=== PATIENT | female | born 1935 | race Caucasian/White ===

== ENCOUNTER 2016-05-30 15:09 | Observation (INO) ==
[2016-05-30] MEDS ORDERED: Ondansetron 4 MG/2 ML VIAL IVP ONE (16:01)
[2016-05-30] MEDS ORDERED: *HR* FentaNYL (PF) 100 MCG/2 ML VIAL IVP ONE (16:01)
--- NOTE | 2016-05-30 16:05 | Emergency Department Note ---
Disposition Clinical Impression: Right hip pain, Cervical pain, Decreased ambulation status Fall Qualifiers: Encounter type: initial encounter Qualified Code(s): W19.XXXA - Unspecified fall, initial encounter Thoracic back pain Qualifiers: Chronicity: acute Back pain laterality: midline Qualified Code(s): M54.6 - Pain in thoracic spine Compression fracture of thoracic spine, non-traumatic Qualifiers: Encounter type: initial encounter Qualified Code(s): M48.54XA - Collapsed vertebra, not elsewhere classified, thoracic region, initial encounter for fracture Disposition: Admitted As Inpatient Condition: Good Referrals: Pipe Marin DO [Primary Care Provider] - Forms: ED Satisfaction Letter Time of Disposition: 19:04 Fall HPI - General Chief Complaint: ED Fall Stated Complaint: Fall hip, back, shoulder pain Time Seen by Provider: 05/30/16 15:47 Source: patient Mode of arrival: ambulatory Limitations: no limitations Nursing Notes Reviewed: Yes Vital Signs Reviewed: Yes - History of Present Illness HPI Narrative: Patient is an 80-year-old female with past medical history of hypertension, high cholesterol, GERD, or a period she presents today due to mechanical fall. Patient states that she was walking with her walker, twisted and fell onto her back. She heard a pop in her upper back and was afraid that she "broke her back. "She also reports falling on her right hip. She also reports cervical spine pain. Denies any loss of consciousness, denies any chest pain, shortness of breath. No new weakness, numbness, tingling. - Related Data Home Medications Medication Instructions Recorded Confirmed Acetaminophen/Butalbital/Caffe 1.5 each PO Q4H 11/23/14 03/13/16 [Fioricet] Calcium Carbonate/Vitamin D3 1 each PO QAM 11/23/14 03/13/16 [Calcium 600 + D Tablet] Cyanocobalamin (Vitamin B-12) 1,000 mcg PO QWEEK 11/23/14 03/13/16 [Vitamin B12] Docusate [Colace] 200 mg PO QAM 11/23/14 03/13/16 Escitalopram [Lexapro] 20 mg PO QAM 11/23/14 03/13/16 Folic Acid 1 mg PO QAM 11/23/14 03/13/16 Lactulose 15 ml PO DAILY PRN 11/23/14 09/14/15 Levothyroxine [Synthroid] 112 mcg PO QAM 11/23/14 03/13/16 Omeprazole [PriLOSEC] 20 mg PO QAM 11/23/14 03/13/16 SUMAtriptan Succinate [Imitrex] 100 mg PO DAILY PRN 11/23/14 03/13/16 Sucralfate [Carafate] 1 gm PO QID 11/23/14 09/14/15 Magnesium Oxide [Mgo] 400 mg PO DAILY 03/13/16 03/13/16 Potassium Chloride [K-Tab ER] 40 meq PO DAILY 03/13/16 03/13/16 PredniSONE [Prednisone] 5 mg PO DAILY 03/13/16 03/13/16 Previous Rx's Medication Instructions Recorded Alprazolam [Xanax] 0.5 mg PO TID #30 tablet 11/28/14 ClonazePAM [Klonopin] 1 mg PO BID #20 tablet 11/28/14 Amlodipine [Norvasc] 10 mg PO DAILY #30 tablet 09/18/15 Lisinopril [Zestril] 20 mg PO DAILY #30 tablet 09/18/15 Atorvastatin Calcium [Lipitor] 20 mg PO HS #0 03/17/16 Sulfamethoxazole/Trimeth DS 1 each PO BID #9 tablet 03/17/16 [Bactrim Ds] Allergies Allergy/AdvReac Type Severity Reaction Status Date / Time esomeprazole [From Nexium] Allergy Difficulty Verified 09/13/15 20:15 Breathing levofloxacin [From Levaquin] Allergy Blister Verified 09/13/15 20:15 acetaminophen [From Percocet] AdvReac Dizziness Verified 09/13/15 20:15 Amoxicillin [From Augmentin] AdvReac Nausea Verified 09/13/15 20:15 aspirin AdvReac Dizziness Verified 09/13/15 20:15 clavulanic acid AdvReac Nausea Verified 09/13/15 20:15 [From Augmentin] codeine AdvReac Dizziness Verified 09/13/15 20:15 Estrogens AdvReac Dizziness Verified 09/13/15 20:15 Hydromorphone AdvReac Dizziness Verified 09/13/15 20:15 meperidine AdvReac Dizziness Verified 09/13/15 20:15 morphine AdvReac Dizziness Verified 09/13/15 20:15 nitrofurantoin AdvReac Nausea Verified 09/13/15 20:15 NSAIDS (Non-Steroidal AdvReac Dizziness Verified 09/13/15 20:15 Anti-Inflamma Oxycodone AdvReac Dizziness Verified 09/13/15 20:15 Paroxetine [From Paxil] AdvReac Nausea Verified 09/13/15 20:15 tolterodine [From Detrol] AdvReac Nausea Verified 09/13/15 20:15 Constitutional: Denies: fever Cardiovascular: Denies: chest pain, palpitations, dyspnea on exertion Respiratory: Denies: cough, dyspnea, wheezes, hemoptysis Gastrointestinal: Reports: nausea. Denies: abdominal pain, vomiting Genitourinary: Denies: urgency, dysuria, frequency Musculoskeletal: Reports: back pain, neck pain Integumentary: Denies: rash Neurological: Denies: headache, weakness, numbness, paresthesias Psychiatric: Reports: anxiety Fall PMH - Past Medical History Medical history: Reports: arthritis, GERD, hyperlipidemia, hypertension, migraine, RA, thyroid disease Surgical history: Reports: hysterectomy Psychiatric history: Reports: anxiety, depression - Social History Smoking Status: Never smoker Alcohol use: Reports: none Drug use: Reports: none Physical Exam - General Limitations: no limitations General appearance: alert, in no apparent distress - Head Head exam: atraumatic, normocephalic, normal inspection - Eye Eye exam: Present: normal appearance, PERRL, EOMI - ENT ENT exam: normal exam, normal oropharynx, mucous membranes moist - Neck Neck exam: Present: normal inspection, full ROM, trachea midline - Chest Chest inspection: Present: normal inspection, symmetric chest wall rise, tenderness (Tenderness of the cervical spine C2-C7 with palpation, midline) - Respiratory Respiratory exam: Present: normal lung sounds bilaterally - Cardiovascular Cardiovascular exam: Present: regular rate, normal rhythm, normal heart sounds - Abdominal Exam Abdominal exam: Present: soft, Non-Tender. Absent: tenderness, distention, guarding, rebound, rigidity - Extremities Exam Extremities exam: Present: other (Patient tenderness of the right hip with compression testing.) - Back Exam Back exam: Present: vertebral tenderness (T5-T8). Absent: muscle spasm, paraspinal tenderness - Neurological Exam Neurological exam: Present: alert, oriented X3, CN II-XII intact. Absent: motor sensory deficit - Psychiatric Psychiatric exam: Present: normal affect, normal mood - Skin Skin exam: Present: warm, dry, intact, normal color Course Course Narrative: Vitals within normal limits. Physical exam shows pain in the right hip, pain in the cervical spine and upper thoracic spine. Patient did have a mechanical fall, no LOC. No focal neurologic deficits on exam. We will get a CT of the patient's head, cervical spine, we will get x-ray imaging of the right hip and pelvis, upper thoracic spine. We will give patient fentanyl for pain control and Zofran for nausea. 18:00 Pain is controlled at this time. Imaging shows chronic injuries and compression fractures. Currently drawing bloodwork. Daughter is concerned due to patient's decreased ambulation status and has requested admisison until tomorrow. She is unable to take care of her at home. She has called [facility] and set up for patient ot be placed there tomorrow. 19:03 Basic bloodwork nonconcerning. Dr. Braden accepts for admission. Cervical Spine CT 05/30/16 16:02 IMPRESSION: 1. Mild anterior wedge deformity of T1 is new since 09/27/2014; however, there are no findings to suggest an acute fracture and this may represent an old injury. Correlate with location of pain. 2. Multilevel degenerative disc disease, not significantly changed. 3. Severe T4 compression fracture is unchanged. Ensure appropriate evaluation and treatment for osteoporosis. D/ / Ralph Potts MD / Ralph Potts MD Interpreting Provider: Ralph Potts MD Head CT 05/30/16 16:02 IMPRESSION: No acute intracranial abnormality. Chronic small vessel ischemic disease. D/ / Ranjan Thayer MD / Ranjan Thayer MD Interpreting Provider: Ranjan Thayer MD Hip X-Ray 05/30/16 16:02 IMPRESSION: 1. Stable posttraumatic changes in the right hip without clear evidence of acute fracture. D/ / Ralph Potts MD / Ralph Potts MD Interpreting Provider: Ralph Potts MD Thoracic Spine X-Ray 05/30/16 16:02 IMPRESSION: 1. Significant decreased bone mineral density. 2. There are numerous remote upper, mid, and lower thoracic spine compression/insufficiency fractures. If clinical concern for an acute component, evaluation with MRI is recommended. D/ / 05/30/2016 17:42:53 Abel Renee MD / [email or web address] Interpreting Provider: Abel Renee MD Humerus X-Ray 05/30/16 16:52 IMPRESSION: No radiographic evidence of fracture or dislocation identified. D/ / Ranjan Thayer MD / Ranjan Thayer MD Interpreting Provider: Ranjan Thayer MD Shoulder X-Ray 05/30/16 16:52 IMPRESSION: No acute fracture or dislocation. D/ / Ralph Potts MD / Ralph Potts MD Interpreting Provider: Ralph Potts MD Vital Signs Temperature 98.3 F 05/30/16 15:22 Pulse Rate 89 05/30/16 15:22 Respiratory Rate 16 05/30/16 15:22 Blood Pressure 148/78 05/30/16 15:22 O2 Sat by Pulse Oximetry 96 05/30/16 15:22 Temperature 98.3 F 05/30/16 15:22 Pulse Rate 89 05/30/16 15:22 Respiratory Rate 16 05/30/16 15:22 Blood Pressure 148/78 05/30/16 15:22 O2 Sat by Pulse Oximetry 96 05/30/16 15:22 Oxygen Delivery Oxygen Delivery Room Air Fall - MDM Narrative Medical decision making narrative: Vitals within normal limits. Physical exam shows pain in the right hip, pain in the cervical spine and upper thoracic spine. Patient did have a mechanical fall, no LOC. No focal neurologic deficits on exam. We will get a CT of the patient's head, cervical spine, we will get x-ray imaging of the right hip and pelvis, upper thoracic spine. We will give patient fentanyl for pain control and Zofran for nausea. 18:00 Pain is controlled at this time. Imaging shows chronic injuries and compression fractures. Currently drawing bloodwork. Daughter is concerned due to patient's decreased ambulation status and has requested admisison until tomorrow. She is unable to take care of her at home. She has called [facility] and set up for patient ot be placed there tomorrow. 19:03 Basic bloodwork nonconcerning. Dr. Braden accepts for admission. - Medical Records Medical records reviewed: Yes I reviewed the patient's medical records. - Lab Data Lab results reviewed: Yes I reviewed the patient's lab results. Result diagrams: 05/30/16 17:52 05/30/16 17:52 Lab Results 05/30/16 05/30/16 Range/Units 17:52 17:52 WBC 9.3 (4.3-11.1) K/mcL RBC 3.73 L (3.82-4.97) M/mcL Hgb 12.8 (11.5-15.4) g/dL Hct 38.9 (35.3-44.9) % MCV 104.3 H (83.0-100.0) fL MCH 34.3 H (28.0-33.3) pg MCHC 32.9 (31.6-35.5) g/dL RDW 13.2 (11.5-14.5) % Plt Count 151 (140-400) K/mcL MPV 10.0 (9.4-12.4) fL Immature Gran % 0.3 (0-4) % Seg Neutrophils % 79.0 % Lymphocytes % 13.6 % Monocytes % 5.9 % Eosinophils % 0.9 % Basophils % 0.3 % Neutrophils # 7.3 (1.6-8.9) K/mcL Lymphocytes # 1.3 (0.6-4.6) K/mcL Monocytes # 0.6 (0.0-1.3) K/mcL Eosinophils # 0.1 (0.0-0.6) K/mcL Basophils # 0.0 (0.0-0.2) K/mcL Sodium 133 L (136-145) mEq/L Potassium 5.1 H (3.5-4.5) mEq/L Chloride 98 (98-109) mEq/L Carbon Dioxide 29 (19-29) mEq/L BUN 18 (7-20) mg/dL Creatinine 0.75 (0.57-1.11) mg/dL Est GFR ( Amer) > 60 (> 60) Est GFR (Non-Af Amer) > 60 (> 60) BUN/Creatinine Ratio 24 (6-26) Glucose 100 H (70-99) mg/dL Calculated Osmolality 278 L (280-300) Calcium 9.1 (8.6-10.8) mg/dL Total Bilirubin 0.7 (0.2-1.2) mg/dL Direct Bilirubin 0.2 (0.0-0.5) mg/dL Indirect Bilirubin 0.5 (0.0-1.2) mg/dL AST 18 (5-34) Units/L ALT 14 (0-55) Units/L Alkaline Phosphatase 54 (38-126) Units/L Serum Total Protein 7.1 (6.0-8.3) g/dL Albumin 3.5 (3.5-5.0) g/dL Globulin 3.6 H (2.4-3.5) g/dL Albumin/Globulin Ratio 1.0 L (1.1-2.2) - Radiology Data Radiology results reviewed: Yes I reviewed the patient's radiology results. Cervical Spine CT 05/30/16 16:02 IMPRESSION: 1. Mild anterior wedge deformity of T1 is new since 09/27/2014; however, there are no findings to suggest an acute fracture and this may represent an old injury. Correlate with location of pain. 2. Multilevel degenerative disc disease, not significantly changed. 3. Severe T4 compression fracture is unchanged. Ensure appropriate evaluation and treatment for osteoporosis. D/ / Ralph Potts MD / Ralph Potts MD Interpreting Provider: Ralph Potts MD Head CT 05/30/16 16:02 IMPRESSION: No acute intracranial abnormality. Chronic small vessel ischemic disease. D/ / Ranjan Thayer MD / Ranjan Thayer MD Interpreting Provider: Ranjan Thayer MD Hip X-Ray 05/30/16 16:02 IMPRESSION: 1. Stable posttraumatic changes in the right hip without clear evidence of acute fracture. D/ / Ralph Potts MD / Ralph Potts MD Interpreting Provider: Ralph Potts MD Thoracic Spine X-Ray 05/30/16 16:02 IMPRESSION: 1. Significant decreased bone mineral density. 2. There are numerous remote upper, mid, and lower thoracic spine compression/insufficiency fractures. If clinical concern for an acute component, evaluation with MRI is recommended. D/ / 05/30/2016 17:42:53 Abel Renee MD / zeus Interpreting Provider: Abel Renee MD Humerus X-Ray 05/30/16 16:52 IMPRESSION: No radiographic evidence of fracture or dislocation identified. D/ / Ranjan Thayer MD / Ranjan Thayer MD Interpreting Provider: Ranjan Thayer MD Shoulder X-Ray 05/30/16 16:52 IMPRESSION: No acute fracture or dislocation. D/ / Ralph Potts MD / Ralph Potts MD Interpreting Provider: Ralph Potts MD S.B.AToshia - S.B.A.R. Situation: Demographics, MOA Background: Presenting Complaint, Relevant PMH, Meds, & Allergies Assessment: Vital Signs, Course and respsone to treatment, Exam Concerns, Patient/Family Expectation, Pertinant Lab Results, Outstanding Labs Recommendation: Barrier(s) to disposition, Recommendation based on pending studies, treatments, or consults S.B.A.RLeatha Report Given to: Dr. Sampson Holman Repor Time: 19:04
--- NOTE | 2016-05-30 16:07 | Emergency Department Note ---
Disposition Clinical Impression: Fall, Right hip pain, Thoracic back pain, Cervical pain, Decreased ambulation status, Compression fracture of thoracic spine, non-traumatic Disposition: Admitted As Inpatient Condition: Good Referrals: Pipe Marin DO [Primary Care Provider] - Forms: ED Satisfaction Letter Fall HPI - General Chief Complaint: ED Fall Stated Complaint: Fall hip, back, shoulder pain Time Seen by Provider: 05/30/16 15:47 Source: patient Mode of arrival: ambulatory Nursing Notes Reviewed: Yes Vital Signs Reviewed: Yes - Related Data Home Medications Medication Instructions Recorded Confirmed Acetaminophen/Butalbital/Caffe 1.5 each PO Q4H 11/23/14 05/30/16 [Fioricet] Calcium Carbonate/Vitamin D3 1 each PO QAM 11/23/14 05/30/16 [Calcium 600 + D Tablet] Cyanocobalamin (Vitamin B-12) 1,000 mcg PO QWEEK 11/23/14 05/30/16 [Vitamin B12] Docusate [Colace] 200 mg PO QAM 11/23/14 05/30/16 Escitalopram [Lexapro] 20 mg PO QAM 11/23/14 05/30/16 Folic Acid 1 mg PO QAM 11/23/14 05/30/16 Lactulose 15 ml PO DAILY PRN 11/23/14 09/14/15 Levothyroxine [Synthroid] 112 mcg PO QAM 11/23/14 03/13/16 Omeprazole [PriLOSEC] 20 mg PO QAM 11/23/14 03/13/16 SUMAtriptan Succinate [Imitrex] 100 mg PO DAILY PRN 11/23/14 03/13/16 Sucralfate [Carafate] 1 gm PO QID 11/23/14 09/14/15 Magnesium Oxide [Mgo] 400 mg PO DAILY 03/13/16 03/13/16 Potassium Chloride [K-Tab ER] 40 meq PO DAILY 03/13/16 03/13/16 PredniSONE [Prednisone] 5 mg PO DAILY 03/13/16 03/13/16 Amlodipine [Norvasc] 10 mg PO DAILY PRN 05/30/16 05/30/16 Cholecalciferol (D-3) [Vitamin D] 2,000 unit PO DAILY 05/30/16 05/30/16 Estradiol [Estrace] 1 gm VG 2XW PRN 05/30/16 05/30/16 Levothyroxine Sodium 100 mcg PO QAM 05/30/16 05/30/16 Lisinopril [Zestril] 10 mg PO DAILY 05/30/16 05/30/16 Previous Rx's Medication Instructions Recorded Alprazolam [Xanax] 0.5 mg PO TID #30 tablet 11/28/14 ClonazePAM [Klonopin] 1 mg PO BID #20 tablet 11/28/14 Amlodipine [Norvasc] 10 mg PO DAILY #30 tablet 09/18/15 Lisinopril [Zestril] 20 mg PO DAILY #30 tablet 09/18/15 Atorvastatin Calcium [Lipitor] 20 mg PO HS #0 03/17/16 Sulfamethoxazole/Trimeth DS 1 each PO BID #9 tablet 03/17/16 [Bactrim Ds] Allergies Allergy/AdvReac Type Severity Reaction Status Date / Time esomeprazole [From Nexium] Allergy Difficulty Verified 09/13/15 20:15 Breathing levofloxacin [From Levaquin] Allergy Blister Verified 09/13/15 20:15 acetaminophen [From Percocet] AdvReac Dizziness Verified 09/13/15 20:15 Amoxicillin [From Augmentin] AdvReac Nausea Verified 09/13/15 20:15 aspirin AdvReac Dizziness Verified 09/13/15 20:15 clavulanic acid AdvReac Nausea Verified 09/13/15 20:15 [From Augmentin] codeine AdvReac Dizziness Verified 09/13/15 20:15 Estrogens AdvReac Dizziness Verified 09/13/15 20:15 Hydromorphone AdvReac Dizziness Verified 09/13/15 20:15 meperidine AdvReac Dizziness Verified 09/13/15 20:15 morphine AdvReac Dizziness Verified 09/13/15 20:15 nitrofurantoin AdvReac Nausea Verified 09/13/15 20:15 NSAIDS (Non-Steroidal AdvReac Dizziness Verified 09/13/15 20:15 Anti-Inflamma Oxycodone AdvReac Dizziness Verified 09/13/15 20:15 Paroxetine [From Paxil] AdvReac Nausea Verified 09/13/15 20:15 tolterodine [From Detrol] AdvReac Nausea Verified 09/13/15 20:15 Constitutional: Denies: fever Cardiovascular: Denies: chest pain, palpitations, dyspnea on exertion Respiratory: Denies: cough, dyspnea, wheezes, hemoptysis Gastrointestinal: Reports: nausea. Denies: abdominal pain, vomiting Genitourinary: Denies: urgency, dysuria, frequency Musculoskeletal: Reports: back pain, neck pain Integumentary: Denies: rash Neurological: Denies: headache, weakness, numbness, paresthesias Fall PMH - Past Medical History Medical history: Reports: arthritis, GERD, hyperlipidemia, hypertension, migraine, RA, thyroid disease Surgical history: Reports: hysterectomy Psychiatric history: Reports: anxiety, depression - Social History Smoking Status: Never smoker Alcohol use: Reports: none Drug use: Reports: none Physical Exam - General Limitations: no limitations General appearance: alert, in no apparent distress Course Vital Signs Temperature 98.3 F 05/30/16 15:22 Pulse Rate 89 05/30/16 15:22 Respiratory Rate 16 05/30/16 15:22 Blood Pressure 148/78 05/30/16 15:22 O2 Sat by Pulse Oximetry 96 05/30/16 15:22 Temperature 98.3 F 05/30/16 15:22 Pulse Rate 89 05/30/16 15:22 Respiratory Rate 16 05/30/16 15:22 Blood Pressure 148/78 05/30/16 15:22 O2 Sat by Pulse Oximetry 96 05/30/16 15:22 Oxygen Delivery Oxygen Delivery Room Air Fall - [facility] Narrative Medical decision making narrative: I examined this patient and my medical decision-making was reviewed with the INFORMATION ARCHITECT/PA/Advanced Practice Nurse/Resident Physician. I agree with the documented findings, disposition and treatment plan as described except to the extent set forth below. I evaluated this patient on arrival with Dr. Lai, agree with his evaluation and treatment plan, I supervised the care of the patient's stay. Patient comes in today with her family. She was walking with her walker and slipped on [facility] floor. She struck her head she said headache and neck pain and right hip pain does not really extremity pain. Denies loss of conscious. This seems as to be a mechanical fall. Tests of the right hip. She multiple allergies most things cause her to have dizziness where Triphed [place] and Zofran x-ray or CT her head and neck and then reassess. She is in agreement with this plan. Cervical Spine CT 05/30/16 16:02 IMPRESSION: 1. Mild anterior wedge deformity of T1 is new since 09/27/2014; however, there are no findings to suggest an acute fracture and this may represent an old injury. Correlate with location of pain. 2. Multilevel degenerative disc disease, not significantly changed. 3. Severe T4 compression fracture is unchanged. Ensure appropriate evaluation and treatment for osteoporosis. D/ / Ralph Potts MD / Ralph Potts MD Interpreting Provider: Ralph Potts MD Head CT 05/30/16 16:02 IMPRESSION: No acute intracranial abnormality. Chronic small vessel ischemic disease. D/ / Ranjan Thayer MD / Ranjan Thayer MD Interpreting Provider: Ranjan Thyaer MD Hip X-Ray 05/30/16 16:02 IMPRESSION: 1. Stable posttraumatic changes in the right hip without clear evidence of acute fracture. D/ / Ralph Potts MD / Ralph Potts MD Interpreting Provider: Ralph Potts MD Thoracic Spine X-Ray 05/30/16 16:02 IMPRESSION: 1. Significant decreased bone mineral density. 2. There are numerous remote upper, mid, and lower thoracic spine compression/insufficiency fractures. If clinical concern for an acute component, evaluation with MRI is recommended. D/ / 05/30/2016 17:42:53 Abel Renee MD / bcarter Interpreting Provider: Abel Renee MD Humerus X-Ray 05/30/16 16:52 IMPRESSION: No radiographic evidence of fracture or dislocation identified. D/ / Ranjan Thayer MD / Ranjan Thayer MD Interpreting Provider: Ranjan Thayer MD Shoulder X-Ray 05/30/16 16:52 IMPRESSION: No acute fracture or dislocation. D/ / Ralph Potts MD / Ralph Potts MD Interpreting Provider: Ralph Potts MD 1800 hrs.: Patient was updated on the status. Waiting on labs and then we will get her admitted. She has been a [facility] about a month ago slid like her to be placed again. Daughter who is one of our hospital administrators as x- ray talk to the nursing facility there they said they have a bed for tomorrow. janitorial services supervisor aware. 1900 hrs.: Hospitals accepted patient for admission. - Lab Data Result diagrams: 05/30/16 17:52 05/30/16 17:52 Lab Results 05/30/16 05/30/16 Range/Units 17:52 17:52 WBC 9.3 (4.3-11.1) K/mcL RBC 3.73 L (3.82-4.97) M/mcL Hgb 12.8 (11.5-15.4) g/dL Hct 38.9 (35.3-44.9) % MCV 104.3 H (83.0-100.0) fL MCH 34.3 H (28.0-33.3) pg MCHC 32.9 (31.6-35.5) g/dL RDW 13.2 (11.5-14.5) % Plt Count 151 (140-400) K/mcL MPV 10.0 (9.4-12.4) fL Immature Gran % 0.3 (0-4) % Seg Neutrophils % 79.0 % Lymphocytes % 13.6 % Monocytes % 5.9 % Eosinophils % 0.9 % Basophils % 0.3 % Neutrophils # 7.3 (1.6-8.9) K/mcL Lymphocytes # 1.3 (0.6-4.6) K/mcL Monocytes # 0.6 (0.0-1.3) K/mcL Eosinophils # 0.1 (0.0-0.6) K/mcL Basophils # 0.0 (0.0-0.2) K/mcL Sodium 133 L (136-145) mEq/L Potassium 5.1 H (3.5-4.5) mEq/L Chloride 98 (98-109) mEq/L Carbon Dioxide 29 (19-29) mEq/L BUN 18 (7-20) mg/dL Creatinine 0.75 (0.57-1.11) mg/dL Est GFR ( Amer) > 60 (> 60) Est GFR (Non-Af Amer) > 60 (> 60) BUN/Creatinine Ratio 24 (6-26) Glucose 100 H (70-99) mg/dL Calculated Osmolality 278 L (280-300) Calcium 9.1 (8.6-10.8) mg/dL Total Bilirubin 0.7 (0.2-1.2) mg/dL Direct Bilirubin 0.2 (0.0-0.5) mg/dL Indirect Bilirubin 0.5 (0.0-1.2) mg/dL AST 18 (5-34) Units/L ALT 14 (0-55) Units/L Alkaline Phosphatase 54 (38-126) Units/L Serum Total Protein 7.1 (6.0-8.3) g/dL Albumin 3.5 (3.5-5.0) g/dL Globulin 3.6 H (2.4-3.5) g/dL Albumin/Globulin Ratio 1.0 L (1.1-2.2)
[2016-05-30 18:17] LABS: Basophils % 0.3 %; Eosinophils # 0.1 K/mcL (0.0-0.6); Eosinophils % 0.9 %; Hematocrit 38.9 % (35.3-44.9); Hemoglobin 12.8 g/dL (11.5-15.4); Immature Granulocytes % 0.3 % (0-4); Lymphocytes # 1.3 K/mcL (0.6-4.6); Lymphocytes % 13.6 %; Mean Corpuscular HGB Conc 32.9 g/dL (31.6-35.5); Mean Corpuscular Hemoglobin 34.3 pg (28.0-33.3); Mean Corpuscular Volume 104.3 fL (83.0-100.0); Monocytes # 0.6 K/mcL (0.0-1.3); Monocytes % 5.9 %; Neutrophils # 7.3 K/mcL (1.6-8.9); Platelet Count 151 K/mcL (140-400); Red Blood Count 3.73 M/mcL (3.82-4.97); Red Cell Distribution Width 13.2 % (11.5-14.5)
[2016-05-30 18:28] LABS: Alanine Aminotransferase 14 Units/L (0-55); Albumin 3.5 g/dL (3.5-5.0); Alkaline Phosphatase 54 Units/L (38-126); Aspartate Amino Transferase 18 Units/L (5-34); BUN/Creatinine Ratio 24 (6-26); Bilirubin,Direct 0.2 mg/dL (0.0-0.5); Bilirubin,Indirect 0.5 mg/dL (0.0-1.2); Bilirubin,Total 0.7 mg/dL (0.2-1.2); Blood Urea Nitrogen 18 mg/dL (7-20); Calcium 9.1 mg/dL (8.6-10.8); Carbon Dioxide 29 mEq/L (19-29); Chloride 98 mEq/L (98-109); Globulin 3.6 g/dL (2.4-3.5); Glucose 100 mg/dL (70-99); Osmolality,Calculated 278 (280-300); Potassium 5.1 mEq/L (3.5-4.5); Sodium 133 mEq/L (136-145); Total Protein 7.1 g/dL (6.0-8.3); eGFR For African Americans > 60 (> 60); eGFR For Non-African Americans > 60 (> 60)
[2016-05-30] MEDS ORDERED: Acetaminophen/Butalbital/CaffeineTABLET PO ONE (19:01)
[2016-05-30] MEDS ORDERED: *HR* Meperidine 25 MG/ML SYRINGE IVP PRN (20:59)
[2016-05-30] MEDS ORDERED: Naloxone 0.4 MG/ML INJ IVP PRN (20:59)
[2016-05-30] MEDS ORDERED: ESTRADIOL 1 GM VG PRN (21:11)
[2016-05-30] MEDS ORDERED: Cyanocobalamin (B-12) 1,000 MCG TABLET PO SCH (21:15)
--- NOTE | 2016-05-30 21:41 | Internal Med History&Physical ---
Date of Encounter: 05/30/16 Time of Encounter: 20:40 Assessment and Plan (1) Compression fracture of thoracic spine, non-traumatic Current visit: Yes Status: Acute 1. Pain control with Toradol and/or Demerol (discussed with daughter -- patient may take with no side effects/allergies). 2. Patient has significant allergies/side effects to multiple medications limiting our options for pain control. 3. Consult PT/OT for rehab potential. 4. Patient and family to consider MRI and Kyphoplasty consult. Qualifiers: Encounter type: initial encounter Qualified Code(s): M48.54XA - Collapsed vertebra, not elsewhere classified, thoracic region, initial encounter for fracture (2) Fall Current visit: Yes Status: Acute 1. PT/OT consults as noted. 2. Pt would likely benefit from inpatient rehab upon discharge. Qualifiers: Encounter type: initial encounter Qualified Code(s): W19.XXXA - Unspecified fall, initial encounter (3) HTN (hypertension) Current visit: No Status: Chronic 1. Continue home meds as appropriate. 2. Monitor BP and adjust as necessary. Qualifiers: Hypertension type: unspecified secondary hypertension Qualified Code(s): I15.9 - Secondary hypertension, unspecified (4) DVT prophylaxis Current visit: No Status: Acute 1. Heparin SQ. Internal Medicine - H&P: HPI Chief complaint: s/p fall; intractable pain Admitted From: Emergency Dept Plans for Post Hospital Care: Home History of present illness: Ms. Schmidt is an 80 year old female who fell earlier at home today and sustained significant pain and disability. She landed on her bottom and on her back. She was brought to ER for evaluation where she had extensive imaging, which did not reveal any new acute fractures. She did have evidence of remote compression fractures in her spine but these were not acute/new. She was subsequently admitted for intractable pain and potential rehabilitation. Upon my assessment of the patient, she is having significant pain in her upper thoracic to mid lumbar spine. She also has some radiating pain to her right hip. However, most of her pain is in her spine. She denies any numbness, weakness, syncope, or near syncope. She is not interested at the present time in undergoing MRI or considering kyphoplasty. However, she would like to discuss this with her family. I called her daughter and discussed that with her as well. Both daughter and the patient do not feel she is a good operative candidate. However, they would like to discuss with each other whether to proceed with MRI and kyphoplasty consultation. Meanwhile, they prefer to pursue pain control and PT/OT consult. Past Med Surg Social Fam HX - Past Medical History Source: patient, old records reviewed, obtained from family Medical history: arthritis, GERD, hyperlipidemia, hypertension, migraine, RA, thyroid disease Psychiatric history: anxiety, depression - Past Surgical History Surgical History: hysterectomy - Social History Smoking Status: Never smoker Smokeless Tobacco Status: No Alcohol use: none Drug use: none Current living situation: Home, With Family Activity Level: Uses cane/walker Recent Out of Country Travel Within the Last 8 Weeks: No - Family History Mother Adopted: No Living Status: Hx Family Cardiac Disorders: Yes Father Hx Family Cancer: Yes (colon cancer) Internal Medicine - H&P: Meds Acetaminophen/Butalbital/Caffe [Fioricet] 1.5 each PO Q4H 11/23/14 [History] Calcium Carbonate/Vitamin D3 [Calcium 600 + D Tablet] 1 each PO QAM 11/23/14 [ History] Cyanocobalamin (Vitamin B-12) [Vitamin B12] 1,000 mcg PO QWEEK 11/23/14 [History ] Docusate [Colace] 200 mg PO QAM 11/23/14 [History] Escitalopram [Lexapro] 20 mg PO QAM 11/23/14 [History] Folic Acid 1 mg PO QAM 11/23/14 [History] Omeprazole [PriLOSEC] 20 mg PO BID 11/23/14 [History] Sucralfate [Carafate] 1 gm PO TID 11/23/14 [History] Alprazolam [Xanax] 0.5 mg PO TID #30 tablet 11/28/14 [Rx] ClonazePAM [Klonopin] 1 mg PO BID #20 tablet 11/28/14 [Rx] Magnesium Oxide [Mgo] 400 mg PO DAILY 03/13/16 [History] Potassium Chloride [K-Tab ER] 40 meq PO DAILY 03/13/16 [History] PredniSONE [Prednisone] 5 mg PO DAILY PRN 03/13/16 [History] Atorvastatin Calcium [Lipitor] 20 mg PO HS #0 03/17/16 [Rx] Amlodipine [Norvasc] 10 mg PO DAILY PRN 05/30/16 [History] Cholecalciferol (D-3) [Vitamin D] 2,000 unit PO DAILY 05/30/16 [History] Estradiol [Estrace] 1 gm VG 2XW PRN 05/30/16 [History] Levothyroxine Sodium 100 mcg PO QAM 05/30/16 [History] Lisinopril [Zestril] 10 mg PO DAILY 05/30/16 [History] Allergies esomeprazole [From Nexium] Allergy (Verified 09/13/15 20:15) Difficulty Breathing levofloxacin [From Levaquin] Allergy (Verified 09/13/15 20:15) Blister acetaminophen [From Percocet] Adverse Reaction (Verified 09/13/15 20:15) Dizziness Amoxicillin [From Augmentin] Adverse Reaction (Verified 09/13/15 20:15) Nausea aspirin Adverse Reaction (Verified 09/13/15 20:15) Dizziness clavulanic acid [From Augmentin] Adverse Reaction (Verified 09/13/15 20:15) Nausea codeine Adverse Reaction (Verified 09/13/15 20:15) Dizziness Estrogens Adverse Reaction (Verified 09/13/15 20:15) Dizziness Hydromorphone Adverse Reaction (Verified 09/13/15 20:15) Dizziness meperidine Adverse Reaction (Verified 09/13/15 20:15) Dizziness morphine Adverse Reaction (Verified 09/13/15 20:15) Dizziness nitrofurantoin Adverse Reaction (Verified 09/13/15 20:15) Nausea NSAIDS (Non-Steroidal Anti-Inflamma Adverse Reaction (Verified 09/13/15 20:15) Dizziness Oxycodone Adverse Reaction (Verified 09/13/15 20:15) Dizziness Paroxetine [From Paxil] Adverse Reaction (Verified 09/13/15 20:15) Nausea tolterodine [From Detrol] Adverse Reaction (Verified 09/13/15 20:15) Nausea - Constitutional Constitutional: no chills, no fever(s) - EENT Eyes: no blurry vision, no change in vision Ears: no ear pain, no tinnitus Nose, mouth and throat: no nasal congestion, no sinus pressure, no sore throat - Cardiovascular Cardiovascular ROS IM: no chest pain, no dyspnea, no dyspnea on exertion, no lightheadedness, no palpitations, no syncope - Respiratory Respiratory: no cough, no dyspnea, no hemoptysis - Gastrointestinal Gastrointestinal: no abdominal pain, no diarrhea, no hematemesis, no hematochezia, no melena, no vomiting - Genitourinary Genitourinary: no dysuria, no hematuria - Musculoskeletal Musculoskeletal ROS IM: arthralgias, back pain, limited range of motion, stiffness, no joint swelling - Integumentary Integumentary IM: no rash, no jaundice - Neurological Neurological ROS: frequent falls (patient says no frequent falls; daughter states she's had several falls), no disequilibrium, no dizziness, no focal weakness, no headache(s) - Psychiatric Psychiatric: no anxiety, no depression - Endocrine Endocrine IM: no polydipsia, no polyuria - Hematologic/Lymphatic Hematologic/Lymphatic: easy bruising, no lymphadenopathy - Allergic/Immunologic Allergic/Immunologic: no wheezing, no GI upset with certain foods - Constitutional Vitals: Temp Pulse Resp BP Pulse Ox 98.0 F 82 16 122/53 96 05/30/16 20:22 05/30/16 20:22 05/30/16 20:22 05/30/16 20:22 05/30/16 20:22 General appearance: Present: cooperative, mild distress (due to pain), A&O X 3, pleasant, answers questions appropriately - Head Head exam: Present: atraumatic, normal inspection - Expanded Head Exam Head exam expanded: Absent: abrasion, contusion, general tenderness, hematoma - Eye Eye exam: Present: EOMI, normal appearance, PERRL. Absent: scleral icterus Pupils: Present: normal accommodation - ENT ENT exam: Present: mucous membranes moist, normal exam, normal oropharynx - Neck Neck exam general surgery: Present: full ROM, supple. Absent: lymphadenopathy, tenderness, nuchal rigidity, thyromegaly - Respiratory Respiratory exam: Present: CTAB. Absent: rales, rhonchi, wheezes - Cardiovascular Cardiovascular exam: Present: RRR, +S1, +S2 - GI/Abdominal GI/Abdominal exam: Present: normal bowel sounds, soft. Absent: hepatomegaly, mass, splenomegaly, tenderness - Extremities Exam Extremities exam: Present: warm, radial pulses palpable and symetrical. Absent : calf tenderness, full ROM, joint swelling, pedal edema - Back Exam Back exam: Present: tenderness (along upper thoracic down to mid lumbar spine). Absent: CVA tenderness (L), CVA tenderness (R), full ROM - Neurological Exam Neurological exam: Present: alert, CN II-XII intact, oriented X3, no focal deficits, strengths equal and symetr throughout - Psychiatric Psychiatric exam: Present: normal affect, normal mood - Skin Skin exam: Present: dry, warm. Absent: rash Internal Med - H&P Results - Labs CBC & Chem 7: 05/30/16 17:52 05/30/16 17:52 Labs: I reviewed all imaging reports of her spine and hips, noting remote (but not acute) compression fractures
[2016-05-30] MEDS: clonazePAM 1 MG TABLET PO SCH (22:04)
[2016-05-30] MEDS: predniSONE 20 MG TABLET PO SCH (22:04)
[2016-05-30] MEDS: *HR* Heparin 5,000 UNIT/ML VIAL SQ SCH (22:04)
[2016-05-30] MEDS: 0.9 % Sodium Chloride 1,000 ML IVC SCH (22:04)
[2016-05-30] MEDS: Acetaminophen/Butalbital/CaffeineTABLET PO PRN (23:30)
[2016-05-31] MEDS: Acetaminophen/Butalbital/CaffeineTABLET PO PRN ×3 (03:40→13:26)
[2016-05-31] MEDS: Ketorolac 30 MG/ML VIAL IVP PRN ×2 (03:54→10:05)
[2016-05-31 06:38] LABS: Alanine Aminotransferase 11 Units/L (0-55); Albumin 2.9 g/dL (3.5-5.0); Albumin/Globulin Ratio 0.9 (1.1-2.2); Alkaline Phosphatase 52 Units/L (38-126); Aspartate Amino Transferase 14 Units/L (5-34); BUN/Creatinine Ratio 21 (6-26); Bilirubin,Total 0.4 mg/dL (0.2-1.2); Blood Urea Nitrogen 14 mg/dL (7-20); Calcium 8.5 mg/dL (8.6-10.8); Carbon Dioxide 25 mEq/L (19-29); Chloride 103 mEq/L (98-109); Globulin 3.4 g/dL (2.4-3.5); Glucose 133 mg/dL (70-99); Magnesium 1.8 mg/dL (1.6-2.6); Osmolality,Calculated 282 (280-300); Potassium 4.6 mEq/L (3.5-4.5); Sodium 135 mEq/L (136-145); Total Protein 6.3 g/dL (6.0-8.3); eGFR For African Americans > 60 (> 60); eGFR For Non-African Americans > 60 (> 60)
[2016-05-31] MEDS: *HR* Heparin 5,000 UNIT/ML VIAL SQ SCH ×2 (07:55→21:28)
[2016-05-31] MEDS: Magnesium Oxide 400 MG TABLET PO SCH (07:56)
[2016-05-31] MEDS: ALPRAZolam 0.5 MG TABLET PO SCH ×3 (07:56→21:28)
[2016-05-31] MEDS: Folic Acid 1 MG TABLET PO SCH (07:56)
[2016-05-31] MEDS: Sucralfate 1 GM TABLET PO SCH ×3 (07:57→21:28)
[2016-05-31] MEDS: clonazePAM 1 MG TABLET PO SCH ×2 (07:57→21:28)
[2016-05-31] MEDS: amLODIPine 5 MG TABLET PO SCH (07:57)
[2016-05-31] MEDS: predniSONE 20 MG TABLET PO SCH (07:57)
[2016-05-31] MEDS: Cholecalciferol (D-3) 1,000 UNIT TABLET PO SCH (07:57)
--- NOTE | 2016-05-31 09:54 | Internal Med Progress Note ---
Date of Encounter: 05/31/16 Time of Encounter: 09:54 - Assessment and plan (1) Compression fracture of thoracic spine, non-traumatic Current Visit: Yes Status: Acute Assessment and plan: Continue pain control Physical therapy eval recommended SNF [facility] consultation placed for rehabilitation placement No further workup or surgical intervention requested as per patient and Qualifiers: Encounter type: initial encounter Qualified Code(s): M48.54XA - Collapsed vertebra, not elsewhere classified, thoracic region, initial encounter for fracture (2) Fall Current Visit: Yes Status: Acute Assessment and plan: Continue physical therapy while in-house Maintain fall precautions Qualifiers: Encounter type: initial encounter Qualified Code(s): W19.XXXA - Unspecified fall, initial encounter (3) Hyperkalemia Current Visit: Yes Status: Acute Assessment and plan: Improved from previous day continue to monitor (4) DVT prophylaxis Current Visit: No Status: Acute Assessment and plan: Heparin SQ (5) Hypertension Current Visit: No Status: Chronic Assessment and plan: BP within acceptable range continue home medications Qualifiers: Hypertension type: essential hypertension Qualified Code(s): I10 - Essential (primary) hypertension - Subjective Interval history: Patient seen and examined with present at bedside (Rosales Davis/REINA). Patient resting in chair, states of being in pain but controlled with the current pain medications. No overnight events were reported. I had a detailed discussion with patient's and the patient in regards to MRI and possible kyphoplasty for the chronic compression fracture of thoracic spine. They do not want any further testing or surgical interventions at this time. They both want just physical therapy and adequate pain control. The physical therapy evaluated the patient and recommended SNF. - Constitutional Vitals: Temp Pulse Resp BP Pulse Ox 98.0 F 81 16 144/74 97 05/31/16 06:47 05/31/16 06:47 05/31/16 06:47 05/31/16 06:47 05/31/16 06:47 General appearance: Present: cooperative, A&O X 3, pleasant, no acute distress, answers questions appropriately - Head Head exam: Present: atraumatic, normocephalic - Eye Eye exam: Present: normal appearance, conjuntiva pink, sclera anicteric - Respiratory Respiratory exam: Present: CTAB. Absent: respiratory distress, wheezes - Cardiovascular Cardiovascular exam: Present: RRR, +S1, +S2 - GI/Abdominal GI/Abdominal exam: Present: normal bowel sounds, soft. Absent: tenderness - Extremities Exam Extremities exam: Present: warm, radial pulses palpable and symetrical. Absent : calf tenderness, pedal edema - Neurological Exam Neurological exam: Present: alert, oriented X3 - Psychiatric Psychiatric exam: Present: normal affect, normal mood Internal Medicine: Result - Labs CBC & Chem 7: 05/30/16 17:52 05/31/16 05:48 Labs: BMP 05/31/16 05:48 Sodium 135 L Potassium 4.6 H Chloride 103 Carbon Dioxide 25 BUN 14 Creatinine 0.66 Glucose 133 H Calcium 8.5 L Liver Function 05/31/16 Range/Units 05:48 Total Bilirubin 0.4 (0.2-1.2) mg/dL AST 14 (5-34) Units/L ALT 11 (0-55) Units/L Alkaline Phosphatase 52 (38-126) Units/L Albumin 2.9 L (3.5-5.0) g/dL Consult Discharge Plan - Plan Referrals: Pipe Marin DO [Primary Care Provider] -
[2016-05-31] MEDS: 0.9 % Sodium Chloride 1,000 ML IVC SCH (12:17)
[2016-05-31] MEDS ORDERED: Ondansetron 4 MG/2 ML VIAL IVP PRN (13:38)
[2016-05-31] MEDS: Ondansetron ODT 4 MG TAB.RAPDIS SL PRN (15:37)
[2016-05-31] MEDS: Acetaminophen/Butalbital/CaffeineTABLET PO SCH ×2 (17:33→21:29)
[2016-05-31] MEDS ORDERED: traMADol 50 MG TABLET PO ONE (22:29)
[2016-06-01] MEDS: Acetaminophen/Butalbital/CaffeineTABLET PO SCH ×7 (01:03→21:31)
[2016-06-01] MEDS: Ondansetron ODT 4 MG TAB.RAPDIS SL PRN ×3 (01:03→21:32)
[2016-06-01 06:06] LABS: Basophils % 0.3 %; Eosinophils # 0.1 K/mcL (0.0-0.6); Eosinophils % 1.4 %; Hematocrit 38.7 % (35.3-44.9); Hemoglobin 12.1 g/dL (11.5-15.4); Immature Granulocytes % 0.2 % (0-4); Lymphocytes # 1.9 K/mcL (0.6-4.6); Lymphocytes % 30.7 %; Mean Corpuscular HGB Conc 31.3 g/dL (31.6-35.5); Mean Corpuscular Hemoglobin 32.5 pg (28.0-33.3); Mean Platelet Volume 10.3 fL (9.4-12.4); Monocytes # 0.6 K/mcL (0.0-1.3); Monocytes % 9.6 %; Neutrophils # 3.6 K/mcL (1.6-8.9); Platelet Count 131 K/mcL (140-400); Red Blood Count 3.72 M/mcL (3.82-4.97); Red Cell Distribution Width 13.2 % (11.5-14.5); Segmented Neutrophils % 57.8 %
[2016-06-01 06:21] LABS: % Iron Saturation 21 % (15-50); BUN/Creatinine Ratio 27 (6-26); Blood Urea Nitrogen 20 mg/dL (7-20); Calcium 8.4 mg/dL (8.6-10.8); Carbon Dioxide 30 mEq/L (19-29); Chloride 102 mEq/L (98-109); Glucose 112 mg/dL (70-99); Iron 58 mcg/dL (50-170); Osmolality,Calculated 287 (280-300); Phosphorous 3.9 mg/dL (2.3-4.7); Potassium 3.6 mEq/L (3.5-4.5); Sodium 137 mEq/L (136-145); Transferrin 200 mg/dL (180-382); eGFR For African Americans > 60 (> 60); eGFR For Non-African Americans > 60 (> 60)
[2016-06-01 06:41] LABS: Ferritin 38 ng/ml (5-204)
[2016-06-01] MEDS: Sucralfate 1 GM TABLET PO SCH ×3 (08:09→21:32)
[2016-06-01] MEDS: *HR* Heparin 5,000 UNIT/ML VIAL SQ SCH ×2 (08:09→18:45)
[2016-06-01] MEDS: clonazePAM 1 MG TABLET PO SCH ×2 (08:10→21:32)
[2016-06-01] MEDS: Folic Acid 1 MG TABLET PO SCH (08:10)
[2016-06-01] MEDS: amLODIPine 5 MG TABLET PO SCH (08:12)
[2016-06-01] MEDS: predniSONE 20 MG TABLET PO SCH (08:15)
[2016-06-01] MEDS: Cholecalciferol (D-3) 1,000 UNIT TABLET PO SCH (08:15)
[2016-06-01] MEDS: ALPRAZolam 0.5 MG TABLET PO SCH ×3 (08:16→21:32)
[2016-06-01] MEDS: Magnesium Oxide 400 MG TABLET PO SCH (08:16)
[2016-06-01] MEDS: traMADol 50 MG TABLET PO PRN ×3 (09:37→23:56)
--- NOTE | 2016-06-01 16:58 | Internal Med Progress Note ---
Date of Encounter: 06/01/16 Time of Encounter: 10:00 - Assessment and plan (1) Compression fracture of thoracic spine, non-traumatic Current Visit: Yes Status: Acute Assessment and plan: Continue pain control Physical therapy eval recommended SNF No further workup or surgical intervention requested as per patient and Patient to be discharged to Rehab once pain is adequately controlled Pain management consultation requested with Dr. Villalobos. Qualifiers: Encounter type: initial encounter Qualified Code(s): M48.54XA - Collapsed vertebra, not elsewhere classified, thoracic region, initial encounter for fracture (2) Fall Current Visit: Yes Status: Acute Assessment and plan: Continue physical therapy while in-house Maintain fall precautions Qualifiers: Encounter type: initial encounter Qualified Code(s): W19.XXXA - Unspecified fall, initial encounter (3) Hyperkalemia Current Visit: Yes Status: Resolved (4) DVT prophylaxis Current Visit: No Status: Acute Assessment and plan: Heparin SQ (5) Hypertension Current Visit: No Status: Chronic Assessment and plan: BP within acceptable range continue home medications Qualifiers: Hypertension type: essential hypertension Qualified Code(s): I10 - Essential (primary) hypertension - Subjective Interval history: Patient seen and examined with present at bedside (Rosales Davis/REINA). Patient resting in chair and states she doesnt feel well and is in a lot of pain. Pain has an extensive list of allergies listed and I had a detailed discussion in regards to patient's allergy list with patient's daughter (Santi [phone]). She states that she will review the allergy list again with her father and let us know. At this time, I am limited to provide patient with adequate pain control given her list of drug allergies and her daughter expresses understanding of this issue. - Constitutional Vitals: Temp Pulse Resp BP Pulse Ox 98.4 F 68 16 113/70 93 L 06/01/16 16:06 06/01/16 16:06 06/01/16 16:06 06/01/16 16:06 06/01/16 16:06 General appearance: Present: cooperative, mild distress (painful distress-lower back pain), A&O X 3, pleasant, answers questions appropriately - Head Head exam: Present: atraumatic, normocephalic - Eye Eye exam: Present: conjuntiva pink, sclera anicteric - Respiratory Respiratory exam: Present: CTAB. Absent: respiratory distress, wheezes - GI/Abdominal GI/Abdominal exam: Present: normal bowel sounds, soft. Absent: distended, tenderness - Extremities Exam Extremities exam: Present: pedal edema, warm, radial pulses palpable and symetrical. Absent: calf tenderness - Neurological Exam Neurological exam: Present: alert - Psychiatric Psychiatric exam: Present: normal affect, normal mood Internal Medicine: Result - Labs CBC & Chem 7: 06/01/16 05:48 06/01/16 05:48 Labs: Short CBC 06/01/16 Range/Units 05:48 WBC 6.3 (4.3-11.1) K/mcL Hgb 12.1 (11.5-15.4) g/dL Hct 38.7 (35.3-44.9) % Plt Count 131 L (140-400) K/mcL Neutrophils # 3.6 (1.6-8.9) K/mcL BMP 06/01/16 05:48 Sodium 137 Potassium 3.6 D Chloride 102 Carbon Dioxide 30 H BUN 20 Creatinine 0.74 Glucose 112 H Calcium 8.4 L Consult Discharge Plan - Plan Referrals: Pipe Marin DO [Primary Care Provider] - 08/11/16 3:45 pm Gorge Givens DO [Partnered Physician] - 07/12/16 3:00 pm Kwaku Chand MD [Partnered Physician] - 11/15/16 3:30 pm
[2016-06-02] MEDS: Acetaminophen/Butalbital/CaffeineTABLET PO SCH ×5 (00:57→17:31)
[2016-06-02 05:01] LABS: Basophils % 0.3 %; Eosinophils # 0.1 K/mcL (0.0-0.6); Eosinophils % 1.4 %; Hematocrit 33.8 % (35.3-44.9); Hemoglobin 10.9 g/dL (11.5-15.4); Immature Granulocytes % 0.2 % (0-4); Lymphocytes # 2.5 K/mcL (0.6-4.6); Lymphocytes % 37.2 %; Mean Corpuscular HGB Conc 32.2 g/dL (31.6-35.5); Mean Corpuscular Hemoglobin 34.3 pg (28.0-33.3); Mean Corpuscular Volume 106.3 fL (83.0-100.0); Mean Platelet Volume 10.4 fL (9.4-12.4); Monocytes # 0.7 K/mcL (0.0-1.3); Monocytes % 9.9 %; Neutrophils # 3.4 K/mcL (1.6-8.9); Platelet Count 133 K/mcL (140-400); Red Blood Count 3.18 M/mcL (3.82-4.97); Red Cell Distribution Width 13.2 % (11.5-14.5)
[2016-06-02 05:19] LABS: BUN/Creatinine Ratio 25 (6-26); Blood Urea Nitrogen 17 mg/dL (7-20); Calcium 8.5 mg/dL (8.6-10.8); Carbon Dioxide 29 mEq/L (19-29); Chloride 102 mEq/L (98-109); Glucose 89 mg/dL (70-99); Magnesium 2.2 mg/dL (1.6-2.6); Osmolality,Calculated 289 (280-300); Phosphorous 3.5 mg/dL (2.3-4.7); Potassium 4.2 mEq/L (3.5-4.5); Sodium 139 mEq/L (136-145); eGFR For African Americans > 60 (> 60); eGFR For Non-African Americans > 60 (> 60)
[2016-06-02] MEDS: *HR* Heparin 5,000 UNIT/ML VIAL SQ SCH ×2 (06:24→17:32)
[2016-06-02] MEDS: clonazePAM 1 MG TABLET PO SCH (08:55)
[2016-06-02] MEDS: ALPRAZolam 0.5 MG TABLET PO SCH ×2 (08:56→14:45)
[2016-06-02] MEDS: Ondansetron ODT 4 MG TAB.RAPDIS SL PRN ×2 (09:01→14:46)
[2016-06-02] MEDS: predniSONE 20 MG TABLET PO SCH (09:44)
[2016-06-02] MEDS: amLODIPine 5 MG TABLET PO SCH (09:44)
[2016-06-02] MEDS: Folic Acid 1 MG TABLET PO SCH (09:45)
[2016-06-02] MEDS: Cholecalciferol (D-3) 1,000 UNIT TABLET PO SCH (09:45)
[2016-06-02] MEDS: Sucralfate 1 GM TABLET PO SCH ×2 (09:46→14:46)
[2016-06-02] MEDS: Magnesium Oxide 400 MG TABLET PO SCH (09:46)
[2016-06-02 15:09] VITALS: BP 112/66
[2016-06-02] MEDS: traMADol 50 MG TABLET PO PRN (15:15)
--- NOTE | 2016-06-02 16:41 | Pain Management Consultation ---
Date of Encounter: 06/02/16 Time of Encounter: 16:39 Assessment and Plan (1) Compression fracture of body of thoracic vertebra Current Visit: Yes Status: Acute Given the patient's recent history of a fall, her exam showing exquisite tenderness along the midline in the thoracic spine, and a radiograph showing compression deformities of vertebral bodies, I feel that she has experienced another acute compression fracture in her thoracic spine. Based upon the radiograph alone, it is difficult to formally establish the diagnosis of which vertebral body is acutely broken. However, the severe tenderness that she shows on exam makes me worry that there is a new fracture. I had a long and productive conversation with both the patient and her in the hospital room. I feel that the patient should be discharged to a rehabilitation facility. She should continue to take tramadol every 4-6 hours for pain as needed. So far, this medication has been effective while not causing side effects. Importantly, if the patient is not doing well in terms of pain control or suffering with uncontrolled pain, she should be evaluated in the spine Center for compression fracture repair. I described to the patient what compression fracture repair would be, and the patient is leery of undergoing general anesthesia to have this procedure done. However, if she is not doing well, kyphoplasty should be considered. If she is doing well with oral pain medication alone, and the pain is decreasing through time, nothing else needs to be done. I do not recommend aggressive physical therapy for the upper body given my concern for acute compression fracture. Physical therapy and rehabilitation efforts should focus on walking and gait retraining. I gave my phone number to the patient's daughter. I encourage the family / patient to contact me if the patient is not doing well or has questions. The assessment and plan as outlined above was discussed with the patient and/or family members who expressed understanding and agreement. All questions were answered. History of Present Illness Chief complaint: back pain HPI: Ms. Schmidt is a 80 year old female suffering with a new back pain that has been present since a fall last Monday. The patient was admitted to the hospital via the emergency department. The patient states that she does not know why she fell. She fell to her right and landed on her right side. Since the fall, she has noticed exquisite and sharp back pain located between her shoulder blades directly in the middle of her body. She denies radiating pain into her arms or down her back. The pain feels like a knife. She rates the pain as a 10/10. Pain increases with walking and standing. The pain also goes up when she reaches for objects on a table in front of her. Both her and her are well aware of prior compression fractures. She has ever had kyphoplasty repair of compression fracture. She has side effects secondary to multiple kinds of analgesics specifically in the opioid class. She has found that tramadol is effective both to control pain and side effects. She is taken several doses of tramadol since yesterday morning, and she has not experienced nausea, vomiting, dizziness, or sedation. She does feel that the tramadol is effective to decrease pain in her back. Past Med Surg Social Fam HX - Past Medical History Medical history: arthritis, GERD, hyperlipidemia, hypertension, migraine, RA, thyroid disease Psychiatric history: anxiety, depression - Past Surgical History Surgical History: hysterectomy - Social History Smoking Status: Never smoker Smokeless Tobacco Status: No Alcohol use: none Drug use: none - Family History Mother Adopted: No Living Status: Hx Family Cardiac Disorders: Yes Father Hx Family Cancer: Yes (colon cancer) Medications and Allergies Acetaminophen/Butalbital/Caffe [Fioricet] 1.5 each PO Q4H 11/23/14 [History] Calcium Carbonate/Vitamin D3 [Calcium 600 + D Tablet] 1 each PO QAM 11/23/14 [ History] Cyanocobalamin (Vitamin B-12) [Vitamin B12] 1,000 mcg PO QWEEK 11/23/14 [History ] Docusate [Colace] 200 mg PO QAM 11/23/14 [History] Escitalopram [Lexapro] 20 mg PO QAM 11/23/14 [History] Folic Acid 1 mg PO QAM 11/23/14 [History] Omeprazole [PriLOSEC] 20 mg PO BID 11/23/14 [History] Sucralfate [Carafate] 1 gm PO TID 11/23/14 [History] Alprazolam [Xanax] 0.5 mg PO TID #30 tablet 11/28/14 [Rx] ClonazePAM [Klonopin] 1 mg PO BID #20 tablet 11/28/14 [Rx] Magnesium Oxide [Mgo] 400 mg PO DAILY 03/13/16 [History] Potassium Chloride [K-Tab ER] 40 meq PO DAILY 03/13/16 [History] PredniSONE [Prednisone] 5 mg PO DAILY PRN 03/13/16 [History] Atorvastatin Calcium [Lipitor] 20 mg PO HS #0 03/17/16 [Rx] Amlodipine [Norvasc] 10 mg PO DAILY PRN 05/30/16 [History] Cholecalciferol (D-3) [Vitamin D] 2,000 unit PO DAILY 05/30/16 [History] Estradiol [Estrace] 1 gm VG 2XW PRN 05/30/16 [History] Levothyroxine Sodium 100 mcg PO QAM 05/30/16 [History] Lisinopril [Zestril] 10 mg PO DAILY 05/30/16 [History] Allergies esomeprazole [From Nexium] Allergy (Verified 09/13/15 20:15) Difficulty Breathing levofloxacin [From Levaquin] Allergy (Verified 09/13/15 20:15) Blister acetaminophen [From Percocet] Adverse Reaction (Verified 09/13/15 20:15) Dizziness Amoxicillin [From Augmentin] Adverse Reaction (Verified 09/13/15 20:15) Nausea aspirin Adverse Reaction (Verified 09/13/15 20:15) Dizziness clavulanic acid [From Augmentin] Adverse Reaction (Verified 09/13/15 20:15) Nausea codeine Adverse Reaction (Verified 09/13/15 20:15) Dizziness Estrogens Adverse Reaction (Verified 09/13/15 20:15) Dizziness Hydromorphone Adverse Reaction (Verified 09/13/15 20:15) Dizziness meperidine Adverse Reaction (Verified 09/13/15 20:15) Dizziness morphine Adverse Reaction (Verified 09/13/15 20:15) Dizziness nitrofurantoin Adverse Reaction (Verified 09/13/15 20:15) Nausea NSAIDS (Non-Steroidal Anti-Inflamma Adverse Reaction (Verified 09/13/15 20:15) Dizziness Oxycodone Adverse Reaction (Verified 09/13/15 20:15) Dizziness Paroxetine [From Paxil] Adverse Reaction (Verified 09/13/15 20:15) Nausea tolterodine [From Detrol] Adverse Reaction (Verified 09/13/15 20:15) Nausea Review of Systems - Constitutional Constitutional ROS IM: no photophobia, no phonophobia, no daytime sleepiness, no fever(s), no stops breathing during sleep - EENT Nose, mouth and throat: no headache(s), no neck pain, no neck trauma - Cardiovascular Cardiovascular ROS: no chest pain, no leg edema, no lightheadedness - Respiratory Respiratory: no pain on inspiration, no pain with cough - Gastrointestinal Gastrointestinal: no abdominal pain, no constipation, no diarrhea, no heartburn - Genitourinary Genitourinary ROS: no difficulty urinating, no flank pain, no urinary hesitancy - Musculoskeletal Musculoskeletal ROS: no muscle weakness, no numbness, no radiating pain into limb, no tingling left: hand pain, hand stiffness - Integumentary Integumentary: no erythema, no lesions, no swelling - Neurological Neurological ROS: no abnormal gait, no behavioral changes, no focal weakness, no radicular pain - Psychiatric Psychiatric general: no anxiety, no confusion, no depression - Hematologic/Lymphatic Hematologic/Lymphatic pediatric: no easy bleeding, no easy bruising Physical Exam Initial Vital Signs Temp Pulse Resp BP Pulse Ox 98.3 F 89 16 148/78 96 05/30/16 15:22 05/30/16 15:22 05/30/16 15:22 05/30/16 15:22 05/30/16 15:22 - General physical appearance General physical appearance: awake & oriented, no distress, no pain - Eyes Eye exam: normal ocular movement - ENT normal pinna, normal nares - Neck no masses - Respiratory normal respiratory effort - Abdomen Abdomen: soft, non tender, bowel sounds - Rectum Rectum: normal sphincter tone - Integumentary Integumentary general surgery: no rash - Neurologic normal coordination - Musculoskeletal Musculoskeletal: normal gait, normal posture - Psychiatric Psychiatric: oriented to time, oriented to person, oriented to place - Additional Findings EYES:: pupils equal and round, no myosis. SKIN:: no areas of echymoses or petechiae CARDIOVASCULAR:: regular rate and rhythm, no murmurs PULMONARY:: lung driver clear to auscultation bilaterally. Quiet, normal respiratory pattern. MUSCULOSKELETAL GAIT:: not antalgic. forward flexed, kyphosis. INSPECTION:: no surgical scarring in thoracic spine. PALPATION:: paraspinous musculature is tender to deep palpation in the thoracic area bilaterally. There is sharp tenderness and hyperalgesia to palpation of the T5 and T6 spinous processes. STRENGTH:: RIGHT hip flexors: 5/5 :: LEFT hip flexors: 5/5 RIGHT hip adduction 5/5 :: LEFT hip adduction 5/5 RIGHT hip abduction 5/5 :: LEFT hip abduction 5/5 RIGHT knee extension 5/5 :: LEFT knee extension 5/5 RIGHT knee flexion 5/5 :: LEFT knee flexion 5/5 RIGHT ankle dorsiflexion 5/5 :: LEFT ankle dorsiflexion 5/5 RIGHT ankle plantarflexion 5/5 :: LEFT ankle plantarflexion 5/5 RIGHT great toe dorsiflexion 5/5 :: LEFT great toe dorsiflexion 5/5 RIGHT great toe plantarflexion 5/5 :: LEFT great toe plantarflexion 5/5 NEUROLOGIC SENSATION:: hypesthesia is not noted in lower extremity or thoracic dermatomes. SIGNS OF NEUROVASCULAR COMPRESSION Spasticity:: none Atrophy:: not present in UE or LE musculature Fasciculation:: not present in UE or LE musculature PSYCHIATRIC:: ORIENTATION:: awake and alert. Hard of hearing. INSIGHT:: good awareness of illness. AFFECT:: pleasant. Radiology Images Viewed By Me:: Radiograph of the thoracic spine from 2 days ago shows multiple compression fractures in thoracic vertebral bodies. The fracture severity varies from vertebral body to vertebral body. I also see T12, L1, and L5 compression fractures that have been present at least since November 2014. These fractures are noted on CT scans of the abdomen and pelvis incidentally. I have reviewed and agree with information documented in the scribed documentation, ROS, patient medications, allergies, medical history, surgical history, social history, and family history. Results - Labs 06/02/16 04:44 06/02/16 04:44 Abnormal lab results RBC 3.18 M/mcL (3.82-4.97) L 06/02/16 04:44 Hgb 10.9 g/dL (11.5-15.4) L 06/02/16 04:44 Hct 33.8 % (35.3-44.9) L 06/02/16 04:44 MCV 106.3 fL (83.0-100.0) H 06/02/16 04:44 MCH 34.3 pg (28.0-33.3) H 06/02/16 04:44 Plt Count 133 K/mcL (140-400) L 06/02/16 04:44 Calcium 8.5 mg/dL (8.6-10.8) L 06/02/16 04:44 Albumin 2.9 g/dL (3.5-5.0) L 05/31/16 05:48 Albumin/Globulin Ratio 0.9 (1.1-2.2) L 05/31/16 05:48 Diabetes panel 06/02/16 Range/Units 04:44 Sodium 139 (136-145) mEq/L Potassium 4.2 (3.5-4.5) mEq/L Chloride 102 (98-109) mEq/L Carbon Dioxide 29 (19-29) mEq/L BUN 17 (7-20) mg/dL Creatinine 0.68 (0.57-1.11) mg/dL Glucose 89 (70-99) mg/dL Calcium 8.5 L (8.6-10.8) mg/dL Calcium panel 06/02/16 Range/Units 04:44 Calcium 8.5 L (8.6-10.8) mg/dL Phosphorus 3.5 (2.3-4.7) mg/dL Pituitary panel 06/02/16 Range/Units 04:44 Sodium 139 (136-145) mEq/L Potassium 4.2 (3.5-4.5) mEq/L Chloride 102 (98-109) mEq/L Carbon Dioxide 29 (19-29) mEq/L BUN 17 (7-20) mg/dL Creatinine 0.68 (0.57-1.11) mg/dL Glucose 89 (70-99) mg/dL Calcium 8.5 L (8.6-10.8) mg/dL Adrenal panel 06/02/16 Range/Units 04:44 Sodium 139 (136-145) mEq/L Potassium 4.2 (3.5-4.5) mEq/L Chloride 102 (98-109) mEq/L Carbon Dioxide 29 (19-29) mEq/L BUN 17 (7-20) mg/dL Creatinine 0.68 (0.57-1.11) mg/dL Glucose 89 (70-99) mg/dL Calcium 8.5 L (8.6-10.8) mg/dL All other labs normal. Consult Discharge Plan - Plan Referrals: Pipe Marin DO [Primary Care Provider] - 08/11/16 3:45 pm Gorge Givens DO [Partnered Physician] - 07/12/16 3:00 pm Kwaku Chand MD [Partnered Physician] - 11/15/16 3:30 pm
--- NOTE | 2016-06-02 17:13 | Discharge Summary ---
Date of Encounter: 06/02/16 Time of Encounter: 10:00 - Discharge Diagnosis (1) Compression fracture of thoracic spine, non-traumatic Priority: Primary Status: Acute Qualifiers: Encounter type: initial encounter Qualified Code(s): M48.54XA - Collapsed vertebra, not elsewhere classified, thoracic region, initial encounter for fracture (2) Fall Priority: Primary Status: Acute Qualifiers: Encounter type: initial encounter Qualified Code(s): W19.XXXA - Unspecified fall, initial encounter (3) Hyperkalemia Priority: Secondary Status: Resolved (4) DVT prophylaxis Priority: Secondary Status: Acute (5) Hypertension Priority: Secondary Status: Chronic Qualifiers: Hypertension type: essential hypertension Qualified Code(s): I10 - Essential (primary) hypertension - Discharge Medications Prescriptions: Alprazolam [Xanax 0.5 MG Tablet] 0.5 mg PO TID #20 tablet Tramadol HCl [Ultram] 50 mg PO Q6H PRN #30 tab PRN Reason: Pain Home Medications: Acetaminophen/Butalbital/Caffe [Fioricet] 1.5 each PO Q4H 11/23/14 [History] Calcium Carbonate/Vitamin D3 [Calcium 600 + D Tablet] 1 each PO QAM 11/23/14 [ History] Cyanocobalamin (Vitamin B-12) [Vitamin B12] 1,000 mcg PO QWEEK 11/23/14 [History ] Docusate [Colace] 200 mg PO QAM 11/23/14 [History] Escitalopram [Lexapro] 20 mg PO QAM 11/23/14 [History] Folic Acid 1 mg PO QAM 11/23/14 [History] Omeprazole [PriLOSEC] 20 mg PO BID 11/23/14 [History] Sucralfate [Carafate] 1 gm PO TID 11/23/14 [History] Alprazolam [Xanax] 0.5 mg PO TID #30 tablet 11/28/14 [Rx] ClonazePAM [Klonopin] 1 mg PO BID #20 tablet 11/28/14 [Rx] Magnesium Oxide [Mgo] 400 mg PO DAILY 03/13/16 [History] Potassium Chloride [K-Tab ER] 40 meq PO DAILY 03/13/16 [History] PredniSONE [Prednisone] 5 mg PO DAILY PRN 11/20/16 [History] Atorvastatin Calcium [Lipitor] 20 mg PO HS #0 03/17/16 [Rx] Amlodipine [Norvasc] 10 mg PO DAILY PRN 05/30/16 [History] Cholecalciferol (D-3) [Vitamin D] 2,000 unit PO DAILY 05/30/16 [History] Estradiol [Estrace] 1 gm VG 2XW PRN 05/30/16 [History] Levothyroxine Sodium 100 mcg PO QAM 05/30/16 [History] Lisinopril [Zestril] 10 mg PO DAILY 05/30/16 [History] Alprazolam [Xanax 0.5 MG Tablet] 0.5 mg PO TID #20 tablet 06/02/16 [Rx] Tramadol HCl [Ultram] 50 mg PO Q6H PRN #30 tab 06/02/16 [Rx] Allergies/Adverse Reactions: Allergies esomeprazole [From Nexium] Allergy (Verified 09/13/15 20:15) Difficulty Breathing levofloxacin [From Levaquin] Allergy (Verified 09/13/15 20:15) Blister acetaminophen [From Percocet] Adverse Reaction (Verified 09/13/15 20:15) Dizziness Amoxicillin [From Augmentin] Adverse Reaction (Verified 09/13/15 20:15) Nausea aspirin Adverse Reaction (Verified 09/13/15 20:15) Dizziness clavulanic acid [From Augmentin] Adverse Reaction (Verified 09/13/15 20:15) Nausea codeine Adverse Reaction (Verified 09/13/15 20:15) Dizziness Estrogens Adverse Reaction (Verified 09/13/15 20:15) Dizziness Hydromorphone Adverse Reaction (Verified 09/13/15 20:15) Dizziness meperidine Adverse Reaction (Verified 09/13/15 20:15) Dizziness morphine Adverse Reaction (Verified 09/13/15 20:15) Dizziness nitrofurantoin Adverse Reaction (Verified 09/13/15 20:15) Nausea NSAIDS (Non-Steroidal Anti-Inflamma Adverse Reaction (Verified 09/13/15 20:15) Dizziness Oxycodone Adverse Reaction (Verified 09/13/15 20:15) Dizziness Paroxetine [From Paxil] Adverse Reaction (Verified 09/13/15 20:15) Nausea tolterodine [From Detrol] Adverse Reaction (Verified 09/13/15 20:15) Nausea Date of admission: 05/30/16 19:16 Primary care physician: Pipe Marin DO Consults: 05/30/16 21:10 Consult to Occupational Therapy [CONS] Routine Comment: Evaluate, develop and implement POC Consult to Physical Therapy [CONS] Routine Comment: Evaluate, develop and implement POC Consult to Division Merchandise Manager [CONS] Routine Reason for SW Consult: Referral to ECF for rehab....just discharged from [facility] ~ 30 days ago. 06/01/16 16:59 Consult to Pain Management [CONS] Routine Consulting Provider: Pain Humphrey Anderson Reason for Consult: spinal compression fracture Call Completed: Yes Discharging clinician: Lilia Caruso Anticipated date of discharge: 06/02/16 - Patient Status Disposition: Transfer SNF Condition: Good Functional capacity at discharge: uses cane/walker Overall status at discharge: patient is progressing back to baseline - Discharge Instructions Instructions: Vertebral Compression Fracture (DC) Follow Up With: Pipe Marin DO [Primary Care Provider] - 08/11/16 3:45 pm Gorge Givens DO [Partnered Physician] - 07/12/16 3:00 pm Kwaku Chand MD [Partnered Physician] - 11/15/16 3:30 pm Additional Instructions: Please follow up with your PCP, pain management as listed above. Please resume all home medications as prescribed by your primary care physician. Please continue activity as recommended by physical therapy. - Diet and Activity Activity: as per physical therapy Diet: advance to your usual diet Hospital course: Ms. Schmidt is a 80 year old female with Past medical history of arthritis, GERD, hyperlipidemia, hypertension, migraines, thyroid disease, chronic back pain status post multiple falls and T-spine compression fractures who was admitted status post fall and was admitted for pain management. Patient was reported to have compression fracture of the thoracic spine which appeared to be chronic in nature. Due to patient's comorbidities and age, family and patient did not want to go through any surgical interventions or any further testing. Given patient's extensive list of drug allergies, pain control was difficult to accomplish. She was started on tramadol which provided her with adequate relief. The risks associated with tramadol therapy were discussed in detail with the patient and family. Pain management consultation with Dr. Villalobos was also requested. Dr. Villalobos examined the patient and recommended to continue tramadol in the rehabilitation facility. Patient can follow up with Dr. Villalobos on as-needed basis. At this time patient is stable and will be discharged to rehabilitation facility. Patient's discharge, diagnosis, care plan was discussed in detail with the patient and the family, they demonstrate understanding, and agree with the management plan. - Time Spent with Patient Total time spent providing and/or coordinating discharge services: - Constitutional Vitals: Temp Pulse Resp BP Pulse Ox 97.8 F 84 16 112/66 95 06/02/16 15:08 06/02/16 15:08 06/02/16 15:08 06/02/16 15:08 06/02/16 15:08 General appearance: Present: cooperative, A&O X 3, pleasant, no acute distress, answers questions appropriately - Head Head exam: Present: atraumatic, normocephalic - Eye Eye exam: Present: normal appearance, conjuntiva pink, sclera anicteric - Respiratory Respiratory exam: Present: CTAB. Absent: respiratory distress, wheezes - Cardiovascular Cardiovascular exam: Present: RRR, +S1, +S2 - GI/Abdominal GI/Abdominal exam: Present: normal bowel sounds, soft. Absent: tenderness - Extremities Exam Extremities exam: Present: warm, radial pulses palpable and symetrical. Absent : tenderness - Neurological Exam Neurological exam: Present: alert, oriented X3 - Psychiatric Psychiatric exam: Present: normal affect, normal mood
--- NOTE | 2016-06-02 17:24 | Physician Discharge Referral ---
[facility] Referral Info Transfer To: F Provider in Charge after Transfer: PCP - Diagnosis (1) Compression fracture of thoracic spine, non-traumatic Priority: Primary Status: Acute (2) Fall Priority: Primary Status: Acute (3) Hyperkalemia Priority: Secondary Status: Resolved (4) DVT prophylaxis Priority: Secondary Status: Acute (5) Hypertension Priority: Secondary Status: Chronic - Transfer Medications Prescriptions: Alprazolam [Xanax 0.5 MG Tablet] 0.5 mg PO TID #20 tablet Tramadol HCl [Ultram] 50 mg PO Q6H PRN #30 tab PRN Reason: Pain Home Medications: Acetaminophen/Butalbital/Caffe [Fioricet] 1.5 each PO Q4H 11/23/14 [History] Calcium Carbonate/Vitamin D3 [Calcium 600 + D Tablet] 1 each PO QAM 11/23/14 [ History] Cyanocobalamin (Vitamin B-12) [Vitamin B12] 1,000 mcg PO QWEEK 11/23/14 [History ] Docusate [Colace] 200 mg PO QAM 11/23/14 [History] Escitalopram [Lexapro] 20 mg PO QAM 11/23/14 [History] Folic Acid 1 mg PO QAM 11/23/14 [History] Omeprazole [PriLOSEC] 20 mg PO BID 11/23/14 [History] Sucralfate [Carafate] 1 gm PO TID 11/23/14 [History] Alprazolam [Xanax] 0.5 mg PO TID #30 tablet 11/28/14 [Rx] ClonazePAM [Klonopin] 1 mg PO BID #20 tablet 11/28/14 [Rx] Magnesium Oxide [Mgo] 400 mg PO DAILY 03/13/16 [History] Potassium Chloride [K-Tab ER] 40 meq PO DAILY 03/13/16 [History] PredniSONE [Prednisone] 5 mg PO DAILY PRN 03/13/16 [History] Atorvastatin Calcium [Lipitor] 20 mg PO HS #0 03/17/16 [Rx] Amlodipine [Norvasc] 10 mg PO DAILY PRN 05/30/16 [History] Cholecalciferol (D-3) [Vitamin D] 2,000 unit PO DAILY 05/30/16 [History] Estradiol [Estrace] 1 gm VG 2XW PRN 05/30/16 [History] Levothyroxine Sodium 100 mcg PO QAM 05/30/16 [History] Lisinopril [Zestril] 10 mg PO DAILY 05/30/16 [History] Alprazolam [Xanax 0.5 MG Tablet] 0.5 mg PO TID #20 tablet 06/02/16 [Rx] Tramadol HCl [Ultram] 50 mg PO Q6H PRN #30 tab 06/02/16 [Rx] Allergies/Adverse Reactions: Allergies esomeprazole [From Nexium] Allergy (Verified 09/13/15 20:15) Difficulty Breathing levofloxacin [From Levaquin] Allergy (Verified 09/13/15 20:15) Blister acetaminophen [From Percocet] Adverse Reaction (Verified 09/13/15 20:15) Dizziness Amoxicillin [From Augmentin] Adverse Reaction (Verified 09/13/15 20:15) Nausea aspirin Adverse Reaction (Verified 09/13/15 20:15) Dizziness clavulanic acid [From Augmentin] Adverse Reaction (Verified 09/13/15 20:15) Nausea codeine Adverse Reaction (Verified 09/13/15 20:15) Dizziness Estrogens Adverse Reaction (Verified 09/13/15 20:15) Dizziness Hydromorphone Adverse Reaction (Verified 09/13/15 20:15) Dizziness meperidine Adverse Reaction (Verified 09/13/15 20:15) Dizziness morphine Adverse Reaction (Verified 09/13/15 20:15) Dizziness nitrofurantoin Adverse Reaction (Verified 09/13/15 20:15) Nausea NSAIDS (Non-Steroidal Anti-Inflamma Adverse Reaction (Verified 09/13/15 20:15) Dizziness Oxycodone Adverse Reaction (Verified 09/13/15 20:15) Dizziness Paroxetine [From Paxil] Adverse Reaction (Verified 09/13/15 20:15) Nausea tolterodine [From Detrol] Adverse Reaction (Verified 09/13/15 20:15) Nausea - Respiratory Orders Smoking Cessation: Smoking cessation has been advised. For more information, call the [place] Tobacco Quit Line at 4-588-TNEE-NOW. - Rehabiliation Orders Other: Please follow up with your PCP, pain management as listed above. Please resume all home medications as prescribed by your primary care physician. Please continue activity as recommended by physical therapy. CERTIFICATION: I certify that the transfer of the above named patient to an Extended Care Facility is necessary for the continuing treatment of the diagnosis listed. The above information is true and accurate reflection of patient's current condition. Confidential - Redisclosure prohibited without a patient's written consent.
== END 2016-06-02 18:15 ==
LOC: EMEROO 15:09 → 3NENU 15:09
PROVIDERS: ADMIT Internal Medicine; ATTEND Internal Medicine

== ENCOUNTER 2016-10-09 11:33 | Inpatient (IN) ==
[2016-10-09] MEDS ORDERED: *HR* Promethazine 25 MG/ML VIAL IVP ONE (12:05)
[2016-10-09] MEDS ORDERED: 0.9 % Sodium Chloride 1,000 ML IVC ONE (12:05)
--- NOTE | 2016-10-09 12:05 | Emergency Department Note ---
Disposition Clinical Impression: Breathing difficulty UTI (urinary tract infection) Qualifiers: Urinary tract infection type: acute cystitis Hematuria presence: without hematuria Qualified Code(s): N30.00 - Acute cystitis without hematuria Disposition: Admitted As Inpatient Condition: Fair Time of Disposition: 13:00 Abdominal Pain HPI - General Chief Complaint: ED Shortness of Breath/Dyspnea Stated Complaint: LYLA Time Seen by Provider: 10/09/16 11:35 Source: patient, family Mode of arrival: wheelchair Limitations: no limitations Nursing Notes Reviewed: Yes Vital Signs Reviewed: Yes - History of Present Illness HPI Narrative: She presents to the emergency department with complaints of abdominal pain right sided right back pain right flank pain radiation into the right groin. She typically is on pain medication and has some constipation issues and takes a stool softener started having about 3 liquid stools earlier today. She points to right lower quadrant pain as her primary source of pain at this time. States that it is difficult to describe but that is quite uncomfortable. She is having some shortness of breath, does not have oxygen at home. He is able to answer questions appropriately family is in attendance at this time. Pt Subjective Complaint: abdominal pain, flank pain (right ) Onset (ago): day(s) (2) Consistency: constant, Worsening Location: RLQ, R flank Pain Severity: severe Pain Scale: 10 Quality: stabbing, sharp Radiation: back Migration to: no migration Improves with: nothing Worsens with: nothing Associated symptoms: Reports: nausea, vomiting, diarrhea - Related Data Home Medications Medication Instructions Recorded Confirmed Acetaminophen/Butalbital/Caffe 1.5 each PO Q4H 11/23/14 10/09/16 [Fioricet] Calcium Carbonate/Vitamin D3 1 each PO QAM 11/23/14 05/30/16 [Calcium 600 + D Tablet] Cyanocobalamin (Vitamin B-12) 1,000 mcg PO QWEEK 11/23/14 10/09/16 [Vitamin B12] Docusate [Colace] 200 mg PO QAM 11/23/14 05/30/16 Escitalopram [Lexapro] 20 mg PO QAM 11/23/14 10/09/16 Folic Acid 1 mg PO QAM 11/23/14 10/09/16 Omeprazole [PriLOSEC] 20 mg PO BID 11/23/14 05/30/16 Sucralfate [Carafate] 1 gm PO TID 11/23/14 10/09/16 Magnesium Oxide [Mgo] 400 mg PO DAILY 03/13/16 05/30/16 Potassium Chloride [K-Tab ER] 40 meq PO DAILY 03/13/16 05/30/16 predniSONE [Prednisone] 5 mg PO DAILY PRN 03/13/16 05/30/16 Cholecalciferol (D-3) [Vitamin D] 2,000 unit PO DAILY 05/30/16 10/09/16 Estradiol [Estrace] 1 gm VG 2XW PRN 05/30/16 05/30/16 Levothyroxine Sodium 100 mcg PO QAM 05/30/16 10/09/16 Lisinopril [Zestril] 10 mg PO DAILY 05/30/16 05/30/16 amLODIPine [Norvasc] 10 mg PO DAILY PRN 05/30/16 05/30/16 HYDROcodone/Acet 5/325 mg [[place] 1 tab PO BID PRN 10/09/16 10/09/16 5-325 mg] Previous Rx's Medication Instructions Recorded Alprazolam [Xanax] 0.5 mg PO TID #30 tablet 11/28/14 clonazePAM [Klonopin] 1 mg PO BID #20 tablet 11/28/14 Atorvastatin Calcium [Lipitor] 20 mg PO HS #0 03/17/16 ALPRAZolam [Xanax 0.5 MG Tablet] 0.5 mg PO TID #20 tablet 06/02/16 Tramadol HCl [Ultram] 50 mg PO Q6H PRN #30 tab 06/02/16 Ondansetron ODT [Zofran ODT] 4 mg SL Q6HR PRN #14 tab.rapdis 07/10/16 Allergies Allergy/AdvReac Type Severity Reaction Status Date / Time esomeprazole [From Nexium] Allergy Difficulty Verified 10/09/16 15:17 Breathing levofloxacin [From Levaquin] Allergy Blister Verified 10/09/16 15:17 acetaminophen [From Percocet] AdvReac Dizziness Verified 10/09/16 15:17 Amoxicillin [From Augmentin] AdvReac Nausea Verified 10/09/16 15:17 aspirin AdvReac Dizziness Verified 10/09/16 15:17 clavulanic acid AdvReac Nausea Verified 10/09/16 15:17 [From Augmentin] codeine AdvReac Dizziness Verified 10/09/16 15:17 Estrogens AdvReac Dizziness Verified 10/09/16 15:17 Hydromorphone AdvReac Dizziness Verified 10/09/16 15:17 meperidine AdvReac Dizziness Verified 10/09/16 15:17 morphine AdvReac Dizziness Verified 10/09/16 15:17 nitrofurantoin AdvReac Nausea Verified 10/09/16 15:17 NSAIDS (Non-Steroidal AdvReac Dizziness Verified 10/09/16 15:17 Anti-Inflamma Oxycodone AdvReac Dizziness Verified 10/09/16 15:17 Paroxetine [From Paxil] AdvReac Nausea Verified 10/09/16 15:17 tolterodine [From Detrol] AdvReac Nausea Verified 10/09/16 15:17 All systems ED: reviewed and negative except as stated. Constitutional: Reports: chills, weakness Eyes: Denies: eye pain, eye discharge, vision change ENT ED: Denies: ear pain, throat pain, dental pain, hearing loss, epistaxis, congestion, dysphagia Cardiovascular: Reports: dyspnea on exertion Respiratory: Reports: dyspnea Gastrointestinal: Reports: abdominal pain, nausea, vomiting, diarrhea Genitourinary: Denies: dysuria, frequency, hematuria, discharge Musculoskeletal: Denies: back pain, neck pain, arthralgia, myalgia Integumentary: Denies: rash, abrasion, lesions Neurological: Denies: headache, weakness, numbness, paresthesias, confusion, abnormal gait, vertigo Psychiatric: Denies: anxiety, depression, suicidal thoughts, homicidal thoughts , auditory hallucinations, visual hallucinations Endocrine: Denies: fatigue Hematological/Lymphatic: Denies: easy bleeding, easy bruising Abdominal Pain PMH - Past Medical History Medical history: Reports: arthritis, GERD, hyperlipidemia, hypertension, migraine, RA, thyroid disease, other Female Surgical History: Reports: hysterectomy, other [employer] history: Reports: no [employer] history Psychiatric history: Reports: anxiety, depression - Social History Smoking status: Never smoker Alcohol use: Reports: none Drug use: Reports: none Physical Exam - General Limitations: no limitations General appearance: alert - Head Head exam: atraumatic, normocephalic, normal inspection - Eye Eye exam: Present: normal appearance, PERRL, EOMI - ENT ENT exam: normal exam, normal oropharynx, mucous membranes dry, TM's normal bilaterally - Neck Neck exam: Present: normal inspection, full ROM, trachea midline. Absent: tenderness, meningismus, lymphadenopathy, thyromegaly - Chest Chest inspection: Present: normal inspection, symmetric chest wall rise - Respiratory Respiratory exam: Present: normal lung sounds bilaterally, respiratory distress. Absent: wheezes, stridor, accessory muscle use, prolonged expiratory phase - Cardiovascular Cardiovascular exam: Present: regular rate, normal rhythm, normal heart sounds - Abdominal Exam Abdominal exam: Present: soft, Non-Tender, diminished bowel sounds. Absent: tenderness, distention, guarding, rebound, rigidity Abdominal tenderness: Present: RLQ, severe - Extremities Exam Extremities exam: Present: normal inspection, full ROM. Absent: tenderness, pedal edema - Back Exam Back exam: Present: tenderness, muscle spasm - Neurological Exam Neurological exam: Present: alert, oriented X3, CN II-XII intact, reflexes normal - Psychiatric Psychiatric exam: Present: normal affect, normal mood - Skin Skin exam: Present: warm, dry, intact, normal color Course - Consultations Consultation #1: spoke with Dr. Mcwilliams hospitalist who accepted her as a patient. Time: 13:37 Vital Signs O2 Sat by Pulse Oximetry 96 10/09/16 11:43 Temperature 97.9 F 10/09/16 15:49 Pulse Rate 81 10/09/16 15:49 Respiratory Rate 12 10/09/16 15:49 Blood Pressure 167/75 10/09/16 15:49 O2 Sat by Pulse Oximetry 98 10/09/16 16:15 Oxygen Delivery Oxygen Delivery Nasal Cannula Abdominal Pain - Lab Data Result diagrams: 10/09/16 12:05 10/09/16 12:05 Lab Results 10/09/16 10/09/16 10/09/16 Range/Units 12:05 12:05 12:28 WBC 6.3 (4.3-11.1) K/mcL RBC 3.73 L (3.82-4.97) M/mcL Hgb 10.8 L (11.5-15.4) g/dL Hct 34.4 L (35.3-44.9) % MCV 92.2 (83.0-100.0) fL MCH 29.0 (28.0-33.3) pg MCHC 31.4 L (31.6-35.5) g/dL RDW 13.9 (11.5-14.5) % Plt Count 176 (140-400) K/mcL MPV 10.1 (9.4-12.4) fL Immature Gran % 0.2 (0-4) % Seg Neutrophils % 73.5 % Lymphocytes % 18.7 % Monocytes % 5.2 % Eosinophils % 1.9 % Basophils % 0.5 % Neutrophils # 4.6 (1.6-8.9) K/mcL Lymphocytes # 1.2 (0.6-4.6) K/mcL Monocytes # 0.3 (0.0-1.3) K/mcL Eosinophils # 0.1 (0.0-0.6) K/mcL Basophils # 0.0 (0.0-0.2) K/mcL Immature Plt Fraction 4.2 (1.1-6.1) % Sodium 135 L (136-145) mEq/L Potassium 4.9 H (3.5-4.5) mEq/L Chloride 99 (98-109) mEq/L Carbon Dioxide 26 (19-29) mEq/L BUN 11 (7-20) mg/dL Creatinine 0.72 (0.57-1.11) mg/dL Est GFR ( Amer) > 60 (> 60) Est GFR (Non-Af Amer) > 60 (> 60) BUN/Creatinine Ratio 15 (6-26) Glucose 93 (70-99) mg/dL Calculated Osmolality 279 L (280-300) Calcium 9.0 (8.6-10.8) mg/dL Total Bilirubin 0.4 (0.2-1.2) mg/dL Direct Bilirubin 0.2 (0.0-0.5) mg/dL Indirect Bilirubin 0.2 (0.0-1.2) mg/dL AST 19 (5-34) Units/L ALT 10 (0-55) Units/L Alkaline Phosphatase 74 (38-126) Units/L Serum Total Protein 8.1 (6.0-8.3) g/dL Albumin 3.6 (3.5-5.0) g/dL Globulin 4.5 H (2.4-3.5) g/dL Albumin/Globulin Ratio 0.8 L (1.1-2.2) Amylase 80 (25-125) Units/L Lipase 22 (8-78) Units/L Urine Color Yellow (Yellow) Urine Clarity Cloudy A (Clear) Urine pH 8.0 (5.0-8.0) pH Units Ur Specific [place] 1.007 L (1.010-1.025) Urine Protein Negative (Neg-Trace) mg/dL Urine Glucose (UA) Normal (Normal) mg/dL Urine Ketones Negative (Negative) mg/dL Urine Blood Small H (Negative) Urine Nitrite Positive A (Negative) Urine Bilirubin Negative (Negative) Urine Urobilinogen Normal (Normal) mg/dL Ur Leukocyte Esterase Large H (Negative) Urine Microscopic RBC 5-15 H (0-3) per hpf Urine Microscopic WBC TNTC H (0-3) per hpf Ur Squamous Epith Cells Few (None-Few) per lpf Urine Bacteria Many H (None-Few) per hpf Hyaline Casts None Seen (None-Few) per lpf Ur Culture Indicated? YES A (NO) Attestation Statement - Attestation Attestation: 81-year-old presents to abdominal pain shortness of breath. Physical examination and that she has a nonsurgical abdomen. This CT scan shows nothing acute of the abdomen urine does show what appears to be a UTI. Patient will be admitted for further evaluation and treatment.
[2016-10-09] MEDS ORDERED: *HR* Meperidine 25 MG/ML SYRINGE IVP ONE (12:08)
[2016-10-09 12:17] LABS: Basophils % 0.5 %; Eosinophils # 0.1 K/mcL (0.0-0.6); Eosinophils % 1.9 %; Hematocrit 34.4 % (35.3-44.9); Hemoglobin 10.8 g/dL (11.5-15.4); Immature Granulocytes % 0.2 % (0-4); Immature Platelets 4.2 % (1.1-6.1); Lymphocytes # 1.2 K/mcL (0.6-4.6); Lymphocytes % 18.7 %; Mean Corpuscular HGB Conc 31.4 g/dL (31.6-35.5); Mean Corpuscular Volume 92.2 fL (83.0-100.0); Mean Platelet Volume 10.1 fL (9.4-12.4); Monocytes # 0.3 K/mcL (0.0-1.3); Monocytes % 5.2 %; Neutrophils # 4.6 K/mcL (1.6-8.9); Platelet Count 176 K/mcL (140-400); Red Blood Count 3.73 M/mcL (3.82-4.97); Red Cell Distribution Width 13.9 % (11.5-14.5); Segmented Neutrophils % 73.5 %
[2016-10-09 12:31] LABS: Alanine Aminotransferase 10 Units/L (0-55); Albumin 3.6 g/dL (3.5-5.0); Albumin/Globulin Ratio 0.8 (1.1-2.2); Alkaline Phosphatase 74 Units/L (38-126); Amylase 80 Units/L (25-125); Aspartate Amino Transferase 19 Units/L (5-34); BUN/Creatinine Ratio 15 (6-26); Bilirubin,Direct 0.2 mg/dL (0.0-0.5); Bilirubin,Indirect 0.2 mg/dL (0.0-1.2); Bilirubin,Total 0.4 mg/dL (0.2-1.2); Blood Urea Nitrogen 11 mg/dL (7-20); Carbon Dioxide 26 mEq/L (19-29); Chloride 99 mEq/L (98-109); Globulin 4.5 g/dL (2.4-3.5); Glucose 93 mg/dL (70-99); Lipase 22 Units/L (8-78); Osmolality,Calculated 279 (280-300); Sodium 135 mEq/L (136-145); Total Protein 8.1 g/dL (6.0-8.3); eGFR For African Americans > 60 (> 60); eGFR For Non-African Americans > 60 (> 60)
[2016-10-09 12:33] LABS: Bilirubin,Urine Negative (Negative); Blood,Urine Small (Negative); Clarity,Urine Cloudy (Clear); Color,Urine Yellow (Yellow); Glucose,Urine (UA) Normal (Normal); Ketones,Urine Negative (Negative); Leukocyte Esterase,Urine Large (Negative); Nitrite,Urine Positive (Negative); Protein,Urine Negative (Neg-Trace); Specific Gravity,Urine 1.007 (1.010-1.025); Urobilinogen,Urine Normal (Normal)
[2016-10-09 12:34] LABS: Bacteria,Urine Many per hpf (None-Few); Hyaline Casts,Urine None Seen per lpf (None-Few); Squamous Epithelial Cell,Urine Few per lpf (None-Few); WBC,Urine TNTC per hpf (0-3)
[2016-10-09 12:35] LABS: Potassium 4.9 mEq/L (3.5-4.5)
[2016-10-09] MEDS ORDERED: Naloxone 0.4 MG/ML INJ IVP PRN (15:41)
[2016-10-09] MEDS ORDERED: *HR* Promethazine 25 MG/ML VIAL IVP PRN (15:41)
[2016-10-09] MEDS ORDERED: *HR* HYDROcodone/Acet 5/325 mg TABLET PO PRN (15:42)
[2016-10-09] MEDS: Acetaminophen/Butalbital/CaffeineTABLET PO SCH ×2 (16:14→21:03)
--- NOTE | 2016-10-09 16:23 | Internal Med History&Physical ---
<Kev Mcwilliams - Last Filed: 10/09/16 19:11> Date of Encounter: 10/09/16 Internal Medicine - H&P: HPI History of present illness: Ms. Schmidt is a 81 year old female Internal Medicine - H&P: Meds Acetaminophen/Butalbital/Caffe [Fioricet] 1.5 each PO Q4H 11/23/14 [History] Calcium Carbonate/Vitamin D3 [Calcium 600 + D Tablet] 1 each PO QAM 11/23/14 [ History] Cyanocobalamin (Vitamin B-12) [Vitamin B12] 1,000 mcg PO QWEEK 11/23/14 [History ] Docusate [Colace] 200 mg PO QAM 11/23/14 [History] Escitalopram [Lexapro] 20 mg PO QAM 11/23/14 [History] Folic Acid 1 mg PO QAM 11/23/14 [History] Omeprazole [PriLOSEC] 20 mg PO BID 11/23/14 [History] Sucralfate [Carafate] 1 gm PO TID 11/23/14 [History] Alprazolam [Xanax] 0.5 mg PO TID #30 tablet 11/28/14 [Rx] clonazePAM [Klonopin] 1 mg PO BID #20 tablet 11/28/14 [Rx] Magnesium Oxide [Mgo] 400 mg PO DAILY 03/13/16 [History] Potassium Chloride [K-Tab ER] 40 meq PO DAILY 03/13/16 [History] predniSONE [Prednisone] 5 mg PO DAILY PRN 03/13/16 [History] Atorvastatin Calcium [Lipitor] 20 mg PO HS #0 03/17/16 [Rx] Cholecalciferol (D-3) [Vitamin D] 2,000 unit PO DAILY 05/30/16 [History] Estradiol [Estrace] 1 gm VG 2XW PRN 05/30/16 [History] Levothyroxine Sodium 100 mcg PO QAM 05/30/16 [History] Lisinopril [Zestril] 10 mg PO DAILY 05/30/16 [History] amLODIPine [Norvasc] 10 mg PO DAILY PRN 05/30/16 [History] ALPRAZolam [Xanax 0.5 MG Tablet] 0.5 mg PO TID #20 tablet 06/02/16 [Rx] Tramadol HCl [Ultram] 50 mg PO Q6H PRN #30 tab 06/02/16 [Rx] Ondansetron ODT [Zofran ODT] 4 mg SL Q6HR PRN #14 tab.rapdis 07/10/16 [Rx] HYDROcodone/Acet 5/325 mg [[place] 5-325 mg] 1 tab PO BID PRN 10/09/16 [History] Allergies esomeprazole [From Nexium] Allergy (Verified 10/09/16 15:17) Difficulty Breathing levofloxacin [From Levaquin] Allergy (Verified 10/09/16 15:17) Blister acetaminophen [From Percocet] Adverse Reaction (Verified 10/09/16 15:17) Dizziness Amoxicillin [From Augmentin] Adverse Reaction (Verified 10/09/16 15:17) Nausea aspirin Adverse Reaction (Verified 10/09/16 15:17) Dizziness clavulanic acid [From Augmentin] Adverse Reaction (Verified 10/09/16 15:17) Nausea codeine Adverse Reaction (Verified 10/09/16 15:17) Dizziness Estrogens Adverse Reaction (Verified 10/09/16 15:17) Dizziness Hydromorphone Adverse Reaction (Verified 10/09/16 15:17) Dizziness meperidine Adverse Reaction (Verified 10/09/16 15:17) Dizziness morphine Adverse Reaction (Verified 10/09/16 15:17) Dizziness nitrofurantoin Adverse Reaction (Verified 10/09/16 15:17) Nausea NSAIDS (Non-Steroidal Anti-Inflamma Adverse Reaction (Verified 10/09/16 15:17) Dizziness Oxycodone Adverse Reaction (Verified 10/09/16 15:17) Dizziness Paroxetine [From Paxil] Adverse Reaction (Verified 10/09/16 15:17) Nausea tolterodine [From Detrol] Adverse Reaction (Verified 10/09/16 15:17) Nausea All Systems PM: A 10-system review of systems was performed and is negative for pertinent findings except as documented above in the HPI. - Constitutional Vitals: Temp Pulse Resp BP Pulse Ox 97.9 F 81 12 167/75 98 10/09/16 15:49 10/09/16 15:49 10/09/16 15:49 10/09/16 15:49 10/09/16 16:15 Internal Med - H&P Results - Labs CBC & Chem 7: 10/09/16 12:05 10/09/16 12:05 - Attending Attestation I examined this patient and my medical decision-making was reviewed with the Advanced Practice Nurse. I agree with the documented findings, disposition and treatment plan as described except to the extent set forth below. On exam the patient is in no acute distress awake alert oriented 3. Heart is regular with no murmurs rubs or gallops. Lungs are clear. Abdomen is soft. Plan: We will treat her with ceftriaxone for UTI. Follow urine culture and adjust antibiotic therapy according to sensitivities. Check home oxygen requirement. <Meme Messer - Last Filed: 10/09/16 22:34> Date of Encounter: 10/09/16 Time of Encounter: 16:21 Assessment and Plan (1) Urinary tract infection Current visit: Yes Status: Acute Patient presented with abdominal pain, reports dysuria and urgency. UA consistent with UTI. Culture pending, previous cultures show e.coli sensitive to ceftriaxone. Ceftriaxone IVPB daily. Qualifiers: Urinary tract infection type: site unspecified Hematuria presence: without hematuria Qualified Code(s): N39.0 - Urinary tract infection, site not specified (2) Abdominal pain Current visit: Yes Status: Chronic Patient complaining of right lower quadrant radiating to her back. With UTI, concern for pyelo, however CT of abd/pelvis shows no abnormality and patient is afebrile with normal WBC count of 6.3. Upon review of records, patient presents frequently with abdominal pain and back pain, and thought to be related to her rheumatoid arthritis. Abdomen is soft with normal bowel sounds, but diffusely tender to palpation. Patient reports 3 bowel movements today. Qualifiers: Abdominal location: generalized Qualified Code(s): R10.84 - Generalized abdominal pain (3) HTN (hypertension) Current visit: Yes Status: Chronic Patient hypertensive since arrival with blood pressures 160-180s systolic. Patient's home blood pressure medications are listed "prn". Will schedule her amlodipine and lisinopril. Qualifiers: Hypertension type: essential hypertension Qualified Code(s): I10 - Essential (primary) hypertension (4) Fall Current visit: Yes Status: Acute Patient falling frequently at home. She denies hitting head or acute injury. PT/OT consults. Qualifiers: Encounter type: initial encounter Qualified Code(s): W19.XXXA - Unspecified fall, initial encounter (5) DVT prophylaxis Current visit: Yes Status: Acute anti-embolic stockings lovenox 40mg SQ daily. (6) Frail elderly Current visit: Yes Status: Acute Internal Medicine - H&P: HPI Chief complaint: abdominal pain Admitted From: Emergency Dept Plans for Post Hospital Care: Home History of present illness: Ms. Schmidt is a 81 year old female with hypertension, hyperlipidemia, acid reflux, rheumatoid arthritis, hypothyroid, dementia presented to the emergency department today with complaints of abdominal pain and shortness of breath. Patient reports she had been feeling short of breath but is now feeling better. Complains of the abdominal pain in her right lower quadrant radiating around to her back. The pain is sharp, constant, and severe. She also reports burning with urination. She denies any lightheadedness, headache, chest pain, palpitations, cough, vomiting, diarrhea. Patient reports occasional nausea. She reports she had 3 bowel movements today, that were not diarrhea. Evaluation in emergency department included CXR which showed no acute abnormality. CT of the abdomen and pelvis showed small focus of gas in bladder , but otherwise no acute abnormality. UA was consistent with UTI. WBC was normal. She was mildly hyperkalemic with potassium of 4.9. Kidney function was normal with cr of 0.72. On exam, patient alert and oriented, in no acute distress. Lungs are clear bilaterally to auscultation. Heart had regular rate and rhythm with systolic murmur. Abdomen was tender diffusely to light palpation. Past Med Surg Social Fam HX - Past Medical History Medical history: arthritis, dementia, GERD, hyperlipidemia, hypertension, migraine, RA, thyroid disease, other Psychiatric history: anxiety, depression - Past Surgical History Surgical History: cholecystectomy, hysterectomy - Social History Smoking Status: Never smoker Smokeless Tobacco Status: No Alcohol use: none Drug use: none - Family History Mother Adopted: No Living Status: Hx Family Cardiac Disorders: Yes Father Hx Family Cancer: Yes (colon cancer) All Systems PM: A 10-system review of systems was performed and is negative for pertinent findings except as documented above in the HPI. - Constitutional Constitutional: no chills, no fever(s), no night sweats - EENT Eyes: no change in vision, no discharge, no pain, no photophobia Ears: no ear discharge, no ear pain, no tinnitus Nose, mouth and throat: no dysphagia, no nasal discharge, no neck pain, no sore throat - Cardiovascular Cardiovascular ROS IM: dyspnea, no chest pain, no diaphoresis, no lightheadedness, no palpitations, no syncope - Respiratory Respiratory: no cough, no dyspnea, no wheezing, no excessive phlegm production - Gastrointestinal Gastrointestinal: abdominal pain, nausea, no diarrhea, no hematemesis, no hematochezia, no melena, no vomiting - Genitourinary Genitourinary: dysuria, urinary urgency, no change in urinary stream, no flank pain, no hematuria - Musculoskeletal Musculoskeletal ROS IM: no numbness, no tingling - Integumentary Integumentary IM: no rash, no unusual bruising - Neurological Neurological ROS: no confusion, no convulsions, no focal weakness, no numbness, no tingling, no tremor(s) - Hematologic/Lymphatic Hematologic/Lymphatic: no easy bruising - Constitutional Vitals: Temp Pulse Resp BP Pulse Ox 97.9 F 81 12 167/75 98 10/09/16 15:49 10/09/16 15:49 10/09/16 15:49 10/09/16 15:49 10/09/16 15:49 General appearance: Present: A&O X 3, pleasant, no acute distress - Head Head exam: Present: atraumatic, normocephalic - Eye Eye exam: Present: PERRL, conjuntiva pink, sclera anicteric Pupils: Present: PERRL - Neck Neck exam general surgery: Present: supple, trachea midline. Absent: lymphadenopathy - Respiratory Respiratory exam: Present: CTAB. Absent: accessory muscle use, rales, rhonchi, wheezes - Cardiovascular Cardiovascular exam: Present: RRR, +S1, +S2, systolic murmur. Absent: diastolic murmur, gallop, rubs - GI/Abdominal GI/Abdominal exam: Present: normal bowel sounds, soft, tenderness (diffuse), no peritoneal signs. Absent: distended - Extremities Exam Extremities exam: Present: warm, radial pulses palpable and symetrical. Absent : calf tenderness, cyanotic, pedal edema - Neurological Exam Neurological exam: Present: CN II-XII intact, oriented X3, no focal deficits. Absent: facial droop, speech deficit - Skin Skin exam: Present: dry, intact Internal Med - H&P Results - Labs CBC & Chem 7: 10/09/16 12:05 10/09/16 12:05 Labs: All Lab Results (24 Hours) 10/09/16 10/09/16 10/09/16 Range/Units 12:05 12:05 12:28 WBC 6.3 (4.3-11.1) K/mcL RBC 3.73 L (3.82-4.97) M/mcL Hgb 10.8 L (11.5-15.4) g/dL Hct 34.4 L (35.3-44.9) % MCV 92.2 (83.0-100.0) fL MCH 29.0 (28.0-33.3) pg MCHC 31.4 L (31.6-35.5) g/dL RDW 13.9 (11.5-14.5) % Plt Count 176 (140-400) K/mcL MPV 10.1 (9.4-12.4) fL Immature Gran % 0.2 (0-4) % Seg Neutrophils % 73.5 % Lymphocytes % 18.7 % Monocytes % 5.2 % Eosinophils % 1.9 % Basophils % 0.5 % Neutrophils # 4.6 (1.6-8.9) K/mcL Lymphocytes # 1.2 (0.6-4.6) K/mcL Monocytes # 0.3 (0.0-1.3) K/mcL Eosinophils # 0.1 (0.0-0.6) K/mcL Basophils # 0.0 (0.0-0.2) K/mcL Immature Plt Fraction 4.2 (1.1-6.1) % Sodium 135 L (136-145) mEq/L Potassium 4.9 H (3.5-4.5) mEq/L Chloride 99 (98-109) mEq/L Carbon Dioxide 26 (19-29) mEq/L BUN 11 (7-20) mg/dL Creatinine 0.72 (0.57-1.11) mg/dL Est GFR ( Amer) > 60 (> 60) Est GFR (Non-Af Amer) > 60 (> 60) BUN/Creatinine Ratio 15 (6-26) Glucose 93 (70-99) mg/dL Calculated Osmolality 279 L (280-300) Calcium 9.0 (8.6-10.8) mg/dL Total Bilirubin 0.4 (0.2-1.2) mg/dL Direct Bilirubin 0.2 (0.0-0.5) mg/dL Indirect Bilirubin 0.2 (0.0-1.2) mg/dL AST 19 (5-34) Units/L ALT 10 (0-55) Units/L Alkaline Phosphatase 74 (38-126) Units/L Serum Total Protein 8.1 (6.0-8.3) g/dL Albumin 3.6 (3.5-5.0) g/dL Globulin 4.5 H (2.4-3.5) g/dL Albumin/Globulin Ratio 0.8 L (1.1-2.2) Amylase 80 (25-125) Units/L Lipase 22 (8-78) Units/L Urine Color Yellow (Yellow) Urine Clarity Cloudy A (Clear) Urine pH 8.0 (5.0-8.0) pH Units Ur Specific [place] 1.007 L (1.010-1.025) Urine Protein Negative (Neg-Trace) mg/dL Urine Glucose (UA) Normal (Normal) mg/dL Urine Ketones Negative (Negative) mg/dL Urine Blood Small H (Negative) Urine Nitrite Positive A (Negative) Urine Bilirubin Negative (Negative) Urine Urobilinogen Normal (Normal) mg/dL Ur Leukocyte Esterase Large H (Negative) Urine Microscopic RBC 5-15 H (0-3) per hpf Urine Microscopic WBC TNTC H (0-3) per hpf Ur Squamous Epith Cells Few (None-Few) per lpf Urine Bacteria Many H (None-Few) per hpf Hyaline Casts None Seen (None-Few) per lpf Ur Culture Indicated? YES A (NO) - Diagnostic Studies Chest x-ray Additional comments: Chest X-Ray 10/09/16 13:33 IMPRESSION: No acute abnormality. D/ / Mal Yang MD / Mal Yang MD Interpreting Provider: Mal Yang MD CT scan - abdomen Additional comments: Abdomen/Pelvis CT 10/09/16 12:05 IMPRESSION: Tiny focus of gas in the nondependent urinary bladder presumably related to instrumentation. Correlation is recommended to exclude an infectious process. Otherwise negative noncontrast study D/ / Ca Fraser Cha, MD / Ca Fraser Cha, MD Interpreting Provider: Ca Fraser Cha, MD
[2016-10-09] MEDS: 0.9 % Sodium Chloride 1,000 ML IVC SCH (16:35)
[2016-10-09] MEDS: amLODIPine 5 MG TABLET PO SCH (16:38)
[2016-10-09] MEDS: Sucralfate 1 GM TABLET PO SCH (20:56)
[2016-10-09] MEDS: clonazePAM 1 MG TABLET PO SCH (20:56)
[2016-10-09] MEDS ORDERED: ALPRAZolam 0.5 MG TABLET PO SCH (21:00)
[2016-10-10] MEDS: Acetaminophen/Butalbital/CaffeineTABLET PO SCH ×6 (00:27→20:00)
[2016-10-10] MEDS: ALPRAZolam 0.5 MG TABLET PO PRN ×2 (01:44→22:31)
[2016-10-10] MEDS: 0.9 % Sodium Chloride 1,000 ML IVC SCH ×2 (02:53→11:39)
[2016-10-10 05:19] LABS: Basophils % 0.7 %; Eosinophils # 0.2 K/mcL (0.0-0.6); Eosinophils % 3.7 %; Hematocrit 36.4 % (35.3-44.9); Hemoglobin 11.4 g/dL (11.5-15.4); Immature Granulocytes % 0.2 % (0-4); Immature Platelets 3.9 % (1.1-6.1); Lymphocytes # 2.5 K/mcL (0.6-4.6); Lymphocytes % 42.5 %; Mean Corpuscular HGB Conc 31.3 g/dL (31.6-35.5); Mean Corpuscular Hemoglobin 29.7 pg (28.0-33.3); Mean Corpuscular Volume 94.8 fL (83.0-100.0); Monocytes # 0.6 K/mcL (0.0-1.3); Monocytes % 10.1 %; Neutrophils # 2.5 K/mcL (1.6-8.9); Platelet Count 169 K/mcL (140-400); Red Blood Count 3.84 M/mcL (3.82-4.97); Red Cell Distribution Width 14.2 % (11.5-14.5); Segmented Neutrophils % 42.8 %
[2016-10-10 06:17] LABS: BUN/Creatinine Ratio 12 (6-26); Blood Urea Nitrogen 8 mg/dL (7-20); Calcium 8.1 mg/dL (8.6-10.8); Carbon Dioxide 23 mEq/L (19-29); Chloride 109 mEq/L (98-109); Glucose 95 mg/dL (70-99); Osmolality,Calculated 286 (280-300); Sodium 139 mEq/L (136-145); eGFR For African Americans > 60 (> 60); eGFR For Non-African Americans > 60 (> 60)
[2016-10-10 06:23] LABS: Potassium 3.8 mEq/L (3.5-4.5)
[2016-10-10] MEDS: *HR* Enoxaparin 40 MG/0.4 ML SYRINGE SQ SCH (06:42)
[2016-10-10] MEDS: Sucralfate 1 GM TABLET PO SCH ×3 (07:52→20:02)
[2016-10-10] MEDS: clonazePAM 1 MG TABLET PO SCH ×2 (07:53→20:02)
[2016-10-10] MEDS: amLODIPine 5 MG TABLET PO SCH (07:53)
--- NOTE | 2016-10-10 15:31 | Internal Med Progress Note ---
Date of Encounter: 10/10/16 Time of Encounter: 15:25 - Assessment and plan (1) UTI (urinary tract infection) Current Visit: Yes Status: Acute Qualifiers: Hematuria presence: with hematuria Qualified Code(s): N39.0 - Urinary tract infection, site not specified; R31.9 - Hematuria, unspecified (2) Abdominal pain Current Visit: Yes Status: Chronic Qualifiers: Abdominal location: generalized Qualified Code(s): R10.84 - Generalized abdominal pain (3) Hypertension Current Visit: Yes Status: Chronic Qualifiers: Hypertension type: essential hypertension Qualified Code(s): I10 - Essential (primary) hypertension (4) DVT prophylaxis Current Visit: Yes Status: Acute - Subjective Interval history: Mrs. Jesus Schmidt is an 81-year-old female admitted for UTI. Urine culture shows gram-negative rods. She is on IV Rocephin. She is complaining of abdominal pain which is concentrated more in the right lower quadrant and it is tender but no rebound tenderness. I will order CT abdomen to rule out up his appendicitis. PTOT evaluation requested. - Constitutional Vitals: Temp Pulse Resp BP Pulse Ox 97.6 F 65 18 120/57 96 10/10/16 11:38 10/10/16 11:38 10/10/16 11:38 10/10/16 11:38 10/10/16 11:38 General appearance: Present: A&O X 3, pleasant, no acute distress - Head Head exam: Present: atraumatic, normocephalic - Eye Eye exam: Present: PERRL, conjuntiva pink, sclera anicteric Pupils: Present: PERRL - Neck Neck exam general surgery: Present: supple, trachea midline. Absent: lymphadenopathy - Respiratory Respiratory exam: Present: CTAB. Absent: accessory muscle use, rales, rhonchi, wheezes - Cardiovascular Cardiovascular exam: Present: RRR, +S1, +S2. Absent: diastolic murmur, gallop, rubs, systolic murmur - GI/Abdominal GI/Abdominal exam: Present: normal bowel sounds, soft, tenderness, no peritoneal signs. Absent: distended Additional comments: Right lower quadrant tenderness no rebound tenderness abdomen soft bowel sounds active - Extremities Exam Extremities exam: Present: warm, radial pulses palpable and symetrical. Absent : calf tenderness, cyanotic, pedal edema - Neurological Exam Neurological exam: Present: CN II-XII intact, oriented X3, no focal deficits. Absent: pronater drift, facial droop, speech deficit - Skin Skin exam: Present: dry, intact Internal Medicine: Result - Labs CBC & Chem 7: 10/10/16 04:22 10/10/16 05:37 Labs: Short CBC 10/10/16 Range/Units 04:22 WBC 5.9 (4.3-11.1) K/mcL Hgb 11.4 L (11.5-15.4) g/dL Hct 36.4 (35.3-44.9) % Plt Count 169 (140-400) K/mcL Neutrophils # 2.5 (1.6-8.9) K/mcL BMP 10/10/16 05:37 Sodium 139 Potassium 3.8 D Chloride 109 Carbon Dioxide 23 BUN 8 Creatinine 0.65 Glucose 95 Calcium 8.1 L Consult Discharge Plan - Plan Referrals: Pipe Marin DO [Primary Care Provider] -
[2016-10-10] MEDS ORDERED: *HR* LORazepam 2 MG/ML VIAL IVP ONE (15:44)
--- NOTE | 2016-10-10 17:49 | Electrocardiograph Report ---
[place] [id number] Test Date: 2016-10-09 Pat Name: Lidia Schmidt Department: 105 Room: 3A45 Gender: F [employer] Supervisor: [facility] : 1935 Requested By: Gianluca Donahue Order Number: [id number] Reading MD: Roman Springer MD Measurements Intervals [place] Rate: 73 P: -16 ME: 174 QRS: -8 QRSD: 93 T: 39 QT: 344 QTc: 370 Interpretive Statements SINUS RHYTHM Electronically Signed On 10-10-2016 17:48:07 EDT by Roman Springer MD
[2016-10-10] MEDS ORDERED: Haloperidol Lactate 5 MG/ML VIAL IM ONE (22:38)
[2016-10-11] MEDS: Acetaminophen/Butalbital/CaffeineTABLET PO SCH ×7 (00:22→20:28)
[2016-10-11] MEDS: 0.9 % Sodium Chloride 1,000 ML IVC SCH ×2 (00:28→14:21)
[2016-10-11] MEDS: *HR* Enoxaparin 40 MG/0.4 ML SYRINGE SQ SCH (04:48)
[2016-10-11] MEDS: amLODIPine 5 MG TABLET PO SCH (08:52)
[2016-10-11] MEDS: Sucralfate 1 GM TABLET PO SCH ×3 (08:52→20:28)
[2016-10-11] MEDS: clonazePAM 1 MG TABLET PO SCH ×2 (08:53→20:28)
--- NOTE | 2016-10-11 09:56 | Internal Med Progress Note ---
Date of Encounter: 10/11/16 Time of Encounter: 09:54 - Assessment and plan (1) UTI (urinary tract infection) Current Visit: Yes Status: Acute Qualifiers: Hematuria presence: with hematuria Qualified Code(s): N39.0 - Urinary tract infection, site not specified; R31.9 - Hematuria, unspecified (2) Abdominal pain Current Visit: Yes Status: Chronic Qualifiers: Abdominal location: generalized Qualified Code(s): R10.84 - Generalized abdominal pain (3) Hypertension Current Visit: Yes Status: Chronic Qualifiers: Hypertension type: essential hypertension Qualified Code(s): I10 - Essential (primary) hypertension (4) DVT prophylaxis Current Visit: Yes Status: Acute - Subjective Interval history: Mrs. Jessu Schmidt is an 81-year-old female admitted for UTI. Urine culture shows gram-negative rods. She is on IV Rocephin. She is complaining of abdominal pain which is concentrated more in the right lower quadrant and it is tender but no rebound tenderness. I will order CT abdomen to rule out up his appendicitis. PTOT evaluation requested. 10/11 very agitated since last night and trying to go home. Ativan was given which made her more aggressive. Later Haldol was given which helped. At this time Geodon was started and for now on Lexapro and Phenergan been DC'd as they interact adversely. As I see her she seems to have calmed down however requesting to go home. Suspect sundown a hospital psychosis effect. Neurologically she is moving all extremities and does not seem to have any primary neurological issue. Her CT abdomen is negative. Urine culture showed Escherichia coli sensitive to all antibiotics. - Constitutional Vitals: Temp Pulse Resp BP Pulse Ox 97.7 F 70 20 151/78 98 10/10/16 23:00 10/10/16 23:00 10/10/16 23:00 10/10/16 23:00 10/10/16 23:00 General appearance: Present: A&O X 3, pleasant, no acute distress - Head Head exam: Present: atraumatic, normocephalic - Eye Eye exam: Present: PERRL, conjuntiva pink, sclera anicteric Pupils: Present: PERRL - Neck Neck exam general surgery: Present: supple, trachea midline. Absent: lymphadenopathy - Respiratory Respiratory exam: Present: CTAB. Absent: accessory muscle use, rales, rhonchi, wheezes - Cardiovascular Cardiovascular exam: Present: RRR, +S1, +S2. Absent: diastolic murmur, gallop, rubs, systolic murmur - GI/Abdominal GI/Abdominal exam: Present: normal bowel sounds, soft, no peritoneal signs. Absent: distended, tenderness - Extremities Exam Extremities exam: Present: warm, radial pulses palpable and symetrical. Absent : calf tenderness, cyanotic, pedal edema - Neurological Exam Neurological exam: Present: CN II-XII intact, no focal deficits. Absent: pronater drift, facial droop, speech deficit Additional comments: Patient is confused and seems upset but calmed down moving all extremities plantars downward bilaterally - Skin Skin exam: Present: dry, intact Internal Medicine: Result - Labs CBC & Chem 7: 10/10/16 04:22 10/10/16 05:37 - Impressions Impressions Abdomen/Pelvis CT 10/10/16 17:00 IMPRESSION: 1. No acute abnormality within the abdomen and pelvis. 2. Decreased distension of the common bile duct since the prior exam. 3. Other chronic changes noted above. D/ / Ralph Potts MD / Ralph Potts MD Interpreting Provider: Ralph Potts MD Consult Discharge Plan - Plan Referrals: Pipe Marin DO [Primary Care Provider] -
[2016-10-11] MEDS: ALPRAZolam 0.5 MG TABLET PO PRN (12:05)
[2016-10-11] MEDS: Ziprasidone injection 20 MG/ML VIAL IM STA ×2 (12:55→15:33)
[2016-10-11] MEDS ORDERED: Water for inj. (sterile) 10 ML IV ONE (15:29)
[2016-10-12] MEDS: Acetaminophen/Butalbital/CaffeineTABLET PO SCH ×8 (00:30→20:26)
[2016-10-12] MEDS: 0.9 % Sodium Chloride 1,000 ML IVC SCH ×3 (00:31→20:38)
[2016-10-12] MEDS: ALPRAZolam 0.5 MG TABLET PO PRN ×2 (01:48→21:59)
[2016-10-12] MEDS ORDERED: *HR* Promethazine 25 MG/ML VIAL IVP ONE (04:18)
[2016-10-12] MEDS: *HR* Enoxaparin 40 MG/0.4 ML SYRINGE SQ SCH (05:56)
[2016-10-12] MEDS: amLODIPine 5 MG TABLET PO SCH (08:59)
[2016-10-12] MEDS: Sucralfate 1 GM TABLET PO SCH ×3 (08:59→20:26)
[2016-10-12] MEDS: clonazePAM 1 MG TABLET PO SCH ×2 (08:59→20:26)
--- NOTE | 2016-10-12 15:47 | Internal Med Progress Note ---
Date of Encounter: 10/12/16 Time of Encounter: 15:45 - Assessment and plan (1) UTI (urinary tract infection) Current Visit: Yes Status: Acute Qualifiers: Hematuria presence: with hematuria Qualified Code(s): N39.0 - Urinary tract infection, site not specified; R31.9 - Hematuria, unspecified (2) Abdominal pain Current Visit: Yes Status: Chronic Qualifiers: Abdominal location: generalized Qualified Code(s): R10.84 - Generalized abdominal pain (3) Hypertension Current Visit: Yes Status: Chronic Qualifiers: Hypertension type: essential hypertension Qualified Code(s): I10 - Essential (primary) hypertension (4) DVT prophylaxis Current Visit: Yes Status: Acute (5) Urinary retention with incomplete bladder emptying Current Visit: Yes Status: Acute - Subjective Interval history: Mrs. Jesus Schmidt is an 81-year-old female admitted for UTI. Urine culture shows gram-negative rods. She is on IV Rocephin. She is complaining of abdominal pain which is concentrated more in the right lower quadrant and it is tender but no rebound tenderness. I will order CT abdomen to rule out up his appendicitis. PTOT evaluation requested. 10/11 very agitated since last night and trying to go home. Ativan was given which made her more aggressive. Later Haldol was given which helped. At this time Geodon was started and for now on Lexapro and Phenergan been DC'd as they interact adversely. As I see her she seems to have calmed down however requesting to go home. Suspect a hospital psychosis effect. Neurologically she is moving all extremities and does not seem to have any primary neurological issue. Her CT abdomen is negative. Urine culture showed Escherichia coli sensitive to all antibiotics. 10/12 patient seems much better today not as much agitated. She is well oriented to time place and person and eager to go home. Patient family and also discharge planning has confirmed that she will be discharged to [facility] as a private pay. It was noted that yesterday a bladder scan was performed which showed more than 400 mL of urine. A Denny catheter has been placed and and Detrol LA 2 mg daily at bedtime added. urology doctor Dolores has been consulted. CBC CMP will be checked in the morning. - Constitutional Vitals: Temp Pulse Resp BP Pulse Ox 98.3 F 82 16 147/80 95 10/12/16 15:00 10/12/16 15:00 10/12/16 15:00 10/12/16 15:00 10/12/16 15:00 General appearance: Present: A&O X 3, pleasant, no acute distress - Head Head exam: Present: atraumatic, normocephalic - Eye Eye exam: Present: PERRL, conjuntiva pink, sclera anicteric Pupils: Present: PERRL - Neck Neck exam general surgery: Present: supple, trachea midline. Absent: lymphadenopathy - Respiratory Respiratory exam: Present: CTAB. Absent: accessory muscle use, rales, rhonchi, wheezes - Cardiovascular Cardiovascular exam: Present: RRR, +S1, +S2. Absent: diastolic murmur, gallop, rubs, systolic murmur - GI/Abdominal GI/Abdominal exam: Present: normal bowel sounds, soft, no peritoneal signs. Absent: distended, tenderness - Extremities Exam Extremities exam: Present: warm, radial pulses palpable and symetrical. Absent : calf tenderness, cyanotic, pedal edema - Neurological Exam Neurological exam: Present: CN II-XII intact, oriented X3, no focal deficits. Absent: pronater drift, facial droop, speech deficit - Skin Skin exam: Present: dry, intact Internal Medicine: Result - Labs CBC & Chem 7: 10/10/16 04:22 10/10/16 05:37 Consult Discharge Plan - Plan Referrals: Pipe Marin DO [Primary Care Provider] -
--- NOTE | 2016-10-12 19:35 | Urology - Consult Note ---
Date of Encounter: 10/12/16 Time of Encounter: 19:33 - Assessment and Plan (1) UTI (urinary tract infection) Current Visit: Yes Status: Acute Assessment and plan: 81-year-old woman with a history of a urinary tract infection with pansensitive Escherichia coli. Recommend transitioning to oral antibiotic and continuing with a 10 day course. We discussed prophylaxis. Consideration for use of nightly single strength Bactrim for prophylaxis is an option. I discussed this with her daughter. We reviewed the risks and benefits and the potential risk of selective for resistant bacteria as well as developing another allergy in her long list of allergies. Therefore, for now and recommend just treating for this infection and holding off on prophylaxis further. Qualifiers: Hematuria presence: with hematuria Qualified Code(s): N39.0 - Urinary tract infection, site not specified; R31.9 - Hematuria, unspecified (2) Urinary retention with incomplete bladder emptying Current Visit: Yes Status: Acute Assessment and plan: She has incomplete bladder emptying and increased urinary frequency. A urinary catheter was placed. This seems to have improved her voiding frequency and quality of life. I think be reasonable to consider an indwelling catheter for her. We did discuss the risks and benefits associated with an indwelling catheter which would include risk of infection again. Her daughter will discuss with her father. I think it may be reasonable to continue the catheter for the long-term and have it changed out on a monthly basis. Urology CN:ANDI Consult date: 10/12/16 Reason for consult Urology: Other (Incomplete bladder emptying) History of present illness: 81-year-old woman well known to urology service with a history of pelvic organ prolapse was readmitted for a urinary tract infection. She had mental status changes. She has been on IV antibiotics since admission. Earlier today she was noted to have incomplete bladder emptying with a postvoid residual of 400 mL. A Denny catheter was placed. Her urine has been clear. She says her abdominal pain is improved. I spoke with her daughter today at length to discuss her management. We discussed the risks and benefits of antibiotic prophylaxis for the long-term as well as the risks and benefits of an indwelling catheter. Her prolapse has been significant and she is not a surgical candidate. She has previously had a pessary, but she did not tolerate that well. Past Med Surg Social Fam HX - Past Medical History Medical history: arthritis, dementia, GERD, hyperlipidemia, hypertension, migraine, RA, thyroid disease, other Psychiatric history: anxiety, depression - Past Surgical History Surgical History: cholecystectomy, hysterectomy - Social History Smoking Status: Never smoker Smokeless Tobacco Status: No Alcohol use: none Drug use: none - Family History Mother Adopted: No Living Status: Hx Family Cardiac Disorders: Yes Father Hx Family Cancer: Yes (colon cancer) Medications and Allergies Acetaminophen/Butalbital/Caffe [Fioricet] 1.5 each PO Q4H 11/23/14 [History] Calcium Carbonate/Vitamin D3 [Calcium 600 + D Tablet] 1 each PO QAM 11/23/14 [ History] Cyanocobalamin (Vitamin B-12) [Vitamin B12] 1,000 mcg PO QWEEK 11/23/14 [History ] Docusate [Colace] 200 mg PO QAM 11/23/14 [History] Escitalopram [Lexapro] 20 mg PO QAM 11/23/14 [History] Folic Acid 1 mg PO QAM 11/23/14 [History] Omeprazole [PriLOSEC] 20 mg PO BID 11/23/14 [History] Sucralfate [Carafate] 1 gm PO TID 11/23/14 [History] Alprazolam [Xanax] 0.5 mg PO TID #30 tablet 11/28/14 [Rx] clonazePAM [Klonopin] 1 mg PO BID #20 tablet 11/28/14 [Rx] Magnesium Oxide [Mgo] 400 mg PO DAILY 03/13/16 [History] Potassium Chloride [K-Tab ER] 40 meq PO DAILY 03/13/16 [History] predniSONE [Prednisone] 5 mg PO DAILY PRN 03/13/16 [History] Atorvastatin Calcium [Lipitor] 20 mg PO HS #0 03/17/16 [Rx] Cholecalciferol (D-3) [Vitamin D] 2,000 unit PO DAILY 05/30/16 [History] Estradiol [Estrace] 1 gm VG 2XW PRN 05/30/16 [History] Levothyroxine Sodium 100 mcg PO QAM 05/30/16 [History] Lisinopril [Zestril] 10 mg PO DAILY 05/30/16 [History] amLODIPine [Norvasc] 10 mg PO DAILY PRN 05/30/16 [History] ALPRAZolam [Xanax 0.5 MG Tablet] 0.5 mg PO TID #20 tablet 06/02/16 [Rx] Tramadol HCl [Ultram] 50 mg PO Q6H PRN #30 tab 06/02/16 [Rx] Ondansetron ODT [Zofran ODT] 4 mg SL Q6HR PRN #14 tab.rapdis 07/10/16 [Rx] HYDROcodone/Acet 5/325 mg [Adams 5-325 mg] 1 tab PO BID PRN 10/09/16 [History] Allergies esomeprazole [From Nexium] Allergy (Verified 10/09/16 15:17) Difficulty Breathing levofloxacin [From Levaquin] Allergy (Verified 10/09/16 15:17) Blister acetaminophen [From Percocet] Adverse Reaction (Verified 10/09/16 15:17) Dizziness Amoxicillin [From Augmentin] Adverse Reaction (Verified 10/09/16 15:17) Nausea aspirin Adverse Reaction (Verified 10/09/16 15:17) Dizziness clavulanic acid [From Augmentin] Adverse Reaction (Verified 10/09/16 15:17) Nausea codeine Adverse Reaction (Verified 10/09/16 15:17) Dizziness Estrogens Adverse Reaction (Verified 10/09/16 15:17) Dizziness Hydromorphone Adverse Reaction (Verified 10/09/16 15:17) Dizziness meperidine Adverse Reaction (Verified 10/09/16 15:17) Dizziness morphine Adverse Reaction (Verified 10/09/16 15:17) Dizziness nitrofurantoin Adverse Reaction (Verified 10/09/16 15:17) Nausea NSAIDS (Non-Steroidal Anti-Inflamma Adverse Reaction (Verified 10/09/16 15:17) Dizziness Oxycodone Adverse Reaction (Verified 10/09/16 15:17) Dizziness Paroxetine [From Paxil] Adverse Reaction (Verified 10/09/16 15:17) Nausea tolterodine [From Detrol] Adverse Reaction (Verified 10/09/16 15:17) Nausea Review of Systems - Constitutional other, no chills, no fever(s) - EENT Nose, mouth and throat: no dizziness - Cardiovascular no chest pain - Respiratory no dyspnea - Gastrointestinal no nausea, no vomiting - Genitourinary Genitourinary: no flank pain, no hematuria - Musculoskeletal no back pain - Integumentary no erythema, no rash - Neurological no weakness - Psychiatric no suicidal ideation - Hematologic/Lymphatic no easy bleeding - Allergic/Immunologic no wheezing Exam Initial Vital Signs Pulse Ox 96 10/09/16 11:43 - General physical appearance Present: well developed, well nourished, no distress - Eyes Absent: icteric - ENT Present: normal nares - Neck Present: trachea midline - Respiratory Present: normal respiratory effort - Cardiovascular Cardiovascular exam IM: RRR - Abdomen Abdomen: Present: soft - Genitourinary Present: other (Catheter in place with clear urine.) Urology Results - Labs 10/10/16 04:22 10/10/16 05:37 Abnormal lab results Hgb 11.4 g/dL (11.5-15.4) L 10/10/16 04:22 MCHC 31.3 g/dL (31.6-35.5) L 10/10/16 04:22 Calcium 8.1 mg/dL (8.6-10.8) L 10/10/16 05:37 Globulin 4.5 g/dL (2.4-3.5) H 10/09/16 12:05 Albumin/Globulin Ratio 0.8 (1.1-2.2) L 10/09/16 12:05 Urine Clarity Cloudy (Clear) A 10/09/16 12:28 Ur Specific [place] 1.007 (1.010-1.025) L 10/09/16 12:28 Urine Blood Small (Negative) H 10/09/16 12:28 Urine Nitrite Positive (Negative) A 10/09/16 12:28 Ur Leukocyte Esterase Large (Negative) H 10/09/16 12:28 Urine Microscopic RBC 5-15 per hpf (0-3) H 10/09/16 12:28 Urine Microscopic WBC TNTC per hpf (0-3) H 10/09/16 12:28 Urine Bacteria Many per hpf (None-Few) H 10/09/16 12:28 Ur Culture Indicated? YES (NO) A 10/09/16 12:28 All other labs normal. - Imaging CT scan - abdomen: report reviewed, image reviewed CT scan - pelvis: report reviewed, image reviewed Consult Discharge Plan - Plan Referrals: Pipe Marin DO [Primary Care Provider] -
[2016-10-13] MEDS: Acetaminophen/Butalbital/CaffeineTABLET PO SCH ×5 (00:53→17:10)
[2016-10-13 04:32] LABS: Basophils % 0.6 %; Eosinophils # 0.3 K/mcL (0.0-0.6); Eosinophils % 5.9 %; Hematocrit 31.5 % (35.3-44.9); Hemoglobin 9.9 g/dL (11.5-15.4); Immature Granulocytes % 0.4 % (0-4); Lymphocytes # 2.4 K/mcL (0.6-4.6); Lymphocytes % 45.3 %; Mean Corpuscular HGB Conc 31.4 g/dL (31.6-35.5); Mean Corpuscular Hemoglobin 29.3 pg (28.0-33.3); Mean Corpuscular Volume 93.2 fL (83.0-100.0); Mean Platelet Volume 10.7 fL (9.4-12.4); Monocytes # 0.6 K/mcL (0.0-1.3); Monocytes % 11.1 %; Neutrophils # 1.9 K/mcL (1.6-8.9); Platelet Count 154 K/mcL (140-400); Red Blood Count 3.38 M/mcL (3.82-4.97); Red Cell Distribution Width 14.3 % (11.5-14.5); Segmented Neutrophils % 36.7 %
[2016-10-13 04:45] LABS: Alanine Aminotransferase 8 Units/L (0-55); Albumin 3.1 g/dL (3.5-5.0); Albumin/Globulin Ratio 0.8 (1.1-2.2); Alkaline Phosphatase 65 Units/L (38-126); Aspartate Amino Transferase 18 Units/L (5-34); BUN/Creatinine Ratio 11 (6-26); Bilirubin,Total 0.2 mg/dL (0.2-1.2); Blood Urea Nitrogen 7 mg/dL (7-20); Calcium 8.5 mg/dL (8.6-10.8); Carbon Dioxide 26 mEq/L (19-29); Chloride 108 mEq/L (98-109); Globulin 4.1 g/dL (2.4-3.5); Glucose 93 mg/dL (70-99); Osmolality,Calculated 294 (280-300); Potassium 3.1 mEq/L (3.5-4.5); Sodium 143 mEq/L (136-145); Total Protein 7.2 g/dL (6.0-8.3); eGFR For African Americans > 60 (> 60); eGFR For Non-African Americans > 60 (> 60)
[2016-10-13] MEDS: *HR* Enoxaparin 40 MG/0.4 ML SYRINGE SQ SCH (05:55)
[2016-10-13] MEDS: ALPRAZolam 0.5 MG TABLET PO PRN (05:55)
[2016-10-13] MEDS: Sucralfate 1 GM TABLET PO SCH ×2 (07:07→17:10)
[2016-10-13] MEDS: amLODIPine 5 MG TABLET PO SCH (07:07)
[2016-10-13] MEDS: clonazePAM 1 MG TABLET PO SCH (07:07)
[2016-10-13] MEDS ORDERED: Potassium Chloride Elixir 20 MEQ/15 ML UDC PO ONE (07:23)
--- NOTE | 2016-10-13 07:36 | Discharge Summary ---
Date of Encounter: 10/13/16 Time of Encounter: 07:28 - Discharge Diagnosis (1) UTI (urinary tract infection) Priority: Primary Status: Acute Qualifiers: Hematuria presence: with hematuria Qualified Code(s): N39.0 - Urinary tract infection, site not specified; R31.9 - Hematuria, unspecified (2) Abdominal pain Priority: Secondary Status: Chronic Qualifiers: Abdominal location: generalized Qualified Code(s): R10.84 - Generalized abdominal pain (3) Hypertension Priority: Secondary Status: Chronic Qualifiers: Hypertension type: essential hypertension Qualified Code(s): I10 - Essential (primary) hypertension (4) DVT prophylaxis Priority: Secondary Status: Acute (5) Urinary retention with incomplete bladder emptying Priority: Primary Status: Acute - Discharge Medications Prescriptions: Cefuroxime PO [Ceftin] 500 mg PO Q12HR #12 tablet Tramadol HCl [Ultram] 50 mg PO Q6H PRN #30 tab PRN Reason: Pain Home Medications: Acetaminophen/Butalbital/Caffe [Fioricet] 1.5 each PO Q4H 11/23/14 [History] Calcium Carbonate/Vitamin D3 [Calcium 600 + D Tablet] 1 each PO QAM 11/23/14 [ History] Cyanocobalamin (Vitamin B-12) [Vitamin B12] 1,000 mcg PO QWEEK 11/23/14 [History ] Docusate [Colace] 200 mg PO QAM 11/23/14 [History] Escitalopram [Lexapro] 20 mg PO QAM 11/23/14 [History] Folic Acid 1 mg PO QAM 11/23/14 [History] Omeprazole [PriLOSEC] 20 mg PO BID 11/23/14 [History] Sucralfate [Carafate] 1 gm PO TID 11/23/14 [History] Alprazolam [Xanax] 0.5 mg PO TID #30 tablet 11/28/14 [Rx] clonazePAM [Klonopin] 1 mg PO BID #20 tablet 11/28/14 [Rx] Magnesium Oxide [Mgo] 400 mg PO DAILY 03/13/16 [History] Potassium Chloride [K-Tab ER] 40 meq PO DAILY 03/13/16 [History] predniSONE [Prednisone] 5 mg PO DAILY PRN 03/13/16 [History] Atorvastatin Calcium [Lipitor] 20 mg PO HS #0 03/17/16 [Rx] Cholecalciferol (D-3) [Vitamin D] 2,000 unit PO DAILY 05/30/16 [History] Estradiol [Estrace] 1 gm VG 2XW PRN 05/30/16 [History] Levothyroxine Sodium 100 mcg PO QAM 05/30/16 [History] ALPRAZolam [Xanax 0.5 MG Tablet] 0.5 mg PO TID #20 tablet 06/02/16 [Rx] Ondansetron ODT [Zofran ODT] 4 mg SL Q6HR PRN #14 tab.rapdis 07/10/16 [Rx] Cefuroxime PO [Ceftin] 500 mg PO Q12HR #12 tablet 10/13/16 [Rx] Lisinopril [Zestril] 20 mg PO DAILY tablet 10/13/16 [Rx] Tolterodine LA (24 HR) [Detrol LA] 2 mg PO DAILY cap.er.24h 10/13/16 [Rx] Tramadol HCl [Ultram] 50 mg PO Q6H PRN #30 tab 10/13/16 [Rx] amLODIPine [Norvasc] 10 mg PO DAILY tablet 10/13/16 [Rx] Allergies/Adverse Reactions: Allergies esomeprazole [From Nexium] Allergy (Verified 10/09/16 15:17) Difficulty Breathing levofloxacin [From Levaquin] Allergy (Verified 10/09/16 15:17) Blister acetaminophen [From Percocet] Adverse Reaction (Verified 10/09/16 15:17) Dizziness Amoxicillin [From Augmentin] Adverse Reaction (Verified 10/09/16 15:17) Nausea aspirin Adverse Reaction (Verified 10/09/16 15:17) Dizziness clavulanic acid [From Augmentin] Adverse Reaction (Verified 10/09/16 15:17) Nausea codeine Adverse Reaction (Verified 10/09/16 15:17) Dizziness Estrogens Adverse Reaction (Verified 10/09/16 15:17) Dizziness Hydromorphone Adverse Reaction (Verified 10/09/16 15:17) Dizziness meperidine Adverse Reaction (Verified 10/09/16 15:17) Dizziness morphine Adverse Reaction (Verified 10/09/16 15:17) Dizziness nitrofurantoin Adverse Reaction (Verified 10/09/16 15:17) Nausea NSAIDS (Non-Steroidal Anti-Inflamma Adverse Reaction (Verified 10/09/16 15:17) Dizziness Oxycodone Adverse Reaction (Verified 10/09/16 15:17) Dizziness Paroxetine [From Paxil] Adverse Reaction (Verified 10/09/16 15:17) Nausea tolterodine [From Detrol] Adverse Reaction (Verified 10/09/16 15:17) Nausea Procedures/tests Complete & Pending: Procedures Performed prior 72 hours Category Date Time Status CT abd pelvis w iv no oral [CT] Routine Cat Scan 10/10/16 17:00 Completed Date of admission: 10/09/16 16:14 Primary care physician: Pipe Marin DO Consults: 10/09/16 16:52 Consult to Occupational Therapy [CONS] Routine Comment: Evaluate, develop and implement POC Reason for Consult: frequent falls at home Consult to Physical Therapy [CONS] Routine Comment: Evaluate, develop and implement POC Reason for Consult: frequent falls at home 10/12/16 11:07 Consult to Urology [CONS] Stat Consulting Provider: Urologmary Anderson Reason for Consult: retaining urine Call Completed: Yes Discharging clinician: Gianluca Donahue Anticipated date of discharge: 10/13/16 - Patient Status Disposition: Transfer SNF Overall status at discharge: patient is progressing back to baseline - Discharge Instructions Follow Up With: Pipe Marin DO [Primary Care Provider] - - Diet and Activity Activity: as per physical therapy Diet: advance to your usual diet, low salt diet Interval History: Mrs. Jesus Schmidt is an 81-year-old female admitted for UTI. Urine culture shows pansensitive Escherichia coli which was treated with IV Rocephin. During admission patient complained about right lower quadrant pain with some localized tenderness and a CT abdomen and pelvis was done which ruled out appendicitis. A bladder scan was performed which showed more than 400 mL of urine. A Denny catheter has been placed and and Detrol LA 2 mg daily at bedtime added. Urology consultation was obtained and Dr. Pavel Bernal has seen the patient. He recommended to keep Denny in and change it on a monthly basis. Possibility of prophylactic daily antibiotic considered considering the fact that she gets quite a few UTI but considering possibility of development of resistant strains it was decided that this time will try Denny catheter and see if this can reduce her risk. She has a prolapsed bladder and not a surgical candidate at this point. Patient blood pressure was noted to be elevated and initially her amlodipine was increased to 10 mg and later her lisinopril increased to 20 mg. She is also on low-dose Detrol which can be increased if blood pressure does not come under control. During admission patient had couple of episodes of sundown managed with the when necessary Haldol well. At this time She is well oriented to time place and person and eager to go home. Patient family and also discharge planning has confirmed that she will be discharged to [facility] as a private pay. Hospital course: Ms. Schmidt is a 81 year old female - Time Spent with Patient Total time spent providing and/or coordinating discharge services: Greater than 30 minutes - Constitutional Vitals: Temp Pulse Resp BP Pulse Ox 97.4 F L 84 22 186/77 95 10/13/16 06:53 10/13/16 06:53 10/13/16 06:53 10/13/16 06:53 10/13/16 06:53 General appearance: Present: A&O X 3, pleasant, no acute distress - Head Head exam: Present: atraumatic, normocephalic - Eye Eye exam: Present: PERRL, conjuntiva pink, sclera anicteric Pupils: Present: PERRL - Neck Neck exam general surgery: Present: supple, trachea midline. Absent: lymphadenopathy - Respiratory Respiratory exam: Present: CTAB. Absent: accessory muscle use, rales, rhonchi, wheezes - Cardiovascular Cardiovascular exam: Present: RRR, +S1, +S2. Absent: diastolic murmur, gallop, rubs, systolic murmur - GI/Abdominal GI/Abdominal exam: Present: normal bowel sounds, soft, no peritoneal signs. Absent: distended, tenderness - Extremities Exam Extremities exam: Present: warm, radial pulses palpable and symetrical. Absent : calf tenderness, cyanotic, pedal edema - Neurological Exam Neurological exam: Present: CN II-XII intact, oriented X3, no focal deficits. Absent: pronater drift, facial droop, speech deficit - Skin Skin exam: Present: dry, intact
--- NOTE | 2016-10-13 07:45 | Physician Discharge Referral ---
ExtendedCare Referral Info Transfer To: F Provider in Charge: juan Provider in Charge after Transfer: PCP Institutional Level of Care: Skilled - Diagnosis (1) UTI (urinary tract infection) Status: Acute (2) Abdominal pain Status: Chronic (3) Hypertension Status: Chronic (4) DVT prophylaxis Status: Acute (5) Urinary retention with incomplete bladder emptying Status: Acute - Transfer Medications Prescriptions: Cefuroxime PO [Ceftin] 500 mg PO Q12HR #12 tablet Tramadol HCl [Ultram] 50 mg PO Q6H PRN #30 tab PRN Reason: Pain Home Medications: Acetaminophen/Butalbital/Caffe [Fioricet] 1.5 each PO Q4H 11/23/14 [History] Calcium Carbonate/Vitamin D3 [Calcium 600 + D Tablet] 1 each PO QAM 11/23/14 [ History] Cyanocobalamin (Vitamin B-12) [Vitamin B12] 1,000 mcg PO QWEEK 11/23/14 [History ] Docusate [Colace] 200 mg PO QAM 11/23/14 [History] Escitalopram [Lexapro] 20 mg PO QAM 11/23/14 [History] Folic Acid 1 mg PO QAM 11/23/14 [History] Omeprazole [PriLOSEC] 20 mg PO BID 11/23/14 [History] Sucralfate [Carafate] 1 gm PO TID 11/23/14 [History] Alprazolam [Xanax] 0.5 mg PO TID #30 tablet 11/28/14 [Rx] clonazePAM [Klonopin] 1 mg PO BID #20 tablet 11/28/14 [Rx] Magnesium Oxide [Mgo] 400 mg PO DAILY 03/13/16 [History] Potassium Chloride [K-Tab ER] 40 meq PO DAILY 03/13/16 [History] predniSONE [Prednisone] 5 mg PO DAILY PRN 03/13/16 [History] Atorvastatin Calcium [Lipitor] 20 mg PO HS #0 03/17/16 [Rx] Cholecalciferol (D-3) [Vitamin D] 2,000 unit PO DAILY 05/30/16 [History] Estradiol [Estrace] 1 gm VG 2XW PRN 05/30/16 [History] Levothyroxine Sodium 100 mcg PO QAM 05/30/16 [History] ALPRAZolam [Xanax 0.5 MG Tablet] 0.5 mg PO TID #20 tablet 06/02/16 [Rx] Ondansetron ODT [Zofran ODT] 4 mg SL Q6HR PRN #14 tab.rapdis 07/10/16 [Rx] Cefuroxime PO [Ceftin] 500 mg PO Q12HR #12 tablet 10/13/16 [Rx] Lisinopril [Zestril] 20 mg PO DAILY tablet 10/13/16 [Rx] Tolterodine LA (24 HR) [Detrol LA] 2 mg PO DAILY cap.er.24h 10/13/16 [Rx] Tramadol HCl [Ultram] 50 mg PO Q6H PRN #30 tab 10/13/16 [Rx] amLODIPine [Norvasc] 10 mg PO DAILY tablet 10/13/16 [Rx] Allergies/Adverse Reactions: Allergies esomeprazole [From Nexium] Allergy (Verified 10/09/16 15:17) Difficulty Breathing levofloxacin [From Levaquin] Allergy (Verified 10/09/16 15:17) Blister acetaminophen [From Percocet] Adverse Reaction (Verified 10/09/16 15:17) Dizziness Amoxicillin [From Augmentin] Adverse Reaction (Verified 10/09/16 15:17) Nausea aspirin Adverse Reaction (Verified 10/09/16 15:17) Dizziness clavulanic acid [From Augmentin] Adverse Reaction (Verified 10/09/16 15:17) Nausea codeine Adverse Reaction (Verified 10/09/16 15:17) Dizziness Estrogens Adverse Reaction (Verified 10/09/16 15:17) Dizziness Hydromorphone Adverse Reaction (Verified 10/09/16 15:17) Dizziness meperidine Adverse Reaction (Verified 10/09/16 15:17) Dizziness morphine Adverse Reaction (Verified 10/09/16 15:17) Dizziness nitrofurantoin Adverse Reaction (Verified 10/09/16 15:17) Nausea NSAIDS (Non-Steroidal Anti-Inflamma Adverse Reaction (Verified 10/09/16 15:17) Dizziness Oxycodone Adverse Reaction (Verified 10/09/16 15:17) Dizziness Paroxetine [From Paxil] Adverse Reaction (Verified 10/09/16 15:17) Nausea tolterodine [From Detrol] Adverse Reaction (Verified 10/09/16 15:17) Nausea - Respiratory Orders Smoking Cessation: Smoking cessation has been advised. For more information, call the [place] Tobacco Quit Line at 6-922-UWEZNOW. CERTIFICATION: I certify that the transfer of the above named patient to an Extended Care Facility is necessary for the continuing treatment of the diagnosis listed. The above information is true and accurate reflection of patient's current condition. Confidential - Redisclosure prohibited without a patient's written consent.
[2016-10-13] MEDS: 0.9 % Sodium Chloride 1,000 ML IVC SCH (08:20)
[2016-10-13] MEDS ORDERED: Tolterodine LA (24 HR) 2 MG CAP.ER.24H PO SCH (09:00)
[2016-10-13 14:13] VITALS: BP 147/84
[2016-10-14] MEDS ORDERED: Lisinopril 20 MG TABLET PO SCH (09:00)
== END 2016-10-13 17:40 | DRG 690 ==
LOC: 3ANU 11:33 → EMEROO 11:33 → 3ANU 14:49
PROVIDERS: ADMIT Internal Medicine; ATTEND Internal Medicine

== ENCOUNTER 2016-12-11 18:12 | Inpatient (IN) ==
[2016-12-11] MEDS ORDERED: *HR* Morphine 2 MG/ML SYRINGE IVP ONE ×2 (19:19→20:12)
[2016-12-11] MEDS ORDERED: Ondansetron 4 MG/2 ML VIAL IVP ONE (19:19)
--- NOTE | 2016-12-11 19:28 | Emergency Department Note ---
Disposition Clinical Impression: Urinary retention UTI (urinary tract infection) Qualifiers: Urinary tract infection type: acute cystitis Hematuria presence: without hematuria Qualified Code(s): N30.00 - Acute cystitis without hematuria Altered mental status Qualifiers: Altered mental status type: unspecified Qualified Code(s): R41.82 - Altered mental status, unspecified Disposition: Admitted As Inpatient Condition: Good General Adult HPI - General Chief complaint: ED Abdominal Pain Stated complaint: epigastric pain, lower abd pain Time Seen by Provider: 12/11/16 18:27 Source: patient, family Limitations: no limitations Nursing Notes Reviewed: Yes Vital Signs Reviewed: Yes - History of Present Illness HPI Narrative: Patient brought in for evaluation of abdominal and flank pain. Symptoms been going on for several days but getting worse. Patient has a history of recurrent UTIs that are followed with urology. Patient has what she describes as likely prolapsed bladder. Patient's symptoms been progressively worse this similar fashion to her previous UTIs. She is not quite developed the confusion that she has developed previously when needing admission. She had gone to rehabilitation facility after her initial admission and underwent rehabilitation. She has been home for the last 4 weeks being taken care of by her . Subjective fever chills and weakness. Suprapubic abdominal tenderness right CVA tenderness. She describes a migraine type headache that is similar to previous headaches. She describes taking Fioricet every 4 hours and not having her most recent dose. Pain Scale: 10 - Related Data Home Medications Medication Instructions Recorded Confirmed Acetaminophen/Butalbital/Caffe 1.5 each PO Q4H 11/23/14 10/09/16 [Fioricet] Calcium Carbonate/Vitamin D3 1 each PO QAM 11/23/14 05/30/16 [Calcium 600 + D Tablet] Cyanocobalamin (Vitamin B-12) 1,000 mcg PO QWEEK 11/23/14 10/09/16 [Vitamin B12] Docusate [Colace] 200 mg PO QAM 11/23/14 05/30/16 Escitalopram [Lexapro] 20 mg PO QAM 11/23/14 10/09/16 Folic Acid 1 mg PO QAM 11/23/14 10/09/16 Omeprazole [PriLOSEC] 20 mg PO BID 11/23/14 05/30/16 Sucralfate [Carafate] 1 gm PO TID 11/23/14 10/09/16 Magnesium Oxide [Mgo] 400 mg PO DAILY 03/13/16 05/30/16 Potassium Chloride [K-Tab ER] 40 meq PO DAILY 03/13/16 05/30/16 predniSONE [Prednisone] 5 mg PO DAILY PRN 03/13/16 05/30/16 Cholecalciferol (D-3) [Vitamin D] 2,000 unit PO DAILY 05/30/16 10/09/16 Estradiol [Estrace] 1 gm VG 2XW PRN 05/30/16 05/30/16 Levothyroxine Sodium 100 mcg PO QAM 05/30/16 10/09/16 Previous Rx's Medication Instructions Recorded Alprazolam [Xanax] 0.5 mg PO TID #30 tablet 11/28/14 clonazePAM [Klonopin] 1 mg PO BID #20 tablet 11/28/14 Atorvastatin Calcium [Lipitor] 20 mg PO HS #0 03/17/16 ALPRAZolam [Xanax 0.5 MG Tablet] 0.5 mg PO TID #20 tablet 06/02/16 Ondansetron ODT [Zofran ODT] 4 mg SL Q6HR PRN #14 tab.rapdis 07/10/16 Cefuroxime PO [Ceftin] 500 mg PO Q12HR #12 tablet 10/13/16 Lisinopril [Zestril] 20 mg PO DAILY tablet 10/13/16 Tolterodine LA (24 HR) [Detrol LA] 2 mg PO DAILY cap.er.24h 10/13/16 Tramadol HCl [Ultram] 50 mg PO Q6H PRN #30 tab 10/13/16 amLODIPine [Norvasc] 10 mg PO DAILY tablet 10/13/16 Allergies Allergy/AdvReac Type Severity Reaction Status Date / Time esomeprazole [From Nexium] Allergy Difficulty Verified 12/11/16 18:13 Breathing levofloxacin [From Levaquin] Allergy Blister Verified 12/11/16 18:13 acetaminophen [From Percocet] AdvReac Dizziness Verified 12/11/16 18:13 Amoxicillin [From Augmentin] AdvReac Nausea Verified 12/11/16 18:13 aspirin AdvReac Dizziness Verified 12/11/16 18:13 clavulanic acid AdvReac Nausea Verified 12/11/16 18:13 [From Augmentin] codeine AdvReac Dizziness Verified 12/11/16 18:13 Estrogens AdvReac Dizziness Verified 12/11/16 18:13 Hydromorphone AdvReac Dizziness Verified 12/11/16 18:13 meperidine AdvReac Dizziness Verified 12/11/16 18:13 morphine AdvReac Dizziness Verified 12/11/16 18:13 nitrofurantoin AdvReac Nausea Verified 12/11/16 18:13 NSAIDS (Non-Steroidal AdvReac Dizziness Verified 12/11/16 18:13 Anti-Inflamma Oxycodone AdvReac Dizziness Verified 12/11/16 18:13 Paroxetine [From Paxil] AdvReac Nausea Verified 12/11/16 18:13 tolterodine [From Detrol] AdvReac Nausea Verified 12/11/16 18:13 Review of Systems: CONSTITUTIONAL: No weight loss, fever, chills, weakness or fatigue. HEENT: Eyes: No visual changes. Ears, Nose, Throat: No hearing loss, difficulty talking or unable to swallow. SKIN: No rash or itching. CARDIOVASCULAR: No chest pain, chest pressure or chest discomfort. No palpitations or edema. RESPIRATORY: No shortness of breath, cough or sputum. GASTROINTESTINAL: Abdominal pain and nausea but no vomiting GENITOURINARY: No burning on urination or hematuria. NEUROLOGICAL: Headache No dizziness, syncope, paralysis, ataxia, numbness or tingling in the extremities. No change in bowel or bladder control. MUSCULOSKELETAL: No muscle pain, back pain, joint pain or stiffness. 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 history - Social History Smoking Status: Never smoker Smokeless Tobacco Status: No Alcohol use: Reports: none Drug use: Reports: none Physical Exam General appearance: Complaining of pain, conversant Eyes: anicteric sclerae, moist conjunctivae; PERRL HENT: Atraumatic; oropharynx clear with moist mucous membranes and no mucosal ulcerations Neck: Normal inspection; Trachea midline; FROM, supple Lungs: CTA, with normal respiratory effort and no intercostal retractions CV: RRR, no MRGs Abdomen: Soft, mild tenderness to the lower abdomen Extremities: No peripheral edema or extremity lymphadenopathy Skin: Normal temperature; no rash, ulcers or lesions Psych: Appropriate mood and affect Neuro: alert and oriented to person; moves all 4 extremities - General Limitations: no limitations General appearance: alert, in no apparent distress Course - Reevaluation(s) Reevaluation #1: Patient with concern for possible UTI in the setting of previous symptoms causing similar as well as distended bladder with air and urinalysis. Old records evaluated ceftriaxone given the last hospital admission with improvement in symptoms. Ceftriaxone given. - Consultations Consultation #1: Discussed with Dr. Rockwell. Patient accepted for admission Vital Signs Temperature 97.9 F 12/11/16 18:14 Pulse Rate 83 12/11/16 18:14 Respiratory Rate 20 12/11/16 18:14 Blood Pressure 152/76 12/11/16 18:14 O2 Sat by Pulse Oximetry 94 12/11/16 18:14 Temperature 97.9 F 12/11/16 18:14 Pulse Rate 71 12/11/16 19:48 Respiratory Rate 20 12/11/16 22:02 Blood Pressure 149/64 12/11/16 22:02 O2 Sat by Pulse Oximetry 94 12/11/16 19:48 Oxygen Delivery Oxygen Delivery Nasal Cannula Medical Decision Making - Lab Data Result diagrams: 12/11/16 19:30 12/11/16 19:30 Lab Results 12/11/16 12/11/16 12/11/16 Range/Units 17:10 19:30 19:30 WBC 4.8 (4.3-11.1) K/mcL RBC 3.81 L (3.82-4.97) M/mcL Hgb 11.8 (11.5-15.4) g/dL Hct 37.5 (35.3-44.9) % MCV 98.4 (83.0-100.0) fL MCH 31.0 (28.0-33.3) pg MCHC 31.5 L (31.6-35.5) g/dL RDW 18.2 H (11.5-14.5) % Plt Count 150 (140-400) K/mcL MPV 9.7 (9.4-12.4) fL Immature Gran % 0.2 (0-4) % Seg Neutrophils % 52.0 % Lymphocytes % 35.0 % Monocytes % 8.4 % Eosinophils % 3.8 % Basophils % 0.6 % Neutrophils # 2.5 (1.6-8.9) K/mcL Lymphocytes # 1.7 (0.6-4.6) K/mcL Monocytes # 0.4 (0.0-1.3) K/mcL Eosinophils # 0.2 (0.0-0.6) K/mcL Basophils # 0.0 (0.0-0.2) K/mcL Sodium 138 (136-145) mEq/L Potassium 3.9 (3.5-4.5) mEq/L Chloride 102 (98-109) mEq/L Carbon Dioxide 29 (19-29) mEq/L BUN 12 (7-20) mg/dL Creatinine 0.68 (0.57-1.11) mg/dL Est GFR ( Amer) > 60 (> 60) Est GFR (Non-Af Amer) > 60 (> 60) BUN/Creatinine Ratio 18 (6-26) Glucose 107 H (70-99) mg/dL Calculated Osmolality 286 (280-300) Lactic Acid (0.5-2.2) mmol/L Calcium 8.6 (8.6-10.8) mg/dL Magnesium 1.8 (1.6-2.6) mg/dL Total Bilirubin 0.3 (0.2-1.2) mg/dL Direct Bilirubin 0.2 (0.0-0.5) mg/dL Indirect Bilirubin 0.1 (0.0-1.2) mg/dL AST 14 (5-34) Units/L ALT 12 (0-55) Units/L Alkaline Phosphatase 59 (38-126) Units/L Serum Total Protein 7.4 (6.0-8.3) g/dL Albumin 3.4 L (3.5-5.0) g/dL Globulin 4.0 H (2.4-3.5) g/dL Albumin/Globulin Ratio 0.9 L (1.1-2.2) Lipase 35 (8-78) Units/L Urine Color Yellow (Yellow) Urine Clarity Clear (Clear) Urine pH 7.5 (5.0-8.0) pH Units Ur Specific [place] 1.010 (1.010-1.025) Urine Protein Negative (Neg-Trace) mg/dL Urine Glucose (UA) Normal (Normal) mg/dL Urine Ketones Negative (Negative) mg/dL Urine Blood Negative (Negative) Urine Nitrite Negative (Negative) Urine Bilirubin Negative (Negative) Urine Urobilinogen Normal (Normal) mg/dL Ur Leukocyte Esterase Small H (Negative) Urine Microscopic RBC 0-3 (0-3) per hpf Urine Microscopic WBC 15-30 H (0-3) per hpf Ur Squamous Epith Cells Moderate H (None-Few) per lpf Urine Bacteria None Seen (None-Few) per hpf Hyaline Casts None Seen (None-Few) per lpf Ur Culture Indicated? YES A (NO) 12/11/16 Range/Units 19:30 WBC (4.3-11.1) K/mcL RBC (3.82-4.97) M/mcL Hgb (11.5-15.4) g/dL Hct (35.3-44.9) % MCV (83.0-100.0) fL MCH (28.0-33.3) pg MCHC (31.6-35.5) g/dL RDW (11.5-14.5) % Plt Count (140-400) K/mcL MPV (9.4-12.4) fL Immature Gran % (0-4) % Seg Neutrophils % % Lymphocytes % % Monocytes % % Eosinophils % % Basophils % % Neutrophils # (1.6-8.9) K/mcL Lymphocytes # (0.6-4.6) K/mcL Monocytes # (0.0-1.3) K/mcL Eosinophils # (0.0-0.6) K/mcL Basophils # (0.0-0.2) K/mcL Sodium (136-145) mEq/L Potassium (3.5-4.5) mEq/L Chloride (98-109) mEq/L Carbon Dioxide (19-29) mEq/L BUN (7-20) mg/dL Creatinine (0.57-1.11) mg/dL Est GFR ( Amer) (> 60) Est GFR (Non-Af Amer) (> 60) BUN/Creatinine Ratio (6-26) Glucose (70-99) mg/dL Calculated Osmolality (280-300) Lactic Acid 0.9 (0.5-2.2) mmol/L Calcium (8.6-10.8) mg/dL Magnesium (1.6-2.6) mg/dL Total Bilirubin (0.2-1.2) mg/dL Direct Bilirubin (0.0-0.5) mg/dL Indirect Bilirubin (0.0-1.2) mg/dL AST (5-34) Units/L ALT (0-55) Units/L Alkaline Phosphatase (38-126) Units/L Serum Total Protein (6.0-8.3) g/dL Albumin (3.5-5.0) g/dL Globulin (2.4-3.5) g/dL Albumin/Globulin Ratio (1.1-2.2) Lipase (8-78) Units/L Urine Color (Yellow) Urine Clarity (Clear) Urine pH (5.0-8.0) pH Units Ur Specific [place] (1.010-1.025) Urine Protein (Neg-Trace) mg/dL Urine Glucose (UA) (Normal) mg/dL Urine Ketones (Negative) mg/dL Urine Blood (Negative) Urine Nitrite (Negative) Urine Bilirubin (Negative) Urine Urobilinogen (Normal) mg/dL Ur Leukocyte Esterase (Negative) Urine Microscopic RBC (0-3) per hpf Urine Microscopic WBC (0-3) per hpf Ur Squamous Epith Cells (None-Few) per lpf Urine Bacteria (None-Few) per hpf Hyaline Casts (None-Few) per lpf Ur Culture Indicated? (NO) Attestation Statement - Attestation Attestation: Patient was seen with resident physician. I reviewed the history, physical, assessment and plan, and agree with the findings. I also personally evaluated this patient and had [id number] time with this patient. A 1-year-old female presents to the emergency department with a chief complaint of abdominal pain and flank pain. Patient states that she has chronic bladder infections for which she sees urology. They get worse she gets these kind of symptoms and often gets confused as well. She has been admitted multiple times in the past with these problems. Her states that he is having a difficult time taking care of her at this point. She is also complaining of significant discomfort in the abdomen as well as the back. On exam vital signs were stable patient is a poor historian. ENT is unremarkable. Heart and lungs are normal. Abdomen is diffusely tender to palpation without guarding or rigidity. Extremities are unremarkable neurologically the patient is intact. Labs were largely unremarkable and CT scan did not show any acute abnormalities. Urinalysis however revealed evidence of urinary tract infection, and with the patient's declining ability to take care of herself need to admit her to the hospital for further evaluation treatment an IV antibiotic therapy. Patient family were comfortable to plan. We will discuss the hospitalist. Agree with the resident physician assessment and plan.
[2016-12-11 19:32] LABS: Bilirubin,Urine Negative (Negative); Blood,Urine Negative (Negative); Clarity,Urine Clear (Clear); Color,Urine Yellow (Yellow); Glucose,Urine (UA) Normal (Normal); Ketones,Urine Negative (Negative); Leukocyte Esterase,Urine Small (Negative); Nitrite,Urine Negative (Negative); PH,Urine 7.5 pH Units (5.0-8.0); Protein,Urine Negative (Neg-Trace); Urobilinogen,Urine Normal (Normal)
[2016-12-11 19:34] LABS: Bacteria,Urine None Seen per hpf (None-Few); Hyaline Casts,Urine None Seen per lpf (None-Few); RBC,Urine 0-3 per hpf (0-3); Squamous Epithelial Cell,Urine Moderate per lpf (None-Few); WBC,Urine 15-30 per hpf (0-3)
[2016-12-11 19:42] LABS: Basophils % 0.6 %; Eosinophils # 0.2 K/mcL (0.0-0.6); Eosinophils % 3.8 %; Hematocrit 37.5 % (35.3-44.9); Hemoglobin 11.8 g/dL (11.5-15.4); Immature Granulocytes % 0.2 % (0-4); Lymphocytes # 1.7 K/mcL (0.6-4.6); Mean Corpuscular HGB Conc 31.5 g/dL (31.6-35.5); Mean Corpuscular Volume 98.4 fL (83.0-100.0); Mean Platelet Volume 9.7 fL (9.4-12.4); Monocytes # 0.4 K/mcL (0.0-1.3); Monocytes % 8.4 %; Neutrophils # 2.5 K/mcL (1.6-8.9); Platelet Count 150 K/mcL (140-400); Red Blood Count 3.81 M/mcL (3.82-4.97); Red Cell Distribution Width 18.2 % (11.5-14.5)
[2016-12-11 19:58] LABS: Alanine Aminotransferase 12 Units/L (0-55); Albumin 3.4 g/dL (3.5-5.0); Albumin/Globulin Ratio 0.9 (1.1-2.2); Alkaline Phosphatase 59 Units/L (38-126); Aspartate Amino Transferase 14 Units/L (5-34); BUN/Creatinine Ratio 18 (6-26); Bilirubin,Direct 0.2 mg/dL (0.0-0.5); Bilirubin,Indirect 0.1 mg/dL (0.0-1.2); Bilirubin,Total 0.3 mg/dL (0.2-1.2); Blood Urea Nitrogen 12 mg/dL (7-20); Calcium 8.6 mg/dL (8.6-10.8); Carbon Dioxide 29 mEq/L (19-29); Chloride 102 mEq/L (98-109); Glucose 107 mg/dL (70-99); Lipase 35 Units/L (8-78); Osmolality,Calculated 286 (280-300); Potassium 3.9 mEq/L (3.5-4.5); Sodium 138 mEq/L (136-145); Total Protein 7.4 g/dL (6.0-8.3); eGFR For African Americans > 60 (> 60); eGFR For Non-African Americans > 60 (> 60)
[2016-12-11] MEDS ORDERED: *HR* Meperidine 25 MG/ML SYRINGE IVP ONE (20:15)
[2016-12-11] MEDS ORDERED: *HR* Promethazine 25 MG/ML VIAL IVP ONE (20:15)
--- NOTE | 2016-12-11 22:54 | Internal Med History&Physical ---
<Justice Chávez - Last Filed: 12/12/16 00:54> Date of Encounter: 12/12/16 Time of Encounter: 22:51 Assessment and Plan (1) Abdominal pain Current visit: Yes Status: Chronic 81f presents with abdominal pain LLQ, non-radiating,associated with nausea denies vomiting, diarrhea, fever, chills, melena, hematochezia Physical exam: tender to palpation in LLQ, +bowel sounds hgb 11.[address] Abdomen/pelvis: urinary bladder appears distended with small amouts of air, chornic dilation of biliary system, diverticulosis, compression injury of lower lumbar spine, chronic fracture of right medial acetabulum no renal calculi, no evidence of acute appendicitis, or pancreatic mass Chemistry : lipase, AST,ALT bilirubin WNL. etiology unclear: patient has previous MRCP, ERCP in 2016 which was negative for obstruction, mass. hx of badder prolapse has pessary removed in 2016 UA: dirt catch, no nitirites, small leukocyte esterase Plan: NPO except medications According to urology note in [facility] patient is a chronic bacterial colonizer and with her multiple adverese reactions to antibiotics was started on nitrofurantoin. Will continue this Compression fractures chronic from previous admission in early 2017: PT/OT consult GI DVT prophylaxis Qualifiers: Abdominal location: left lower quadrant Qualified Code(s): R10.32 - Left lower quadrant pain (2) Physical deconditioning Current visit: Yes Status: Acute UE strenth 3/5 right lower extremity strenth 3/5 and left 2/5 Ambulates with walker, denies falls hx of thoracic compression fractures and hip fractures plan: PT/OT consult (3) Altered mental status Current visit: Yes Status: Resolved According to and evaluation by emergency room physician patient was confused. During my evaluation patient is alert and oriented to self, time, situation appears lethargic Plan: Currently we will make patient nothing by mouth and monitor her mental status. Qualifiers: Altered mental status type: transient alteration of awareness Qualified Code(s): R40.4 - Transient alteration of awareness (4) UTI (urinary tract infection) Current visit: Yes Status: Acute UA leukocyte esterase and WBC culture sent hx of multiple UTI growing Escherichia coli and enterococcus facialis Sensitive to nitrofurantoin No signs of sepsis Leukocytosis Plan: Continue nitrofurantoin Await urine cultures Qualifiers: Hematuria presence: with hematuria Qualified Code(s): N39.0 - Urinary tract infection, site not specified; R31.9 - Hematuria, unspecified (5) DVT prophylaxis Current visit: Yes Status: Acute heparin SQ (6) Dilated cbd, acquired Current visit: Yes Status: Acute patient has been evaluated for this by [facility] with a MRCP and ERCP. Furthermore she has had CT scans of the abdomen and pelvis in the past No previous findings of mass, obstruction. Plan: if patients abdominal pain does not improve, asif will need GI consultation to reevaluate dialated [facility] Internal Medicine - H&P: HPI Chief complaint: upset stomach Admitted From: Home Plans for Post Hospital Care: Transfer [facility] Care History of present illness: Ms. Schmidt is a 81 year old female presents with cc of upset stomach. Patient states her last 4 days she has had nausea without vomiting. She reports LLQ abdominal pain that does not radiate. Denies exacerbating and reliving factors. Denies diarrhea states she has constipation. Denies fever, chills, sick contacts or travel, melena, hematochezia. 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 reprots she has had formed bowel movements with last on being this morning. reports patient has hx of UTI (hx of cystocele and rectocele) and she usually becomes confused. Patient is no chronic nitrofurantoin theraphy for UTI started by her urologist. ER physician also reported patient is confused. However, during my conversation with patient she is alert oriented to time place situation and self. Patient also reports headache 7/10, frontal throbbing non radiating and she take fiorcet at home for it. She denies falls. Uses a walker to get around, but is high risk due to hx of hip fracture. Past Med Surg Social Fam HX - Past Medical History Medical history: arthritis, dementia, GERD, hyperlipidemia, hypertension, migraine, RA, thyroid disease, other Psychiatric history: anxiety, depression - Past Surgical History Surgical History: cholecystectomy, hysterectomy - Social History Smoking Status: Never smoker Smokeless Tobacco Status: No Alcohol use: none Drug use: none - Family History Mother Adopted: No Living Status: Hx Family Cardiac Disorders: Yes Father Hx Family Cancer: Yes (colon cancer) Internal Medicine - H&P: Meds Acetaminophen/Butalbital/Caffe [Fioricet] 1.5 each PO Q4H 11/23/14 [History] Calcium Carbonate/Vitamin D3 [Calcium 600 + D Tablet] 1 each PO QAM 11/23/14 [ History] Cyanocobalamin (Vitamin B-12) [Vitamin B12] 1,000 mcg PO QWEEK 11/23/14 [History ] Docusate [Colace] 200 mg PO QAM 11/23/14 [History] Escitalopram [Lexapro] 20 mg PO QAM 11/23/14 [History] Folic Acid 1 mg PO QAM 11/23/14 [History] Omeprazole [PriLOSEC] 20 mg PO BID 11/23/14 [History] Sucralfate [Carafate] 1 gm PO TID 11/23/14 [History] Alprazolam [Xanax] 0.5 mg PO TID #30 tablet 11/28/14 [Rx] clonazePAM [Klonopin] 1 mg PO BID #20 tablet 11/28/14 [Rx] Magnesium Oxide [Mgo] 400 mg PO DAILY 03/13/16 [History] Potassium Chloride [K-Tab ER] 40 meq PO DAILY 03/13/16 [History] predniSONE [Prednisone] 5 mg PO DAILY PRN 03/13/16 [History] Atorvastatin Calcium [Lipitor] 20 mg PO HS #0 03/17/16 [Rx] Cholecalciferol (D-3) [Vitamin D] 2,000 unit PO DAILY 05/30/16 [History] Levothyroxine Sodium 100 mcg PO QAM 05/30/16 [History] Ondansetron ODT [Zofran ODT] 4 mg SL Q6HR PRN #14 tab.rapdis 07/10/16 [Rx] Lisinopril [Zestril] 20 mg PO DAILY tablet 10/13/16 [Rx] Tramadol HCl [Ultram] 50 mg PO Q6H PRN #30 tab 10/13/16 [Rx] amLODIPine [Norvasc] 10 mg PO DAILY tablet 10/13/16 [Rx] 3 Allergy/AdvReac Type Severity Reaction Status Date / Time esomeprazole [From Nexium] Allergy Difficulty Verified 12/11/16 18:13 Breathing levofloxacin [From Levaquin] Allergy Blister Verified 12/11/16 18:13 acetaminophen [From Percocet] AdvReac Dizziness Verified 12/11/16 18:13 Amoxicillin [From Augmentin] AdvReac Nausea Verified 12/11/16 18:13 aspirin AdvReac Dizziness Verified 12/11/16 18:13 clavulanic acid AdvReac Nausea Verified 12/11/16 18:13 [From Augmentin] codeine AdvReac Dizziness Verified 12/11/16 18:13 Estrogens AdvReac Dizziness Verified 12/11/16 18:13 Hydromorphone AdvReac Dizziness Verified 12/11/16 18:13 meperidine AdvReac Dizziness Verified 12/11/16 18:13 morphine AdvReac Dizziness Verified 12/11/16 18:13 nitrofurantoin AdvReac Nausea Verified 12/11/16 18:13 NSAIDS (Non-Steroidal AdvReac Dizziness Verified 12/11/16 18:13 Anti-Inflamma Oxycodone AdvReac Dizziness Verified 12/11/16 18:13 Paroxetine [From Paxil] AdvReac Nausea Verified 12/11/16 18:13 tolterodine [From Detrol] AdvReac Nausea Verified 12/11/16 18:13 All Systems PM: A 10-system review of systems was performed and is negative for pertinent findings except as documented above in the HPI. Review of systems: Constitutional: Denies fever, chills HEENT: Denies headache, vision changes, neck pain, sore throat, rhinorrhea Heart: Denies chest pain palpitations Lungs: Denies shortness of breath cough Abdomen: Reports abdominal pain, nausea. denies vomiting, diarrhea Back: Denies back pain HEENT: Denies skin sores, decubitus ulcers Kidney: Denies dysuria, hematuria. Endocrine: Reports polyuria, polydipsia Extremities: Denies swelling, pain Neuro: Denies numbness, and tingling - Constitutional Vitals: Temp Pulse Resp BP Pulse Ox 97.9 F 71 20 149/64 94 12/11/16 18:14 12/11/16 19:48 12/11/16 22:02 12/11/16 22:02 12/11/16 19:48 - Other Additional findings: General: Frail, mildly distressed elderly female HEENT: Head atraumatic, normocephalic, EOMI, PERRLA, neck nontender to palpation , absent Lymphadenopathy, dry mucous membranes Heart: Regular rate and rhythm with no murmur Lungs: Clear to auscultation bilaterally Abdomen: Soft tender at left lower quadrant, non distended, + bowel sounds, no guarding, no organomegaly, Extremities: Absent pedal edema, Neuro: Cranial nerves II through XII intact, sensation equal bilaterally, strength upper extremity 3/5, LLE 2/5 and RLE 3/5, alert oriented 3 Vascular: Pedal and radialpulses 2 out of 4 Internal Med - H&P Results - Labs CBC & Chem 7: 12/11/16 19:30 12/11/16 19:30 <Piotr Rockwell - Last Filed: 12/12/16 03:16> Date of Encounter: 12/12/16 Time of Encounter: 03:06 - Constitutional Constitutional: malaise, weakness, no chills, no fever(s) - EENT Eyes: no change in vision Nose, mouth and throat: no sinus pain, no sinus pressure, no sore throat - Cardiovascular Cardiovascular ROS IM: no chest pain, no dyspnea - Respiratory Respiratory: no cough, no chest congestion, no change in phlegm color - Gastrointestinal Gastrointestinal: abdominal pain, dyspepsia, no diarrhea, no vomiting - Genitourinary Genitourinary: no dysuria - Musculoskeletal Musculoskeletal ROS IM: arthralgias - Neurological Neurological ROS: frequent falls, weakness, no focal weakness, no headache(s) - Constitutional Vitals: Temp Pulse Resp BP Pulse Ox 97.9 F 70 18 121/65 92 12/11/16 18:14 12/11/16 23:51 12/11/16 23:51 12/11/16 23:51 12/11/16 23:51 General appearance: Present: cooperative, A&O X 3, pleasant, no acute distress - Head Head exam: Present: atraumatic, normal inspection - Eye Eye exam: Present: PERRL. Absent: scleral icterus Pupils: Present: normal accommodation - Neck Neck exam general surgery: Present: supple - Respiratory Respiratory exam: Present: CTAB. Absent: rales, rhonchi, wheezes - Cardiovascular Cardiovascular exam: Present: RRR, +S1, +S2, systolic murmur (grade 2). Absent : diastolic murmur - GI/Abdominal GI/Abdominal exam: Present: normal bowel sounds, soft, tenderness (mild RUQ). Absent: hepatomegaly, mass, splenomegaly - Extremities Exam Extremities exam: Present: full ROM, warm. Absent: calf tenderness, joint swelling - Neurological Exam Neurological exam: Present: altered, oriented X3, no focal deficits - Psychiatric Psychiatric exam: Present: normal affect, normal mood Internal Med - H&P Results - Labs CBC & Chem 7: 12/11/16 19:30 12/11/16 19:30 - Attending Attestation I discussed the patient EKLUTNA, PMH, ROS, lab data, and exam findings with Dr. Chávez. I then saw and examined patient independently as well. Pt sleeping but easily arousable. Patient is now alert and oriented x 3, despite being sleepy. She is frail, weak, and complains of abdominal pain (chronic). She also may have a mild UTI. We are awaiting urine culture results. Meanwhile, we'll treat with IV Rocephin until culture results available. She has had extensive GI work-up in the past, including ERCP. At this time, I would not pursue further GI work-up but, rather, consult GI and ask their opinion. She will need PT and OT evaluations prior to discharge as she is quite weak and de- conditioned. Other than my comments above and noted exam findings, I agree with Dr. Chávez's assessment and plan.
[2016-12-11 23:10] LABS: Magnesium 1.8 mg/dL (1.6-2.6)
[2016-12-12] MEDS: Acetaminophen/Butalbital/CaffeineTABLET PO SCH ×6 (01:12→20:26)
[2016-12-12] MEDS: *HR* Heparin 5,000 UNIT/ML VIAL SQ SCH ×2 (05:07→16:38)
[2016-12-12] MEDS: Ondansetron 4 MG/2 ML VIAL IVP PRN (05:24)
[2016-12-12] MEDS ORDERED: Nitrofurantoin (BID) 100 MG CAPSULE PO SCH (08:00)
[2016-12-12] MEDS: Sucralfate 1 GM TABLET PO SCH ×3 (08:08→20:26)
[2016-12-12] MEDS: amLODIPine 5 MG TABLET PO SCH (08:08)
[2016-12-12] MEDS: ALPRAZolam 0.5 MG TABLET PO SCH ×3 (08:09→20:25)
[2016-12-12] MEDS: Magnesium Oxide 400 MG TABLET PO SCH (08:09)
[2016-12-12] MEDS: Lisinopril 20 MG TABLET PO SCH (08:10)
--- NOTE | 2016-12-12 12:15 | Internal Med Progress Note ---
Date of Encounter: 12/12/16 Time of Encounter: 10:55 - Assessment and plan (1) Abdominal pain Current Visit: Yes Status: Chronic Assessment and plan: Mrs. Olvera states that she always has abdominal pain with her migraines. She is tender to palpation in RLQ. No masses or hernias noted. Abd is soft with bowel sounds present. On admission, she was tender in LLQ. Nothing acute on CT abd/pelvis. Bladder appears distended, chronic dilation of biliary system, diverticulosis, compression injury of lower LS and chronic gracture of right medial acetabulum. No renal calculi, no evidenc of appendicitis or pancreatic mass. Pt has been seen by Dr Maldonado and was to have scopes done, but cancelled and did not reschedule. She has had prior MRCP and ERCP which were negative for obstruction or mass. History of bladder prolapse, pseeary removed in 2015. Pt appeared to be anxious about not eating and it appeared to make her more uncomfortable, so we gave her a tray and she seemed to improve. Patient is being treated for urinary tract infection, no nitrites, small amount leukocyte esterase. We will continue to treat in change or discontinue antibiotics based on culture and sensitivity. Continue with PT/OT consultations. They are in and not completed at this time. Continue GI and DVT prophylaxis. Qualifiers: Abdominal location: left lower quadrant Qualified Code(s): R10.32 - Left lower quadrant pain (2) Dilated cbd, acquired Current Visit: Yes Status: Acute Assessment and plan: Findings per MRCP and ERCP. Furthermore she has had CT scans of abdomen and pelvis, no previous findings of mass or obstruction. Patient is tender in right lower quadrant at this time. Will consult GI for evaluation of chronic abdominal pain. (3) Frail elderly Current Visit: Yes Status: Chronic Assessment and plan: Physical therapy and occupational therapy consultations. (4) UTI (urinary tract infection) Current Visit: Yes Status: Acute Assessment and plan: Urine collected the emergency department last night had 15-30 white cells, small amount leukocyte esterase. Also moderate amount of squamous epithelial cells. Culture is triggered in pending. Per prior reports, she is a colonizer of bacteria that is susceptible to Macrobid. It was started by the admitting hospitalist. We will continue to monitor for final culture and sensitivity and either stop or change antibiotics based on results. Patient does have tenderness in right lower quadrants. She is denies any back pain. Patient is incontinent and wearing in attendance. She is afebrile, normotensive, non- tachycardic, respirations are 15 and 16, no signs of sepsis. Qualifiers: Urinary tract infection type: acute cystitis Hematuria presence: without hematuria Qualified Code(s): N30.00 - Acute cystitis without hematuria (5) Physical deconditioning Current Visit: Yes Status: Acute - Time Spent With Patient less than 15 minutes - Subjective Interval history: Patient was seen and assessed at 1055. Patient appears to be confused at times. She was asking primary nurse for pain medication repeatedly. I saw the patient and then went back to try to find her to discuss a possible palliative consult with him, she did not remember me being in there and did not remember discussing plan of care with her. I discussed plan of care with her again and explained that her pain in her abdomen and her migraines or chronic and that perhaps a palliative consult would be beneficial to assist with pain control. She said that all of her pain is from her UTI. We did allow her to eat since she is not a surgical abdomen and there is nothing acute on CT. - Constitutional Vitals: Temp Pulse Resp BP Pulse Ox 97.5 F L 73 15 138/77 99 12/12/16 11:31 12/12/16 11:31 12/12/16 11:31 12/12/16 11:31 12/12/16 11:31 General appearance: Present: cooperative, A&O X 3, pleasant, no acute distress, answers questions appropriately - Head Head exam: Present: normal inspection, normocephalic - Eye Eye exam: Present: normal appearance, conjuntiva pink - ENT ENT exam: Present: mucous membranes moist, normal exam, normal external ear exam - Neck Neck exam general surgery: Present: normal inspection. Absent: lymphadenopathy , tenderness - Respiratory Respiratory exam: Present: decreased breath sounds, CTAB. Absent: chest wall tenderness, rales, respiratory distress, rhonchi, stridor, wheezes - Cardiovascular Cardiovascular exam: Present: RRR, +S1, +S2. Absent: clicks, diastolic murmur, gallop, systolic murmur - GI/Abdominal GI/Abdominal exam: Present: normal bowel sounds, soft, tenderness. Absent: distended, hepatomegaly - Extremities Exam Extremities exam: Present: warm, radial pulses palpable and symmetrical. Absent : joint swelling, pedal edema, tenderness - Neurological Exam Neurological exam: Present: alert, altered, oriented X3, strengths equal and symetr throughout. Absent: facial droop, speech deficit - Skin Skin exam: Present: dry, intact, normal color, warm. Absent: rash, urticaria Internal Medicine: Result - Labs CBC & Chem 7: 12/11/16 19:30 12/11/16 19:30 Consult Discharge Plan - Plan Referrals: Pipe Marin DO [Primary Care Provider] -
[2016-12-12] MEDS ORDERED: Lisinopril 20 MG TABLET PO ONE (13:02)
--- NOTE | 2016-12-12 15:26 | Palliative - Consult Note ---
Date of Encounter: 12/12/16 Time of Encounter: 14:23 - Assessment and Plan (1) Anxiety Current Visit: Yes Status: Acute Assessment and plan: Patient's anxiety also seems to be tied very directly to her headaches. In that when she gets more anxious she does get more headaches. I have recommended trying Celexa low-dose to start off with. However this will need to be followed up as an outpatient. Do not expected to decrease her symptoms immediately as it will have to build up in her system. I did not make any other recommendations I would leave the other medications alone. Patient has some many intolerances to medications even the Celexa may very well cause her some nausea or dizziness in which case she will want to discontinue the medication. Care will continue to follow. (2) Goals of care, counseling/discussion Current Visit: Yes Status: Acute Assessment and plan: CODE STATUS as well established a DNR CCA, DNI. The patient does have advanced directives done. (3) UTI (urinary tract infection) Current Visit: Yes Status: Acute Assessment and plan: Possible UTI versus colonization hospitalist team is investigating and following this. It is being treated. Qualifiers: Hematuria presence: with hematuria Qualified Code(s): N39.0 - Urinary tract infection, site not specified; R31.9 - Hematuria, unspecified (4) Abdominal pain Current Visit: No Status: Chronic Assessment and plan: Chronic abdominal pain which does seem to be very tied into her headache pain. I believe that they probably are extremely related possibly mediated by an unusual allergy-type situation. At there are very definite triggers seem to be problematic for her. I have recommended outpatient allergy testing. The patient has so many drug intolerances to various medications I would make no changes in her current medications other than he does state that when she is not having regular bowel movements that this does seem to cause her headaches and abdominal pain. She actually takes too much of her milk of magnesia L of diarrhea, during those tear during those times, seemed to have nearly as many migraines. He thinks this is the case however she is not absolutely sure. I have recommended to the treatment team that we put her on a low-dose of daily milk of magnesia. Either 15-30 mL. Would not exceed 30 mL a day. Qualifiers: Abdominal location: right lower quadrant Qualified Code(s): R10.31 - Right lower quadrant pain (5) Head ache Current Visit: Yes Status: Acute Assessment and plan: Patient has chronic ingrained sounding headaches, however on history it does sound that these may be primarily muscle tension type headaches. Patient states Fioricet does seem to help. The patient has a very large number of medication intolerances including just about any kind of pain reliever. However , when describing her situation it does sound like there is a number of triggers for these headaches, these to which his food. Different food items that she can identify very quickly is being problems for her. There is also a tiny and between the headache and her abdominal pain in that when the headache is triggered off especially by food seems to also get the abdominal pain. I am concerned the patient may have some kind of mild extremely atypical food allergy. And I would recommend out patient testing for allergies. I have discussed this with the patient's daughter who is an RN, as well as her primary care team. Recommend continuing the Fioricet. Qualifiers: Headache type: tension-type Headache chronicity pattern: chronic headache Intractability: not intractable Qualified Code(s): G44.229 - Chronic tension -type headache, not intractable Palliative-CN HPI - Data of Consult Patient: new to practice Requesting Physician: Heaven Fernandez CNP Primary Care Provider: Pipe Marin DO - Consult Narrative Palliative Care/Comfort Measures: Palliative care History of present illness: Ms. Schmidt is a 81 year old female The patient has a history of chronic abdominal pain and chronic migraine headaches. She has had this since she was a child. She states that she gets particularly anxious these seem to trigger off headaches, he triggers off her headache is very oftentimes results and abdominal pain although on occasion it can be the other way around with the abdominal pain causing the headache. Take is a very deep throbbing pain that oftentimes start either in the frontal muscle area or at the base of the skull. Seems to radiate across the top of her head. Fioricet does help. Patient has a very large number medication intolerances not true allergies, however she gets very easily nauseated or lightheaded and dizzy with her meds and does not like to take them. She is also able to tell me that there are a number of food triggers that seem to be a problem for her. Have always been present and are anywhere from things that she just does not like very much to things that actually caused her headaches. The best of her knowledge she has not had any food allergy testing. He also relates that she has a daughter with chronic migraines that also has a number of food intolerances those headaches to seem to be somewhat muscle related in that Botox has help her daughter tremendously. She also relates that her abdominal pain is a deep achy pain throughout the entire abdomen and does seem to be associated with the headaches. As the headaches get better the abdominal pain also gets better. Has problems with chronic bladder prolapse she did have a pessary in for a while which seemed to help to some degree but ultimately she could not tolerate it and it is gone consequently she has to P all the time. So it is difficult to tell if she has frequency or time. Was diagnosed a urinary tract infection, however she also has trouble with being colonized. Agent is already DNR CCA DNI, patient also has advanced directives done palliative care was consult regarding her chronic headaches and her chronic abdominal pain. See if we had anything to offer. Please see the CC: Heaven Fernandez, TOYIN Headache and abdominal pain Past Med Surg Social Fam HX - Past Medical History Medical history: arthritis, dementia, GERD, hyperlipidemia, hypertension, migraine, RA, thyroid disease, other Psychiatric history: anxiety, depression - Past Surgical History Surgical History: cholecystectomy, hysterectomy - Social History Smoking Status: Never smoker Smokeless Tobacco Status: No Alcohol use: none Drug use: none - Family History Mother Adopted: No Living Status: Hx Family Cardiac Disorders: Yes Father Name: [place] D[place] Cause of : Colon cancer Hx Family Cancer: Yes (colon cancer) Medications and Allergies Magnesium Oxide [Mgo] 400 mg PO DAILY 03/13/16 [History] Potassium Chloride [K-Tab ER] 40 meq PO DAILY 03/13/16 [History] predniSONE [Prednisone] 5 mg PO DAILY PRN 03/13/16 [History] Cholecalciferol (D-3) [Vitamin D] 2,000 unit PO DAILY 05/30/16 [History] Levothyroxine Sodium 100 mcg PO QAM 05/30/16 [History] Lisinopril [Zestril] 20 mg PO DAILY tablet 10/13/16 [Rx] Tramadol HCl [Ultram] 50 mg PO Q6H PRN #30 tab 10/13/16 [Rx] Atorvastatin [Lipitor] 40 mg PO HS 12/12/16 [History] HYDROcodone/Acet 5/325 mg [Jeff 5-325 mg] 1 tab PO Q6H PRN 12/12/16 [History] Potassium Chloride [K-Tab ER] 20 meq PO DAILY 12/12/16 [History] 3 Allergy/AdvReac Type Severity Reaction Status Date / Time esomeprazole [From Nexium] Allergy Difficulty Verified 12/11/16 18:13 Breathing levofloxacin [From Levaquin] Allergy Blister Verified 12/11/16 18:13 acetaminophen [From Percocet] AdvReac Dizziness Verified 12/11/16 18:13 Amoxicillin [From Augmentin] AdvReac Nausea Verified 12/11/16 18:13 aspirin AdvReac Dizziness Verified 12/11/16 18:13 clavulanic acid AdvReac Nausea Verified 12/11/16 18:13 [From Augmentin] codeine AdvReac Dizziness Verified 12/11/16 18:13 Estrogens AdvReac Dizziness Verified 12/11/16 18:13 Hydromorphone AdvReac Dizziness Verified 12/11/16 18:13 meperidine AdvReac Dizziness Verified 12/11/16 18:13 morphine AdvReac Dizziness Verified 12/11/16 18:13 nitrofurantoin AdvReac Nausea Verified 12/11/16 18:13 NSAIDS (Non-Steroidal AdvReac Dizziness Verified 12/11/16 18:13 Anti-Inflamma Oxycodone AdvReac Dizziness Verified 12/11/16 18:13 Paroxetine [From Paxil] AdvReac Nausea Verified 12/11/16 18:13 tolterodine [From Detrol] AdvReac Nausea Verified 12/11/16 18:13 - Constitutional Constitutional ROS PAL: no decreased appetite (That there are many foods that she cannot eat without causing problems.), no anorexia, no chills, no fatigue - EENT Eyes: no dry eye, no itchy eyes Ears: no ear discharge, no ear pain Ears, nose, mouth, throat: no facial pain, no hoarseness, no lip swelling, no mouth pain, no neck mass, no neck pain, no nose pain - Cardiovascular Cardiovascular ROS: no chest pain, no chest pain at rest, no chest pain with activity, no diaphoresis, no dyspnea on exertion - Respiratory Respiratory: no cough, no dyspnea, no hemoptysis, no dyspnea on exertion - Gastrointestinal Gastrointestinal: abdominal pain, constipation (Constipation does seem to make her headache worse.), nausea, no diarrhea, no vomiting - Genitourinary Palliative ROS female: urinary frequency, urinary incontinence, no urinary hesitancy, no urinary urgency - Musculoskeletal Musculoskeletal ROS IM: no arthralgias, no back pain, no joint swelling - Integumentary ROS Integumentary: no dry skin, no skin ulcer, no sores, no unusual bruising - Neurological Neurological ROS: headache(s), no convulsions, no frequent falls, no lack of coordination, no radicular pain, no sensory deficit - Psychiatric Psychiatric general PM: anxiety, depression (Questionable), no change in appetite, no confusion, no homicidal ideation, no hopelessness, no irritability , no suicidal ideation - Endocrine Additional comments: She does have problems with her thyroid, however her most recent thyroid workup was negative and this is while she has been having these chronic symptoms. Palliative Care-Exam - Constitutional Vitals: Temp Pulse Resp BP Pulse Ox 97.5 F L 68 16 127/60 96 12/12/16 15:15 12/12/16 15:15 12/12/16 15:15 12/12/16 15:15 12/12/16 15:15 General appearance: Absent: severe distress - Head Head Exam: Present: atraumatic, normal inspection - Eye Eye exam: Present: normal appearance - ENT ENT exam: Present: mucous membranes moist, normal exam (No signs of any thrush.) - Respiratory Respiratory exam: Present: decreased breath sounds (Slightly) - Cardiovascular Cardiovascular exam: Present: irregular rhythm (Mildly), systolic murmur - GI/Abdominal Exam GI/Abdominal exam: Present: normal bowel sounds, soft. Absent: tenderness - Extremities Exam Extremities exam: Present: normal inspection. Absent: pedal edema, tenderness - Neurological Exam Neurological exam: Present: alert, oriented X3 - Psychiatric Psychiatric exam: Present: normal affect, normal mood. Absent: agitated, anxious (None at this time.), homicidal ideation, suicidal ideation - Skin Skin exam: Present: dry, warm Internal Medicine - CN: Reslt - Labs CBC & Chem 7: 12/11/16 19:30 12/11/16 19:30 Consult Discharge Plan - Plan Referrals: Pipe Marin DO [Primary Care Provider] - Palliative Quality Palliative Quality: Screen for Code Status: Yes, Screen for Goals of Care: Yes, Screen for Pain: Yes, If Pain Regimen Started, Initiate Bowel Regimen: Yes, Screen for Nausea/Vomitting: Yes Code Status: 12/11/16 22:28 Resuscitation Status: Active [RES] Routine Comment: Resuscitation Status: [id number]
[2016-12-12] MEDS: MOM Conc 10 ML UD.LIQ PO SCH (16:50)
[2016-12-13] MEDS: Acetaminophen/Butalbital/CaffeineTABLET PO SCH ×6 (00:21→19:55)
[2016-12-13] MEDS: Ondansetron 4 MG/2 ML VIAL IVP PRN ×2 (03:16→12:20)
[2016-12-13] MEDS ORDERED: Hydrocortisone Acetate 25 MG RECTAL SUPPOSITORY RC PRN (05:56)
[2016-12-13] MEDS ORDERED: Pantoprazole 40 MG VIAL IVP ONE (06:09)
[2016-12-13] MEDS: *HR* Heparin 5,000 UNIT/ML VIAL SQ SCH ×2 (06:37→17:58)
[2016-12-13 07:46] LABS: Basophils % 0.8 %; Eosinophils # 0.3 K/mcL (0.0-0.6); Hematocrit 36.3 % (35.3-44.9); Hemoglobin 11.5 g/dL (11.5-15.4); Immature Granulocytes % 0.2 % (0-4); Lymphocytes # 1.8 K/mcL (0.6-4.6); Lymphocytes % 37.1 %; Mean Corpuscular HGB Conc 31.7 g/dL (31.6-35.5); Mean Corpuscular Hemoglobin 31.1 pg (28.0-33.3); Mean Corpuscular Volume 98.1 fL (83.0-100.0); Mean Platelet Volume 10.6 fL (9.4-12.4); Monocytes # 0.5 K/mcL (0.0-1.3); Monocytes % 10.7 %; Neutrophils # 2.1 K/mcL (1.6-8.9); Platelet Count 146 K/mcL (140-400); Red Cell Distribution Width 18.1 % (11.5-14.5); Segmented Neutrophils % 44.2 %
[2016-12-13] MEDS: amLODIPine 5 MG TABLET PO SCH (08:02)
[2016-12-13] MEDS: ALPRAZolam 0.5 MG TABLET PO SCH ×3 (08:02→19:54)
[2016-12-13] MEDS: Lisinopril 20 MG TABLET PO SCH (08:02)
[2016-12-13] MEDS: Sucralfate 1 GM TABLET PO SCH ×3 (08:02→21:34)
[2016-12-13] MEDS: Magnesium Oxide 400 MG TABLET PO SCH (08:02)
[2016-12-13] MEDS: MOM Conc 10 ML UD.LIQ PO SCH (08:03)
[2016-12-13 08:47] LABS: BUN/Creatinine Ratio 19 (6-26); Blood Urea Nitrogen 13 mg/dL (7-20); Calcium 8.6 mg/dL (8.6-10.8); Carbon Dioxide 30 mEq/L (19-29); Chloride 100 mEq/L (98-109); Glucose 96 mg/dL (70-99); Osmolality,Calculated 284 (280-300); Potassium 3.6 mEq/L (3.5-4.5); Sodium 137 mEq/L (136-145); eGFR For African Americans > 60 (> 60); eGFR For Non-African Americans > 60 (> 60)
--- NOTE | 2016-12-13 10:20 | Palliative Progress Note ---
Date of Encounter: 12/13/16 Time of Encounter: 09:35 - Assessment and plan (1) Anxiety Current Visit: Yes Status: Acute Assessment and plan: I am not sure if using an SSRI such as Celexa is a good idea or not given this patient's history of medication intolerances and her overall polypharmacy. I did discuss at length with her this morning some relaxation techniques for her to try when she is feeling particularly anxious. (2) Goals of care, counseling/discussion Current Visit: Yes Status: Acute Assessment and plan: CODE STATUS is well established, patient has advanced directives in place. Did discuss all of this at length with her daughter Alina Hill yesterday. Family was present today. The patient seems to be doing much better from a headache and abdominal pain standpoint at this point in time. Given the spots to the milk of magnesia, and to the dietary recommendations from dietary leave the palliative care does not have much left to offer and we will follow from a distance at this point. (3) UTI (urinary tract infection) Current Visit: Yes Status: Acute Assessment and plan: Culture is growing Proteus, patient is on antibiotics, there is no sensitivity back yet, but atbx should be effective. plan per hospitalist team. Qualifiers: Hematuria presence: with hematuria Qualified Code(s): N39.0 - Urinary tract infection, site not specified; R31.9 - Hematuria, unspecified (4) Abdominal pain Current Visit: No Status: Chronic Qualifiers: Abdominal location: right lower quadrant Qualified Code(s): R10.31 - Right lower quadrant pain (5) Head ache Current Visit: Yes Status: Acute Qualifiers: Headache type: tension-type Headache chronicity pattern: chronic headache Intractability: not intractable Qualified Code(s): G44.229 - Chronic tension -type headache, not intractable - Time Spent With Patient Total time spent is greater than 50% in coordination of care (as documented) at patient's floor/unit and/or counseling patient: - Subjective Interval history: The patient is pain free this morning, she states that she got very nauseous last night due to her blood pressure being elevated, however she had no other symptoms that she telling me about. She is having regular bowel movements. She states she is still having some mild nausea. He also feels weak all over. - Constitutional Vitals: Abnormal lab results RBC 3.70 M/mcL (3.82-4.97) L 12/13/16 07:08 RDW 18.1 % (11.5-14.5) H 12/13/16 07:08 Carbon Dioxide 30 mEq/L (19-29) H 12/13/16 07:08 Albumin 3.4 g/dL (3.5-5.0) L 12/11/16 19:30 Globulin 4.0 g/dL (2.4-3.5) H 12/11/16 19:30 Albumin/Globulin Ratio 0.9 (1.1-2.2) L 12/11/16 19:30 Ur Leukocyte Esterase Small (Negative) H 12/11/16 17:10 Urine Microscopic WBC 15-30 per hpf (0-3) H 12/11/16 17:10 Ur Squamous Epith Cells Moderate per lpf (None-Few) H 12/11/16 17:10 Ur Culture Indicated? YES (NO) A 12/11/16 17:10 General appearance: Present: no acute distress - Head Head exam: Present: atraumatic, normal inspection - Eye Eye exam: Present: normal appearance - ENT ENT exam: Present: mucous membranes moist - Respiratory Respiratory exam: Present: decreased breath sounds - Cardiovascular Cardiovascular exam: Present: RRR, systolic murmur - GI/Abdominal GI/Abdominal exam: Present: normal bowel sounds, soft. Absent: tenderness - Extremities Exam Extremities exam: Present: normal inspection. Absent: pedal edema, tenderness - Neurological Exam Neurological exam: Present: alert, oriented X3 - Psychiatric Psychiatric exam: Absent: agitated, anxious - Skin Skin exam: Present: dry, warm Palliative Quality Palliative Quality: Screen for Code Status: Yes, Screen for Goals of Care: Yes, Screen for Pain: Yes, If Pain Regimen Started, Initiate Bowel Regimen: Yes, Screen for Nausea/Vomitting: Yes Code Status: 12/11/16 22:28 Resuscitation Status: Active [RES] Routine Comment: Resuscitation Status: [id number] - Labs CBC & Chem 7: 12/13/16 07:08 12/13/16 07:08 Labs: Laboratory Results - last 24 hr 12/13/16 12/13/16 07:08 07:08 WBC 4.9 RBC 3.70 L Hgb 11.5 Hct 36.3 MCV 98.1 MCH 31.1 MCHC 31.7 RDW 18.1 H Plt Count 146 MPV 10.6 Immature Gran % 0.2 Seg Neutrophils % 44.2 Lymphocytes % 37.1 Monocytes % 10.7 Eosinophils % 7.0 Basophils % 0.8 Neutrophils # 2.1 Lymphocytes # 1.8 Monocytes # 0.5 Eosinophils # 0.3 Basophils # 0.0 Sodium 137 Potassium 3.6 Chloride 100 Carbon Dioxide 30 H BUN 13 Creatinine 0.69 Est GFR ( Amer) > 60 Est GFR (Non-Af Amer) > 60 BUN/Creatinine Ratio 19 Glucose 96 Calculated Osmolality 284 Calcium 8.6 Consult Discharge Plan - Plan Referrals: Pipe Marin DO [Primary Care Provider] -
--- NOTE | 2016-12-13 11:18 | Internal Med Progress Note ---
Date of Encounter: 12/13/16 Time of Encounter: 10:00 - Assessment and plan (1) Abdominal pain Current Visit: Yes Status: Chronic Assessment and plan: Patient currently denies pain but endorses mild nausea. Still eating; no vomiting. Abdominal CT without acute processes. Awaiting urine culture. On examination, abdomen distended but soft with hyperactive bowel sounds. Nontender to palpation. Last bowel movement this am. Patient stating she is "gassy" but is still requesting more milk of magnesia. ITS Impressions Abdomen/Pelvis CT 12/11/16 19:15 IMPRESSION: 1. Urinary bladder appears mildly distended and contains a small amount of air. 2. Significant dilation of the biliary system however no evidence of pancreatic masses. 3. Extensive diverticulosis but no acute diverticulitis. Constipation. 4. Compression injuries in the lower lumbar spine of unknown acuity. Diffuse osteopenia. Chronic fracture of the right medial acetabulum. D/ / 12/11/2016 20:14:59 Laurie Zamora MD / elizabeth Interpreting Provider: Laurie Zamora MD Qualifiers: Abdominal location: left lower quadrant Qualified Code(s): R10.32 - Left lower quadrant pain (2) UTI (urinary tract infection) Current Visit: Yes Status: Acute Assessment and plan: urine culture consistent with proteus mirabilis. Good coverage with Ceftriaxone. Awaiting sensitivities- no discharge until sensitivities are resulted 2/2 chance for IV antibiotics given her lengthy history of UTI's and possible resistances. Qualifiers: Hematuria presence: with hematuria Qualified Code(s): N39.0 - Urinary tract infection, site not specified; R31.9 - Hematuria, unspecified (3) Weakness generalized Current Visit: No Status: Acute Assessment and plan: OT and PT have recommended inpatient rehabilitation. Patient stating she is willing to go, but has a few opinions on various places. She states that [facility], but "I'm not going there, it's filled with trashy old white people." public services assistant is onboard. From a medical perspective, will need to get urine sensitivities prior to sending - likely tomorrow pending clinical outcomes. (4) Nausea alone Current Visit: Yes Status: Acute Assessment and plan: acute on chronic. No vomiting. Continue to offer food and drink. Ondansetron as needed. (5) Food intolerance Current Visit: Yes Status: Suspected Assessment and plan: See prior note for headache (6) Altered mental status Current Visit: Yes Status: Resolved Assessment and plan: patient alert and oriented x3 and answering questions appropriately. (7) Anxiety Current Visit: Yes Status: Chronic Assessment and plan: Home Xanax as needed. Family appears to be asking for IV Ativan, there was no clinical indication from what I saw this morning to order this. Will order if indicated. (8) Dilated cbd, acquired Current Visit: Yes Status: Chronic Assessment and plan: Findings per MRCP and ERCP. Scans this visit without acute processes. LFTs, bilirubin and lipase all normal. GI onboard for evaluation of chronic abdominal pain. ITS Impressions Abdomen/Pelvis CT 12/11/16 19:15 IMPRESSION: 1. Urinary bladder appears mildly distended and contains a small amount of air. 2. Significant dilation of the biliary system however no evidence of pancreatic masses. 3. Extensive diverticulosis but no acute diverticulitis. Constipation. 4. Compression injuries in the lower lumbar spine of unknown acuity. Diffuse osteopenia. Chronic fracture of the right medial acetabulum. D/ / 12/11/2016 20:14:59 Laurie Zamora MD / elizabeth Interpreting Provider: Laurie Zamora MD (9) Goals of care, counseling/discussion Current Visit: Yes Status: Chronic Assessment and plan: Palliative onboard. Code status is updated. (10) Head ache Current Visit: Yes Status: Chronic Assessment and plan: patient stating "my headache is always there, and every day it gets worse." Patient denies any changes to her headaches. This is an ongoing issue with this patient. Palliative suggests there could potentially be a possible link to food intolerances given her numerous medication intolerances. Another issue would be polypharmacy. Patient readily admits that her gives her " extra pills" on a regular basis. Recommend further treatment and followup outpatient. Head CT earlier this year negative. Qualifiers: Headache type: tension-type Headache chronicity pattern: chronic headache Intractability: not intractable Qualified Code(s): G44.229 - Chronic tension -type headache, not intractable (11) Hypertension Current Visit: No Status: Chronic Assessment and plan: Blood pressure was elevated this morning, currently normotensive. We will continue to trend. Patient has tendency to become anxious and perseverate which appears to be affecting her blood pressure. We will continue to trend and adjust medications as indicated. Qualifiers: Hypertension type: essential hypertension Qualified Code(s): I10 - Essential (primary) hypertension (12) DVT prophylaxis Current Visit: Yes Status: Acute Assessment and plan: Subcutaneous heparin - Subjective Interval history: Patient seen and examined. On examination, patient resting on her side in bed. She is awake and alert and states she is still a bit "sick on my stomach." She states she was able to eat a little bit of her breakfast. She is also concerned about "going blind." She states that she has been worried about this for years. She denies any new symptoms. She states she is no longer constipated and states she had a BM this am. - Constitutional Vitals: Temp Pulse Resp BP Pulse Ox 98.1 F 75 16 127/67 95 12/13/16 07:42 12/13/16 07:42 12/13/16 07:42 12/13/16 09:08 12/13/16 07:42 General appearance: Present: cooperative, A&O X 3, pleasant, no acute distress, answers questions appropriately - Head Head exam: Present: atraumatic, normocephalic - Eye Eye exam: Present: PERRL, conjuntiva pink, sclera anicteric Pupils: Present: PERRL - Neck Neck exam general surgery: Present: supple, trachea midline. Absent: lymphadenopathy - Respiratory Respiratory exam: Present: decreased breath sounds. Absent: accessory muscle use, rales, respiratory distress, rhonchi, wheezes - Cardiovascular Cardiovascular exam: Present: RRR, +S1, +S2, systolic murmur. Absent: diastolic murmur, gallop, rubs - GI/Abdominal GI/Abdominal exam: Present: distended, hyperactive bowel sounds, soft, no peritoneal signs. Absent: tenderness - Extremities Exam Extremities exam: Present: warm, radial pulses palpable and symmetrical. Absent : calf tenderness, cyanotic, pedal edema - Neurological Exam Neurological exam: Present: alert, CN II-XII intact, oriented X3, no focal deficits, strengths equal and symetr throughout. Absent: pronater drift, facial droop, speech deficit - Psychiatric Psychiatric exam: Present: anxious. Absent: homicidal ideation, suicidal ideation - Expanded Psychiatric Exam Focused psych exam: Present: perseverating, restlessness - Skin Skin exam: Present: dry, intact, pallor, warm Internal Medicine: Result - Labs CBC & Chem 7: 12/13/16 07:08 12/13/16 07:08 Labs: Short CBC 12/13/16 Range/Units 07:08 WBC 4.9 (4.3-11.1) K/mcL Hgb 11.5 (11.5-15.4) g/dL Hct 36.3 (35.3-44.9) % Plt Count 146 (140-400) K/mcL Neutrophils # 2.1 (1.6-8.9) K/mcL BMP 12/13/16 07:08 Sodium 137 Potassium 3.6 Chloride 100 Carbon Dioxide 30 H BUN 13 Creatinine 0.69 Glucose 96 Calcium 8.6 Consult Discharge Plan - Plan Referrals: Pipe Marin DO [Primary Care Provider] -
--- NOTE | 2016-12-13 11:58 | Gastroenterology Consult Note ---
<Jayjay Melendez - Last Filed: 12/13/16 12:05> Date of Encounter: 12/13/16 Time of Encounter: 10:50 - Assessment and plan (1) Constipation Current Visit: Yes Status: Acute Assessment and plan: Start daily fiber supplement and use Miralax as needed up to 2 times per day. Qualifiers: Constipation type: unspecified constipation type Qualified Code(s): K59.00 - Constipation, unspecified (2) Abdominal pain Current Visit: Yes Status: Chronic Assessment and plan: Pt denies abdominal pain today. Likely abdominal pain associated with her headaches. Pt states her abdomin only hurts when she has a "migraine". Qualifiers: Abdominal location: left lower quadrant Qualified Code(s): R10.32 - Left lower quadrant pain - Time Spent With Patient Total time spent is greater than 50% in coordination of care (as documented) at patient's floor/unit and/or counseling patient: GI History of Present Illness - Data of Consult Patient: known to practice within the last 3 years Consult date: 12/13/16 Requesting Physician: Heaven Fernandez CNP - Consult Narrative Reason for consult: chronic abdominal pain History of present illness: Ms. Schmidt is a 81 year old female with PMHx of arthritis, dementia, GERD, hyperlipidemia, HTN, RA, s/p cholecystectomy, and chronic abdominal pain ("all of my life"). She relates that her abdominal pain is a deep aching pain throughout the entire abdomen does seem to be associated with headaches. As her headaches improve so does her abdominal pain. We have been consulted to evaluate her abdominal pain. CT A/P shows diverticulosis, constipation, and an enlargement of the biliary system as well as pancreatic duct however no obvious pancreatic head masses. She has had prior MRCP which were negative for obstruction or mass. Colonoscopy ordered on 02/02/2016, however patient canceled and has never rescheduled. Pt reports being constipated, and having 3- 4 BMs per week. She denies melena or hematochezia. Procedures: EGD 03/16/2016 Dr. Maldonado: Normal NSAIDs: None Anticoagulation: None Past Med Surg Social Fam HX - Past Medical History Medical history: arthritis, dementia, GERD, hyperlipidemia, hypertension, migraine, RA, thyroid disease, other Psychiatric history: anxiety, depression - Past Surgical History Surgical History: cholecystectomy, hysterectomy - Social History Smoking Status: Never smoker Smokeless Tobacco Status: No Alcohol use: none Drug use: none - Family History Mother Adopted: No Living Status: Hx Family Cardiac Disorders: Yes Father Name: Kain Díaz Cause of : Colon cancer Hx Family Cancer: Yes (colon cancer) - Gastrointestinal Gastrointestinal: Present: as per HPI - Constitutional Constitutional: as per HPI - EENT Eyes: as per HPI Ears: Present: as per HPI Nose, mouth and throat: Present: as per HPI - Cardiovascular Cardiovascular ROS: Present: as per HPI - Respiratory Respiratory IM: Present: as per HPI - Genitourinary Genitourinary: Absent: change in color, Urinary frequency - Neurological ROS Neurological GI: Present: as per HPI - Hematologic/Lymphatic Hematologic/Lymphatic pediatric: Present: as per HPI - Musculoskeletal Musculoskeletal ROS GI: Present: as per HPI - Integumentary Integumentary GI: Present: as per HPI - Psychiatric ROS Psychiatric GI: Present: as per HPI - Endocrine Endocrine IM: Present: as per HPI - Constitutional Vitals: Temp Pulse Resp BP Pulse Ox 98.0 F 86 18 143/78 94 12/13/16 11:44 12/13/16 11:44 12/13/16 11:44 12/13/16 11:44 12/13/16 11:44 General appearance: Present: cooperative, A&O X 3, no acute distress, answers questions appropriately - Head Head exam: Present: atraumatic, normocephalic - Eye Eye exam: Present: normal appearance, sclera anicteric - ENT ENT exam: Present: mucous membranes moist - Neck Neck exam general surgery: Present: normal inspection, trachea midline - Respiratory Respiratory exam: Present: decreased breath sounds, CTAB. Absent: rales, rhonchi - Cardiovascular Cardiovascular exam: Present: RRR, +S1, +S2 - GI/Abdominal GI/Abdominal exam: Present: soft, no peritoneal signs. Absent: distended, firm , guarding, tenderness - Rectal Rectal exam: Present: deferred - Extremities Exam Extremities exam: Present: warm - Neurological Exam Neurological exam: Present: no focal deficits - Psychiatric Psychiatric exam: Present: normal affect, normal mood - Skin Skin exam: Present: dry, intact, normal color, warm Results - Labs CBC & Chem 7: 12/13/16 07:08 12/13/16 07:08 Labs: Last Result Calcium 8.6 mg/dL (8.6-10.8) 12/13/16 07:08 Entire Visit Hgb 11.5 g/dL (11.5-15.4) 12/13/16 07:08 Hct 36.3 % (35.3-44.9) 12/13/16 07:08 Total Bilirubin 0.3 mg/dL (0.2-1.2) 12/11/16 19:30 AST 14 Units/L (5-34) 12/11/16 19:30 ALT 12 Units/L (0-55) 12/11/16 19:30 Lipase 35 Units/L (8-78) 12/11/16 19:30 Consult Discharge Plan - Plan Referrals: Pipe Marin DO [Primary Care Provider] - <Eh Garcia - Last Filed: 12/13/16 18:40> Date of Encounter: 12/13/16 - Time Spent With Patient Total time spent is greater than 50% in coordination of care (as documented) at patient's floor/unit and/or counseling patient: Greater than 35 minutes (Patient had abdominal pain yesterday post eating spagetti with meat sauce. Has hx of GERD and I had a long talk with patient's daughter Alina. She appears to have had EGD in past and had apparently been dilated. Unclear if, this really appeared to have improved her symptoms. Carafate apparently really helped her the most in the past. No dysphagia at present. Patient asymptomatic at present. Her really looks after her and tries to keep her compliant with an antireflux diet as much as possible. Plan is to start Carafate as a slurry and if, she tolerates her diet can be discharged tomorrow. If problems occur later could address this as outpatient. Thank you for this consultation.) GI History of Present Illness - Data of Consult Requesting Physician: Heaven Fernandez CNP - Consult Narrative History of present illness: Ms. Schmidt is a 81 year old female - Constitutional Vitals: Temp Pulse Resp BP Pulse Ox 97.4 F L 86 16 161/82 96 12/13/16 16:06 12/13/16 16:06 12/13/16 16:06 12/13/16 16:06 08/22/17 16:06 Results - Labs CBC & Chem 7: 12/13/16 07:08 12/13/16 07:08 Labs: Last Result Calcium 8.6 mg/dL (8.6-10.8) 12/13/16 07:08 Stool Occult Blood Negative (Negative) 12/13/16 14:00 Entire Visit Hgb 11.5 g/dL (11.5-15.4) 12/13/16 07:08 Hct 36.3 % (35.3-44.9) 12/13/16 07:08 Total Bilirubin 0.3 mg/dL (0.2-1.2) 12/11/16 19:30 AST 14 Units/L (5-34) 12/11/16 19:30 ALT 12 Units/L (0-55) 12/11/16 19:30 Lipase 35 Units/L (8-78) 12/11/16 19:30
[2016-12-13] MEDS ORDERED: Lisinopril 20 MG TABLET PO ONE (16:55)
[2016-12-13] MEDS ORDERED: Lisinopril 20 MG TABLET PO SCH (17:00)
[2016-12-13] MEDS ORDERED: *HR* LORazepam 1 MG TABLET PO PRN (18:23)
[2016-12-13] MEDS ORDERED: Haloperidol Lactate 5 MG/ML VIAL IM PRN (20:11)
[2016-12-14] MEDS: Acetaminophen/Butalbital/CaffeineTABLET PO SCH ×3 (00:04→08:36)
[2016-12-14] MEDS: *HR* Heparin 5,000 UNIT/ML VIAL SQ SCH (04:33)
[2016-12-14 07:24] VITALS: BP 137/83
[2016-12-14] MEDS: amLODIPine 5 MG TABLET PO SCH (08:35)
[2016-12-14] MEDS: Sucralfate 1 GM TABLET PO SCH (08:35)
[2016-12-14] MEDS: ALPRAZolam 0.5 MG TABLET PO SCH (08:35)
[2016-12-14] MEDS: Magnesium Oxide 400 MG TABLET PO SCH (08:35)
[2016-12-14] MEDS: MOM Conc 10 ML UD.LIQ PO SCH (08:36)
[2016-12-14] MEDS ORDERED: Lisinopril 20 MG TABLET PO SCH (09:00)
[2016-12-14] MEDS ORDERED: Sulfamethoxazole/Trimeth DS 1 EACH TABLET PO SCH (09:00)
--- NOTE | 2016-12-14 09:00 | Discharge Summary ---
Date of Encounter: 12/14/16 Time of Encounter: 08:30 - Discharge Diagnosis (1) Abdominal pain Priority: Secondary Status: Chronic Comments: No acute processes identified during this admission. Abdominal CT negative for acute processes. She did have a urinary tract infection. Patient able to tolerate a regular diet. Much more alert and interactive on the discharge. Follow-up outpatient. Qualifiers: Abdominal location: left lower quadrant Qualified Code(s): R10.32 - Left lower quadrant pain (2) UTI (urinary tract infection) Priority: Primary Status: Acute Comments: Urine culture with Proteus Mirabilis resistant to fluoroquinolones and Macrobid. Patient has taken Bactrim in the past, will write for 14 days. Intolerances to Levaquin, amoxicillin, Augmentin/clavulanate, Macrobid noted. Only reactions are nausea and blisters, no true antibiotic allergies. Qualifiers: Hematuria presence: with hematuria Qualified Code(s): N39.0 - Urinary tract infection, site not specified; R31.9 - Hematuria, unspecified (3) Weakness generalized Priority: Primary Status: Acute Comments: Seen and evaluated by occupational and physical therapy both of whom recommended ECF placement. Patient and family declined stating she has a lot of home health services available. Patient and family are aware of the risks of choosing not to go inpatient. (4) Nausea alone Priority: Primary Status: Resolved (5) Food intolerance Priority: Primary Status: Suspected Comments: Follow-up outpatient with allergy testing (6) Altered mental status Priority: Primary Status: Resolved (7) Anxiety Priority: Secondary Status: Chronic (8) Dilated cbd, acquired Priority: Secondary Status: Chronic (9) Goals of care, counseling/discussion Priority: Secondary Status: Chronic (10) Head ache Priority: Secondary Status: Chronic Qualifiers: Headache type: tension-type Headache chronicity pattern: chronic headache Intractability: not intractable Qualified Code(s): G44.229 - Chronic tension -type headache, not intractable (11) Hypertension Priority: Secondary Status: Chronic Comments: Hypertensive at times while admitted. The family keeps very close eye on her blood pressure and checks it several times throughout the day at home. was educated that he cannot give the patient extra blood pressure pills. They were encouraged to only check her blood pressure once per day. Patient and family seemed highly perseverate on the patient's blood pressure. Patient appears to be anxious which can contribute to elevated blood pressure readings. Lisinopril dosage was increased. Patient was also started on amlodipine-this was not on her home med list but her states she has been taking it at home. Qualifiers: Hypertension type: essential hypertension Qualified Code(s): I10 - Essential (primary) hypertension (12) DVT prophylaxis Priority: Primary Status: Acute Comments: Subcutaneous heparin while admitted - Discharge Medications Prescriptions: Ondansetron ODT [Zofran ODT] 4 mg SL Q6HR PRN #14 tab.rapdis PRN Reason: Nausea/Vomiting ALPRAZolam [Xanax 0.5 MG Tablet] 0.5 mg PO TID PRN #24 tab PRN Reason: Anxiety amLODIPine [Norvasc] 10 mg PO DAILY #60 tab Calcium Polycarbophil [Fibercon] 1,250 mg PO DAILY #60 tab clonazePAM [Klonopin] 1 mg PO BID #16 tablet Hydrocortisone Acetate [Anucort-Hc] 25 mg RC BID PRN #30 PRN Reason: Hemorrhoids Lisinopril [Zestril] 40 mg PO DAILY #60 tab Polyethylene Glycol 3350 [MiraLAX] 17 gm PO DAILY PRN #30 PRN Reason: Constipation Sucralfate [Carafate] 1 gm PO QIDAC #120 tab Sulfamethoxazole/Trimeth DS [Bactrim Ds] 1 each PO BID #28 tab Home Medications: Acetaminophen/Butalbital/Caffe [Fioricet] 1 tab PO Q4H MDD MIGRAINE 11/23/14 [ History] Calcium Carbonate/Vitamin D3 [Calcium 600 + D Tablet] 1 tab PO QAM 11/23/14 [ History] Cyanocobalamin (Vitamin B-12) [Vitamin B12] 1,000 mcg PO QWEEK 11/23/14 [History ] Docusate [Colace] 200 mg PO QAM 11/23/14 [History] Escitalopram [Lexapro] 20 mg PO QAM 11/23/14 [History] Folic Acid 1 mg PO QAM 11/23/14 [History] Omeprazole [PriLOSEC] 20 mg PO BID 11/23/14 [History] Magnesium Oxide [Mgo] 400 mg PO DAILY 03/13/16 [History] Potassium Chloride [K-Tab ER] 40 meq PO DAILY 03/13/16 [History] predniSONE [Prednisone] 5 mg PO DAILY PRN 03/13/16 [History] Cholecalciferol (D-3) [Vitamin D] 2,000 unit PO DAILY 05/30/16 [History] Levothyroxine Sodium 100 mcg PO QAM 05/30/16 [History] Tramadol HCl [Ultram] 50 mg PO Q6H PRN #30 tab 10/13/16 [Rx] Atorvastatin [Lipitor] 40 mg PO HS 12/12/16 [History] HYDROcodone/Acet 5/325 mg [Mcgrath 5-325 mg] 1 tab PO Q6H PRN 12/12/16 [History] Potassium Chloride [K-Tab ER] 20 meq PO DAILY 12/12/16 [History] ALPRAZolam [Xanax 0.5 MG Tablet] 0.5 mg PO TID PRN #24 tab 12/14/16 [Rx] Calcium Polycarbophil [Fibercon] 1,250 mg PO DAILY #60 tab 12/14/16 [Rx] Hydrocortisone Acetate [Anucort-Hc] 25 mg RC BID PRN #30 12/14/16 [Rx] Lisinopril [Zestril] 40 mg PO DAILY #60 tab 12/14/16 [Rx] MOM Conc [MILK OF MAGNESIA conc] 10 ml PO DAILY #0 12/14/16 [Rx] Ondansetron ODT [Zofran ODT] 4 mg SL Q6HR PRN #14 tab.rapdis 12/14/16 [Rx] Polyethylene Glycol 3350 [MiraLAX] 17 gm PO DAILY PRN #30 12/14/16 [Rx] Simvastatin [Zocor] 40 mg PO HS tab 12/14/16 [Rx] Sucralfate [Carafate] 1 gm PO QIDAC #120 tab 12/14/16 [Rx] Sulfamethoxazole/Trimeth DS [Bactrim Ds] 1 each PO BID #28 tab 12/14/16 [Rx] amLODIPine [Norvasc] 10 mg PO DAILY #60 tab 12/14/16 [Rx] clonazePAM [Klonopin] 1 mg PO BID #16 tablet 12/14/16 [Rx] Allergies/Adverse Reactions: 3 Allergy/AdvReac Type Severity Reaction Status Date / Time esomeprazole [From Nexium] Allergy Difficulty Verified 12/11/16 18:13 Breathing levofloxacin [From Levaquin] Allergy Blister Verified 12/11/16 18:13 acetaminophen [From Percocet] AdvReac Dizziness Verified 12/11/16 18:13 Amoxicillin [From Augmentin] AdvReac Nausea Verified 12/11/16 18:13 aspirin AdvReac Dizziness Verified 12/11/16 18:13 clavulanic acid AdvReac Nausea Verified 12/11/16 18:13 [From Augmentin] codeine AdvReac Dizziness Verified 12/11/16 18:13 Estrogens AdvReac Dizziness Verified 12/11/16 18:13 Hydromorphone AdvReac Dizziness Verified 12/11/16 18:13 meperidine AdvReac Dizziness Verified 12/11/16 18:13 morphine AdvReac Dizziness Verified 12/11/16 18:13 nitrofurantoin AdvReac Nausea Verified 12/11/16 18:13 NSAIDS (Non-Steroidal AdvReac Dizziness Verified 12/11/16 18:13 Anti-Inflamma Oxycodone AdvReac Dizziness Verified 12/11/16 18:13 Paroxetine [From Paxil] AdvReac Nausea Verified 12/11/16 18:13 tolterodine [From Detrol] AdvReac Nausea Verified 12/11/16 18:13 Date of admission: 12/11/16 21:37 Primary care physician: Pipe Marin DO Consults: 12/11/16 23:27 Consult to Real Estate Sales Agent [CONS] Routine Reason for SW Consult: Reoccuring UTI's, overmedication per 12/12/16 01:15 Consult to Occupational Therapy [CONS] Routine Comment: Evaluate, develop and implement POC Reason for Consult: Physical deconditioning Consult to Physical Therapy [CONS] Routine Comment: Evaluate, develop and implement POC Reason for Consult: Physical deconditioning 12/12/16 12:39 Consult to Gastroenterology [CONS] Routine Consulting Provider: Gastroenterology Monica Reason for Consult: Continued abdominal pain, dilated cbd by ERCP/MRCP. Time Notified: 12:40 Call Completed: Yes 12/12/16 13:36 Consult to Palliative Care [CONS] Routine Comment: Consulting Provider: Palliative Care Monica Reason for Consult: chronic abd pain, chronic migraines, anxiety Call Completed: Yes 12/12/16 13:39 consult to acquisition lead [Consult to Nutrition] [CONS] Routine Comment: Consulting Provider: NUTRITION Reason for Dietary Consult: Other Other:: Pt would like more vegetables, less red sauce/tomatoes or fried foods 12/12/16 22:13 Consult for Pharmacy Education [CONS] Routine Reason for Consult: Confusion present of admission. Patient's stated that he has been giving her extra doses of medication. also states that patient takes medication for migraines quite frequently. History of falls, uti's. Call Completed: No 12/13/16 18:22 Consult to Physician [CONS] Routine Consulting Provider: Eh Garcia Reason for Consult: epigastric pain Call Completed: Yes Discharging clinician: Kate Garrett Anticipated date of discharge: 12/14/16 - Patient Status Disposition: Home Health Service Condition: Good Functional capacity at discharge: uses cane/walker Overall status at discharge: patient is progressing back to baseline - Discharge Instructions Follow Up With: Pipe Marin DO [Primary Care Provider] - Leticia Erazo APN [Non-Partnered Physician] - Royce Dior MD [Partnered Physician] - Additional Instructions: See your primary care provider on 12/20/16 as scheduled. See your psychiatrist on 12/21/16 as scheduled. Check blood pressure daily not more than twice a day. Do not take more than 40mg of lisinopril (2 tablets) or more than 10mg of amlodipine (2 tablets) daily. - Diet and Activity Activity: as per physical therapy, increase activity as tolerated Diet: low salt diet Hospital course: Ms. Schmidt is a 81 year old female with past medical history of mild dementia, GERD , hyperlipidemia, hypertension, migraines, RA, thyroid disease, status post cholecystectomy and hysterectomy. Patient presented to the emergency department chief complaint of upset stomach. Patient stating for the 4 days prior to presentation she had nausea without vomiting. She reported left lower quadrant abdominal pain without radiation. She denied any exacerbating or relieving factors. She denied diarrhea and endorsed constipation. She denied fever, chills, sick contacts, recent travel, melena, hematochezia. is her data developer and noted that her last bowel movement was formed and was on the morning of presentation. Patient also reporting patient has a history of multiple UTIs and states that she typically becomes confused with these. She is on chronic nitrofurantoin per her urologist Dr. Dior. Workup in the emergency department notable for an abnormal urinalysis. Patient was admitted to the hospitalist service for further evaluation and management. While admitted, she was treated with ceftriaxone. Patient was admitted and observed over the course of [address] unremarkable for acute processes and again revealed a chronically dilated common bile duct. LFTs, bilirubin, lipase all normal. GI was brought on board for evaluation of her chronic abdominal pain. GI recommended starting the patient on Carafate and following up closely outpatient. Stool guaiac was negative. She remained hemodynamically stable. She had frequent headaches consistent with her baseline throughout this admission treated with her home Fioricet. Patient denied any changes to the headache type or frequency. Palliative care was also brought on board who surmised the patient's chronic abdominal pain and headaches could possibly be secondary to undiagnosed food allergies. Recommendation to follow-up outpatient for allergy testing. Patient did have an episode of confusion on the second night of her admission that resolved in the morning. Her states that the patient always gets confused at nighttime while admitted in the hospital. During this admission, the patient's and family would continually bring up the discussion of the patient's blood pressure. It appears as if they take her blood pressure home several times throughout the day and every time it is elevated, her gives her another blood pressure pill. He was educated at length during this admission. He, the patient, and their family perseverate highly on the patient's blood pressure which could very well be contributing to her high readings at times as the patient gets very anxious. They were instructed to decrease the number of times throughout the day that they check her blood pressure. During this visit, patient's lisinopril dosage was increased from 20 mg daily to 40 mg daily. She was also started on amlodipine. Of note, amlodipine was not on her home medication list however the states that he has been giving her extra lisinopril and amlodipine every time he gets an elevated reading. He was instructed not to take more than the prescribed amount and call his primary care provider if dosage adjustments are indicated. Regarding her constipation, patient had several formed bowel movements throughout this admission. She was also noted to be taking more than recommended doses of milk of magnesia-her and her were also instructed on the limits to those dosings as well. Regarding her urinary tract infection, urine culture revealing Proteus Mirabilis and was appropriately treated with ceftriaxone while admitted. She was sent home on Bactrim-she has taken Bactrim in the past and tolerated it well. She has intolerances to other antibiotics but has tolerated Bactrim well in the past. For her generalized weakness, OT and PT recommended inpatient rehabilitation. Patient and family decided that the patient would go home with home health services in place. They are aware of the risks of not going inpatient and have chosen still for the patient to go home. Prior to discharge, patient's was educated at length regarding blood pressure medications and avoidance of overdosing on milk of mag, lisinopril, amlodipine. Has been also gives the patient extra nerve pills above her prescribed dosages. Patient has been set up with a new psychiatrist and had an appointment with her on the day after discharge but the patient has been states that she would be too tired to make this appointment. Appointment was changed for 1 week after discharge. At 's request, the patient's nerve medication was written enough dosages to get the patient through to this rescheduled appointment. Her ears report was checked and up until the passing of her psychiatrist, she was on both clonazepam and alprazolam for quite some time, these medications were continued. She was discharged home in stable condition with close outpatient follow-up recommended. ITS Impressions Abdomen/Pelvis CT 12/11/16 19:15 IMPRESSION: 1. Urinary bladder appears mildly distended and contains a small amount of air. 2. Significant dilation of the biliary system however no evidence of pancreatic masses. 3. Extensive diverticulosis but no acute diverticulitis. Constipation. 4. Compression injuries in the lower lumbar spine of unknown acuity. Diffuse osteopenia. Chronic fracture of the right medial acetabulum. D/ / 12/11/2016 20:14:59 Laurie Zamora MD / elizabeth Interpreting Provider: Laurie Zamora MD - Time Spent with Patient Total time spent providing and/or coordinating discharge services: Greater than 30 minutes (BP medications and anxiety medications covered with in length) - Constitutional Vitals: Temp Pulse Resp BP Pulse Ox 97.8 F 90 17 137/83 92 12/14/16 07:23 12/14/16 07:23 12/14/16 07:23 12/14/16 07:23 12/14/16 07:23 General appearance: Present: cooperative, A&O X 3, pleasant, no acute distress, answers questions appropriately - Head Head exam: Present: atraumatic, normocephalic - Eye Eye exam: Present: PERRL, conjuntiva pink, sclera anicteric Pupils: Present: PERRL - Neck Neck exam general surgery: Present: supple, trachea midline. Absent: lymphadenopathy - Respiratory Respiratory exam: Present: CTAB. Absent: accessory muscle use, rales, respiratory distress, rhonchi, wheezes - Cardiovascular Cardiovascular exam: Present: RRR, +S1, +S2. Absent: diastolic murmur, gallop, rubs, systolic murmur - GI/Abdominal GI/Abdominal exam: Present: distended, hyperactive bowel sounds, soft, no peritoneal signs. Absent: tenderness - Extremities Exam Extremities exam: Present: warm, radial pulses palpable and symmetrical. Absent : calf tenderness, cyanotic, pedal edema - Neurological Exam Neurological exam: Present: alert, CN II-XII intact, oriented X3, no focal deficits, strengths equal and symetr throughout. Absent: pronater drift, facial droop, speech deficit - Skin Skin exam: Present: dry, intact, normal color, warm
--- NOTE | 2016-12-14 09:05 | Palliative Progress Note ---
Date of Encounter: 12/14/16 Time of Encounter: 07:20 - Assessment and plan (1) Anxiety Current Visit: Yes Status: Chronic Assessment and plan: I am not sure if using an SSRI such as Celexa is a good idea or not given this patient's history of medication intolerances and her overall polypharmacy. I did discuss at length with her this morning some relaxation techniques for her to try when she is feeling particularly anxious. I do not think she has been using relaxation techniques. Palliative has little to offer. (2) Goals of care, counseling/discussion Current Visit: Yes Status: Chronic Assessment and plan: CODE STATUS is well established, patient has advanced directives in place. Did discuss all of this at length with her daughter Alina Hill yesterday. Family was present today. The patient seems to be doing much better from a headache and abdominal pain standpoint at this point in time. Given the spots to the milk of magnesia, and to the dietary recommendations from dietary leave the palliative care does not have much left to offer and we will follow from a distance at this point. (3) UTI (urinary tract infection) Current Visit: Yes Status: Acute Assessment and plan: Culture is growing Proteus, patient is on antibiotics, it is sensitive to many different antibiotics although it is distant to several, however the ones that is resistant to her once that she is allergic to. Plan as per hospitalist team. Patient will probably be discharged as soon as oral antibiotics can be started. Qualifiers: Qualified Code(s): N39.0 - Urinary tract infection, site not specified; R31.9 - Hematuria, unspecified (4) Abdominal pain Current Visit: No Status: Chronic Assessment and plan: She continues to have some nausea however no actual vomiting. I believe that the nausea is probably more related to her anxiety and later back to her headaches, with her having regular bowel movements I think this is decreasing some of this. I believe the early discharge will help her more than anything else. Qualifiers: Qualified Code(s): R10.31 - Right lower quadrant pain (5) Head ache Current Visit: Yes Status: Chronic Assessment and plan: This is chronic, and on several occasions since I have met this lady she is told that she was pain-free, however today she tells me that she has never actually pain free although she appears to be in [place] no distress this morning. I remain concerned that this may be in some way shape or form related back to her anxiety and/or possible food allergies I also believe that anxiety is tied into this very tightly, very complex biopsychosocial situation which will be better dealt with as an outpatient. Qualifiers: Qualified Code(s): G44.229 - Chronic tension-type headache, not intractable - Time Spent With Patient Total time spent is greater than 50% in coordination of care (as documented) at patient's floor/unit and/or counseling patient: - Subjective Interval history: The patient had problems yesterday evening with being disoriented. Her however according to the nurse's note she was easily reoriented. Patient tells me this morning that she has a headache however it is not very bad" she is never without a headache. He is in srivastava contrast to yesterday and day before when she states that she was not having a headache. Although she professes to wish to feel stronger, she has not been working with physical therapy according to the notes. - Constitutional Vitals: Abnormal lab results RBC 3.70 M/mcL (3.82-4.97) L 12/13/16 07:08 RDW 18.1 % (11.5-14.5) H 12/13/16 07:08 Carbon Dioxide 30 mEq/L (19-29) H 12/13/16 07:08 Albumin 3.4 g/dL (3.5-5.0) L 12/11/16 19:30 Globulin 4.0 g/dL (2.4-3.5) H 12/11/16 19:30 Albumin/Globulin Ratio 0.9 (1.1-2.2) L 12/11/16 19:30 Ur Leukocyte Esterase Small (Negative) H 12/11/16 17:10 Urine Microscopic WBC 15-30 per hpf (0-3) H 12/11/16 17:10 Ur Squamous Epith Cells Moderate per lpf (None-Few) H 12/11/16 17:10 Ur Culture Indicated? YES (NO) A 12/11/16 17:10 General appearance: Present: no acute distress - Head Head exam: Present: atraumatic, normal inspection - Eye Eye exam: Present: normal appearance - ENT ENT exam: Present: mucous membranes moist - Neck Neck exam: Present: normal inspection - Respiratory Respiratory exam: Present: CTAB - Cardiovascular Cardiovascular exam: Present: irregular rhythm, systolic murmur - GI/Abdominal GI/Abdominal exam: Present: normal bowel sounds, soft. Absent: tenderness - Extremities Exam Extremities exam: Present: normal inspection. Absent: tenderness - Neurological Exam Neurological exam: Present: alert, oriented X3 (She knows who she is and where she is an approximate time, she is still picking at her spittle bands and wanting them off. Even when this is explained to her.) - Psychiatric Psychiatric exam: Present: agitated, anxious (Episode yesterday evening of agitation she continues to have chronic anxiety.) - Skin Skin exam: Present: dry, warm Palliative Quality Palliative Quality: Screen for Code Status: Yes, Screen for Goals of Care: Yes, Screen for Pain: Yes, If Pain Regimen Started, Initiate Bowel Regimen: Yes, Screen for Nausea/Vomitting: Yes Code Status: 12/11/16 22:28 Resuscitation Status: Active [RES] Routine Comment: Resuscitation Status: [id number] - Labs CBC & Chem 7: 12/13/16 07:08 12/13/16 07:08 Labs: Laboratory Results - last 24 hr 12/13/16 14:00 Stool Occult Blood Negative Consult Discharge Plan - Plan Referrals: Pipe Marin DO [Primary Care Provider] - Leticia Erazo APN [Non-Partnered Physician] -
--- NOTE | 2016-12-14 09:40 | Physician Discharge Referral ---
Home Health/Hosp Referral Info Transfer to: Home Health Attending Provider: Fox Garrett CNP Provider in Charge Post Discharge: PCP - Diagnosis (1) Abdominal pain Priority: Secondary Status: Chronic (2) UTI (urinary tract infection) Priority: Primary Status: Acute (3) Weakness generalized Priority: Primary Status: Acute (4) Nausea alone Priority: Primary Status: Resolved (5) Food intolerance Priority: Primary Status: Suspected (6) Altered mental status Priority: Primary Status: Resolved (7) Anxiety Priority: Secondary Status: Chronic (8) Dilated cbd, acquired Priority: Secondary Status: Chronic (9) Goals of care, counseling/discussion Priority: Secondary Status: Chronic (10) Head ache Priority: Secondary Status: Chronic (11) Hypertension Priority: Secondary Status: Chronic (12) DVT prophylaxis Priority: Primary Status: Acute - Respiratory Orders Smoking Cessation: Smoking cessation has been advised. For more information, call the [place] Tobacco Quit Line at 3-850-AZUV-NOW. - Diet/Nutrition Diet/Nutrition Orders: No Added Salt (YUKI) - Activity Activity Orders: Ambulate (per PT) - Services Needed Following services are medically necessary services: Nursing, Home Health Aide, Physical Therapy, Occupational Therapy - Transfer Medications Prescriptions: Ondansetron ODT [Zofran ODT] 4 mg SL Q6HR PRN #14 tab.rapdis PRN Reason: Nausea/Vomiting ALPRAZolam [Xanax 0.5 MG Tablet] 0.5 mg PO TID PRN #24 tab PRN Reason: Anxiety amLODIPine [Norvasc] 10 mg PO DAILY #60 tab Calcium Polycarbophil [Fibercon] 1,250 mg PO DAILY #60 tab clonazePAM [Klonopin] 1 mg PO BID #16 tablet Hydrocortisone Acetate [Anucort-Hc] 25 mg RC BID PRN #30 PRN Reason: Hemorrhoids Lisinopril [Zestril] 40 mg PO DAILY #60 tab Polyethylene Glycol 3350 [MiraLAX] 17 gm PO DAILY PRN #30 PRN Reason: Constipation Sucralfate [Carafate] 1 gm PO QIDAC #120 tab Sulfamethoxazole/Trimeth DS [Bactrim Ds] 1 each PO BID #28 tab Home Medications: Acetaminophen/Butalbital/Caffe [Fioricet] 1 tab PO Q4H MDD MIGRAINE 11/23/14 [ History] Calcium Carbonate/Vitamin D3 [Calcium 600 + D Tablet] 1 tab PO QAM 11/23/14 [ History] Cyanocobalamin (Vitamin B-12) [Vitamin B12] 1,000 mcg PO QWEEK 11/23/14 [History ] Docusate [Colace] 200 mg PO QAM 11/23/14 [History] Escitalopram [Lexapro] 20 mg PO QAM 11/23/14 [History] Folic Acid 1 mg PO QAM 11/23/14 [History] Omeprazole [PriLOSEC] 20 mg PO BID 11/23/14 [History] Magnesium Oxide [Mgo] 400 mg PO DAILY 03/13/16 [History] Potassium Chloride [K-Tab ER] 40 meq PO DAILY 03/13/16 [History] predniSONE [Prednisone] 5 mg PO DAILY PRN 03/13/16 [History] Cholecalciferol (D-3) [Vitamin D] 2,000 unit PO DAILY 05/30/16 [History] Levothyroxine Sodium 100 mcg PO QAM 05/30/16 [History] Tramadol HCl [Ultram] 50 mg PO Q6H PRN #30 tab 10/13/16 [Rx] Atorvastatin [Lipitor] 40 mg PO HS 12/12/16 [History] HYDROcodone/Acet 5/325 mg [[place] 5-325 mg] 1 tab PO Q6H PRN 12/12/16 [History] Potassium Chloride [K-Tab ER] 20 meq PO DAILY 12/12/16 [History] ALPRAZolam [Xanax 0.5 MG Tablet] 0.5 mg PO TID PRN #24 tab 12/14/16 [Rx] Calcium Polycarbophil [Fibercon] 1,250 mg PO DAILY #60 tab 12/14/16 [Rx] Hydrocortisone Acetate [Anucort-Hc] 25 mg RC BID PRN #30 12/14/16 [Rx] Lisinopril [Zestril] 40 mg PO DAILY #60 tab 12/14/16 [Rx] MOM Conc [MILK OF MAGNESIA conc] 10 ml PO DAILY #0 12/14/16 [Rx] Ondansetron ODT [Zofran ODT] 4 mg SL Q6HR PRN #14 tab.rapdis 12/14/16 [Rx] Polyethylene Glycol 3350 [MiraLAX] 17 gm PO DAILY PRN #30 12/14/16 [Rx] Simvastatin [Zocor] 40 mg PO HS tab 12/14/16 [Rx] Sucralfate [Carafate] 1 gm PO QIDAC #120 tab 12/14/16 [Rx] Sulfamethoxazole/Trimeth DS [Bactrim Ds] 1 each PO BID #28 tab 12/14/16 [Rx] amLODIPine [Norvasc] 10 mg PO DAILY #60 tab 12/14/16 [Rx] clonazePAM [Klonopin] 1 mg PO BID #16 tablet 12/14/16 [Rx] Allergies/Adverse Reactions: 3 Allergy/AdvReac Type Severity Reaction Status Date / Time esomeprazole [From Nexium] Allergy Difficulty Verified 12/11/16 18:13 Breathing levofloxacin [From Levaquin] Allergy Blister Verified 12/11/16 18:13 acetaminophen [From Percocet] AdvReac Dizziness Verified 12/11/16 18:13 Amoxicillin [From Augmentin] AdvReac Nausea Verified 12/11/16 18:13 aspirin AdvReac Dizziness Verified 12/11/16 18:13 clavulanic acid AdvReac Nausea Verified 12/11/16 18:13 [From Augmentin] codeine AdvReac Dizziness Verified 12/11/16 18:13 Estrogens AdvReac Dizziness Verified 12/11/16 18:13 Hydromorphone AdvReac Dizziness Verified 12/11/16 18:13 meperidine AdvReac Dizziness Verified 12/11/16 18:13 morphine AdvReac Dizziness Verified 12/11/16 18:13 nitrofurantoin AdvReac Nausea Verified 12/11/16 18:13 NSAIDS (Non-Steroidal AdvReac Dizziness Verified 12/11/16 18:13 Anti-Inflamma Oxycodone AdvReac Dizziness Verified 12/11/16 18:13 Paroxetine [From Paxil] AdvReac Nausea Verified 12/11/16 18:13 tolterodine [From Detrol] AdvReac Nausea Verified 12/11/16 18:13 Certification: Further, I certify that my clinical findings support that this patient is homebound (i.e. absences from home require considerable and taxing effort and are for medical reasons or caodaism services or infrequently or short duration when for other reasons) because: Homebound Reason: Patient requires assistance of a person or device to safely leave home, Leaving home requires considerable and taxing effort due to condition Attestation: My signature below is to certify that this patient is under my care and that I, or nurse practitioner, or a physician's assistant professor of communication working with me, has a face-to -face encounter with this patient.
== END 2016-12-14 11:40 | disposition home health service (06) | DRG 690 ==
LOC: EMEROO 18:12 → 3BNU 18:12
PROVIDERS: ADMIT Pediatrics; ATTEND Registered Nurse

== ENCOUNTER 2018-04-09 04:24 | Observation (INO) ==
[2018-04-09] MEDS ORDERED: *HR* FentaNYL (PF) 100 MCG/2 ML VIAL IVP ONE (04:37)
[2018-04-09] MEDS ORDERED: Aspirin 325 MG TABLET PO ONE (04:49)
[2018-04-09] MEDS ORDERED: *HR* Heparin 5,000 UNIT/ML VIAL IVP PRN ×4 (04:50→10:45)
[2018-04-09] MEDS ORDERED: *HR* Heparin 5,000 UNIT/ML VIAL IVP ONE ×2 (04:50→10:45)
[2018-04-09] MEDS ORDERED: Heparin 25,000 UNIT/500 ML D5W 25,000 UNIT/500 ML BAG IVC SCH ×2 (05:00→10:45)
[2018-04-09] MEDS ORDERED: Nitroglycerin 1 INCH/GM PACKET TP ONE (05:01)
[2018-04-09 05:03] LABS: Basophils % 0.3 %; Eosinophils # 0.2 K/mcL (0.0-0.6); Hematocrit 46.5 % (35.3-44.9); Immature Granulocytes % 0.3 % (0-4); Lymphocytes # 1.1 K/mcL (0.6-4.6); Lymphocytes % 15.4 %; Mean Corpuscular HGB Conc 32.3 g/dL (31.6-35.5); Mean Corpuscular Hemoglobin 33.6 pg (28.0-33.3); Mean Corpuscular Volume 104.3 fL (83.0-100.0); Monocytes # 0.4 K/mcL (0.0-1.3); Monocytes % 5.1 %; Neutrophils # 5.7 K/mcL (1.6-8.9); Platelet Count 132 K/mcL (140-400); Red Blood Count 4.46 M/mcL (3.82-4.97); Red Cell Distribution Width 13.4 % (11.5-14.5); Segmented Neutrophils % 76.9 %
--- NOTE | 2018-04-09 05:11 | Emergency Department Note ---
Disposition Clinical Impression: Hypertension, Chest pain due to CAD Disposition: Admitted As Inpatient General Adult HPI - General Chief complaint: ED Chest Pain Stated complaint: Hypotension Time Seen by Provider: 04/09/18 04:34 Source: patient, family, EMS Mode of arrival: EMS Limitations: no limitations Nursing Notes Reviewed: Yes Vital Signs Reviewed: Yes - History of Present Illness HPI Narrative: 82-year-old female with an extensive medical history that includes hyperlipidemia, hypertension, dementia, rheumatoid arthritis, migraines presents emergency department via EMS from [facility] for evaluation of elevated blood pressure. Per EMS the patient complained of her arms hurting at the care home today checked her blood pressure and found a significantly elevated so they sent her to the emergency department for evaluation. In the EMS route patient appeared to have T-wave depressions on the monitor, she was hypertensive with a blood pressure 183/89. Patient's baseline is with altered mental status. Upon arrival to the emergency department all she keeps anus that her arms her it is "burning" in her genital area and she thinks she has a UTI. She is complaining of severe abdominal pain. Due to mentation patient unreliable as a source of history. is with patient who states the [facility] called him. states the patient was just recently here for a "heart attack" and that she was on a heparin drip and was seen by cardiology while she was here. He states this was about 5 weeks ago. does state the patient has RA, she gets frequent UTIs. states she did not undergo PCI while she was here, he stated "I think because of her age and health they were able to do a heart catheter". does state that they want her to be a full code, we are to intubate if need be and perform CPR. 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 - Related Data Home Medications Medication Instructions Recorded Confirmed RX: Acetaminophen/Butalbital/Caffe 1.5 tab PO Q6H PRN MDD 6 tabs 11/23/14 04/09/18 [Fioricet] RX: Omeprazole [PriLOSEC] 20 mg PO BID 11/23/14 04/09/18 RX: Magnesium Oxide [Mgo] 400 mg PO DAILY 03/13/16 04/09/18 RX: Cholecalciferol (D-3) [Vitamin 2,000 unit PO DAILY 05/30/16 04/09/18 D] RX: Levothyroxine Sodium 100 mcg PO QAM 05/30/16 04/09/18 RX: Atorvastatin Calcium [Lipitor] 20 mg PO HS 11/15/17 04/09/18 RX: Calcium Carbonate/Vitamin D3 1 tab PO DAILY 11/15/17 04/09/18 [Calcium 600 + Vit D Tablet] RX: Escitalopram [Lexapro] 10 mg PO DAILY 11/15/17 04/09/18 RX: Ferrous Sulfate [Iron] 325 mg PO DAILY 11/15/17 04/09/18 RX: Folic Acid 1 mg PO DAILY 11/15/17 04/09/18 RX: Lisinopril [Zestril] 20 mg PO DAILY 11/15/17 04/09/18 RX: Sucralfate [Carafate] 1 gm PO TID 11/15/17 04/09/18 RX: Phenazopyridine [Pyridium] 100 mg PO BID 03/20/18 04/09/18 RX: Potassium Chloride [Klor-Con 10 meq PO DAILY 03/20/18 04/09/18 10] ALPRAZolam [Xanax 0.5 MG Tablet] 0.5 mg PO TID 04/09/18 04/09/18 Lactobacillus Acidophilus/Fos 1 each PO DAILY 04/09/18 04/09/18 [Acidophilus Probiotic Tablet] Mag Hydrox/Aluminum Hyd/Simeth 10 ml PO QID PRN 04/09/18 04/09/18 [Cvs Antacid Plus Anti-Gas Liq] Magnesium Hydroxide [Milk of 30 ml PO DAILY PRN 04/09/18 04/09/18 Magnesia] RX: predniSONE [PredniSONE] 5 mg PO DAILY 04/09/18 04/09/18 Tramadol HCl [Ultram] 50 mg PO DAILY 04/09/18 04/09/18 clonazePAM [Clonazepam] 0.5 mg PO DAILY PRN 04/09/18 04/09/18 clonazePAM [Clonazepam] 1 mg PO BID 04/09/18 04/09/18 Previous Rx's Medication Instructions Recorded Carvedilol [Coreg] 3.125 mg PO BIDWM 60 Days #60 03/23/18 tablet Allergies Allergy/AdvReac Type Severity Reaction Status Date / Time esomeprazole [From Nexium] Allergy Difficulty Verified 11/15/17 09:41 Breathing levofloxacin [From Levaquin] Allergy Blister Verified 11/15/17 09:41 Amoxicillin [From Augmentin] AdvReac Nausea Verified 11/15/17 09:41 aspirin AdvReac Dizziness Verified 11/15/17 09:41 clavulanic acid AdvReac Nausea Verified 11/15/17 09:41 [From Augmentin] codeine AdvReac Dizziness Verified 11/15/17 09:41 Estrogens AdvReac Dizziness Verified 11/15/17 09:41 Hydromorphone AdvReac Dizziness Verified 11/15/17 09:41 meperidine AdvReac Dizziness Verified 11/15/17 09:41 morphine AdvReac Dizziness Verified 11/15/17 09:41 nitrofurantoin AdvReac Nausea Verified 11/15/17 09:41 NSAIDS (Non-Steroidal AdvReac Dizziness Verified 11/15/17 09:41 Anti-Inflamma Oxycodone AdvReac Dizziness Verified 11/15/17 09:41 Paroxetine [From Paxil] AdvReac Nausea Verified 11/15/17 09:41 tolterodine [From Detrol] AdvReac Nausea Verified 11/15/17 09:41 Limitations: ROS unobtainable due to patients medical condition Past Medical History - Past Medical History Attestation: Yes The following information was validated with the patient. Source: old records reviewed, obtained from family, other (group home paperwork) Medical history: Reports: arthritis, dementia, GERD, hyperlipidemia, hypertension, migraine, myocardial infarction, RA, thyroid disease, other Surgical history: Reports: cholecystectomy, hysterectomy Psychiatric history: Reports: anxiety, depression DENTAL TECHNICIAN APPRENTICE history: Reports: no DENTAL TECHNICIAN APPRENTICE history - Social History Smoking Status: Never smoker Smokeless Tobacco Status: No Alcohol use: Reports: none Drug use: Reports: none Physical Exam - General Limitations: no limitations General appearance: alert, anxious, in distress - Head Head exam: atraumatic, normocephalic, normal inspection - Eye Eye exam: Present: normal appearance - ENT ENT exam: mucous membranes moist - Neck Neck exam: Present: normal inspection, full ROM, trachea midline - Chest Chest inspection: Present: normal inspection, symmetric chest wall rise - Respiratory Respiratory exam: Present: normal lung sounds bilaterally - Cardiovascular Cardiovascular exam: Present: regular rate, normal rhythm, normal heart sounds - Abdominal Exam Abdominal exam: Present: soft, tenderness, normal bowel sounds. Absent: distention, guarding, rebound, rigidity Abdominal tenderness: Present: RLQ, LLQ, suprapubic - Extremities Exam Extremities exam: Present: normal capillary refill, pedal edema (slight), other (partial foot drop). Absent: tenderness - Neurological Exam Neurological exam: Present: alert - Psychiatric Psychiatric exam: Present: anxious - Skin Skin exam: Present: warm, dry, intact, normal color Course Course Narrative: Chronically ill, nontoxic-appearing female who appears very anxious. Patient is yelling out that her stomach hurts, that she is burning in her groin area, and that her bilateral arms heard. Unable to rely on patient's verbal responses. Respirations are easy and even. Patient is afebrile, non-tachycardic, not hypoxic. Patient does arrive with an elevated blood pressure of 224/116. Physical exam reveals tenderness to palpation to bilateral arms, tenderness with palpation to abdomen the suprapubic area as well as the bilateral lower quadrants, bowel sounds are normal, no masses, no peritoneal signs. Heart rate is regular rhythm, there is slight pedal edema bilaterally. EKG completed at 0 437 does show inverted T waves in leads V3, V4, V5, V6; there is no ST elevation on the EKG. The inverted T waves are new in comparison to 03/20/18. Given inverted T waves, presentation very similar to previous instantly, elevated blood pressure we will give her 324 mg of aspirin, obtain labs and monitor. Repeat blood pressure 15 minutes later showed 164/104 while I was in the room. I did speak with regarding CODE STATUS, interventions. He is adamant the patient is to remain a full code. She does understand there is some benefits of CPR as well as intubation that he states that we are to continue as a full code. She does have full code paperwork from the care home. Review of records shows patient was admitted to our facility for a NSTEMI with maximum troponin at 2.08. She is medically managed on heparin, Plavix, statins. While patient was here she did have a TTE that showed 50-55% ejection fraction. She was discharged to [facility] for PTOT. Review of records from the care home shows patient is not on any Plavix or aspirin while at the care home. She is on a beta jacinto. Initial labs return unremarkable CBC, metabolic panel, hepatic panel. Initial troponin returns at 0.07. This is an elevation however patient last troponin 0.19. We will need to trend troponins for at least 1 more to ensure she continues to be stable or trend downward. Chest x-ray returns with pulmonary edema--comparison to previous CXR with no significant change. We are still pending urinalysis. Attending Dr. Alonzo has had one-on-one face time with patient and is agreeable to plan of care. Blood pressure is trending downward with last reading of 144/80 Vital Signs Temperature 98 F 04/09/18 04:30 Pulse Rate 108 04/09/18 04:30 Respiratory Rate 24 04/09/18 04:30 Blood Pressure 216/124 04/09/18 04:30 O2 Sat by Pulse Oximetry 98 04/09/18 04:30 Temperature 98 F 04/09/18 04:30 Pulse Rate 85 04/09/18 06:03 Respiratory Rate 16 04/09/18 06:03 Blood Pressure 158/88 04/09/18 06:03 O2 Sat by Pulse Oximetry 95 04/09/18 06:03 Oxygen Delivery Oxygen Delivery Nasal Cannula Medical Decision Making - Medical Records Medical records reviewed: Yes I reviewed the patient's medical records. - Lab Data Lab results reviewed: Yes I reviewed the patient's lab results. Result diagrams: 04/09/18 04:49 04/09/18 04:49 Lab Results 04/09/18 04/09/18 04/09/18 Range/Units 04:49 04:49 04:49 WBC 7.4 D (4.3-11.1) K/mcL RBC 4.46 (3.82-4.97) M/mcL Hgb 15.0 D (11.5-15.4) g/dL Hct 46.5 H (35.3-44.9) % MCV 104.3 H (83.0-100.0) fL MCH 33.6 H (28.0-33.3) pg MCHC 32.3 (31.6-35.5) g/dL RDW 13.4 (11.5-14.5) % Plt Count 132 L (140-400) K/mcL MPV 10.0 (9.4-12.4) fL Immature Gran % 0.3 (0-4) % Seg Neutrophils % 76.9 % Lymphocytes % 15.4 % Monocytes % 5.1 % Eosinophils % 2.0 % Basophils % 0.3 % Neutrophils # 5.7 (1.6-8.9) K/mcL Lymphocytes # 1.1 (0.6-4.6) K/mcL Monocytes # 0.4 (0.0-1.3) K/mcL Eosinophils # 0.2 (0.0-0.6) K/mcL Basophils # 0.0 (0.0-0.2) K/mcL PT 10.9 (9.4-12.1) Seconds INR 1.0 APTT 29.2 (26.0-36.0) Seconds Heparin Anti-Xa, Unfract 0.05 L (0.30-0.70) IU/mL Sodium 137 (136-145) mEq/L Potassium 3.8 (3.5-5.1) mEq/L Chloride 96 L (98-107) mEq/L Carbon Dioxide 31 H (23-29) mEq/L BUN 10 (8-23) mg/dL Creatinine 0.70 (0.60-1.20) mg/dL Est GFR ( Amer) > 60 (> 60) Est GFR (Non-Af Amer) > 60 (> 60) BUN/Creatinine Ratio 14 (6-26) Glucose 113 H (70-105) mg/dL Calculated Osmolality 284 (280-300) Calcium 9.2 (8.6-10.3) mg/dL Total Bilirubin 0.6 (0.3-1.0) mg/dL Direct Bilirubin 0.1 (0.0-0.2) mg/dL Indirect Bilirubin 0.5 (0.0-1.2) mg/dL AST 21 (13-39) Units/L ALT 14 (7-52) Units/L Alkaline Phosphatase 53 (34-104) Units/L Troponin I 0.07 H* (< 0.04) ng/mL Serum Total Protein 8.3 (6.4-8.9) g/dL Albumin 4.5 (3.5-5.7) g/dL Globulin 3.8 H (2.4-3.5) g/dL Albumin/Globulin Ratio 1.2 (1.1-2.2) Lipase 12 (11-82) Units/L Urine Color (Yellow) Urine Clarity (Clear) Urine pH (5.0-8.0) pH Units Ur Specific [place] (1.010-1.025) Urine Protein (Neg-Trace) mg/dL Urine Glucose (UA) (Normal) mg/dL Urine Ketones (Negative) mg/dL Urine Blood (Negative) Urine Nitrite (Negative) Urine Bilirubin (Negative) Urine Urobilinogen (Normal) mg/dL Ur Leukocyte Esterase (Negative) Urine Microscopic RBC (0-3) per hpf Urine Microscopic WBC (0-3) per hpf Ur Squamous Epith Cells (None-Few) per lpf Urine Bacteria (None-Few) per hpf Hyaline Casts (None-Few) per lpf Ur Culture Indicated? (NO) 04/09/18 Range/Units 05:46 WBC (4.3-11.1) K/mcL RBC (3.82-4.97) M/mcL Hgb (11.5-15.4) g/dL Hct (35.3-44.9) % MCV (83.0-100.0) fL MCH (28.0-33.3) pg MCHC (31.6-35.5) g/dL RDW (11.5-14.5) % Plt Count (140-400) K/mcL MPV (9.4-12.4) fL Immature Gran % (0-4) % Seg Neutrophils % % Lymphocytes % % Monocytes % % Eosinophils % % Basophils % % Neutrophils # (1.6-8.9) K/mcL Lymphocytes # (0.6-4.6) K/mcL Monocytes # (0.0-1.3) K/mcL Eosinophils # (0.0-0.6) K/mcL Basophils # (0.0-0.2) K/mcL PT (9.4-12.1) Seconds INR APTT (26.0-36.0) Seconds Heparin Anti-Xa, Unfract (0.30-0.70) IU/mL Sodium (136-145) mEq/L Potassium (3.5-5.1) mEq/L Chloride (98-107) mEq/L Carbon Dioxide (23-29) mEq/L BUN (8-23) mg/dL Creatinine (0.60-1.20) mg/dL Est GFR ( Amer) (> 60) Est GFR (Non-Af Amer) (> 60) BUN/Creatinine Ratio (6-26) Glucose (70-105) mg/dL Calculated Osmolality (280-300) Calcium (8.6-10.3) mg/dL Total Bilirubin (0.3-1.0) mg/dL Direct Bilirubin (0.0-0.2) mg/dL Indirect Bilirubin (0.0-1.2) mg/dL AST (13-39) Units/L ALT (7-52) Units/L Alkaline Phosphatase (34-104) Units/L Troponin I (< 0.04) ng/mL Serum Total Protein (6.4-8.9) g/dL Albumin (3.5-5.7) g/dL Globulin (2.4-3.5) g/dL Albumin/Globulin Ratio (1.1-2.2) Lipase (11-82) Units/L Urine Color Yellow (Yellow) Urine Clarity Cloudy A (Clear) Urine pH 8.0 (5.0-8.0) pH Units Ur Specific [place] 1.015 (1.010-1.025) Urine Protein 100 H (Neg-Trace) mg/dL Urine Glucose (UA) Normal (Normal) mg/dL Urine Ketones Negative (Negative) mg/dL Urine Blood Large H (Negative) Urine Nitrite Negative (Negative) Urine Bilirubin Negative (Negative) Urine Urobilinogen Normal (Normal) mg/dL Ur Leukocyte Esterase Negative (Negative) Urine Microscopic RBC TNTC H (0-3) per hpf Urine Microscopic WBC 5-15 H (0-3) per hpf Ur Squamous Epith Cells Many H (None-Few) per lpf Urine Bacteria Few (None-Few) per hpf Hyaline Casts None Seen (None-Few) per lpf Ur Culture Indicated? NO (NO) - Radiology Data Radiology results reviewed: Yes I reviewed the patient's radiology results. - EKG Data EKG #1 EKG attestation: Yes I reviewed and interpreted this EKG. EKG shows normal: sinus rhythm Rate: tachycardia T wave inversions noted in: v3, v4, v5, v6 When compared to previous EKG there are: changes noted (t-wave inversions) S.B.A.R. - S.B.A.R. Situation: Demographics, MOA Background: Presenting Complaint, Relevant PMH, Meds, & Allergies Assessment: Vital Signs, Course and respsone to treatment, Exam Concerns, Patient/Family Expectation, Pertinant Lab Results, Outstanding Labs Recommendation: Barrier(s) to disposition, Recommendation based on pending studies, treatments, or consults S.B.A.R. Report Given to: Vanessa Mcneil CNP S.B.A.R. Repor Time: 06:00 Attestation Statement - Attestation Attestation: Dr Alonzo note: Pt seen in conjunction w/ TOYIN Mason; Please see her charting for complete documentation; I spent face to face time w/ the pt and agree w/ pt's treatment and disposition; Vague sx overnight and could not sleep; bp elevated when she called on the ECF staff to check it; also c/o dysuria; bp improved on my eval; no pain; well appearing; no chest pain/diaphoresis prior on my eval; troponin lower than on last presentation; pt was to see her tennis coach today in office at 1 pm; family requests admission; stable at time of my departure from shift at 7 a.m; pt was to be admitted by day shift OTYIN, pending at 7 a.m
[2018-04-09 05:12] LABS: Heparin anti-factor XA UFH 0.05 IU/mL (0.30-0.70); Prothrombin Time 10.9 Seconds (9.4-12.1)
[2018-04-09 05:14] LABS: Activated Partial Thrombo Time 29.2 Seconds (26.0-36.0)
[2018-04-09 05:24] LABS: Alanine Aminotransferase 14 Units/L (7-52); Albumin 4.5 g/dL (3.5-5.7); Albumin/Globulin Ratio 1.2 (1.1-2.2); Alkaline Phosphatase 53 Units/L (34-104); Aspartate Amino Transferase 21 Units/L (13-39); BUN/Creatinine Ratio 14 (6-26); Bilirubin,Direct 0.1 mg/dL (0.0-0.2); Bilirubin,Indirect 0.5 mg/dL (0.0-1.2); Bilirubin,Total 0.6 mg/dL (0.3-1.0); Blood Urea Nitrogen 10 mg/dL (8-23); Calcium 9.2 mg/dL (8.6-10.3); Carbon Dioxide 31 mEq/L (23-29); Chloride 96 mEq/L (98-107); Globulin 3.8 g/dL (2.4-3.5); Glucose 113 mg/dL (70-105); Lipase 12 Units/L (11-82); Osmolality,Calculated 284 (280-300); Potassium 3.8 mEq/L (3.5-5.1); Sodium 137 mEq/L (136-145); Total Protein 8.3 g/dL (6.4-8.9); eGFR For Non-African Americans > 60 (> 60)
[2018-04-09 05:28] LABS: Troponin I 0.07 ng/mL (< 0.04)
[2018-04-09 05:55] LABS: Bilirubin,Urine Negative (Negative); Blood,Urine Large (Negative); Clarity,Urine Cloudy (Clear); Color,Urine Yellow (Yellow); Glucose,Urine (UA) Normal (Normal); Ketones,Urine Negative (Negative); Leukocyte Esterase,Urine Negative (Negative); Nitrite,Urine Negative (Negative); Protein,Urine 100 mg/dL (Neg-Trace); Specific Gravity,Urine 1.015 (1.010-1.025); Urobilinogen,Urine Normal (Normal)
[2018-04-09 05:57] LABS: Bacteria,Urine Few per hpf (None-Few); Hyaline Casts,Urine None Seen per lpf (None-Few); RBC,Urine TNTC per hpf (0-3); Squamous Epithelial Cell,Urine Many per lpf (None-Few)
[2018-04-09] MEDS ORDERED: Ondansetron 4 MG/2 ML VIAL IVP ONE ×2 (06:03→07:02)
--- NOTE | 2018-04-09 06:56 | Emergency Department Note ---
Disposition Clinical Impression: Chest pain due to CAD Hypertension Qualifiers: Hypertension type: unspecified Qualified Code(s): I10 - Essential (primary) hypertension Disposition: Admitted As Inpatient Referrals: Pipe Marin DO [Primary Care Provider] - Forms: ED Satisfaction Letter Chest Pain HPI - General Chief Complaint: ED Chest Pain Stated Complaint: Hypotension Time Seen by Provider: 04/09/18 04:34 Source: patient, family, EMS Mode of arrival: EMS Limitations: no limitations - History of Present Illness Severity scale (1-10): 0 - Related Data Home Medications Medication Instructions Recorded Confirmed Acetaminophen/Butalbital/Caffe 1.5 tab PO Q4H 11/23/14 03/20/18 [Fioricet] Omeprazole [PriLOSEC] 20 mg PO BID 11/23/14 03/20/18 Magnesium Oxide [Mgo] 400 mg PO DAILY 03/13/16 03/20/18 predniSONE [Prednisone] 5 - 10 mg PO DAILY 03/13/16 03/20/18 Cholecalciferol (D-3) [Vitamin D] 2,000 unit PO DAILY 05/30/16 03/20/18 Levothyroxine Sodium 100 mcg PO QAM 05/30/16 03/20/18 Atorvastatin Calcium [Lipitor] 20 mg PO HS 11/15/17 03/20/18 Calcium Carbonate/Vitamin D3 1 tab PO DAILY 11/15/17 03/20/18 [Calcium 600 + Vit D Tablet] Escitalopram [Lexapro] 10 mg PO DAILY 11/15/17 03/20/18 Ferrous Sulfate [Iron] 325 mg PO DAILY 11/15/17 03/20/18 Folic Acid 1 mg PO DAILY 11/15/17 03/20/18 Lactobacillus Acidophilus 1 cap PO DAILY 11/15/17 03/20/18 [Acidophilus Lactobacillus] Lisinopril [Zestril] 20 mg PO DAILY 11/15/17 03/20/18 Loperamide [Imodium] 2 mg PO Q4HR PRN MDD 16MG PER 24 11/15/17 03/20/18 HOURS Simethicone [Bicarsim] 80 mg PO Q4H PRN 11/15/17 03/20/18 Sucralfate [Carafate] 1 gm PO TID 11/15/17 03/20/18 Phenazopyridine [Pyridium] 100 mg PO BID 03/20/18 03/20/18 Potassium Chloride [Klor-Con 10] 10 meq PO DAILY 03/20/18 03/20/18 Previous Rx's Medication Instructions Recorded Ondansetron ODT [Zofran ODT] 4 mg SL Q6HR PRN #14 tab.rapdis 12/14/16 Aspirin Enteric Coated [Aspirin EC] 81 mg PO DAILY 30 Days #30 03/23/18 tablet. Carvedilol [Coreg] 3.125 mg PO BIDWM 60 Days #60 03/23/18 tablet Allergies Allergy/AdvReac Type Severity Reaction Status Date / Time esomeprazole [From Nexium] Allergy Difficulty Verified 11/15/17 09:41 Breathing levofloxacin [From Levaquin] Allergy Blister Verified 11/15/17 09:41 Amoxicillin [From Augmentin] AdvReac Nausea Verified 11/15/17 09:41 aspirin AdvReac Dizziness Verified 11/15/17 09:41 clavulanic acid AdvReac Nausea Verified 11/15/17 09:41 [From Augmentin] codeine AdvReac Dizziness Verified 11/15/17 09:41 Estrogens AdvReac Dizziness Verified 11/15/17 09:41 Hydromorphone AdvReac Dizziness Verified 11/15/17 09:41 meperidine AdvReac Dizziness Verified 11/15/17 09:41 morphine AdvReac Dizziness Verified 11/15/17 09:41 nitrofurantoin AdvReac Nausea Verified 11/15/17 09:41 NSAIDS (Non-Steroidal AdvReac Dizziness Verified 11/15/17 09:41 Anti-Inflamma Oxycodone AdvReac Dizziness Verified 11/15/17 09:41 Paroxetine [From Paxil] AdvReac Nausea Verified 11/15/17 09:41 tolterodine [From Detrol] AdvReac Nausea Verified 11/15/17 09:41 Chest Pain PMH - Past Medical History Medical history: Reports: arthritis, dementia, GERD, hyperlipidemia, hypertension, migraine, myocardial infarction, RA, thyroid disease, other Surgical history: Reports: cholecystectomy, hysterectomy Psychiatric history: Reports: anxiety, depression PERSONAL DEVELOPMENT EDUCATOR history: Reports: no PERSONAL DEVELOPMENT EDUCATOR history - Social History Smoking Status: Never smoker Alcohol use: Reports: none Drug use: Reports: none Physical Exam - General Limitations: no limitations General appearance: alert, anxious, in distress Course Vital Signs Temperature 98 F 04/09/18 04:30 Pulse Rate 108 04/09/18 04:30 Respiratory Rate 24 04/09/18 04:30 Blood Pressure 216/124 04/09/18 04:30 O2 Sat by Pulse Oximetry 98 04/09/18 04:30 Temperature 98 F 04/09/18 04:30 Pulse Rate 99 04/09/18 07:00 Respiratory Rate 22 04/09/18 07:00 Blood Pressure 182/95 04/09/18 07:00 O2 Sat by Pulse Oximetry 95 04/09/18 07:00 Oxygen Delivery Oxygen Delivery Nasal Cannula Chest Pain - MDM Narrative Medical decision making narrative: 82 year old female with history of dementia, hypertension, hyperlipidimia, IA presents with acute "sick" since yesterday. pt complained of bilateral shoulders pain, shortness of breath, nausea, high blood pressure, burning sensation when urinating. Pt had heart attack three weeks ago. She was suggested to take plavix and aspirin. But pt is not on Plavix. Pt has an appointment with [facility] today at 1 pm. But patient and her family stated she is not able to keep the appointment due to "sick". Pt's EKG: tachycardia and inverted T-wave in V4-v6, troponin 0.07 (decreasing from 0.19 on 03/23). Pt had nausea and vomited once in room. Dr. Alonzo has seen the patient and agrees to admit patient for further evaluation. Spoke with Hospitalist Dr. Hobbs. Pt is accepted. - Lab Data Lab results reviewed: Yes I reviewed the patient's lab results. Result diagrams: 04/09/18 04:49 04/09/18 04:49 Lab Results 04/09/18 04/09/18 04/09/18 Range/Units 04:49 04:49 04:49 WBC 7.4 D (4.3-11.1) K/mcL RBC 4.46 (3.82-4.97) M/mcL Hgb 15.0 D (11.5-15.4) g/dL Hct 46.5 H (35.3-44.9) % MCV 104.3 H (83.0-100.0) fL MCH 33.6 H (28.0-33.3) pg MCHC 32.3 (31.6-35.5) g/dL RDW 13.4 (11.5-14.5) % Plt Count 132 L (140-400) K/mcL MPV 10.0 (9.4-12.4) fL Immature Gran % 0.3 (0-4) % Seg Neutrophils % 76.9 % Lymphocytes % 15.4 % Monocytes % 5.1 % Eosinophils % 2.0 % Basophils % 0.3 % Neutrophils # 5.7 (1.6-8.9) K/mcL Lymphocytes # 1.1 (0.6-4.6) K/mcL Monocytes # 0.4 (0.0-1.3) K/mcL Eosinophils # 0.2 (0.0-0.6) K/mcL Basophils # 0.0 (0.0-0.2) K/mcL PT 10.9 (9.4-12.1) Seconds INR 1.0 APTT 29.2 (26.0-36.0) Seconds Heparin Anti-Xa, Unfract 0.05 L (0.30-0.70) IU/mL Sodium 137 (136-145) mEq/L Potassium 3.8 (3.5-5.1) mEq/L Chloride 96 L (98-107) mEq/L Carbon Dioxide 31 H (23-29) mEq/L BUN 10 (8-23) mg/dL Creatinine 0.70 (0.60-1.20) mg/dL Est GFR ( Amer) > 60 (> 60) Est GFR (Non-Af Amer) > 60 (> 60) BUN/Creatinine Ratio 14 (6-26) Glucose 113 H (70-105) mg/dL Calculated Osmolality 284 (280-300) Calcium 9.2 (8.6-10.3) mg/dL Total Bilirubin 0.6 (0.3-1.0) mg/dL Direct Bilirubin 0.1 (0.0-0.2) mg/dL Indirect Bilirubin 0.5 (0.0-1.2) mg/dL AST 21 (13-39) Units/L ALT 14 (7-52) Units/L Alkaline Phosphatase 53 (34-104) Units/L Troponin I 0.07 H* (< 0.04) ng/mL Serum Total Protein 8.3 (6.4-8.9) g/dL Albumin 4.5 (3.5-5.7) g/dL Globulin 3.8 H (2.4-3.5) g/dL Albumin/Globulin Ratio 1.2 (1.1-2.2) Lipase 12 (11-82) Units/L Urine Color (Yellow) Urine Clarity (Clear) Urine pH (5.0-8.0) pH Units Ur Specific [place] (1.010-1.025) Urine Protein (Neg-Trace) mg/dL Urine Glucose (UA) (Normal) mg/dL Urine Ketones (Negative) mg/dL Urine Blood (Negative) Urine Nitrite (Negative) Urine Bilirubin (Negative) Urine Urobilinogen (Normal) mg/dL Ur Leukocyte Esterase (Negative) Urine Microscopic RBC (0-3) per hpf Urine Microscopic WBC (0-3) per hpf Ur Squamous Epith Cells (None-Few) per lpf Urine Bacteria (None-Few) per hpf Hyaline Casts (None-Few) per lpf Ur Culture Indicated? (NO) 04/09/18 Range/Units 05:46 WBC (4.3-11.1) K/mcL RBC (3.82-4.97) M/mcL Hgb (11.5-15.4) g/dL Hct (35.3-44.9) % MCV (83.0-100.0) fL MCH (28.0-33.3) pg MCHC (31.6-35.5) g/dL RDW (11.5-14.5) % Plt Count (140-400) K/mcL MPV (9.4-12.4) fL Immature Gran % (0-4) % Seg Neutrophils % % Lymphocytes % % Monocytes % % Eosinophils % % Basophils % % Neutrophils # (1.6-8.9) K/mcL Lymphocytes # (0.6-4.6) K/mcL Monocytes # (0.0-1.3) K/mcL Eosinophils # (0.0-0.6) K/mcL Basophils # (0.0-0.2) K/mcL PT (9.4-12.1) Seconds INR APTT (26.0-36.0) Seconds Heparin Anti-Xa, Unfract (0.30-0.70) IU/mL Sodium (136-145) mEq/L Potassium (3.5-5.1) mEq/L Chloride (98-107) mEq/L Carbon Dioxide (23-29) mEq/L BUN (8-23) mg/dL Creatinine (0.60-1.20) mg/dL Est GFR ( Amer) (> 60) Est GFR (Non-Af Amer) (> 60) BUN/Creatinine Ratio (6-26) Glucose (70-105) mg/dL Calculated Osmolality (280-300) Calcium (8.6-10.3) mg/dL Total Bilirubin (0.3-1.0) mg/dL Direct Bilirubin (0.0-0.2) mg/dL Indirect Bilirubin (0.0-1.2) mg/dL AST (13-39) Units/L ALT (7-52) Units/L Alkaline Phosphatase (34-104) Units/L Troponin I (< 0.04) ng/mL Serum Total Protein (6.4-8.9) g/dL Albumin (3.5-5.7) g/dL Globulin (2.4-3.5) g/dL Albumin/Globulin Ratio (1.1-2.2) Lipase (11-82) Units/L Urine Color Yellow (Yellow) Urine Clarity Cloudy A (Clear) Urine pH 8.0 (5.0-8.0) pH Units Ur Specific [place] 1.015 (1.010-1.025) Urine Protein 100 H (Neg-Trace) mg/dL Urine Glucose (UA) Normal (Normal) mg/dL Urine Ketones Negative (Negative) mg/dL Urine Blood Large H (Negative) Urine Nitrite Negative (Negative) Urine Bilirubin Negative (Negative) Urine Urobilinogen Normal (Normal) mg/dL Ur Leukocyte Esterase Negative (Negative) Urine Microscopic RBC TNTC H (0-3) per hpf Urine Microscopic WBC 5-15 H (0-3) per hpf Ur Squamous Epith Cells Many H (None-Few) per lpf Urine Bacteria Few (None-Few) per hpf Hyaline Casts None Seen (None-Few) per lpf Ur Culture Indicated? NO (NO)
[2018-04-09] MEDS ORDERED: Acetaminophen/Butalbital/CaffeineTABLET PO ONE ×2 (07:29→07:39)
[2018-04-09] MEDS ORDERED: Naloxone 0.4 MG/ML INJ IVP PRN (07:49)
[2018-04-09] MEDS ORDERED: Acetaminophen 325 MG TABLET PO PRN (07:49)
--- NOTE | 2018-04-09 09:53 | Internal Med History&Physical ---
Date of Encounter: 04/09/18 Time of Encounter: 08:30 Internal Medicine - H&P: HPI Chief complaint: Bilateral arm pain radiating to the back, suprapubic pain and dysuria Admitted From: Emergency Dept Plans for Post Hospital Care: Home History of present illness: Ms. Schmidt is a 82 year old female patient with history of rheumatoid arthritis on Remicade, hypertension, hyperlipidemia, dementia, recent non-ST elevation WA pr esented to the ER with complaints of bilateral arm pain that was radiating to the back. Patient was also having elevated blood pressure. Patient received fentanyl, aspirin and nitroglycerin in the ER. Nitroglycerin patch was placed. Since then she has had relief of her chest pain. She also complained of severe suprapubic pain and dysuria. She states that it feels like she has a urinary tract infection. She is also been having some nausea. She was last hospitalized here late last month for an episode of chest pain with troponin elevation. She was diagnosed with non-ST elevation WA/demand ischemia. She was placed on aspirin. In the hospital she did receive intravenous heparin. At t hat time given that it was believed to be due to type II ischemia, she was not recommended left heart catheterization. Patient denies any lower extremity edema. She denies any orthopnea or PND. No shortness of breath. She was also diagnosed with UTI during her last hospitalization and was discharged on Bactrim which she completed taking. Her urine culture however grew Enterococcus faecalis. Past Med Surg Social Fam HX - Past Medical History Attestation: Yes The following information was validated with the patient. Source: patient Medical history: arthritis, dementia, GERD, hyperlipidemia, hypertension, migraine, myocardial infarction, RA, thyroid disease, other Additional medical history: macular degeneration Psychiatric history: anxiety, depression - Past Surgical History Surgical History: cholecystectomy, hysterectomy Additional surgical history: Plate in pelvis - Social History Smoking Status: Never smoker Smokeless Tobacco Status: No Alcohol use: none Drug use: none - Family History Mother Adopted: No Living Status: Hx Family Cardiac Disorders: Yes Father Hx Family Cancer: Yes (colon cancer) Internal Medicine - H&P: Meds Acetaminophen/Butalbital/Caffe [Fioricet] 1.5 tab PO Q4H 11/23/14 [History] Omeprazole [PriLOSEC] 20 mg PO BID 11/23/14 [History] Magnesium Oxide [Mgo] 400 mg PO DAILY 03/13/16 [History] predniSONE [Prednisone] 5 - 10 mg PO DAILY 03/13/16 [History] Cholecalciferol (D-3) [Vitamin D] 2,000 unit PO DAILY 05/30/16 [History] Levothyroxine Sodium 100 mcg PO QAM 05/30/16 [History] Ondansetron ODT [Zofran ODT] 4 mg SL Q6HR PRN #14 tab.rapdis 12/14/16 [Rx] Atorvastatin Calcium [Lipitor] 20 mg PO HS 11/15/17 [History] Calcium Carbonate/Vitamin D3 [Calcium 600 + Vit D Tablet] 1 tab PO DAILY 11/15/17 [History] Escitalopram [Lexapro] 10 mg PO DAILY 11/15/17 [History] Ferrous Sulfate [Iron] 325 mg PO DAILY 11/15/17 [History] Folic Acid 1 mg PO DAILY 11/15/17 [History] Lactobacillus Acidophilus [Acidophilus Lactobacillus] 1 cap PO DAILY 11/15/17 [History] Lisinopril [Zestril] 20 mg PO DAILY 11/15/17 [History] Loperamide [Imodium] 2 mg PO Q4HR PRN MDD 16MG PER 24 HOURS 11/15/17 [History] Simethicone [Bicarsim] 80 mg PO Q4H PRN 11/15/17 [History] Sucralfate [Carafate] 1 gm PO TID 11/15/17 [History] Phenazopyridine [Pyridium] 100 mg PO BID 03/20/18 [History] Potassium Chloride [Klor-Con 10] 10 meq PO DAILY 03/20/18 [History] Aspirin Enteric Coated [Aspirin EC] 81 mg PO DAILY 30 Days #30 tablet. 03/23/18 [Rx] Carvedilol [Coreg] 3.125 mg PO BIDWM 60 Days #60 tablet 03/23/18 [Rx] Allergy/AdvReac Type Severity Reaction Status Date / Time esomeprazole [From Nexium] Allergy Difficulty Verified 11/15/17 09:41 Breathing levofloxacin [From Levaquin] Allergy Blister Verified 11/15/17 09:41 Amoxicillin [From Augmentin] AdvReac Nausea Verified 11/15/17 09:41 aspirin AdvReac Dizziness Verified 11/15/17 09:41 clavulanic acid AdvReac Nausea Verified 11/15/17 09:41 [From Augmentin] codeine AdvReac Dizziness Verified 11/15/17 09:41 Estrogens AdvReac Dizziness Verified 11/15/17 09:41 Hydromorphone AdvReac Dizziness Verified 11/15/17 09:41 meperidine AdvReac Dizziness Verified 11/15/17 09:41 morphine AdvReac Dizziness Verified 11/15/17 09:41 nitrofurantoin AdvReac Nausea Verified 11/15/17 09:41 NSAIDS (Non-Steroidal AdvReac Dizziness Verified 11/15/17 09:41 Anti-Inflamma Oxycodone AdvReac Dizziness Verified 11/15/17 09:41 Paroxetine [From Paxil] AdvReac Nausea Verified 11/15/17 09:41 tolterodine [From Detrol] AdvReac Nausea Verified 11/15/17 09:41 All Systems PM: A 10-system review of systems was performed and is negative for pertinent findings except as documented above in the HPI. - Constitutional Constitutional: malaise, no chills, no fever(s), no night sweats - EENT Eyes: no change in vision, no discharge, no pain, no photophobia Ears: no ear discharge, no ear pain, no tinnitus Nose, mouth and throat: no dysphagia, no nasal discharge, no neck pain, no sore throat - Cardiovascular Cardiovascular ROS IM: chest pain, no diaphoresis, no dyspnea, no lightheadedness, no palpitations, no syncope - Respiratory Respiratory: no cough, no dyspnea, no wheezing, no excessive phlegm production - Gastrointestinal Gastrointestinal: abdominal pain, no diarrhea, no hematemesis, no hematochezia, no melena, no nausea, no vomiting - Genitourinary Genitourinary: dysuria, no change in urinary stream, no flank pain, no hematuria - Musculoskeletal Musculoskeletal ROS IM: no numbness, no tingling - Integumentary Integumentary IM: no rash, no unusual bruising - Neurological Neurological ROS: no confusion, no convulsions, no focal weakness, no numbness, no tingling, no tremor(s) - Hematologic/Lymphatic Hematologic/Lymphatic: no easy bruising - Constitutional Vitals: Temp Pulse Resp BP Pulse Ox 98 F 99 20 149/82 95 12/17/18 04:30 04/09/18 07:00 04/09/18 07:31 04/09/18 07:31 04/09/18 07:00 General appearance: Present: cooperative, A&O X 1, mild distress, underweight, answers questions appropriately Exam: General: Patient is alert, no acute distress, oriented x 1 Neck: normal inspection, trachea midline, full ROM, no carotid bruits Chest: normal inspection, symmetric chest rise Respiratory: Good respiratory effort. Normal breath sounds. No wheezing or crackles. Cardiovascular: Regular rate and rhythm. s1 and s2 normal systolic murmur present , no chest wall tenderness.. No pedal edema Abdomen: Abdomen is soft, suprapubic tenderness. Bowel sounds are present. Spots of blood noted on her diapers Musculoskeletal: Spontaneously moving all extremities Skin: warm, dry, intact. Neuro: Alert oriented x1 normal cranial nerves, no focal deficits Psych: Patient's affect is normal Internal Med - H&P Results - Labs CBC & Chem 7: 04/09/18 04:49 04/09/18 04:49 Labs: Short CBC 04/09/18 Range/Units 04:49 WBC 7.4 D (4.3-11.1) K/mcL Hgb 15.0 D (11.5-15.4) g/dL Hct 46.5 H (35.3-44.9) % Plt Count 132 L (140-400) K/mcL Neutrophils # 5.7 (1.6-8.9) K/mcL BMP 04/09/18 04:49 Sodium 137 Potassium 3.8 Chloride 96 L Carbon Dioxide 31 H BUN 10 Creatinine 0.70 Glucose 113 H Calcium 9.2 Cardiac Enzymes 04/09/18 Range/Units 04:49 Troponin I 0.07 H* (< 0.04) ng/mL Liver Function 04/09/18 Range/Units 04:49 Total Bilirubin 0.6 (0.3-1.0) mg/dL Direct Bilirubin 0.1 (0.0-0.2) mg/dL AST 21 (13-39) Units/L ALT 14 (7-52) Units/L Alkaline Phosphatase 53 (34-104) Units/L Albumin 4.5 (3.5-5.7) g/dL Urine 04/09/18 Range/Units 05:46 Urine Color Yellow (Yellow) Urine Clarity Cloudy A (Clear) Urine pH 8.0 (5.0-8.0) pH Units Ur Specific [place] 1.015 (1.010-1.025) Urine Protein 100 H (Neg-Trace) mg/dL Urine Glucose (UA) Normal (Normal) mg/dL - EKG Data When compared to previous EKG: there are significant changes EKG comments: 04/09/18 10:05 EKG done today shows T-wave inversions from V3 to V6. Changed from prior EKG. Likely evolution since her last EKG and recent non-ST elevation [place]. - Impressions ITS Impressions Chest X-Ray 04/09/18 04:35 IMPRESSION: Pulmonary edema. D/ / Alex Melo MD / Alex Melo MD Interpreting Provider: Alex Melo MD - Assessment and plan (1) Angina pectoris Current Visit: Yes Status: Acute Assessment and plan: Patient presenting with bilateral arm pain radiating to back relieved with nitro glycerin and aspirin. Possible anginal equivalent. Concerning for developing unstable angina versus stable angina. Patient does have troponin of 0.07 but this is actually better than her last hospitalization when she was discharged with a troponin of 0.19. She does have definite EKG changes since her last hospitalization. Concerning for possible distal LAD lesion. Discussed with cardiology. Discussed with family about possible left heart catheterization. They want the patient to be full code and would like to proceed with a heart catheter if it is indicated in her acute situation and if it is okay with her comorbidities. For now, we will trend troponins. Follow cardiology recommend ations. If troponins do go up, we will start her on IV heparin. (2) Hypertension Current Visit: Yes Status: Chronic Assessment and plan: Uncontrolled hypertension. Could be contributing to her anginal symptoms. Qualifiers: Hypertension type: essential hypertension Qualified Code(s): I10 - Essential (primary) hypertension (3) Rheumatoid arthritis Current Visit: Yes Status: Chronic Assessment and plan: Patient has chronic rheumatoid arthritis. Continue home medications. Patient does take Remicade monthly. She received her last infusion about 10 days back. Qualifiers: Rheumatoid arthritis location: multiple sites Rheumatoid factor presence: unspecified presence Qualified Code(s): M06.9 - Rheumatoid arthritis, unspecified (4) Urinary tract infection Current Visit: Yes Status: Acute Assessment and plan: Recent urine culture positive for Enterococcus faecalis. Patient did receive treatment with Bactrim which would not cover this bacteria. We will place her on Macrobid. Patient is listed as being allergic to Macrobid. But allergies nausea. We will premedicate her with antiemetics. Qualifiers: Urinary tract infection type: acute cystitis Hematuria presence: without hematuria Qualified Code(s): N30.00 - Acute cystitis without hematuria (5) DVT prophylaxis Current Visit: Yes Status: Acute Assessment and plan: With subcutaneous heparin - Time Spent With Patient Total time spent is greater than 50% in coordination of care (as documented) at patient's floor/unit and/or counseling patient:
--- NOTE | 2018-04-09 10:55 | Cardiology Consult Note ---
<Abel Stubbs - Last Filed: 04/09/18 12:24> Date of Encounter: 04/09/18 Time of Encounter: 10:15 Assessment and Plan (1) Chest pain due to CAD Current Visit: Yes Status: Acute -Bilateral arm and chest pain in setting of elevated BP that was relieved with nitro -Initial troponin 0.07, repeat 0.10 likely demand ischemia -Admitted with similar symptoms last month, troponin peak of 2 and was managed medically with duel antiplatelet therapy and tighter BP control recomendation over heart cath -Discussed with family and caregiver her high risk status given her multiple previous falls, pelvic fracture, and need for continued duel antiplatelet therapy if a stent is placed if a heart cath is performed. She is not ambulating very much currently and her caregiver explained she is very unsteady on her feet when ambulating and falls frequently. Family understood the risks discussed and decided not to pursue heart cath -Agree with previous team that her risk vs benefit of a heart cath is not advisable at this point -Recommend continued medical management and if BP is more tightly controlled the chest/arm pain likely would resolve (2) HTN (hypertension) Current Visit: No Status: Chronic -BP on arrival 224/116 -Most recent BP 90/56 -At home family indicated her BP is labile and she will go many days without taking her antihypertensives for fear of hypotension. Her BP becomes elevated when she gets anxious and agitated. -Will continue her current carvedilol and decrease her lisinopril to 5mg daily and can titrate up if needed Qualifiers: Hypertension type: essential hypertension Qualified Code(s): I10 - Essential (primary) hypertension Discussion w patient/family: The assessment and plan as outlined above was discussed with the patient and/or family members who expressed understanding and agreement. All questions were answered. Thank you for involving us in the care of your patient. Please call with any questions. History of Present Illness Consult date: 04/09/18 Requesting physician: Jovana Irizarry Consult reason: Elevated trop and new ECG changes Chief complaint: Chest pain/arm pain History of present illness: Ms. Schmidt is a 82 year old female with pmh significant for HTN, HLD, anxiety, GERD, and NSTEMI last month. Cardiology was consulted for elevated troponin and new ECG changes. She was complaining of bilateral arm pain and had her BP checked at [facility] which was found to be extremely elevated. Upon arrival to ED her BP was 234/116, inverted T waves V3-V6 which is new from last admission. Arm and chest pain was relieved with nitro. Trop was found to be mildly elevated at 0.07. Today, she denies chest pain, arm pain, dizziness/lightheadedness, blurry vision, diplopia, diaphoresis, dyspnea, N/V. BP at home is apparently labile and has periods where she does not take her antihypertensives for days at a time when BP on lower end and then has periods with BP in 230's systolic. Past Med Surg Social Fam HX - Past Medical History Medical history: arthritis, dementia, GERD, hyperlipidemia, hypertension, migraine, myocardial infarction, RA, thyroid disease, other Additional medical history: macular degeneration Psychiatric history: anxiety, depression - Past Surgical History Surgical History: cholecystectomy, hysterectomy Additional surgical history: Plate in pelvis - Social History Smoking Status: Never smoker Smokeless Tobacco Status: No Alcohol use: none Drug use: none - Family History Father Hx Family Cancer: Yes (colon cancer) Mother Adopted: No Living Status: Hx Family Cardiac Disorders: Yes Medications and Allergies RX: Acetaminophen/Butalbital/Caffe [Fioricet] 1 tab PO Q6H PRN MDD 6 tabs 11/23/14 [History] RX: Omeprazole [PriLOSEC] 20 mg PO BID 11/23/14 [History] RX: Magnesium Oxide [Mgo] 400 mg PO DAILY 03/13/16 [History] RX: predniSONE [Prednisone] 5 - 10 mg PO DAILY 03/13/16 [History] RX: Cholecalciferol (D-3) [Vitamin D] 2,000 unit PO DAILY 05/30/16 [History] RX: Levothyroxine Sodium 100 mcg PO QAM 05/30/16 [History] RX: Ondansetron ODT [Zofran ODT] 4 mg SL Q6HR PRN #14 tab.rapdis 12/14/16 [Rx] RX: Atorvastatin Calcium [Lipitor] 20 mg PO HS 11/15/17 [History] RX: Calcium Carbonate/Vitamin D3 [Calcium 600 + Vit D Tablet] 1 tab PO DAILY 11/15/17 [History] RX: Escitalopram [Lexapro] 10 mg PO DAILY 11/15/17 [History] RX: Ferrous Sulfate [Iron] 325 mg PO DAILY 11/15/17 [History] RX: Folic Acid 1 mg PO DAILY 11/15/17 [History] RX: Lactobacillus Acidophilus [Acidophilus Lactobacillus] 1 cap PO DAILY 11/15/17 [History] RX: Lisinopril [Zestril] 20 mg PO DAILY 11/15/17 [History] RX: Loperamide [Imodium] 2 mg PO Q4HR PRN MDD 16MG PER 24 HOURS 11/15/17 [History] RX: Simethicone [Bicarsim] 80 mg PO Q4H PRN 11/15/17 [History] RX: Sucralfate [Carafate] 1 gm PO TID 11/15/17 [History] RX: Phenazopyridine [Pyridium] 100 mg PO BID 03/20/18 [History] RX: Potassium Chloride [Klor-Con 10] 10 meq PO DAILY 03/20/18 [History] Carvedilol [Coreg] 3.125 mg PO BIDWM 60 Days #60 tablet 03/23/18 [Rx] RX: Aspirin Enteric Coated [Aspirin EC] 81 mg PO DAILY 30 Days #30 tablet. 03/23/18 [Rx] clonazePAM [Clonazepam] 0.5 mg PO DAILY PRN 04/09/18 [History] clonazePAM [Clonazepam] 1 mg PO BID 04/09/18 [History] Allergy/AdvReac Type Severity Reaction Status Date / Time esomeprazole [From Nexium] Allergy Difficulty Verified 11/15/17 09:41 Breathing levofloxacin [From Levaquin] Allergy Blister Verified 11/15/17 09:41 Amoxicillin [From Augmentin] AdvReac Nausea Verified 11/15/17 09:41 aspirin AdvReac Dizziness Verified 11/15/17 09:41 clavulanic acid AdvReac Nausea Verified 11/15/17 09:41 [From Augmentin] codeine AdvReac Dizziness Verified 11/15/17 09:41 Estrogens AdvReac Dizziness Verified 11/15/17 09:41 Hydromorphone AdvReac Dizziness Verified 11/15/17 09:41 meperidine AdvReac Dizziness Verified 11/15/17 09:41 morphine AdvReac Dizziness Verified 11/15/17 09:41 nitrofurantoin AdvReac Nausea Verified 07/25/18 09:41 NSAIDS (Non-Steroidal AdvReac Dizziness Verified 11/15/17 09:41 Anti-Inflamma Oxycodone AdvReac Dizziness Verified 11/15/17 09:41 Paroxetine [From Paxil] AdvReac Nausea Verified 11/15/17 09:41 tolterodine [From Detrol] AdvReac Nausea Verified 11/15/17 09:41 All Systems Review: The remainder of the systems were reviewed and are negative Physical Examination Vital Signs, Last 4 Hours Pulse Resp BP Pulse Ox 04/09/18 07:31 20 149/82 04/09/18 07:00 99 22 182/95 95 General: Conversant HEENT: Atraumatic, Normocephaly, Mucus Membranes Moist Cardiac: Reg Rate and Rhythm, Normal S1 and S2, Other (2/6 systolic ejection mur mur best heard at R 2nd intercostal space) Lungs: Normal Breath Sounds, No Wheeze, Rales, Rhonchi Neuro: Alert and responsive Musculoskeletal: No Chest Wall Tenderness Extremities: No Clubbing, No Cyanosis, No Edema, Normal Pulses Results 04/09/18 04:49 04/09/18 04:49 Lab Results 04/09/18 04/09/18 04/09/18 04:49 04:49 04:49 WBC 7.4 D Hgb 15.0 D Hct 46.5 H Plt Count 132 L INR 1.0 APTT 29.2 Sodium 137 Potassium 3.8 Chloride 96 L Carbon Dioxide 31 H BUN 10 Creatinine 0.70 Glucose 113 H Calcium 9.2 Total Bilirubin 0.6 AST 21 ALT 14 Alkaline Phosphatase 53 Troponin I 0.07 H* Lipase 12 Consult Discharge Plan - Plan Referrals: Pipe Marin DO [Primary Care Provider] - <Martin Guillen - Last Filed: 04/09/18 14:10> Date of Encounter: 04/09/18 - Attending Attestation I examined this patient and my medical decision-making was reviewed with the Resident Physician. I agree with the documented findings, disposition and treatment plan as described except to the extent set forth below. 82 YOF with likely L:AD ischemia however is high risk for LHC with comorbidities and high risk of fall. We discussed the R/B/A of a LHC and family preferred to pursue medical management. Patient and family (including caregiver) understand her high risk of fall on plavix which may carry high risk for life threatening bleed. Better control of BP is likely helpful to reduce demand ischemia. BP runs high due to prn self medication. Assessment and Plan Discussion w patient/family: The assessment and plan as outlined above was discussed with the patient and/or family members who expressed understanding and agreement. All questions were answered. Thank you for involving us in the care of your patient. Please call with any questions. History of Present Illness History of present illness: Ms. Schmidt is a 82 year old female All Systems Review: The remainder of the systems were reviewed and are negative Physical Examination Vital Signs, Last 4 Hours Temp Pulse Resp BP Pulse Ox 04/09/18 11:50 112/68 04/09/18 11:03 98.4 F 94 16 90/56 94 Results 04/09/18 04:49 04/09/18 04:49 Lab Results 04/09/18 04/09/18 04/09/18 04:49 04:49 04:49 WBC 7.4 D Hgb 15.0 D Hct 46.5 H Plt Count 132 L INR 1.0 APTT 29.2 Sodium 137 Potassium 3.8 Chloride 96 L Carbon Dioxide 31 H BUN 10 Creatinine 0.70 Glucose 113 H Calcium 9.2 Total Bilirubin 0.6 AST 21 ALT 14 Alkaline Phosphatase 53 Troponin I 0.07 H* Lipase 12 04/09/18 09:55 WBC Hgb Hct Plt Count INR APTT Sodium Potassium Chloride Carbon Dioxide BUN Creatinine Glucose Calcium Total Bilirubin AST ALT Alkaline Phosphatase Troponin I 0.10 H* Lipase
[2018-04-09] MEDS ORDERED: Acetaminophen/Butalbital/CaffeineTABLET PO SCH (11:00)
[2018-04-09] MEDS: Nitrofurantoin (BID) 100 MG CAPSULE PO SCH ×2 (11:17→16:41)
[2018-04-09] MEDS ORDERED: Acetaminophen/Butalbital/CaffeineTABLET PO PRN ×2 (12:30→15:20)
--- NOTE | 2018-04-09 15:36 | Electrocardiograph Report ---
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
[2018-04-09] MEDS ORDERED: clonazePAM 1 MG TABLET PO PRN (17:35)
[2018-04-09] MEDS ORDERED: ALPRAZolam 0.5 MG TABLET PO PRN (17:37)
[2018-04-09] MEDS: Acetaminophen/Butalbital/CaffeineTABLET PO PRN (19:59)
[2018-04-10] MEDS: Acetaminophen/Butalbital/CaffeineTABLET PO PRN ×4 (00:17→13:24)
[2018-04-10] MEDS: Ondansetron ODT 4 MG TAB.RAPDIS SL PRN ×3 (05:22→13:24)
[2018-04-10 06:35] LABS: Red Cell Distribution Width 13.5 % (11.5-14.5)
[2018-04-10 06:36] LABS: Basophils % 0.4 %; Eosinophils % 0.2 %; Hematocrit 36.6 % (35.3-44.9); Hemoglobin 11.6 g/dL (11.5-15.4); Immature Granulocytes % 0.2 % (0-4); Immature Platelets 4.6 % (1.1-6.1); Lymphocytes # 0.6 K/mcL (0.6-4.6); Lymphocytes % 11.8 %; Mean Corpuscular HGB Conc 31.7 g/dL (31.6-35.5); Mean Corpuscular Hemoglobin 33.1 pg (28.0-33.3); Mean Corpuscular Volume 104.6 fL (83.0-100.0); Mean Platelet Volume 10.2 fL (9.4-12.4); Monocytes # 0.4 K/mcL (0.0-1.3); Monocytes % 8.2 %; Neutrophils # 4.2 K/mcL (1.6-8.9); Platelet Count 84 K/mcL (140-400); Segmented Neutrophils % 79.2 %
[2018-04-10 06:50] LABS: BUN/Creatinine Ratio 20 (6-26); Blood Urea Nitrogen 14 mg/dL (8-23); Calcium 8.3 mg/dL (8.6-10.3); Carbon Dioxide 28 mEq/L (23-29); Chloride 96 mEq/L (98-107); Glucose 112 mg/dL (70-105); Osmolality,Calculated 275 (280-300); Potassium 3.8 mEq/L (3.5-5.1); Sodium 132 mEq/L (136-145); eGFR For Non-African Americans > 60 (> 60)
[2018-04-10] MEDS: Nitrofurantoin (BID) 100 MG CAPSULE PO SCH (07:49)
[2018-04-10] MEDS ORDERED: Folic Acid 1 MG TABLET PO SCH (09:00)
[2018-04-10] MEDS ORDERED: Lisinopril 20 MG TABLET PO SCH (09:00)
--- NOTE | 2018-04-10 10:04 | Discharge Summary ---
- NOTES TO OUTPATIENT PROVIDER Notes to Outpatient Provider: Follow up with PCP in one week. Please start taking Lisinopril 10mg PO Daily and titrate up as your BP tolerates. Orders not resulted at time of discharge: Pending orders 04/10/18 09:05 EKG [ECG 12 lead ECG] [ECG] Stat Date of Encounter: 04/10/18 Time of Encounter: 10:05 - Discharge Diagnosis (1) Chest pain Priority: Primary Status: Acute Qualifiers: Chest pain type: unspecified Qualified Code(s): R07.9 - Chest pain, unspecified (2) Elevated troponin Priority: Primary Status: Acute (3) Urinary tract infection Priority: Primary Status: Acute Qualifiers: Urinary tract infection type: acute cystitis Hematuria presence: without hematuria Qualified Code(s): N30.00 - Acute cystitis without hematuria (4) Hypertension Priority: Secondary Status: Chronic Qualifiers: Hypertension type: essential hypertension Qualified Code(s): I10 - Essential (primary) hypertension (5) DVT prophylaxis Priority: Secondary Status: Acute (6) Rheumatoid arthritis Priority: Secondary Status: Chronic Qualifiers: Rheumatoid arthritis location: multiple sites Rheumatoid factor presence: unspecified presence Qualified Code(s): M06.9 - Rheumatoid arthritis, unspecified (7) COPD (chronic obstructive pulmonary disease) Priority: Secondary Status: Acute Qualifiers: Emphysema type: unspecified Qualified Code(s): J43.9 - Emphysema, unspecified (8) Hypoxia Priority: Secondary Status: Acute Hospital course: Ms. Schmidt is a 82 year old female patient with history of rheumatoid arthritis on Remicade, hypertension, hyperlipidemia, dementia, recent non-ST elevation MD ( opted not to proceed with LHC / Cardiac interventions since family do not wanted to place her on DAP therapy ) now she presented to the ER with complaints of bilateral arm pain that was radiating to the back. Patient was also having elevated blood pressure. Patient received fentanyl, aspirin and nitroglycerin in the ER. She also complained of severe suprapubic pain and dysuria. She was admitted in the hospital and placed on manager cardiac. Checked her serial troponin which was slightly elevated @ 0.08 however there are adynamic. Today patient denied an active chest pain. I reviewed her EKG today which did not show any acute ischemic changes. Patient was evaluated by medical record clerk who recommended to continue medical management at this point with beta jacinto and the statins. Also noticed her blood pressure fluctuating alot @ 200-100's range. Since her BP dropped down 100's last night and now it is 130/80 recommend to continue coreg 3.125 BID and Cut down on Lisinopril dose to 10mg and titrate up the dose as required. She also have hypoxia mostly due to COPD, her Spo2 at resting was 86, improved with 2 lit O2. She does need continuous O2 at 2 lit. - Time Spent with Patient Total time spent providing and/or coordinating discharge services: - Discharge Medications Prescriptions: ALPRAZolam [Xanax 0.5 MG Tablet] 0.5 mg PO TID PRN 5 Days #15 tablet PRN Reason: anxiety Nitrofurantoin (BID) [Macrobid] 100 mg PO BIDWM #12 capsule Tramadol HCl [Ultram] 50 mg PO BID PRN 10 Days #20 tablet PRN Reason: Pain Home Medications: Acetaminophen/Butalbital/Caffe [Fioricet] 1.5 tab PO Q6H PRN MDD 6 tabs 11/23/14 [History] Omeprazole [PriLOSEC] 20 mg PO BID 11/23/14 [History] Magnesium Oxide [Mgo] 400 mg PO DAILY 03/13/16 [History] Cholecalciferol (D-3) [Vitamin D] 2,000 unit PO DAILY 05/30/16 [History] Levothyroxine Sodium 100 mcg PO QAM 05/30/16 [History] Atorvastatin Calcium [Lipitor] 20 mg PO HS 11/15/17 [History] Calcium Carbonate/Vitamin D3 [Calcium 600 + Vit D Tablet] 1 tab PO DAILY 11/15/17 [History] Escitalopram [Lexapro] 10 mg PO DAILY 11/15/17 [History] Ferrous Sulfate [Iron] 325 mg PO DAILY 11/15/17 [History] Folic Acid 1 mg PO DAILY 11/15/17 [History] Sucralfate [Carafate] 1 gm PO TID 11/15/17 [History] Phenazopyridine [Pyridium] 100 mg PO BID 03/20/18 [History] Potassium Chloride [Klor-Con 10] 10 meq PO DAILY 03/20/18 [History] Carvedilol [Coreg] 3.125 mg PO BIDWM 60 Days #60 tablet 03/23/18 [Rx] Lactobacillus Acidophilus/Fos [Acidophilus Probiotic Tablet] 1 each PO DAILY 04/09/18 [History] Mag Hydrox/Aluminum Hyd/Simeth [Cvs Antacid Plus Anti-Gas Liq] 10 ml PO QID PRN 04/09/18 [History] Magnesium Hydroxide [Milk of Magnesia] 30 ml PO DAILY PRN 04/09/18 [History] clonazePAM [Clonazepam] 1 mg PO BID 04/09/18 [History] predniSONE [PredniSONE] 5 mg PO DAILY 04/09/18 [History] ALPRAZolam [Xanax 0.5 MG Tablet] 0.5 mg PO TID PRN 5 Days #15 tablet 04/10/18 [Rx] Lisinopril [Zestril] 10 mg PO DAILY #0 04/10/18 [Rx] Nitrofurantoin (BID) [Macrobid] 100 mg PO BIDWM #12 capsule 04/10/18 [Rx] Tramadol HCl [Ultram] 50 mg PO BID PRN 10 Days #20 tablet 04/10/18 [Rx] Allergies/Adverse Reactions: Allergy/AdvReac Type Severity Reaction Status Date / Time esomeprazole [From Nexium] Allergy Difficulty Verified 11/15/17 09:41 Breathing levofloxacin [From Levaquin] Allergy Blister Verified 11/15/17 09:41 Amoxicillin [From Augmentin] AdvReac Nausea Verified 11/15/17 09:41 aspirin AdvReac Dizziness Verified 11/15/17 09:41 clavulanic acid AdvReac Nausea Verified 11/15/17 09:41 [From Augmentin] codeine AdvReac Dizziness Verified 11/15/17 09:41 Estrogens AdvReac Dizziness Verified 11/15/17 09:41 Hydromorphone AdvReac Dizziness Verified 11/15/17 09:41 meperidine AdvReac Dizziness Verified 11/15/17 09:41 morphine AdvReac Dizziness Verified 11/15/17 09:41 nitrofurantoin AdvReac Nausea Verified 11/15/17 09:41 NSAIDS (Non-Steroidal AdvReac Dizziness Verified 11/15/17 09:41 Anti-Inflamma Oxycodone AdvReac Dizziness Verified 11/15/17 09:41 Paroxetine [From Paxil] AdvReac Nausea Verified 11/15/17 09:41 tolterodine [From Detrol] AdvReac Nausea Verified 11/15/17 09:41 Date of admission: 04/09/18 07:27 Primary care physician: Pipe Marin DO Consults: 04/09/18 09:17 Consult to Cardiology [CONS] Routine Comment: Consulting Provider: Cardiology Monica Reason for Consult: Mild trop elevation, new ekg changes. Bilateral arm pain radiating to back relieved with nitro Time Notified: 09:18 Call Completed: Yes 04/09/18 11:45 Consult to Broadcast Maintenance Engineer [CONS] Routine Reason for SW Consult: PATIENT FROM TRADITIONS - Constitutional Vitals: Temp Pulse Resp BP Pulse Ox 98.0 F 76 16 118/75 94 04/10/18 07:45 04/10/18 07:45 04/10/18 07:45 04/10/18 07:45 04/10/18 07:45 General appearance: Present: cooperative, A&O X 3, underweight, answers questions appropriately Exam: Gen: Alert, awake, Oriented to time,place and person Chest: Diminished breath sounds B/L, No wheezing, No crackles, No rales Heart: S1S2+ RRR No murmurs Abd: Soft, NT, BS +, No organomegaly Ext: No edema, pulses are palpable, No calf tenderness Neuro : Benign findings Skin: No rash. - Patient Status Disposition: Home Health Service Condition: Good Overall status at discharge: patient is back to baseline - Discharge Instructions Follow Up With: Pipe Marin DO [Primary Care Provider] - - Diet and Activity Activity: as per physical therapy, increase activity as tolerated, wear oxygen at all times Diet: low salt diet
--- NOTE | 2018-04-10 10:18 | Physician Discharge Referral ---
Home Health/Hosp Referral Info Transfer to: Home Health Provider in Charge Post Discharge: PCP - Diagnosis (1) Chest pain Status: Acute (2) Elevated troponin Status: Acute (3) Urinary tract infection Status: Acute (4) Hypertension Status: Chronic (5) DVT prophylaxis Status: Acute (6) Rheumatoid arthritis Status: Chronic (7) COPD (chronic obstructive pulmonary disease) Status: Acute (8) Hypoxia Status: Acute - Respiratory Orders Smoking Cessation: Smoking cessation has been advised. For more information, call the [place] Tobacco Quit Line at 4-690-CBSQ-NOW. - Diet/Nutrition Diet/Nutrition Orders: Cardiac - Activity Activity Orders: Walker - Services Needed Following services are medically necessary services: Nursing (Please check her vitals ( BP ) Q4hr.), Physical Therapy, Occupational Therapy - Transfer Medications Prescriptions: ALPRAZolam [Xanax 0.5 MG Tablet] 0.5 mg PO TID PRN 5 Days #15 tablet PRN Reason: anxiety Nitrofurantoin (BID) [Macrobid] 100 mg PO BIDWM #12 capsule Tramadol HCl [Ultram] 50 mg PO BID PRN 10 Days #20 tablet PRN Reason: Pain Home Medications: Acetaminophen/Butalbital/Caffe [Fioricet] 1.5 tab PO Q6H PRN MDD 6 tabs 11/23/14 [History] Omeprazole [PriLOSEC] 20 mg PO BID 11/23/14 [History] Magnesium Oxide [Mgo] 400 mg PO DAILY 03/13/16 [History] Cholecalciferol (D-3) [Vitamin D] 2,000 unit PO DAILY 05/30/16 [History] Levothyroxine Sodium 100 mcg PO QAM 05/30/16 [History] Atorvastatin Calcium [Lipitor] 20 mg PO HS 11/15/17 [History] Calcium Carbonate/Vitamin D3 [Calcium 600 + Vit D Tablet] 1 tab PO DAILY 11/15/17 [History] Escitalopram [Lexapro] 10 mg PO DAILY 11/15/17 [History] Ferrous Sulfate [Iron] 325 mg PO DAILY 11/15/17 [History] Folic Acid 1 mg PO DAILY 11/15/17 [History] Sucralfate [Carafate] 1 gm PO TID 11/15/17 [History] Phenazopyridine [Pyridium] 100 mg PO BID 03/20/18 [History] Potassium Chloride [Klor-Con 10] 10 meq PO DAILY 03/20/18 [History] Carvedilol [Coreg] 3.125 mg PO BIDWM 60 Days #60 tablet 03/23/18 [Rx] Lactobacillus Acidophilus/Fos [Acidophilus Probiotic Tablet] 1 each PO DAILY 04/09/18 [History] Mag Hydrox/Aluminum Hyd/Simeth [Cvs Antacid Plus Anti-Gas Liq] 10 ml PO QID PRN 04/09/18 [History] Magnesium Hydroxide [Milk of Magnesia] 30 ml PO DAILY PRN 04/09/18 [History] clonazePAM [Clonazepam] 1 mg PO BID 04/09/18 [History] predniSONE [PredniSONE] 5 mg PO DAILY 04/09/18 [History] ALPRAZolam [Xanax 0.5 MG Tablet] 0.5 mg PO TID PRN 5 Days #15 tablet 04/10/18 [Rx] Lisinopril [Zestril] 10 mg PO DAILY #0 04/10/18 [Rx] Nitrofurantoin (BID) [Macrobid] 100 mg PO BIDWM #12 capsule 04/10/18 [Rx] Tramadol HCl [Ultram] 50 mg PO BID PRN 10 Days #20 tablet 04/10/18 [Rx] Allergies/Adverse Reactions: Allergy/AdvReac Type Severity Reaction Status Date / Time esomeprazole [From Nexium] Allergy Difficulty Verified 11/15/17 09:41 Breathing levofloxacin [From Levaquin] Allergy Blister Verified 11/15/17 09:41 Amoxicillin [From Augmentin] AdvReac Nausea Verified 11/15/17 09:41 aspirin AdvReac Dizziness Verified 11/15/17 09:41 clavulanic acid AdvReac Nausea Verified 11/15/17 09:41 [From Augmentin] codeine AdvReac Dizziness Verified 11/15/17 09:41 Estrogens AdvReac Dizziness Verified 11/15/17 09:41 Hydromorphone AdvReac Dizziness Verified 11/15/17 09:41 meperidine AdvReac Dizziness Verified 11/15/17 09:41 morphine AdvReac Dizziness Verified 11/15/17 09:41 nitrofurantoin AdvReac Nausea Verified 11/15/17 09:41 NSAIDS (Non-Steroidal AdvReac Dizziness Verified 11/15/17 09:41 Anti-Inflamma Oxycodone AdvReac Dizziness Verified 11/15/17 09:41 Paroxetine [From Paxil] AdvReac Nausea Verified 11/15/17 09:41 tolterodine [From Detrol] AdvReac Nausea Verified 11/15/17 09:41 Certification: Further, I certify that my clinical findings support that this patient is homebound (i.e. absences from home require considerable and taxing effort and are for medical reasons or [employer] services or infrequently or short duration when for other reasons) because: Homebound Reason: Patient requires assistance of a person or device to safely leave home Attestation: My signature below is to certify that this patient is under my care and that I, or nurse practitioner, or a physician's anesthesiologist assistant certified working with me, has a [id number] encounter with this patient.
[2018-04-10] MEDS ORDERED: Ketorolac 15 MG/ML VIAL IVP ONE (10:55)
[2018-04-10 11:44] VITALS: BP 138/78
--- NOTE | 2018-04-10 18:10 | Electrocardiograph Report ---
[place] [id number] Test Date: 2018-04-10 Pat Name: Leigh Schmidt Department: 113 Room: 3B Gender: F Patient Companion: MARINA : 1935 Requested By: Margo Hooks Order Number: [id number] Reading MD: Kassie Deng Measurements Intervals [place] Rate: 80 P: -12 MT: 179 QRS: -24 QRSD: 105 T: 174 QT: 389 QTc: 425 Interpretive Statements SINUS RHYTHM WITH OCCASIONAL SUPRAVENTRICULAR PREMATURE COMPLEXES BORDERLINE LEFT AXIS DEVIATION ST-T ABNORMALITIES, CONSIDER DIFFUSE SUBENDOCARDIAL ISCHEMIA Electronically Signed On 04-10-2018 18:08:39 EST by Kassie Deng
== END 2018-04-10 13:30 | disposition home health service (06) ==
LOC: EMEROOARM 04:24 → 3BNU 04:24 → SUATTDRO 07:27 → 3BNU 08:05
PROVIDERS: ADMIT Family Medicine; ATTEND Family Medicine

== ENCOUNTER 2018-04-26 21:37 | Inpatient (IN) ==
--- NOTE | 2018-04-26 21:47 | Emergency Department Note ---
Disposition Clinical Impression: UTI (urinary tract infection) Qualifiers: Urinary tract infection type: site unspecified Hematuria presence: without hematuria Qualified Code(s): N39.0 - Urinary tract infection, site not specified Altered mental status Qualifiers: Altered mental status type: unspecified Qualified Code(s): R41.82 - Altered mental status, unspecified Disposition: Admitted As Inpatient Condition: Good Referrals: Obed Lin MD [Primary Care Provider] - Forms: ED Satisfaction Letter Time of Disposition: 02:42 Altered Mental Status HPI - General Stated Complaint: poss uti/ams/combatative/reyna Time Seen by Provider: 04/26/18 21:40 Source: patient, EMS Mode of arrival: EMS Limitations: altered mental status Nursing Notes Reviewed: Yes Vital Signs Reviewed: Yes - History of Present Illness HPI Narrative: 82-year-old female history of dementia presents to the emergency department via EMS from [facility] for altered mental status and possible urinary tract infection. Report was given by EMS which states the staff reports she is not acting herself. She is more combative than usual. She does have a history of urinary tract infections. She has had increased urinary frequency. No reported fevers. Patient at this time denies any complaints such as chest pain or shortness of breath. She was found to be slightly hypoxic 92% on room air was placed on to liter by EMS. Review of her records show's history of NSTEMI. Patient believe [facility] but knows that this is the year 2019 and can state her name. She is following simple commands. Workup initiated. MD complaint: altered mental status - Related Data Home Medications Medication Instructions Recorded Confirmed Acetaminophen/Butalbital/Caffe 1.5 tab PO Q6H PRN MDD 6 tabs 11/23/14 04/09/18 [Fioricet] Omeprazole [PriLOSEC] 20 mg PO BID 11/23/14 04/09/18 Magnesium Oxide [Mgo] 400 mg PO DAILY 03/13/16 04/09/18 Cholecalciferol (D-3) [Vitamin D] 2,000 unit PO DAILY 05/30/16 04/09/18 Levothyroxine Sodium 100 mcg PO QAM 05/30/16 04/09/18 Atorvastatin Calcium [Lipitor] 20 mg PO HS 11/15/17 04/09/18 Calcium Carbonate/Vitamin D3 1 tab PO DAILY 11/15/17 04/09/18 [Calcium 600 + Vit D Tablet] Escitalopram [Lexapro] 10 mg PO DAILY 11/15/17 04/09/18 Ferrous Sulfate [Iron] 325 mg PO DAILY 11/15/17 04/09/18 Folic Acid 1 mg PO DAILY 11/15/17 04/09/18 Sucralfate [Carafate] 1 gm PO TID 11/15/17 04/09/18 Phenazopyridine [Pyridium] 100 mg PO BID 03/20/18 04/09/18 Potassium Chloride [Klor-Con 10] 10 meq PO DAILY 03/20/18 04/09/18 Lactobacillus Acidophilus/Fos 1 each PO DAILY 04/09/18 04/09/18 [Acidophilus Probiotic Tablet] Mag Hydrox/Aluminum Hyd/Simeth 10 ml PO QID PRN 04/09/18 04/09/18 [Cvs Antacid Plus Anti-Gas Liq] Magnesium Hydroxide [Milk of 30 ml PO DAILY PRN 04/09/18 04/09/18 Magnesia] clonazePAM [Clonazepam] 1 mg PO BID 04/09/18 04/09/18 predniSONE [PredniSONE] 5 mg PO DAILY 04/09/18 04/09/18 Previous Rx's Medication Instructions Recorded Carvedilol [Coreg] 3.125 mg PO BIDWM 60 Days #60 03/23/18 tablet Lisinopril [Zestril] 10 mg PO DAILY #0 04/10/18 Nitrofurantoin (BID) [Macrobid] 100 mg PO BIDWM #12 capsule 04/10/18 Allergies Allergy/AdvReac Type Severity Reaction Status Date / Time esomeprazole [From Nexium] Allergy Difficulty Verified 11/15/17 09:41 Breathing levofloxacin [From Levaquin] Allergy Blister Verified 11/15/17 09:41 Amoxicillin [From Augmentin] AdvReac Nausea Verified 11/15/17 09:41 aspirin AdvReac Dizziness Verified 11/15/17 09:41 clavulanic acid AdvReac Nausea Verified 11/15/17 09:41 [From Augmentin] codeine AdvReac Dizziness Verified 11/15/17 09:41 Estrogens AdvReac Dizziness Verified 11/15/17 09:41 hydromorphone [Hydromorphone] AdvReac Dizziness Verified 11/15/17 09:41 meperidine AdvReac Dizziness Verified 11/15/17 09:41 morphine AdvReac Dizziness Verified 11/15/17 09:41 nitrofurantoin AdvReac Nausea Verified 11/15/17 09:41 NSAIDS (Non-Steroidal AdvReac Dizziness Verified 11/15/17 09:41 Anti-Inflamma oxycodone [Oxycodone] AdvReac Dizziness Verified 11/15/17 09:41 Paroxetine [From Paxil] AdvReac Nausea Verified 11/15/17 09:41 tolterodine [From Detrol] AdvReac Nausea Verified 11/15/17 09:41 All systems ED: reviewed and negative except as stated. Review of Systems: As Per HPI Constitutional: Denies: fever, chills, weakness ENT ED: Denies: congestion Cardiovascular: Denies: chest pain Respiratory: Denies: dyspnea Gastrointestinal: Denies: abdominal pain, nausea, vomiting Genitourinary: Reports: dysuria, frequency Integumentary: Denies: rash, abrasion Neurological: Denies: headache Past Medical History - Past Medical History Attestation: Yes The following information was validated with the patient. 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 - Social History Smoking Status: Never smoker Smokeless Tobacco Status: No Alcohol use: Reports: none Drug use: Reports: none Physical Exam - General Limitations: altered mental status General appearance: alert, in no apparent distress, other (Mildly agitated) - Head Head exam: atraumatic, normocephalic, normal inspection - Eye Eye exam: Present: normal appearance, PERRL, EOMI - ENT ENT exam: normal exam, normal oropharynx, mucous membranes moist - Neck Neck exam: Present: normal inspection, full ROM, trachea midline - Chest Chest inspection: Present: normal inspection, symmetric chest wall rise - Respiratory Respiratory exam: Present: normal lung sounds bilaterally - Cardiovascular Cardiovascular exam: Present: regular rate, normal rhythm, normal heart sounds - Abdominal Exam Abdominal exam: Present: soft, tenderness, normal bowel sounds. Absent: Non- Tender, distention, guarding, rebound, rigidity Abdominal tenderness: Present: suprapubic, diffuse - Extremities Exam Extremities exam: Present: normal inspection, full ROM. Absent: tenderness, pedal edema - Neurological Exam Neurological exam: Present: alert - Expanded Neurological Exam Patient oriented to: Present: person, time Speech: Present: fluid speech Cranial nerves: EOM function (II, III, IV, ): Normal, facial sensation (V): Normal, facial palsy (VII): Normal, gag reflex (IX): Normal, spinal accessory function (XI): Normal, tongue deviation (XII): Normal Motor strength - LUE: 5/5 Motor strength - RUE: 5/5 Motor strength - LLE: 5/5 Motor strength - RLE: 5/5 Coma Scale Eye Opening: Spontaneous Coma Scale Motor Response: Obeys Commands Coma Scale Verbal Response: Oriented Coma Scale Total: 15 - Psychiatric Psychiatric exam: Present: normal affect, normal mood - Skin Skin exam: Present: warm, dry, intact, normal color, other (Poor skin turgor) Course Course Narrative: Patient presents with concern for altered mental status and urinary tract infection. Patient is answering questions appropriately. She denies any pain at this time. Her vital signs are stable. Sepsis workup initiated. - Reevaluation(s) Reevaluation #1: CT imaging did not reveal any intracranial abnormality. She does have a mildly elevated troponin 0.05 that has improved from prior 0.08. She had a stent placed 2 months ago. I believe this is continuing to downtrending. She takes aspirin per her medication list. Review any ischemic findings. Her urinalysis is consistent with infection. Review of her culture shows multiple resistance and organisms. Will treat with Zosyn at this time. Patient has been mildly hypotensive but responsive to fluids. Patient will be admitted for further treatment and management. Impression is urinary tract infection and altered mental status with underlying dementia. Time: 02:40 - Consultations Consultation #1: Spoke with on-call hospitalist dmoinick Walker to admit for UTI and AMS. is at bedside and states she is improving. States over the past 3 days or so she has been not quite acting herself. No further orders at this time Time: 03:20 Vital Signs Temperature 97.8 F 04/26/18 21:51 Pulse Rate 94 04/26/18 21:51 Respiratory Rate 16 04/26/18 21:51 Blood Pressure 135/93 04/26/18 21:51 O2 Sat by Pulse Oximetry 95 04/26/18 21:51 Temperature 97.8 F 04/26/18 21:51 Pulse Rate 61 04/27/18 02:18 Respiratory Rate 19 04/27/18 02:18 Blood Pressure 123/57 04/27/18 02:18 O2 Sat by Pulse Oximetry 97 04/27/18 02:18 Oxygen Delivery Oxygen Delivery Nasal Cannula Altered Mental Status - MDM Narrative Medical decision making narrative: Patient was discussed with my attending physician who agrees with ED management and final disposition. They independently evaluated the patient. Please refer to their attestation to this encounter for additional information. This note was generated by [employer] voice recognition software and as a result grammatical or spelling errors may occur using this program. - Medical Records Medical records reviewed: Yes I reviewed the patient's medical records. - Lab Data Lab results reviewed: Yes I reviewed the patient's lab results. Result diagrams: 04/26/18 22:03 04/26/18 22:03 Lab Results 04/26/18 04/26/18 04/27/18 Range/Units 22:03 22:03 01:37 WBC 5.7 (4.3-11.1) K/mcL RBC 3.88 (3.82-4.97) M/mcL Hgb 13.1 (11.5-15.4) g/dL Hct 40.2 (35.3-44.9) % MCV 103.6 H (83.0-100.0) fL MCH 33.8 H (28.0-33.3) pg MCHC 32.6 (31.6-35.5) g/dL RDW 13.3 (11.5-14.5) % Plt Count 176 (140-400) K/mcL MPV 10.0 (9.4-12.4) fL Immature Gran % 0.2 (0-4) % Seg Neutrophils % 57.1 % Lymphocytes % 30.0 % Monocytes % 10.6 % Eosinophils % 1.4 % Basophils % 0.7 % Neutrophils # 3.3 (1.6-8.9) K/mcL Lymphocytes # 1.7 (0.6-4.6) K/mcL Monocytes # 0.6 (0.0-1.3) K/mcL Eosinophils # 0.1 (0.0-0.6) K/mcL Basophils # 0.0 (0.0-0.2) K/mcL Sodium 133 L (136-145) mEq/L Potassium 3.8 (3.5-5.1) mEq/L Chloride 98 (98-107) mEq/L Carbon Dioxide 27 (23-29) mEq/L BUN 8 (8-23) mg/dL Creatinine 0.62 (0.60-1.20) mg/dL Est GFR ( Amer) > 60 (> 60) Est GFR (Non-Af Amer) > 60 (> 60) BUN/Creatinine Ratio 13 (6-26) Glucose 101 (70-105) mg/dL Calculated Osmolality 274 L (280-300) Calcium 8.9 (8.6-10.3) mg/dL Total Bilirubin 0.5 (0.3-1.0) mg/dL Direct Bilirubin 0.1 (0.0-0.2) mg/dL Indirect Bilirubin 0.4 (0.0-1.2) mg/dL AST 18 (13-39) Units/L ALT 9 (7-52) Units/L Alkaline Phosphatase 43 (34-104) Units/L Troponin I 0.05 H* (< 0.04) ng/mL Serum Total Protein 6.7 (6.4-8.9) g/dL Albumin 3.7 (3.5-5.7) g/dL Globulin 3.0 (2.4-3.5) g/dL Albumin/Globulin Ratio 1.2 (1.1-2.2) TSH 1.814 (0.340-5.600) mcIU/mL Urine Color Dark Yellow (Yellow) Urine Clarity Cloudy A (Clear) Urine pH 7.5 (5.0-8.0) pH Units Ur Specific Piercy 1.013 (1.010-1.025) Urine Protein 30 H (Neg-Trace) mg/dL Urine Glucose (UA) Normal (Normal) mg/dL Urine Ketones Negative (Negative) mg/dL Urine Blood Small H (Negative) Urine Nitrite Positive A (Negative) Urine Bilirubin Negative (Negative) Urine Urobilinogen Normal (Normal) mg/dL Ur Leukocyte Esterase Moderate H (Negative) Urine Microscopic RBC 5-15 H (0-3) per hpf Urine Microscopic WBC TNTC H (0-3) per hpf Ur Squamous Epith Cells None Seen (None-Few) per lpf Urine Bacteria Many H (None-Few) per hpf Hyaline Casts None Seen (None-Few) per lpf Ur Culture Indicated? YES A (NO) Urine Opiates Screen (Adwjxj=511) ng/mL Ur Barbiturates Screen (Xlwyvl=145) ng/mL Ur Phencyclidine Scrn (Cutoff=25) ng/mL Ur Amphetamines Screen (Ntbkvz=9299) ng/mL U Benzodiazepines Scrn (Rpnnti=880) ng/mL Urine Cocaine Screen (Cutoff= 300) ng/mL U Marijuana (THC) Screen (Cutoff = 50) ng/mL Ur Drug Screen Interp Ethyl Alcohol < 10 (Less than 10) mg/dL 04/27/18 Range/Units 01:37 WBC (4.3-11.1) K/mcL RBC (3.82-4.97) M/mcL Hgb (11.5-15.4) g/dL Hct (35.3-44.9) % MCV (83.0-100.0) fL MCH (28.0-33.3) pg MCHC (31.6-35.5) g/dL RDW (11.5-14.5) % Plt Count (140-400) K/mcL MPV (9.4-12.4) fL Immature Gran % (0-4) % Seg Neutrophils % % Lymphocytes % % Monocytes % % Eosinophils % % Basophils % % Neutrophils # (1.6-8.9) K/mcL Lymphocytes # (0.6-4.6) K/mcL Monocytes # (0.0-1.3) K/mcL Eosinophils # (0.0-0.6) K/mcL Basophils # (0.0-0.2) K/mcL Sodium (136-145) mEq/L Potassium (3.5-5.1) mEq/L Chloride (98-107) mEq/L Carbon Dioxide (23-29) mEq/L BUN (8-23) mg/dL Creatinine (0.60-1.20) mg/dL Est GFR ( Amer) (> 60) Est GFR (Non-Af Amer) (> 60) BUN/Creatinine Ratio (6-26) Glucose (70-105) mg/dL Calculated Osmolality (280-300) Calcium (8.6-10.3) mg/dL Total Bilirubin (0.3-1.0) mg/dL Direct Bilirubin (0.0-0.2) mg/dL Indirect Bilirubin (0.0-1.2) mg/dL AST (13-39) Units/L ALT (7-52) Units/L Alkaline Phosphatase (34-104) Units/L Troponin I (< 0.04) ng/mL Serum Total Protein (6.4-8.9) g/dL Albumin (3.5-5.7) g/dL Globulin (2.4-3.5) g/dL Albumin/Globulin Ratio (1.1-2.2) TSH (0.340-5.600) mcIU/mL Urine Color (Yellow) Urine Clarity (Clear) Urine pH (5.0-8.0) pH Units Ur Specific Piercy (1.010-1.025) Urine Protein (Neg-Trace) mg/dL Urine Glucose (UA) (Normal) mg/dL Urine Ketones (Negative) mg/dL Urine Blood (Negative) Urine Nitrite (Negative) Urine Bilirubin (Negative) Urine Urobilinogen (Normal) mg/dL Ur Leukocyte Esterase (Negative) Urine Microscopic RBC (0-3) per hpf Urine Microscopic WBC (0-3) per hpf Ur Squamous Epith Cells (None-Few) per lpf Urine Bacteria (None-Few) per hpf Hyaline Casts (None-Few) per lpf Ur Culture Indicated? (NO) Urine Opiates Screen Negative (Gcrtxr=742) ng/mL Ur Barbiturates Screen Positive H (Yzrzde=718) ng/mL Ur Phencyclidine Scrn Negative (Cutoff=25) ng/mL Ur Amphetamines Screen Negative (Wsoooc=6351) ng/mL U Benzodiazepines Scrn Positive H (Hqjqvp=716) ng/mL Urine Cocaine Screen Negative (Cutoff= 300) ng/mL U Marijuana (THC) Screen Negative (Cutoff = 50) ng/mL Ur Drug Screen Interp See Below Ethyl Alcohol (Less than 10) mg/dL - Radiology Data Radiology results reviewed: Yes I reviewed the patient's radiology results. Chest X-Ray 04/26/18 21:43 IMPRESSION: No acute abnormality detected. D/ / Gerardo Singleton MD / Gerardo Singleton MD Interpreting Provider: Gerardo Singleton MD Head CT 04/26/18 21:43 IMPRESSION: No acute intracranial abnormality. No significant interval change. Moderate chronic small vessel ischemic disease. D/ / Misha Sessions / Misha Hall Interpreting Provider: Misha Sessions - EKG Data EKG attestation: Yes I reviewed and interpreted this EKG. EKG results narrative: EKG performed 2238 normal sinus rhythm 83 bpm, there are some ST elevation seen in the septal leads with T wave inversion in the lateral leads. This is consistent with her prior EKG performed 04/10/2018. At this time no acute isc hemic changes. TPA Checklist - LKW: 3-4.5 hrs Add. Warnings/Precautions Patient/family understanding: The patient/family members have been counseled and understood the risk, benefit, and alternatives of treatment.
--- NOTE | 2018-04-26 22:17 | Emergency Department Note ---
Disposition Clinical Impression: UTI (urinary tract infection) Qualifiers: Urinary tract infection type: site unspecified Hematuria presence: without hematuria Qualified Code(s): N39.0 - Urinary tract infection, site not specified Altered mental status Qualifiers: Altered mental status type: unspecified Qualified Code(s): R41.82 - Altered mental status, unspecified Disposition: Admitted As Inpatient Condition: Good General Adult HPI - General Chief complaint: ED Urogenital-Female Stated complaint: poss uti/ams/combatative/reyna Time Seen by Provider: 04/26/18 21:40 Source: patient, EMS Mode of arrival: EMS Limitations: altered mental status - History of Present Illness Pain Scale: 0 - Related Data Home Medications Medication Instructions Recorded Confirmed RX: Acetaminophen/Butalbital/Caffe 1.5 tab PO Q4HR MDD 6 tabs 11/23/14 04/27/18 [Fioricet] RX: Omeprazole [PriLOSEC] 20 mg PO BID 11/23/14 04/09/18 RX: Magnesium Oxide [Mgo] 400 mg PO DAILY 03/13/16 04/09/18 RX: Cholecalciferol (D-3) [Vitamin 2,000 unit PO DAILY 05/30/16 04/09/18 D] RX: Levothyroxine Sodium 100 mcg PO QAM 05/30/16 04/27/18 RX: Atorvastatin Calcium [Lipitor] 20 mg PO HS 11/15/17 04/09/18 RX: Calcium Carbonate/Vitamin D3 1 tab PO DAILY 11/15/17 04/09/18 [Calcium 600 + Vit D Tablet] RX: Escitalopram [Lexapro] 10 mg PO DAILY 11/15/17 04/09/18 RX: Ferrous Sulfate [Iron] 325 mg PO DAILY 11/15/17 04/09/18 RX: Folic Acid 1 mg PO DAILY 11/15/17 04/09/18 RX: Sucralfate [Carafate] 1 gm PO TID 11/15/17 04/09/18 RX: Phenazopyridine [Pyridium] 100 mg PO BID 03/20/18 04/09/18 RX: Potassium Chloride [Klor-Con 10 meq PO DAILY 03/20/18 04/09/18 10] RX: Lactobacillus Acidophilus/Fos 1 each PO DAILY 04/09/18 04/09/18 [Acidophilus Probiotic Tablet] RX: Mag Hydrox/Aluminum Hyd/Simeth 10 ml PO QID PRN 04/09/18 04/27/18 [Cvs Antacid Plus Anti-Gas Liq] RX: Magnesium Hydroxide [Milk of 30 ml PO DAILY PRN 04/09/18 04/27/18 Magnesia] RX: predniSONE [PredniSONE] 5 mg PO DAILY 04/09/18 04/27/18 clonazePAM [Clonazepam] 1 mg PO BID 04/09/18 04/27/18 ALPRAZolam [Xanax 0.5 MG Tablet] 0.5 mg PO TID 04/27/18 04/27/18 Carvedilol [Coreg] 3.125 mg PO BIDWM 04/27/18 04/27/18 RX: Lisinopril [Zestril] 20 mg PO DAILY 04/27/18 04/27/18 Tramadol HCl [Ultram] 50 mg PO DAILY PRN 04/27/18 04/27/18 Previous Rx's Medication Instructions Recorded RX: Nitrofurantoin (BID) [Macrobid] 100 mg PO BIDWM #12 capsule 04/10/18 Allergies Allergy/AdvReac Type Severity Reaction Status Date / Time esomeprazole [From Nexium] Allergy Difficulty Verified 11/15/17 09:41 Breathing levofloxacin [From Levaquin] Allergy Blister Verified 11/15/17 09:41 Amoxicillin [From Augmentin] AdvReac Nausea Verified 11/15/17 09:41 aspirin AdvReac Dizziness Verified 11/15/17 09:41 clavulanic acid AdvReac Nausea Verified 11/15/17 09:41 [From Augmentin] codeine AdvReac Dizziness Verified 11/15/17 09:41 Estrogens AdvReac Dizziness Verified 11/15/17 09:41 hydromorphone [Hydromorphone] AdvReac Dizziness Verified 11/15/17 09:41 meperidine AdvReac Dizziness Verified 11/15/17 09:41 morphine AdvReac Dizziness Verified 11/15/17 09:41 nitrofurantoin AdvReac Nausea Verified 11/15/17 09:41 NSAIDS (Non-Steroidal AdvReac Dizziness Verified 11/15/17 09:41 Anti-Inflamma oxycodone [Oxycodone] AdvReac Dizziness Verified 11/15/17 09:41 Paroxetine [From Paxil] AdvReac Nausea Verified 11/15/17 09:41 tolterodine [From Detrol] AdvReac Nausea Verified 11/15/17 09:41 Constitutional: Denies: fever, chills, weakness ENT ED: Denies: congestion Cardiovascular: Denies: chest pain Respiratory: Denies: dyspnea Gastrointestinal: Denies: abdominal pain, nausea, vomiting Genitourinary: Reports: dysuria, frequency Integumentary: Denies: rash, abrasion Neurological: Denies: headache Past Medical History - Past Medical History Medical history: Reports: arthritis, dementia, GERD, hyperlipidemia, hypertension, migraine, myocardial infarction, RA, thyroid disease, other Surgical history: Reports: cholecystectomy, hysterectomy Psychiatric history: Reports: anxiety, depression HIGH PRESSURE CLEANER history: Reports: no HIGH PRESSURE CLEANER history - Social History Smoking Status: Never smoker Smokeless Tobacco Status: No Alcohol use: Reports: none Drug use: Reports: none Physical Exam - General Limitations: altered mental status General appearance: alert, in no apparent distress, other Course Vital Signs Temperature 97.8 F 04/26/18 21:51 Pulse Rate 94 04/26/18 21:51 Respiratory Rate 16 04/26/18 21:51 Blood Pressure 135/93 04/26/18 21:51 O2 Sat by Pulse Oximetry 95 04/26/18 21:51 Temperature 97.8 F 04/27/18 05:59 Pulse Rate 66 04/27/18 07:37 Respiratory Rate 14 04/27/18 07:37 Blood Pressure 154/86 04/27/18 09:30 O2 Sat by Pulse Oximetry 96 04/27/18 07:37 Oxygen Delivery Oxygen Delivery Nasal Cannula Medical Decision Making - Lab Data Result diagrams: 04/26/18 22:03 04/26/18 22:03 Lab Results 04/26/18 04/26/18 04/27/18 Range/Units 22:03 22:03 01:37 WBC 5.7 (4.3-11.1) K/mcL RBC 3.88 (3.82-4.97) M/mcL Hgb 13.1 (11.5-15.4) g/dL Hct 40.2 (35.3-44.9) % MCV 103.6 H (83.0-100.0) fL MCH 33.8 H (28.0-33.3) pg MCHC 32.6 (31.6-35.5) g/dL RDW 13.3 (11.5-14.5) % Plt Count 176 (140-400) K/mcL MPV 10.0 (9.4-12.4) fL Immature Gran % 0.2 (0-4) % Seg Neutrophils % 57.1 % Lymphocytes % 30.0 % Monocytes % 10.6 % Eosinophils % 1.4 % Basophils % 0.7 % Neutrophils # 3.3 (1.6-8.9) K/mcL Lymphocytes # 1.7 (0.6-4.6) K/mcL Monocytes # 0.6 (0.0-1.3) K/mcL Eosinophils # 0.1 (0.0-0.6) K/mcL Basophils # 0.0 (0.0-0.2) K/mcL Sodium 133 L (136-145) mEq/L Potassium 3.8 (3.5-5.1) mEq/L Chloride 98 (98-107) mEq/L Carbon Dioxide 27 (23-29) mEq/L BUN 8 (8-23) mg/dL Creatinine 0.62 (0.60-1.20) mg/dL Est GFR ( Amer) > 60 (> 60) Est GFR (Non-Af Amer) > 60 (> 60) BUN/Creatinine Ratio 13 (6-26) Glucose 101 (70-105) mg/dL Calculated Osmolality 274 L (280-300) Calcium 8.9 (8.6-10.3) mg/dL Total Bilirubin 0.5 (0.3-1.0) mg/dL Direct Bilirubin 0.1 (0.0-0.2) mg/dL Indirect Bilirubin 0.4 (0.0-1.2) mg/dL AST 18 (13-39) Units/L ALT 9 (7-52) Units/L Alkaline Phosphatase 43 (34-104) Units/L Troponin I 0.05 H* (< 0.04) ng/mL Serum Total Protein 6.7 (6.4-8.9) g/dL Albumin 3.7 (3.5-5.7) g/dL Globulin 3.0 (2.4-3.5) g/dL Albumin/Globulin Ratio 1.2 (1.1-2.2) TSH 1.814 (0.340-5.600) mcIU/mL Urine Color Dark Yellow (Yellow) Urine Clarity Cloudy A (Clear) Urine pH 7.5 (5.0-8.0) pH Units Ur Specific [place] 1.013 (1.010-1.025) Urine Protein 30 H (Neg-Trace) mg/dL Urine Glucose (UA) Normal (Normal) mg/dL Urine Ketones Negative (Negative) mg/dL Urine Blood Small H (Negative) Urine Nitrite Positive A (Negative) Urine Bilirubin Negative (Negative) Urine Urobilinogen Normal (Normal) mg/dL Ur Leukocyte Esterase Moderate H (Negative) Urine Microscopic RBC 5-15 H (0-3) per hpf Urine Microscopic WBC TNTC H (0-3) per hpf Ur Squamous Epith Cells None Seen (None-Few) per lpf Urine Bacteria Many H (None-Few) per hpf Hyaline Casts None Seen (None-Few) per lpf Ur Culture Indicated? YES A (NO) Urine Opiates Screen (Rymept=990) ng/mL Ur Barbiturates Screen (Lelufw=301) ng/mL Ur Phencyclidine Scrn (Cutoff=25) ng/mL Ur Amphetamines Screen (Gutfhn=5977) ng/mL U Benzodiazepines Scrn (Knynbc=574) ng/mL Urine Cocaine Screen (Cutoff= 300) ng/mL U Marijuana (THC) Screen (Cutoff = 50) ng/mL Ur Drug Screen Interp Ethyl Alcohol < 10 (Less than 10) mg/dL 04/27/18 Range/Units 01:37 WBC (4.3-11.1) K/mcL RBC (3.82-4.97) M/mcL Hgb (11.5-15.4) g/dL Hct (35.3-44.9) % MCV (83.0-100.0) fL MCH (28.0-33.3) pg MCHC (31.6-35.5) g/dL RDW (11.5-14.5) % Plt Count (140-400) K/mcL MPV (9.4-12.4) fL Immature Gran % (0-4) % Seg Neutrophils % % Lymphocytes % % Monocytes % % Eosinophils % % Basophils % % Neutrophils # (1.6-8.9) K/mcL Lymphocytes # (0.6-4.6) K/mcL Monocytes # (0.0-1.3) K/mcL Eosinophils # (0.0-0.6) K/mcL Basophils # (0.0-0.2) K/mcL Sodium (136-145) mEq/L Potassium (3.5-5.1) mEq/L Chloride (98-107) mEq/L Carbon Dioxide (23-29) mEq/L BUN (8-23) mg/dL Creatinine (0.60-1.20) mg/dL Est GFR ( Amer) (> 60) Est GFR (Non-Af Amer) (> 60) BUN/Creatinine Ratio (6-26) Glucose (70-105) mg/dL Calculated Osmolality (280-300) Calcium (8.6-10.3) mg/dL Total Bilirubin (0.3-1.0) mg/dL Direct Bilirubin (0.0-0.2) mg/dL Indirect Bilirubin (0.0-1.2) mg/dL AST (13-39) Units/L ALT (7-52) Units/L Alkaline Phosphatase (34-104) Units/L Troponin I (< 0.04) ng/mL Serum Total Protein (6.4-8.9) g/dL Albumin (3.5-5.7) g/dL Globulin (2.4-3.5) g/dL Albumin/Globulin Ratio (1.1-2.2) TSH (0.340-5.600) mcIU/mL Urine Color (Yellow) Urine Clarity (Clear) Urine pH (5.0-8.0) pH Units Ur Specific [place] (1.010-1.025) Urine Protein (Neg-Trace) mg/dL Urine Glucose (UA) (Normal) mg/dL Urine Ketones (Negative) mg/dL Urine Blood (Negative) Urine Nitrite (Negative) Urine Bilirubin (Negative) Urine Urobilinogen (Normal) mg/dL Ur Leukocyte Esterase (Negative) Urine Microscopic RBC (0-3) per hpf Urine Microscopic WBC (0-3) per hpf Ur Squamous Epith Cells (None-Few) per lpf Urine Bacteria (None-Few) per hpf Hyaline Casts (None-Few) per lpf Ur Culture Indicated? (NO) Urine Opiates Screen Negative (Vzdcke=926) ng/mL Ur Barbiturates Screen Positive H (Zxtjcu=354) ng/mL Ur Phencyclidine Scrn Negative (Cutoff=25) ng/mL Ur Amphetamines Screen Negative (Elmlsx=8106) ng/mL U Benzodiazepines Scrn Positive H (Cqnowl=444) ng/mL Urine Cocaine Screen Negative (Cutoff= 300) ng/mL U Marijuana (THC) Screen Negative (Cutoff = 50) ng/mL Ur Drug Screen Interp See Below Ethyl Alcohol (Less than 10) mg/dL Attestation Statement - Attestation Attestation: I examined this patient and my medical decision-making was reviewed with the WAREHOUSE SUPERVISOR/PA/Advanced Practice Nurse/Resident Physician. I agree with the documented findings, disposition and treatment plan as described except to the extent set forth below. I did see the patient is spoke with her and examined her and she does have confusion and is here with family and they are concerned about urinary tract infection. She has had urinary infections in the past. Workup in progress including head CT and labs and urine testing. Patient does state she has a sl ight headache. She does know her name and does know the year. She does have chronic dementia. She is not tachypnea. Skin color is good. [id number]
[2018-04-26 22:29] LABS: Basophils % 0.7 %; Eosinophils # 0.1 K/mcL (0.0-0.6); Eosinophils % 1.4 %; Hematocrit 40.2 % (35.3-44.9); Hemoglobin 13.1 g/dL (11.5-15.4); Immature Granulocytes % 0.2 % (0-4); Lymphocytes # 1.7 K/mcL (0.6-4.6); Mean Corpuscular HGB Conc 32.6 g/dL (31.6-35.5); Mean Corpuscular Hemoglobin 33.8 pg (28.0-33.3); Mean Corpuscular Volume 103.6 fL (83.0-100.0); Monocytes # 0.6 K/mcL (0.0-1.3); Monocytes % 10.6 %; Neutrophils # 3.3 K/mcL (1.6-8.9); Platelet Count 176 K/mcL (140-400); Red Blood Count 3.88 M/mcL (3.82-4.97); Red Cell Distribution Width 13.3 % (11.5-14.5); Segmented Neutrophils % 57.1 %
[2018-04-26 22:51] LABS: Alanine Aminotransferase 9 Units/L (7-52); Albumin 3.7 g/dL (3.5-5.7); Albumin/Globulin Ratio 1.2 (1.1-2.2); Alkaline Phosphatase 43 Units/L (34-104); Aspartate Amino Transferase 18 Units/L (13-39); BUN/Creatinine Ratio 13 (6-26); Bilirubin,Direct 0.1 mg/dL (0.0-0.2); Bilirubin,Indirect 0.4 mg/dL (0.0-1.2); Bilirubin,Total 0.5 mg/dL (0.3-1.0); Blood Urea Nitrogen 8 mg/dL (8-23); Calcium 8.9 mg/dL (8.6-10.3); Carbon Dioxide 27 mEq/L (23-29); Chloride 98 mEq/L (98-107); Ethanol < 10 mg/dL (Less than 10); Glucose 101 mg/dL (70-105); Osmolality,Calculated 274 (280-300); Potassium 3.8 mEq/L (3.5-5.1); Sodium 133 mEq/L (136-145); Total Protein 6.7 g/dL (6.4-8.9); eGFR For Non-African Americans > 60 (> 60)
[2018-04-26 23:01] LABS: Troponin I 0.05 ng/mL (< 0.04)
[2018-04-26 23:04] LABS: Thyroid Stimulating Hormone 1.814 mcIU/mL (0.340-5.600)
[2018-04-27] MEDS ORDERED: 0.9 % Sodium Chloride 1,000 ML IVC ONE (00:23)
[2018-04-27 01:49] LABS: Bilirubin,Urine Negative (Negative); Blood,Urine Small (Negative); Clarity,Urine Cloudy (Clear); Color,Urine Dark Yellow (Yellow); Glucose,Urine (UA) Normal (Normal); Ketones,Urine Negative (Negative); Leukocyte Esterase,Urine Moderate (Negative); Nitrite,Urine Positive (Negative); PH,Urine 7.5 pH Units (5.0-8.0); Protein,Urine 30 mg/dL (Neg-Trace); Specific Gravity,Urine 1.013 (1.010-1.025); Urobilinogen,Urine Normal (Normal)
[2018-04-27 01:51] LABS: Bacteria,Urine Many per hpf (None-Few); Hyaline Casts,Urine None Seen per lpf (None-Few); Squamous Epithelial Cell,Urine None Seen per lpf (None-Few); WBC,Urine TNTC per hpf (0-3)
[2018-04-27 02:03] LABS: Amphetamine Screen,Urine Negative ng/mL (Cutoff=1000); Barbiturate Screen,Urine Positive ng/mL (Cutoff=200); Benzodiazepines Screen,Urine Positive ng/mL (Cutoff=200); Cannabinoid Screen,Urine Negative ng/mL (Cutoff = 50); Cocaine Screen,Urine Negative ng/mL (Cutoff= 300); Opiate Screen,Urine Negative ng/mL (Cutoff=300); Phencyclidine Screen,Urine Negative ng/mL (Cutoff=25)
[2018-04-27] MEDS ORDERED: Piperacillin/Tazobactam 3.375 GM in Water for inj. (sterile) 20 ML 20 ML IVP ONE (02:09)
[2018-04-27] MEDS ORDERED: Acetaminophen/Butalbital/CaffeineTABLET PO SCH (08:00)
[2018-04-27] MEDS ORDERED: Naloxone 0.4 MG/ML INJ IVP PRN (08:10)
[2018-04-27] MEDS ORDERED: MOM Conc 10 ML UD.LIQ PO PRN (08:14)
--- NOTE | 2018-04-27 08:23 | Internal Med History&Physical ---
Date of Encounter: 04/27/18 Time of Encounter: 08:21 Internal Medicine - H&P: HPI Chief complaint: AMS Admitted From: Emergency Dept Plans for Post Hospital Care: Transfer Senior Care Facility History of present illness: Information obtained from medical records and nursing staff-dt patient hx of dementia and currently groggy and there is no family at bedside -Ms. Schmidt is a 82 year old female with history of rheumatoid arthritis on Remicade, hypertension, hyperlipidemia, dementia, recent non-ST elevation IN According to ED records - presented to the ER with complaints of AMS. She ws brought to the hopital by EMS for AMS and possible UTI. She resides at [facility] and staff reported that she is not acting herself- she has been more combative and displayed urinary frequency. She does have a hx of UTI - previous cultures shows multiple resistance and organisms. SHe was recently treated for CP (04/09/2018) and has past hx of NSTEMI (opted not to proceed with LHC/cardiac interventions family did not her placed on DAP therapy) She was discharged to [facility] on oxygenand was treated for UTI during that admission. In the ED CT of head was negative labwork was unremarkable except she did have an elevated Trop which appears to be improved from prior - she did have a stent placed 2 months ago EKG did show some ST e levation seen in the septal leads with T wave inversion in the lateral leads. This is consistent with her prior EKG performed 04/10/2018. Urinalysis did show infection started on Zosyn in the ED - Currently patient is sleeping she is groggy and oriented to name only There is no family at bedside Past Med Surg Social Fam HX - Past Medical History Medical history: arthritis, dementia, GERD, hyperlipidemia, hypertension, migraine, myocardial infarction, RA, thyroid disease, other Additional medical history: macular degeneration Psychiatric history: anxiety, depression - Past Surgical History Surgical History: cholecystectomy, hysterectomy Additional surgical history: Plate in pelvis - Social History Smoking Status: Never smoker Smokeless Tobacco Status: No Alcohol use: none Drug use: none - Family History Mother Adopted: No Living Status: Hx Family Cardiac Disorders: Yes Father Hx Family Cancer: Yes (colon cancer) Internal Medicine - H&P: Meds Acetaminophen/Butalbital/Caffe [Fioricet] 1.5 tab PO Q4HR MDD 6 tabs 11/23/14 [History] Omeprazole [PriLOSEC] 20 mg PO BID 11/23/14 [History] Magnesium Oxide [Mgo] 400 mg PO DAILY 03/13/16 [History] Cholecalciferol (D-3) [Vitamin D] 2,000 unit PO DAILY 05/30/16 [History] Levothyroxine Sodium 100 mcg PO QAM 05/30/16 [History] Atorvastatin Calcium [Lipitor] 20 mg PO HS 11/15/17 [History] Calcium Carbonate/Vitamin D3 [Calcium 600 + Vit D Tablet] 1 tab PO DAILY 11/15/17 [History] Escitalopram [Lexapro] 10 mg PO DAILY 11/15/17 [History] Ferrous Sulfate [Iron] 325 mg PO DAILY 11/15/17 [History] Folic Acid 1 mg PO DAILY 11/15/17 [History] Sucralfate [Carafate] 1 gm PO TID 11/15/17 [History] Phenazopyridine [Pyridium] 100 mg PO BID 03/20/18 [History] Potassium Chloride [Klor-Con 10] 10 meq PO DAILY 03/20/18 [History] Lactobacillus Acidophilus/Fos [Acidophilus Probiotic Tablet] 1 each PO DAILY 04/09/18 [History] Mag Hydrox/Aluminum Hyd/Simeth [Cvs Antacid Plus Anti-Gas Liq] 10 ml PO QID PRN 04/09/18 [History] Magnesium Hydroxide [Milk of Magnesia] 30 ml PO DAILY PRN 04/09/18 [History] clonazePAM [Clonazepam] 1 mg PO BID 04/09/18 [History] predniSONE [PredniSONE] 5 mg PO DAILY 04/09/18 [History] Nitrofurantoin (BID) [Macrobid] 100 mg PO BIDWM #12 capsule 04/10/18 [Rx] ALPRAZolam [Xanax 0.5 MG Tablet] 0.5 mg PO TID 04/27/18 [History] Carvedilol [Coreg] 3.125 mg PO BIDWM 04/27/18 [History] Lisinopril [Zestril] 20 mg PO DAILY 04/27/18 [History] Tramadol HCl [Ultram] 50 mg PO DAILY 04/27/18 [History] Allergy/AdvReac Type Severity Reaction Status Date / Time esomeprazole [From Nexium] Allergy Difficulty Verified 11/15/17 09:41 Breathing levofloxacin [From Levaquin] Allergy Blister Verified 11/15/17 09:41 Amoxicillin [From Augmentin] AdvReac Nausea Verified 11/15/17 09:41 aspirin AdvReac Dizziness Verified 11/15/17 09:41 clavulanic acid AdvReac Nausea Verified 11/15/17 09:41 [From Augmentin] codeine AdvReac Dizziness Verified 11/15/17 09:41 Estrogens AdvReac Dizziness Verified 11/15/17 09:41 hydromorphone [Hydromorphone] AdvReac Dizziness Verified 11/15/17 09:41 meperidine AdvReac Dizziness Verified 11/15/17 09:41 morphine AdvReac Dizziness Verified 11/15/17 09:41 nitrofurantoin AdvReac Nausea Verified 11/15/17 09:41 NSAIDS (Non-Steroidal AdvReac Dizziness Verified 11/15/17 09:41 Anti-Inflamma oxycodone [Oxycodone] AdvReac Dizziness Verified 11/15/17 09:41 Paroxetine [From Paxil] AdvReac Nausea Verified 11/15/17 09:41 tolterodine [From Detrol] AdvReac Nausea Verified 11/15/17 09:41 ROS unobtainable: due to mental status All Systems PM: A 10-system review of systems was performed and is negative for pertinent findings except as documented above in the HPI. - Constitutional Vitals: Temp Pulse Resp BP Pulse Ox 97.8 F 66 14 109/51 96 04/27/18 05:59 04/27/18 07:37 04/27/18 07:37 04/27/18 07:37 04/27/18 07:37 General appearance: Present: A&O X 1 Exam: . - Head Head exam: Present: atraumatic, normocephalic - Eye Eye exam: Present: PERRL, conjuntiva pink, sclera anicteric Pupils: Present: PERRL - Neck Neck exam general surgery: Present: supple, trachea midline. Absent: lymphadenopathy - Respiratory Respiratory exam: Present: CTAB. Absent: accessory muscle use, rales, rhonchi, wheezes - Cardiovascular Cardiovascular exam: Present: RRR, +S1, +S2. Absent: diastolic murmur, gallop, rubs, systolic murmur - GI/Abdominal GI/Abdominal exam: Present: normal bowel sounds, soft, no peritoneal signs. A bsent: distended, tenderness - Extremities Exam Extremities exam: Present: warm, radial pulses palpable and symmetrical. Absent: calf tenderness, cyanotic, pedal edema - Neurological Exam Neurological exam: Present: altered, no focal deficits. Absent: pronater drift, facial droop, speech deficit - Skin Skin exam: Present: dry, intact Internal Med - H&P Results - Labs CBC & Chem 7: 04/26/18 22:03 04/26/18 22:03 Labs: Short CBC 04/26/18 Range/Units 22:03 WBC 5.7 (4.3-11.1) K/mcL Hgb 13.1 (11.5-15.4) g/dL Hct 40.2 (35.3-44.9) % Plt Count 176 (140-400) K/mcL Neutrophils # 3.3 (1.6-8.9) K/mcL BMP 04/26/18 22:03 Sodium 133 L Potassium 3.8 Chloride 98 Carbon Dioxide 27 BUN 8 Creatinine 0.62 Glucose 101 Calcium 8.9 Cardiac Enzymes 04/26/18 Range/Units 22:03 Troponin I 0.05 H* (< 0.04) ng/mL Liver Function 04/26/18 Range/Units 22:03 Total Bilirubin 0.5 (0.3-1.0) mg/dL Direct Bilirubin 0.1 (0.0-0.2) mg/dL AST 18 (13-39) Units/L ALT 9 (7-52) Units/L Alkaline Phosphatase 43 (34-104) Units/L Albumin 3.7 (3.5-5.7) g/dL Urine 04/27/18 Range/Units 01:37 Urine Color Dark Yellow (Yellow) Urine Clarity Cloudy A (Clear) Urine pH 7.5 (5.0-8.0) pH Units Ur Specific [place] 1.013 (1.010-1.025) Urine Protein 30 H (Neg-Trace) mg/dL Urine Glucose (UA) Normal (Normal) mg/dL - Impressions ITS Impressions Chest X-Ray 04/26/18 21:43 IMPRESSION: No acute abnormality detected. D/ / Gerardo Singleton MD / Gerardo Singleton MD Interpreting Provider: Gerardo Singleton MD Head CT 04/26/18 21:43 IMPRESSION: No acute intracranial abnormality. No significant interval change. Moderate chronic small vessel ischemic disease. D/ / Misha Sessions / Misha Sessions Interpreting Provider: Misha Sessions - Diagnostic Studies Other Images Additional comments: Chest X-Ray 04/26/18 21:43 IMPRESSION: No acute abnormality detected. D/ / Gerardo Singleton MD / Gerardo Singleton MD Interpreting Provider: Gerardo Singleton MD Head CT 04/26/18 21:43 IMPRESSION: No acute intracranial abnormality. No significant interval change. Moderate chronic small vessel ischemic disease. D/ / Misha Sessions / Misha Sessions Interpreting Provider: Misha Sessions - Assessment and plan (1) Altered mental status Current Visit: Yes Status: Acute Assessment and plan: 1 CT of head negative- suspect rt infectious process will check an ABG since she is so groggy and has COPD hx Qualifiers: Altered mental status type: unspecified Qualified Code(s): R41.82 - Altered mental status, unspecified (2) UTI (urinary tract infection) Current Visit: Yes Status: Acute Assessment and plan: Hx of recurrent UTI with multi organisms- Proteus mirabilis citrobacter freundi Escherichia coli staphylococcus epidermidis - most recent enterococcus faecalis Started on Zosyn in the ED which we will continue Qualifiers: Urinary tract infection type: site unspecified Hematuria presence: without hematuria Qualified Code(s): N39.0 - Urinary tract infection, site not specified (3) COPD (chronic obstructive pulmonary disease) Current Visit: No Status: Chronic Assessment and plan: Hx of COPD does not appear to be in excerbation we will cont with O2 as needed bronchodilators as needed Qualifiers: COPD type: unspecified COPD Qualified Code(s): J44.9 - Chronic obstructive pulmonary disease, unspecified (4) DVT prophylaxis Current Visit: No Status: Acute Assessment and plan: lovenox (5) Elevated troponin Current Visit: No Status: Acute Assessment and plan: Suspect this is trending down from previous IN we will monitor - No chest pain at this time we cont cardiac monitoring EKG in am monitor trop (6) Essential hypertension Current Visit: No Status: Chronic Assessment and plan: Currently hypotensive- we will hold BP meds for now - Time Spent With Patient Total time spent is greater than 50% in coordination of care (as documented) at patient's floor/unit and/or counseling patient:
[2018-04-27] MEDS ORDERED: Lisinopril 20 MG TABLET PO SCH (09:00)
[2018-04-27] MEDS ORDERED: Acetaminophen/Butalbital/CaffeineTABLET PO ONE (10:13)
[2018-04-27] MEDS: predniSONE 5 MG TABLET PO SCH (10:14)
[2018-04-27] MEDS: Acetaminophen/Butalbital/CaffeineTABLET PO SCH ×3 (13:30→20:51)
[2018-04-27] MEDS ORDERED: Tetrahydrozoline 15 ML BOTTLE RIGHT EYE PRN (13:43)
[2018-04-27] MEDS ORDERED: Tetrahydrozoline 15 ML BOTTLE LEFT EYE PRN (13:43)
[2018-04-27] MEDS: Mag Hydrox/Al Hydrox/Simeth 30 ML UDC PO PRN ×2 (14:04→20:58)
[2018-04-27 14:09] LABS: Adenovirus F 40/41 PCR Not detected (Not detect); Astrovirus PCR Not detected (Not detect); C.difficile Toxin A/B Gene PCR Not detected (Not detect); Campylobacter by PCR Not detected (Not detect); Cryptosporidium by PCR Not detected (Not detect); Cyclospora cayetanensis PCR Not detected (Not detect); E. coli O157 by PCR Not detected (Not detect); Entamoeba histolytica PCR Not detected (Not detect); Enteroaggregative E.coli(EAEC) Not detected (Not detect); Enteropathogenic E.coli(EPEC) Not detected (Not detect); Enterotoxigenic E.coli (ETEC) Not detected (Not detect); Giardia lamblia PCR Not detected (Not detect); Norovirus GI/GII PCR Not detected (Not detect); Plesiomonas shigelloides PCR Not detected (Not detect); Rotavirus A PCR Not detected (Not detect); Salmonella PCR Not detected (Not detect); Sapovirus PCR Not detected (Not detect); Shig/EnteroinvasiveE coli EIEC Not detected (Not detect); Shigalike tox-prod E coli STEC Not detected (Not detect); Vibrio PCR Not detected (Not detect); Vibrio cholerae PCR Not detected (Not detect); Yersinia enterocolitica PCR Not detected (Not detect)
[2018-04-27] MEDS: Piperacillin/Tazobactam 3.375 GM in 0.9 % Sodium Chloride Mini Bag 100 ML IVPB SCH (16:33)
--- NOTE | 2018-04-27 17:11 | Electrocardiograph Report ---
[address] [place] [address] Test Date: 2018-04-26 Pat Name: Leigh Schmidt Department: [id number] Room: 2S7 Gender: F Charge Preparation Technician: : 1935 Requested By: Jonny Keita Order Number: [id number] Reading MD: Camacho Resendiz Measurements Intervals [place] Rate: 83 P: 22 NM: 158 QRS: -8 QRSD: 103 T: 139 QT: 390 QTc: 459 Interpretive Statements Sinus rhythm Anterior infarction, age undetermined Anterolateral ST-T changes suggest ischemia Electronically Signed On 04-27-2018 17:09:57 EST by Camacho Resendiz
[2018-04-28] MEDS: Acetaminophen/Butalbital/CaffeineTABLET PO SCH ×6 (01:45→19:54)
[2018-04-28] MEDS: Piperacillin/Tazobactam 3.375 GM in 0.9 % Sodium Chloride Mini Bag 100 ML IVPB SCH ×3 (01:46→16:46)
[2018-04-28] MEDS ORDERED: *HR* LORazepam 2 MG/ML VIAL IVP ONE (02:14)
[2018-04-28 04:12] LABS: Hematocrit 35.7 % (35.3-44.9); Immature Granulocytes % 0.1 % (0-4); Mean Corpuscular HGB Conc 31.4 g/dL (31.6-35.5); Mean Corpuscular Hemoglobin 34.3 pg (28.0-33.3); Mean Corpuscular Volume 109.2 fL (83.0-100.0); Mean Platelet Volume 10.3 fL (9.4-12.4); Platelet Count 131 K/mcL (140-400); Red Blood Count 3.27 M/mcL (3.82-4.97); Red Cell Distribution Width 13.4 % (11.5-14.5); Segmented Neutrophils % 73.9 %
[2018-04-28 04:13] LABS: Basophils % 0.6 %; Eosinophils # 0.1 K/mcL (0.0-0.6); Eosinophils % 1.4 %; Lymphocytes # 1.1 K/mcL (0.6-4.6); Lymphocytes % 15.7 %; Monocytes # 0.6 K/mcL (0.0-1.3); Monocytes % 8.3 %; Neutrophils # 5.3 K/mcL (1.6-8.9)
[2018-04-28 04:15] LABS: Hemoglobin 11.2 g/dL (11.5-15.4)
[2018-04-28 04:31] LABS: BUN/Creatinine Ratio 15 (6-26); Blood Urea Nitrogen 11 mg/dL (8-23); Calcium 8.4 mg/dL (8.6-10.3); Carbon Dioxide 30 mEq/L (23-29); Chloride 100 mEq/L (98-107); Glucose 85 mg/dL (70-105); Magnesium 1.9 mg/dL (1.6-2.6); Osmolality,Calculated 281 (280-300); Potassium 3.9 mEq/L (3.5-5.1); Sodium 136 mEq/L (136-145); eGFR For Non-African Americans > 60 (> 60)
[2018-04-28 04:34] LABS: Troponin I 0.07 ng/mL (< 0.04)
[2018-04-28] MEDS: predniSONE 5 MG TABLET PO SCH (08:37)
[2018-04-28] MEDS ORDERED: 0.9 % Sodium Chloride 1,000 ML IVC SCH (09:45)
--- NOTE | 2018-04-28 09:47 | Internal Med Progress Note ---
Hospitalist Progress Note - Encounter Date of Encounter: 04/28/18 Time of Encounter: 09:47 - Subjective Interval History: Patient seen and examined at [facility], Much more alert today- Oriented X3 . Denies any CP or SOB- complains of pain on coccyx- does have red area to coccyx. Discussed treatment plan with the patient and daughter who verbalized understanding - Exam Vitals: Temp Pulse Resp BP Pulse Ox 98.1 F 79 16 116/56 94 04/28/18 07:58 04/28/18 07:58 04/28/18 07:58 04/28/18 07:58 04/28/18 07:58 Exam: General: Alert and oriented 3 lying in bed in no acute distress Skin:Normal color, no rash, no lesions. HEENT:EOM, pupils equal, round and reactive. Cardiovascular:Normal S1 & S2 systolic murmur, no rubs or gallops. No JVD. Pulse regular. Lungs: Diffuse Rhonchi appreciated Abdomen:Soft, non-tender, no rigidity. Extremities: 2+ pitting edema up to the ankles bilaterally Neurological:Normal cognition and motor skills. Pulses:Carotid and radial pulses normal +2. - Assessment and Plan (1) Encephalopathy acute Current Visit: Yes Status: Acute Assessment and Plan: Much improved today appears to be back to baseline- suspect infectious process that may have caused her to be altered Cont with ATB cont cardiac/spo2 monitoring (2) UTI (urinary tract infection) Current Visit: Yes Status: Acute Assessment and Plan: Hx of recurrent UTI with multi organisms- Proteus mirabilis citrobacter freundi Escherichia coli staphylococcus epidermidis - most recent enterococcus faecalis Started on Zosyn in the ED which we will continue 1 Preliminary urine culture with Gram neg rods- cont with zosyn awaiting sensitivity 1 (3) COPD (chronic obstructive pulmonary disease) Current Visit: No Status: Chronic Assessment and Plan: Hx of COPD does not appear to be in excerbation we will cont with O2 as needed bronchodilators as needed 04/28/2018 stable at this time cont with O2 as needed bronchodilators as needed (4) Elevated troponin Current Visit: No Status: Acute Assessment and Plan: Suspect this is trending down from previous RI we will monitor - No chest pain at this time we cont cardiac monitoring EKG in am monitor trop 04/28/2018 No CP EKG with no change from previous cont cardiac monitoring (5) Essential hypertension Current Visit: No Status: Chronic Assessment and Plan: Currently hypotensive- we will hold BP meds for now hypotensive hold lisinopril - cont coreg with parameters IVF (6) Hypotension Current Visit: Yes Status: Acute Assessment and Plan: Suspect RT medications- hold lisinopril - cont coreg with parameters IVF (7) Pressure ulcer Current Visit: Yes Status: Acute Assessment and Plan: 1 Turn q2hr wound care per nursing (8) DVT prophylaxis Current Visit: No Status: Acute Assessment and Plan: lovenox - Time Spent with Patient Total time spent is greater than 50% in coordination of care (as documented) at patient's floor/unit and/or counseling patient: Internal Medicine: Result - Labs CBC & Chem 7: 04/28/18 03:45 04/28/18 03:45 Labs: Short CBC 04/28/18 Range/Units 03:45 WBC 7.1 (4.3-11.1) K/mcL Hgb 11.2 L D (11.5-15.4) g/dL Hct 35.7 (35.3-44.9) % Plt Count 131 L (140-400) K/mcL Neutrophils # 5.3 (1.6-8.9) K/mcL BMP 04/28/18 03:45 Sodium 136 Potassium 3.9 Chloride 100 Carbon Dioxide 30 H BUN 11 Creatinine 0.71 Glucose 85 Calcium 8.4 L Cardiac Enzymes 04/27/18 04/28/18 Range/Units 10:45 03:45 Troponin I 0.05 H* 0.07 H* (< 0.04) ng/mL Consult Discharge Plan - Plan Referrals: Obed Lin MD [Primary Care Provider] - (2) UTI (urinary tract infection) Qualifiers: Urinary tract infection type: site unspecified Hematuria presence: without hematuria Qualified Code(s): N39.0 - Urinary tract infection, site not specified (3) COPD (chronic obstructive pulmonary disease) Qualifiers: COPD type: unspecified COPD Qualified Code(s): J44.9 - Chronic obstructive pulmonary disease, unspecified (6) Hypotension Qualifiers: Hypotension type: unspecified hypotension type Qualified Code(s): I95.9 - Hypotension, unspecified (7) Pressure ulcer Qualifiers: Pressure injury location: contiguous region involving back and buttock Pressure injury stage: stage 1 Laterality: unspecified laterality Qualified Code(s): L89.41 - Pressure ulcer of contiguous site of back, buttock and hip, stage 1
[2018-04-28] MEDS ORDERED: 0.9 % Sodium Chloride 1,000 ML ONE (10:21)
[2018-04-28] MEDS: *HR* Enoxaparin 40 MG/0.4 ML SYRINGE SQ SCH (10:26)
[2018-04-28] MEDS: traMADol 50 MG TABLET PO PRN (13:47)
[2018-04-28] MEDS ORDERED: Ondansetron ODT 4 MG TAB.RAPDIS SL ONE (18:18)
[2018-04-28] MEDS: clonazePAM 1 MG TABLET PO SCH (19:57)
[2018-04-29] MEDS: Acetaminophen/Butalbital/CaffeineTABLET PO SCH ×7 (00:06→23:59)
[2018-04-29] MEDS: Ondansetron ODT 4 MG TAB.RAPDIS SL PRN ×2 (00:08→04:09)
[2018-04-29] MEDS: Piperacillin/Tazobactam 3.375 GM in 0.9 % Sodium Chloride Mini Bag 100 ML IVPB SCH ×3 (00:09→17:47)
[2018-04-29] MEDS: Acetaminophen 325 MG TABLET PO PRN (03:00)
[2018-04-29] MEDS: *HR* Enoxaparin 40 MG/0.4 ML SYRINGE SQ SCH (06:33)
[2018-04-29 06:56] LABS: Basophils % 0.5 %; Eosinophils # 0.1 K/mcL (0.0-0.6); Eosinophils % 1.8 %; Hematocrit 34.3 % (35.3-44.9); Hemoglobin 10.6 g/dL (11.5-15.4); Immature Granulocytes % 0.2 % (0-4); Lymphocytes # 1.7 K/mcL (0.6-4.6); Lymphocytes % 26.5 %; Mean Corpuscular HGB Conc 30.9 g/dL (31.6-35.5); Mean Corpuscular Hemoglobin 34.2 pg (28.0-33.3); Mean Corpuscular Volume 110.6 fL (83.0-100.0); Mean Platelet Volume 10.2 fL (9.4-12.4); Monocytes # 0.6 K/mcL (0.0-1.3); Monocytes % 8.6 %; Neutrophils # 4.1 K/mcL (1.6-8.9); Platelet Count 123 K/mcL (140-400); Red Cell Distribution Width 13.4 % (11.5-14.5); Segmented Neutrophils % 62.4 %
[2018-04-29 07:11] LABS: BUN/Creatinine Ratio 17 (6-26); Blood Urea Nitrogen 10 mg/dL (8-23); Calcium 8.1 mg/dL (8.6-10.3); Carbon Dioxide 32 mEq/L (23-29); Chloride 98 mEq/L (98-107); Glucose 92 mg/dL (70-105); Osmolality,Calculated 277 (280-300); Potassium 4.1 mEq/L (3.5-5.1); Sodium 134 mEq/L (136-145); eGFR For Non-African Americans > 60 (> 60)
[2018-04-29 07:16] LABS: Platelet Estimate Normal (Normal)
[2018-04-29] MEDS: Lactobacillus 1 EACH CAP.SPRINK PO SCH (08:11)
[2018-04-29] MEDS: clonazePAM 1 MG TABLET PO SCH ×2 (08:11→20:15)
[2018-04-29] MEDS: predniSONE 5 MG TABLET PO SCH (08:15)
--- NOTE | 2018-04-29 09:30 | Internal Med Progress Note ---
Hospitalist Progress Note - Encounter Date of Encounter: 04/29/18 Time of Encounter: 09:30 - Subjective Interval History: Patient seen and examined at [facility], Much more alert today- Oriented X3 . Denies any CP or SOB- She appears to be back to baseline mentally- encouraged to get out of bed - Exam Vitals: Temp Pulse Resp BP Pulse Ox 97.8 F 103 18 145/80 92 04/29/18 07:42 04/29/18 07:42 04/29/18 07:42 04/29/18 07:42 04/29/18 07:42 Exam: General: Alert and oriented 3 lying in bed in no acute distress Skin:Normal color, no rash, no lesions. HEENT:EOM, pupils equal, round and reactive. Cardiovascular:Normal S1 & S2 systolic murmur, no rubs or gallops. No JVD. Pulse regular. Lungs: CTA Abdomen:Soft, non-tender, no rigidity. Extremities: No edema Neurological:Normal cognition and motor skills. Pulses:Carotid and radial pulses normal +2. - Assessment and Plan (1) Encephalopathy acute Current Visit: Yes Status: Acute Assessment and Plan: Much improved today appears to be back to baseline- suspect infectious process that may have caused her to be altered Cont with ATB cont cardiac/spo2 monitoring 04/29/18 appears to be back to baseline today - most likely rt infectious process cont ATB cont cardiac monitoring (2) UTI (urinary tract infection) Current Visit: Yes Status: Acute Assessment and Plan: Hx of recurrent UTI with multi organisms- Proteus mirabilis citrobacter freundi Escherichia coli staphylococcus epidermidis - most recent enterococcus faecalis Started on Zosyn in the ED which we will continue 1 Preliminary urine culture with Gram neg rods- cont with zosyn awaiting sensitivity 04/29/2018 Urine culture show ecoli sensitive to zosyn which we will cont Will attempt to transition to oral medication 1 (3) COPD (chronic obstructive pulmonary disease) Current Visit: No Status: Chronic Assessment and Plan: Hx of COPD does not appear to be in excerbation we will cont with O2 as needed bronchodilators as needed 04/28/2018 stable at this time cont with O2 as needed bronchodilators as needed 04/29/2018 stable cont with O2 bronchodilators as needed (4) Elevated troponin Current Visit: No Status: Acute Assessment and Plan: Suspect this is trending down from previous OK we will monitor - No chest pain at this time we cont cardiac monitoring EKG in am monitor trop 04/28/2018 No CP EKG with no change from previous cont cardiac monitoring 04/29/2018 No CP cont cardiac monitoring (5) Essential hypertension Current Visit: No Status: Chronic Assessment and Plan: Currently hypotensive- we will hold BP meds for now hypotensive hold lisinopril - cont coreg with parameters IVF 04/29/2018 had some hypotension yesterday received IVF improved today we will cont to hold lisinopril for now - cont coreg (6) Hypotension Current Visit: Yes Status: Acute Assessment and Plan: Suspect RT medications- hold lisinopril - cont coreg with parameters IVF 04/29/2018 much improved- after IVF- will hold lisinopril and cont coreg (7) Pressure ulcer Current Visit: Yes Status: Acute Assessment and Plan: 1 Turn q2hr wound care per nursing 04/29/2018 turn every 2 hrs wound care per nursing encourage patient to get out of bed PT/OT (8) DVT prophylaxis Current Visit: No Status: Acute Assessment and Plan: lovenox - Time Spent with Patient Total time spent is greater than 50% in coordination of care (as documented) at patient's floor/unit and/or counseling patient: Internal Medicine: Result - Labs CBC & Chem 7: 04/29/18 06:10 04/29/18 06:10 Labs: Short CBC 04/29/18 Range/Units 06:10 WBC 6.5 (4.3-11.1) K/mcL Hgb 10.6 L (11.5-15.4) g/dL Hct 34.3 L (35.3-44.9) % Plt Count 123 L (140-400) K/mcL Neutrophils # 4.1 (1.6-8.9) K/mcL BMP 04/29/18 06:10 Sodium 134 L Potassium 4.1 Chloride 98 Carbon Dioxide 32 H BUN 10 Creatinine 0.59 L Glucose 92 Calcium 8.1 L Consult Discharge Plan - Plan Referrals: Obed Lin MD [Primary Care Provider] - (2) UTI (urinary tract infection) Qualifiers: Urinary tract infection type: site unspecified Hematuria presence: without hematuria Qualified Code(s): N39.0 - Urinary tract infection, site not specified (3) COPD (chronic obstructive pulmonary disease) Qualifiers: COPD type: unspecified COPD Qualified Code(s): J44.9 - Chronic obstructive pulmonary disease, unspecified (6) Hypotension Qualifiers: Hypotension type: unspecified hypotension type Qualified Code(s): I95.9 - Hyp otension, unspecified (7) Pressure ulcer Qualifiers: Pressure injury location: contiguous region involving back and buttock Pressure injury stage: stage 1 Laterality: unspecified laterality Qualified Code(s): L89.41 - Pressure ulcer of contiguous site of back, buttock and hip, stage 1
[2018-04-29] MEDS: traMADol 50 MG TABLET PO PRN (15:07)
[2018-04-29] MEDS ORDERED: *HR* Promethazine 25 MG/ML VIAL IVP ONE (16:41)
[2018-04-29] MEDS ORDERED: *HR* Heparin 5,000 UNIT/ML VIAL IVP PRN (19:30)
[2018-04-29] MEDS ORDERED: *HR* Heparin 5,000 UNIT/ML VIAL IVP ONE (19:30)
--- NOTE | 2018-04-29 19:44 | Event Note ---
Date of Encounter: 04/29/18 Time of Encounter: 18:00 Was notified per nursing staff approx 1600 that patient was anxious stating that she had a FONTANEZ/ and her stomach hurt, she then began to state that her chest hurt and that she was going to have a heart attack- EKG was obtained as well as troponin- Troponin was unchanged however EKG was obtained which did show ST depression in lateral Leads, Patient was given pheneragn for nausea and she calmed down. I reviewed EKG with DR Pace who agreed that there was significant change from previous EKG. I reviewed the records and it appears that in patient presented with CP and cardiology discussed possible heart cath - and that the risk vs benefit of heart cath not advisable. I spoke with DR Quintanilla and reviewed case and previous note Advised to start on heparin gtt and to contact family to see if they would want to pursue, and to update cardiolgy concerning decision. Heparin gtt ordered as well as trop. Attempted to Call Alina Hill patient's daughter and left message.
[2018-04-29 20:17] LABS: Hematocrit 40.2 % (35.3-44.9); Hemoglobin 12.1 g/dL (11.5-15.4); Mean Corpuscular HGB Conc 30.1 g/dL (31.6-35.5); Mean Corpuscular Hemoglobin 34.3 pg (28.0-33.3); Mean Corpuscular Volume 113.9 fL (83.0-100.0); Mean Platelet Volume 10.3 fL (9.4-12.4); Platelet Count 111 K/mcL (140-400); Red Blood Count 3.53 M/mcL (3.82-4.97); Red Cell Distribution Width 13.1 % (11.5-14.5)
[2018-04-29 20:27] LABS: Heparin anti-factor XA UFH 0.13 IU/mL (0.30-0.70); Prothrombin Time 10.9 Seconds (9.4-12.1)
[2018-04-29 20:29] LABS: Activated Partial Thrombo Time 32.2 Seconds (26.0-36.0)
[2018-04-29] MEDS: Heparin 25,000 UNIT/500 ML D5W 25,000 UNIT/500 ML BAG IVC SCH (20:50)
[2018-04-30] MEDS: Piperacillin/Tazobactam 3.375 GM in 0.9 % Sodium Chloride Mini Bag 100 ML IVPB SCH ×4 (00:40→23:51)
[2018-04-30] MEDS: Acetaminophen 325 MG TABLET PO PRN ×2 (01:39→23:50)
--- NOTE | 2018-04-30 03:02 | Event Note ---
Date of Encounter: 04/29/18 Time of Encounter: 23:06 Alerted by patient's nurse LUI Vela that patient was yelling and climbing out of bed. Nurse reported IV Ativan made patient's pressures dropped before. Asked nurse the patient had not had her at bedtime Restoril. Nurse reported Restoril did not work last night so instructed her not to give tonight. IVP Benadryl ordered instead. Nurse reported patient's BP 170/104. One-time dose of IVP hydralazine 5 mg ordered. Nurse instructed to continue monitoring patient closely and notify me immediately of any adverse changes.
[2018-04-30] MEDS: Acetaminophen/Butalbital/CaffeineTABLET PO SCH ×3 (04:05→11:59)
[2018-04-30 04:26] LABS: BUN/Creatinine Ratio 11 (6-26); Blood Urea Nitrogen 6 mg/dL (8-23); Calcium 8.5 mg/dL (8.6-10.3); Carbon Dioxide 30 mEq/L (23-29); Chloride 92 mEq/L (98-107); Glucose 88 mg/dL (70-105); Osmolality,Calculated 271 (280-300); Potassium 3.6 mEq/L (3.5-5.1); Sodium 132 mEq/L (136-145); eGFR For Non-African Americans > 60 (> 60)
[2018-04-30] MEDS: *HR* Heparin 5,000 UNIT/ML VIAL IVP PRN ×2 (04:46→14:01)
[2018-04-30 04:56] LABS: Basophils % 0.4 %; Eosinophils # 0.3 K/mcL (0.0-0.6); Eosinophils % 3.2 %; Hematocrit 39.5 % (35.3-44.9); Hemoglobin 12.4 g/dL (11.5-15.4); Immature Granulocytes % 0.3 % (0-4); Lymphocytes % 26.2 %; Mean Corpuscular HGB Conc 31.4 g/dL (31.6-35.5); Mean Corpuscular Volume 108.2 fL (83.0-100.0); Mean Platelet Volume 10.4 fL (9.4-12.4); Monocytes # 0.7 K/mcL (0.0-1.3); Monocytes % 9.2 %; Neutrophils # 4.7 K/mcL (1.6-8.9); Platelet Count 125 K/mcL (140-400); Red Blood Count 3.65 M/mcL (3.82-4.97); Red Cell Distribution Width 12.9 % (11.5-14.5); Segmented Neutrophils % 60.7 %
[2018-04-30] MEDS: clonazePAM 1 MG TABLET PO SCH ×2 (07:55→20:46)
[2018-04-30] MEDS: Lactobacillus 1 EACH CAP.SPRINK PO SCH (07:55)
[2018-04-30] MEDS: predniSONE 5 MG TABLET PO SCH ×2 (07:55→08:00)
--- NOTE | 2018-04-30 08:49 | Internal Med Progress Note ---
Hospitalist Progress Note - Encounter Date of Encounter: 04/30/18 Time of Encounter: 08:43 - Subjective Interval History: Patient seen and examined at [facility], [facility] is very anxious crying at times. I did review lab work from last night troponins were flat. I did speak with patient's Rosales Schmidt as well as with her daughter Alina Garrett via t elephone-I updated both of them concerning patient's current condition as well as events that occurred last night. was concerned that this was emergent however explained to him that this was not emergent at this time and that the patient was stable. Also explained the patient was on a heparin drip as well as unchanged troponins overnight We did discuss options concerning cardiac catheterization as well as medical management. Originally the stated that he went to pursue medical management however daughter did express that she wanted to speak to the rest the family concerning cardiac catheterization and that they would like to speak to cardiology concerning this. I did speak with cardiology, who will see patient up on consult. - Exam Vitals: Temp Pulse Resp BP Pulse Ox 97.7 F 104 18 164/93 93 04/30/18 03:58 04/30/18 08:28 04/30/18 08:28 04/30/18 08:28 04/30/18 08:28 Exam: General: Alert and oriented 3 lying in bed-appears anxious Skin:Normal color, no rash, no lesions. HEENT:EOM, pupils equal, round and reactive. Cardiovascular:Normal S1 & S2 systolic murmur, no rubs or gallops. No JVD. Pulse regular. Lungs: Crackles in the bases Abdomen:Soft, non-tender, no rigidity. Extremities: No edema Neurological:Normal cognition and motor skills. Pulses:Carotid and radial pulses normal +2. - Assessment and Plan (1) Encephalopathy acute Current Visit: Yes Status: Acute Assessment and Plan: Much improved today appears to be back to baseline- suspect infectious process that may have caused her to be altered Cont with ATB cont cardiac/spo2 monitoring 04/29/18 appears to be back to baseline today - most likely rt infectious process cont ATB cont cardiac monitoring 04/30/18 Patient has been opcapzom-ripzvko-xnonllil with current antibiotic for UTI she has some crackles suspicious for possible pneumonia we will check chest x-ray Continue cardiac monitoring (2) UTI (urinary tract infection) Current Visit: Yes Status: Acute Assessment and Plan: Hx of recurrent UTI with multi organisms- Proteus mirabilis citrobacter freundi Escherichia coli staphylococcus epidermidis - most recent enterococcus faecalis Started on Zosyn in the ED which we will continue 1 Preliminary urine culture with Gram neg rods- cont with zosyn awaiting sensitivity 04/29/2018 Urine culture show ecoli sensitive to zosyn which we will cont Will attempt to transition to oral medication 04/30/2018 1 urine culture shows Escherichia coli sensitive to Zosyn which we will continue this will be day 3-we will continue Zosyn for now suspect possible pneumonia Can transition to oral medication once discharged (3) COPD (chronic obstructive pulmonary disease) Current Visit: No Status: Chronic Assessment and Plan: 1 requiring oxygen supplementation currently on 3 L nasal cannula which we will continue titrating maintain SPO2 greater than 88-90% Bronchodilators as needed (4) Elevated troponin Current Visit: No Status: Acute Assessment and Plan: Suspect this is trending down from previous ME we will monitor - No chest pain at this time we cont cardiac monitoring EKG in am monitor trop 04/28/2018 No CP EKG with no change from previous cont cardiac monitoring 04/29/2018 No CP cont cardiac monitoring 04/30/2018 Patient did have chest pain last night EKG was obtained which did show some ST depression troponin 0.0 7.08. Cardiology has been consulted and appreciate recommendations (5) Essential hypertension Current Visit: No Status: Chronic Assessment and Plan: Currently hypotensive- we will hold BP meds for now hypotensive hold lisinopril - cont coreg with parameters IVF 04/29/2018 had some hypotension yesterday received IVF improved today we will cont to hold lisinopril for now - cont coreg 04/30/2018 Sincerely improved at times she is hypertensive because she is agitated we will resume lisinopril at lower dose and continue with Coreg (6) Hypotension Current Visit: Yes Status: Acute Assessment and Plan: Suspect RT medications- hold lisinopril - cont coreg with parameters IVF 04/29/2018 much improved- after IVF- will hold lisinopril and cont coreg 04/30/2018 Hypertension has resolved we will continue to monitor closely (7) Pressure ulcer Current Visit: Yes Status: Acute Assessment and Plan: 1 Turn q2hr wound care per nursing 04/29/2018 turn every 2 hrs wound care per nursing encourage patient to get out of bed PT/OT 04/30/2018 As above (8) DVT prophylaxis Current Visit: No Status: Acute Assessment and Plan: lovenox (9) Pneumonia Current Visit: Yes Status: Acute Assessment and Plan: Patient has required increased and oxygen flow. She also has become more agitated and confused she has crackles in her bases no fevers no white count this time chest x-ray does reveal a new airspace E to the left lower lung zone concerning for atelectasis or developing infiltrate. We will initiate on antibiotics currently she is on Zosyn we will add vancomycin and perform MRSA swab. Patient is a halfway resident as well frequent hospitalizations. Obtain sputum culture Bronchodilators (10) Chest pain Current Visit: No Status: Acute Assessment and Plan: Patient has a history of CAD she had episode of chest pain with anxiety last night she does have a history of similar episodes in the past. Troponins have been 0.0 5.0 5.0 7.0 7.08 Lopressor has been elevated EKG was obtained which did show some ST depression in lateral leads cardiology consulted discussed with family concerning patient's high risk status given her multiple previous falls pelvic fractures and comorbidities and the need for continue dual antiplatelet therapy if that is required during [facility] [place]. Family understood the risk and according to cardiology will reevaluate risks versus benefits of a cardiac catheter after TTE completed. Limited TTE ordered per cardiology's recommendation currently pending Chest x-ray was completed once last 11/09 which does show new left basilar opacity concerning for atelectasis versus developing infiltrate - Time Spent with Patient Total time spent is greater than 50% in coordination of care (as documented) at patient's floor/unit and/or counseling patient: Internal Medicine: Result - Labs CBC & Chem 7: 04/30/18 04:46 04/30/18 04:00 Labs: Short CBC 04/29/18 04/30/18 Range/Units 20:04 04:46 WBC 5.0 7.8 D (4.3-11.1) K/mcL Hgb 12.1 D 12.4 (11.5-15.4) g/dL Hct 40.2 39.5 (35.3-44.9) % Plt Count 111 L 125 L (140-400) K/mcL Neutrophils # 4.7 (1.6-8.9) K/mcL BMP 04/30/18 04:00 Sodium 132 L Potassium 3.6 Chloride 92 L Carbon Dioxide 30 H BUN 6 L Creatinine 0.54 L Glucose 88 Calcium 8.5 L Cardiac Enzymes 04/29/18 04/29/18 04/30/18 Range/Units 15:35 21:22 04:00 Troponin I 0.07 H* 0.08 H* 0.08 H* (< 0.04) ng/mL - ABG Interpretation ABG results: PT/INR, D-dimer PT 10.9 Seconds (9.4-12.1) 04/29/18 20:04 Consult Discharge Plan - Plan Referrals: Obed Lin MD [Primary Care Provider] - (2) UTI (urinary tract infection) Qualifiers: Urinary tract infection type: site unspecified Hematuria presence: without hematuria Qualified Code(s): N39.0 - Urinary tract infection, site not specified (3) COPD (chronic obstructive pulmonary disease) Qualifiers: COPD type: unspecified COPD Qualified Code(s): J44.9 - Chronic obstructive pulmonary disease, unspecified (6) Hypotension Qualifiers: Hypotension type: unspecified hypotension type Qualified Code(s): I95.9 - Hypotension, unspecified (7) Pressure ulcer Qualifiers: Pressure injury location: contiguous region involving back and buttock Pressure injury stage: stage 1 Laterality: unspecified laterality Qualified Code(s): L89.41 - Pressure ulcer of contiguous site of back, buttock and hip, stage 1 (9) Pneumonia Qualifiers: Pneumonia type: due to unspecified organism Laterality: left Lung location: lower lobe of lung Qualified Code(s): J18.1 - Lobar pneumonia, unspecified organism (10) Chest pain Qualifiers: Chest pain type: unspecified Qualified Code(s): R07.9 - Chest pain, unspecified
--- NOTE | 2018-04-30 12:48 | Cardiology Consult Note ---
<Abel Stubbs - Last Filed: 04/30/18 14:11> Date of Encounter: 04/30/18 Time of Encounter: 10:00 Assessment and Plan (1) Chest pain Current Visit: No Status: Acute -Hx of CAD -Episode of chest pain in the setting of worsened anxiety. Multiple similar episodes during recent admissions -Troponin 0.05-0.05-0.07-0.07-0.08-0.08 -BP elevated at 176/110 most recently -Discussed with family about her high risk status given her multiple previous falls, pelvic fracture, and need for continued duel antiplatelet therapy if a stent is placed during a possible lhc. She is not ambulating very much currently and she is very unsteady on her feet when ambulating and falls frequently. Family understood the risks discussed and will reevaluate risks vs benefits of cath after TTE complete -CXR 04/30/18 with new left basilar opacity concerning for atelectasis or developing infiltrate -TTE pending Qualifiers: Chest pain type: unspecified Qualified Code(s): R07.9 - Chest pain, unspecified Discussion w patient/family: The assessment and plan as outlined above was discussed with the patient and/or family members who expressed understanding and agreement. All questions were answered. Thank you for involving us in the care of your patient. Please call with any questions. History of Present Illness Consult date: 04/30/18 Requesting physician: Dee Santiago Consult reason: Chest pain and EKG changes Chief complaint: Chest pain History of present illness: Ms. Schmidt is a 82 year old female with pmh significant for CAD s/p NSTEMI 03/11, HTN, HLD, and anxiety. Cardiology was consulted for chest pain and EKG changes. She was admitted on 04/26/18 with AMS and found to have UTI which is being treated. Most of hx comes from family which is at bedside. Yesterday evening, she was anxious and started complaining of chest pain and dyspnea. An EKG was performed and found to have new lateral lead ischemia. She was started on heparin infusion at that time. She has had man similar instances when she gets anxious and complains of chest pain. She denies any chest pain at this time but admits dyspnea. Past Med Surg Social Fam HX - Past Medical History Medical history: arthritis, dementia, GERD, hyperlipidemia, hypertension, migraine, myocardial infarction, RA, thyroid disease, other Additional medical history: macular degeneration Psychiatric history: anxiety, depression - Past Surgical History Surgical History: cholecystectomy, hysterectomy Additional surgical history: Plate in pelvis - Social History Smoking Status: Never smoker Smokeless Tobacco Status: No Alcohol use: none Drug use: none - Family History Mother Adopted: No Living Status: Hx Family Cardiac Disorders: Yes Father Hx Family Cancer: Yes (colon cancer) Medications and Allergies Acetaminophen/Butalbital/Caffe [Fioricet] 1.5 tab PO Q4HR MDD 6 tabs 11/23/14 [History] Levothyroxine Sodium 100 mcg PO QAM 05/30/16 [History] Atorvastatin Calcium [Lipitor] 20 mg PO HS 11/15/17 [History] Mag Hydrox/Aluminum Hyd/Simeth [Cvs Antacid Plus Anti-Gas Liq] 10 ml PO QID PRN 04/09/18 [History] Magnesium Hydroxide [Milk of Magnesia] 30 ml PO DAILY PRN 04/09/18 [History] clonazePAM [Clonazepam] 1 mg PO BID 04/09/18 [History] predniSONE [PredniSONE] 5 mg PO DAILY 04/09/18 [History] ALPRAZolam [Xanax 0.5 MG Tablet] 0.5 mg PO TID 04/27/18 [History] Carvedilol [Coreg] 3.125 mg PO BIDWM 04/27/18 [History] Lisinopril [Zestril] 20 mg PO DAILY 04/27/18 [History] Tramadol HCl [Ultram] 50 mg PO DAILY PRN 04/27/18 [History] Allergy/AdvReac Type Severity Reaction Status Date / Time esomeprazole [From Nexium] Allergy Difficulty Verified 11/15/17 09:41 Breathing levofloxacin [From Levaquin] Allergy Blister Verified 11/15/17 09:41 Amoxicillin [From Augmentin] AdvReac Nausea Verified 11/15/17 09:41 aspirin AdvReac Dizziness Verified 11/15/17 09:41 clavulanic acid AdvReac Nausea Verified 11/15/17 09:41 [From Augmentin] codeine AdvReac Dizziness Verified 11/15/17 09:41 Estrogens AdvReac Dizziness Verified 11/15/17 09:41 hydromorphone [Hydromorphone] AdvReac Dizziness Verified 11/15/17 09:41 meperidine AdvReac Dizziness Verified 11/15/17 09:41 morphine AdvReac Dizziness Verified 11/15/17 09:41 nitrofurantoin AdvReac Nausea Verified 11/15/17 09:41 NSAIDS (Non-Steroidal AdvReac Dizziness Verified 11/15/17 09:41 Anti-Inflamma oxycodone [Oxycodone] AdvReac Dizziness Verified 11/15/17 09:41 Paroxetine [From Paxil] AdvReac Nausea Verified 11/15/17 09:41 tolterodine [From Detrol] AdvReac Nausea Verified 11/15/17 09:41 ROS unobtainable: due to mental status All Systems Review: The remainder of the systems were reviewed and are negative Physical Examination Vital Signs, Last 4 Hours Temp Pulse Resp BP Pulse Ox 04/30/18 09:09 98.1 F 110 18 176/110 95 General: Other (AOx2, unable to answer most quetions ) HEENT: Atraumatic, Normocephaly, Mucus Membranes Moist Neck: No JVD Cardiac: Other (tachycardic, regular rhythm, 2/6 systolic ejection murmur best heard at R 2nd intercostal space) Lungs: Other (bilat peripheral LL rales L>R, no wheezes or rhonchi appreciated ) Musculoskeletal: No Chest Wall Tenderness Extremities: No Clubbing, No Cyanosis, No Edema, Normal Pulses Results 04/30/18 04:46 04/30/18 04:00 Lab Results 04/29/18 04/29/18 04/29/18 15:35 20:04 20:04 WBC 5.0 Hgb 12.1 D Hct 40.2 Plt Count 111 L INR 1.0 APTT 32.2 Sodium Potassium Chloride Carbon Dioxide BUN Creatinine Glucose Calcium Troponin I 0.07 H* 04/29/18 04/30/18 04/30/18 21:22 04:00 04:00 WBC Hgb Hct Plt Count INR APTT Sodium 132 L Potassium 3.6 Chloride 92 L Carbon Dioxide 30 H BUN 6 L Creatinine 0.54 L Glucose 88 Calcium 8.5 L Troponin I 0.08 H* 0.08 H* 04/30/18 04:46 WBC 7.8 D Hgb 12.4 Hct 39.5 Plt Count 125 L INR APTT Sodium Potassium Chloride Carbon Dioxide BUN Creatinine Glucose Calcium Troponin I Consult Discharge Plan - Plan Referrals: Obed Lin MD [Primary Care Provider] - <SylvesterShant A - Last Filed: 04/30/18 16:26> Date of Encounter: 04/30/18 - Attending Attestation I have personally performed a face to face evaluation on this patient. I have reviewed and agree with the documented findings and care plan as documented by the resident. History and Exam by me shows: 82-year-old female with history of dementia, CAD, hypertension, recurrent UTI ad mitted for delirium secondary to sepsis from UTI and pneumonia. Last hospitalization in February she had NSTEMI, but family declined to cardiac catheterization. Echo showed ejection fraction then of 55%. During this hospitalization, she is currently chest pain-free and made minimal troponin. EKG shows T-wave inversion in the anterolateral leads. At this time family is undecided regarding going forward with cardiac catheterization. We will obtain a limited echocardiogram to evaluate LV ejection fraction and wall motion abnormalities. If ejection fraction is significantly reduced, we will recommend cardiac catheterization, after sepsis is controlled. Family states they will make sure she takes her antiplatelet medications if PCI is done. Thanks, Shant Phan MD Assessment and Plan Discussion w patient/family: The assessment and plan as outlined above was discussed with the patient and/or family members who expressed understanding and agreement. All questions were answered. Thank you for involving us in the care of your patient. Please call with any questions. History of Present Illness History of present illness: Ms. Schmidt is a 82 year old female All Systems Review: The remainder of the systems were reviewed and are negative Physical Examination Vital Signs, Last 4 Hours Temp Pulse Resp BP Pulse Ox 04/30/18 15:58 16 97 04/30/18 13:38 97.4 F L 99 14 127/82 95 Results 04/30/18 04:46 04/30/18 04:00 Lab Results 04/29/18 04/29/18 04/29/18 20:04 20:04 21:22 WBC 5.0 Hgb 12.1 D Hct 40.2 Plt Count 111 L INR 1.0 APTT 32.2 Sodium Potassium Chloride Carbon Dioxide BUN Creatinine Glucose Calcium Troponin I 0.08 H* 04/30/18 04/30/18 04/30/18 04:00 04:00 04:46 WBC 7.8 D Hgb 12.4 Hct 39.5 Plt Count 125 L INR APTT Sodium 132 L Potassium 3.6 Chloride 92 L Carbon Dioxide 30 H BUN 6 L Creatinine 0.54 L Glucose 88 Calcium 8.5 L Troponin I 0.08 H*
[2018-04-30] MEDS ORDERED: Albuterol 2.5 MG/3 ML NEBULIZER IH PRN (14:49)
--- NOTE | 2018-04-30 14:58 | Electrocardiograph Report ---
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
--- NOTE | 2018-04-30 15:14 | Electrocardiograph Report ---
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
[2018-04-30] MEDS: Ipratropium/Albuterol Neb 3 ML IH SCH ×2 (15:55→23:57)
[2018-05-01 04:03] LABS: Basophils % 0.4 %; Eosinophils # 0.1 K/mcL (0.0-0.6); Eosinophils % 1.9 %; Hematocrit 40.5 % (35.3-44.9); Hemoglobin 13.4 g/dL (11.5-15.4); Immature Granulocytes % 0.1 % (0-4); Lymphocytes # 1.6 K/mcL (0.6-4.6); Lymphocytes % 23.1 %; Mean Corpuscular HGB Conc 33.1 g/dL (31.6-35.5); Mean Corpuscular Hemoglobin 33.9 pg (28.0-33.3); Mean Corpuscular Volume 102.5 fL (83.0-100.0); Mean Platelet Volume 10.1 fL (9.4-12.4); Monocytes # 0.7 K/mcL (0.0-1.3); Monocytes % 10.3 %; Neutrophils # 4.4 K/mcL (1.6-8.9); Platelet Count 137 K/mcL (140-400); Red Blood Count 3.95 M/mcL (3.82-4.97); Red Cell Distribution Width 12.6 % (11.5-14.5); Segmented Neutrophils % 64.2 %
[2018-05-01 04:23] LABS: BUN/Creatinine Ratio 10 (6-26); Blood Urea Nitrogen 5 mg/dL (8-23); Calcium 8.8 mg/dL (8.6-10.3); Carbon Dioxide 32 mEq/L (23-29); Chloride 89 mEq/L (98-107); Glucose 121 mg/dL (70-105); Osmolality,Calculated 277 (280-300); Potassium 2.9 mEq/L (3.5-5.1); Sodium 134 mEq/L (136-145); eGFR For Non-African Americans > 60 (> 60)
[2018-05-01] MEDS: Ipratropium/Albuterol Neb 3 ML IH SCH ×4 (04:29→22:37)
[2018-05-01] MEDS: predniSONE 5 MG TABLET PO SCH (09:41)
[2018-05-01] MEDS: clonazePAM 1 MG TABLET PO SCH ×2 (09:41→20:31)
[2018-05-01] MEDS: Lactobacillus 1 EACH CAP.SPRINK PO SCH (09:42)
[2018-05-01] MEDS: Heparin 25,000 UNIT/500 ML D5W 25,000 UNIT/500 ML BAG IVC SCH (09:42)
[2018-05-01] MEDS: Piperacillin/Tazobactam 3.375 GM in 0.9 % Sodium Chloride Mini Bag 100 ML IVPB SCH ×3 (09:42→23:10)
--- NOTE | 2018-05-01 10:03 | Cardiology Progress Note ---
<Abel Stubbs - Last Filed: 05/01/18 13:28> Date of Encounter: 05/01/18 Time of Encounter: 09:00 Assessment and Plan (1) NSTEMI (non-ST elevated myocardial infarction) Current Visit: No Status: Acute -Type 1 vs type 2 -Hx of CAD -Episode of chest pain in the setting of worsened anxiety. Multiple similar episodes during recent admissions -No further chest pain -Troponin 0.05-0.05-0.07-0.07-0.08-0.08 -BP 139/77 most recently. BP as high as 192/85 overnight -Discussed with family about her high risk status given her multiple previous f alls, pelvic fracture, and need for continued duel antiplatelet therapy if a stent is placed during a possible lhc. She is not ambulating very much currently and she is very unsteady on her feet when ambulating and falls frequently. Family understood the risks discussed and does not want to proceed with lhc at this time. -CXR 04/30/18 with new left basilar opacity concerning for atelectasis or deve loping infiltrate -TTE 04/30/18 pending -Will continue medical management at this time with BB, ACEi, and clopidogrel given documented allergy to ASA (2) Essential hypertension Current Visit: No Status: Chronic -Known hx of medication non compliance where she will go many days without taking antihypertensives then will start again when systolics in 200's -BP labile this admission with high of 192/85 overnight with tachycardia -BP 139/77 most recently -Will increase BB today as was tachycardic overnight -Continue ACEi and can titrate as indicated (3) Hypokalemia Current Visit: No Status: Acute -K 2.9 today -Mg 1.9 on 04/28/18 -8 beat Vtach overnight likely 2/2 to hypokalemia -Will replete K and Mg today -Please keep K >4 and Mg >2 Discussion w patient/family: The assessment and plan as outlined above was discussed with the patient and/or family members who expressed understanding and agreement. All questions were answered. Thank you for involving us in the care of your patient. Please call with any questions. Subjective Principal diagnosis: NSTEMI Interval history: No further chest pain. Dyspnea improving. Had 8 beat run vtach on tele overnight. Objective Vital Signs, Last 4 Hours Temp Pulse Resp BP Pulse Ox 05/01/18 09:31 3 05/01/18 06:44 98 F 130 17 139/77 90 General: No Apparent Distress, Other (aox2, answers some questions but others does not answer question asked. ) HEENT: Atraumatic, Normocephaly Neck: No JVD Cardiac: Normal S1 and S2, Other (tachycardic, regular rhythm, 2/6 systolic ejection murmur best heard r 2nd intercostal space) Lungs: Other (bilat basilar rales peripherally L>R, no wheezes r rhonchi appreciated) Musculoskeletal: No Chest Wall Tenderness Extremities: No Clubbing, No Cyanosis, No Edema, Normal Pulses Results 05/01/18 03:44 05/01/18 03:44 Lab Results 05/01/18 05/01/18 03:44 03:44 WBC 6.8 Hgb 13.4 Hct 40.5 Plt Count 137 L Sodium 134 L Potassium 2.9 L Chloride 89 L Carbon Dioxide 32 H BUN 5 L Creatinine 0.51 L Glucose 121 H Calcium 8.8 Consult Discharge Plan - Plan Referrals: Obed Lin MD [Primary Care Provider] - <SylvesterMonday A - Last Filed: 05/01/18 14:19> Date of Encounter: 05/01/18 Assessment and Plan Discussion w patient/family: The assessment and plan as outlined above was discussed with the patient and/or family members who expressed understanding and agreement. All questions were answered. Thank you for involving us in the care of your patient. Please call with any questions. Objective Vital Signs, Last 4 Hours Resp Pulse Ox 05/01/18 11:43 17 93 05/01/18 09:31 3 Results 05/01/18 03:44 05/01/18 13:17 Lab Results 05/01/18 05/01/18 03:44 03:44 WBC 6.8 Hgb 13.4 Hct 40.5 Plt Count 137 L Sodium 134 L Potassium 2.9 L Chloride 89 L Carbon Dioxide 32 H BUN 5 L Creatinine 0.51 L Glucose 121 H Calcium 8.8 - Attending Attestation I have personally performed a face to face evaluation on this patient. I have reviewed and agree with the documented findings and care plan as documented by the resident. History and Exam by me shows: 82-year-old female with history of CAD, currently being managed for sepsis and NSTEMI. Patient reports no chest pain at this time, Echocardiogram shows hyperdynamic ejection fraction with no wall motion abnormalities. Cardiac catheterization was offered to the family with extensive discussion on risk, benefits and alternative management strategy including medical management, and patient's who is health care proxy, prefers medical management. Complete 48 hours of IV heparin, recommend Plavix 75 mg daily if there is true allergy to aspirin. Continue moderate intensity statin, and JONH inhibitor and beta jacinto if blood pressure allows. Thanks, Shant Phan MD [facility]
[2018-05-01] MEDS ORDERED: Potassium Chloride 40 MEQ, Lidocaine 1% 2 ML in D5% in Water 500 ML IVPB ONE (12:47)
--- NOTE | 2018-05-01 13:14 | Internal Med Progress Note ---
<Mckenna Dinero P - Last Filed: 05/01/18 15:44> Hospitalist Progress Note - Encounter Date of Encounter: 05/01/18 Time of Encounter: 11:50 - Subjective Interval History: 82 years old female patient with PMH of arthritis, dementia, GERD, hyperlipidemia, hypertension, migraine, myocardial infarction, RA, thyroid disease came from SNF for combative behaviour, symptoms of UTI.She was recently treated for CP (04/09/2018) and has past hx of NSTEMI (opted not to proceed with LHC/cardiac interventions family did not her placed on DAP therapy) She was discharged to [facility] on oxygen. Her EKG done in ED : EKG did show some ST elevation seen in the septal leads with T wave inversion in the lateral leads. This is consistent with her prior EKG performed 04/10/2018. she also has hx of UTI - previous cultures shows multiple resistance and organisms. Xray chest at ED:New airspace opacity to the left lower lung zone from 04/26/2018 concerning for atelectasis or developing infiltrate. Echo showed :LVEF 65-70%. Moderate concentric left ventricular hypertrophy. Normal right ventricular structure and function.Nasal swab: MRSA positive. His urine culture done in inpatient showed : Escherichia coli sensitive to Zosyn. Today during my bedside visit, the patient was lying on the bed, she was awake but not oriented to time and place. She was not answering question appropriately occasionally obeys command. We talk with her nurses, the patient was combative and more delirious. Her vitals were temperature 90.4 night, saturation 93% with acute oxygen, blood pressure 139/77, pulse 8130 regular, respirations 17 / minutes. - Exam Vitals: Temp Pulse Resp BP Pulse Ox 98 F 130 17 139/77 93 05/01/18 06:44 05/01/18 06:44 05/01/18 11:43 05/01/18 06:44 05/01/18 11:43 Exam: General: , Awake but confused , not oriented Time and place, not in acute distress , looks undernourished Skin:Normal color, no rash, no lesions. HEENT:EOM, pupils equal, round and reactive. Cardiovascular:Normal S1 & S2 systolic murmur, no rubs or gallops. No JVD. Pulse regular. Lungs: Crackles in the bases Abdomen:Soft, non-tender, no rigidity. Extremities: No edema Neurological:Normal cognition and motor skills. Pulses:Carotid and radial pulses normal +2. - Assessment and Plan (1) Encephalopathy Current Visit: Yes Status: Acute Assessment and Plan: The patient was admitted for altered mental status with focus of infection; UTI. She is awake still confused, it might be because of infective and/or toxic metabolic encephalopathy.No acute intracranial abnormality.CT head :no acute intracranial abnormalityModerate chronic small vessel ischemic disease. Her serum sodium 134 and potassium 2.9 chloride 89, urinalysis suggestive of infection, we are treating her with IV antibiotic vancomycin and Zosyn to treat infective cause of encephalopathy. We have consulted Ot, PT social services technician, speech pathologist, editorial specialist. We will closely monitor progression of her symptoms (2) Chest pain due to CAD Current Visit: No Status: Acute Assessment and Plan: Patient has history of coronary artery disease, multiple episodes in the past. Serial troponin is; [id number] 8.08 Recent Echo:LVEF 65-70%. Moderate concentric left ventricular hypertrophy. Normal right ventricular structure and function. Chest Xray:New airspace opacity to the left lower lung zone from 04/26/2018 concerning for atelectasis or developing infiltrate,Stable cardiomegaly. EKG: Sinus rhythm with left ventricle hypertrophy and ST -T changes Family member denied left heart catheterization in the past because of multiple comorbidities. We have planned to stop Heparin anticoagulation with consultation with cradiac team . Cardio team on board. (3) UTI (urinary tract infection) Current Visit: Yes Status: Acute Assessment and Plan: Hx of recurrent UTI with multi organisms- Proteus mirabilis citrobacter freundi Escherichia coli staphylococcus epidermidis - most recent enterococcus faecalis Urine culture done in inpatient showed Escherichia coli that is sensitive to Zyocin. She is already on IV antibiotic Zosyn . (4) Hypokalemia Current Visit: No Status: Acute Assessment and Plan: We have put her slow IV potassium supplementation, her recent serum potassium is 2.9. We will recheck her potassium level tomorrow. (5) COPD (chronic obstructive pulmonary disease) Current Visit: Yes Status: Acute Assessment and Plan: Requiring oxygen supplementation currently on 3 L nasal cannula which we will continue titrating maintain SPO2 greater than 90% Her sat is 93% on 3 L oxygen via nasal cannula. She is on IV antibiotic and oral prednisone 5 MG daily and nebulizer treatment. (6) Essential hypertension Current Visit: No Status: Chronic Assessment and Plan: She is a patient of chronic hypertension, she is on lisinopril 25 MG daily and carvedilol 6.25 PO BID, her recent blood pressure is 139/77 - Time Spent with Patient Total time spent is greater than 50% in coordination of care (as documented) at patient's floor/unit and/or counseling patient: Internal Medicine: Result - Labs CBC & Chem 7: 05/01/18 03:44 05/01/18 13:17 Labs: Short CBC 05/01/18 Range/Units 03:44 WBC 6.8 (4.3-11.1) K/mcL Hgb 13.4 (11.5-15.4) g/dL Hct 40.5 (35.3-44.9) % Plt Count 137 L (140-400) K/mcL Neutrophils # 4.4 (1.6-8.9) K/mcL BMP 05/01/18 03:44 Sodium 134 L Potassium 2.9 L Chloride 89 L Carbon Dioxide 32 H BUN 5 L Creatinine 0.51 L Glucose 121 H Calcium 8.8 - ABG Interpretation ABG results: PT/INR, D-dimer PT 10.9 Seconds (9.4-12.1) 04/29/18 20:04 - Impressions Impressions Echocardiogram Limited Views 04/30/18 10:39 Impressions: LVEF 65-70%. Moderate concentric left ventricular hypertrophy. Normal right ventricular structure and function. Left Ventricular Wall Motion: Rest Echo Findings All wall segments showed normal motion. Findings: Study Quality * Technically adequate exam. ECG Findings * Sinus tachycardia. Left Ventricle * LVEF 65-70%. * Moderate concentric left ventricular hypertrophy. Right Ventricle * Normal right ventricular structure and function. Aorta * Normally sized aortic root. Pericardium * There is no pericardial effusion present. Chest X-Ray 04/30/18 10:40 IMPRESSION: New airspace opacity to the left lower lung zone from 04/26/2018 concerning for atelectasis or developing infiltrate. Clinical correlation and continued follow-up recommended. Stable cardiomegaly. D/ / 04/30/2018 11:36:57 Jonny Guerrero MD / Arin [facility] Interpreting Provider: Jonny Guerrero MD Consult Discharge Plan - Plan Referrals: Obed Lin MD [Primary Care Provider] - <AlexajacoboortegaMargo galvan - Last Filed: 05/01/18 16:24> Hospitalist Progress Note - Encounter Date of Encounter: 05/01/18 - Exam Vitals: Temp Pulse Resp BP Pulse Ox 97.7 F 93 17 104/99 92 05/01/18 15:42 05/01/18 15:42 05/01/18 15:42 05/01/18 15:42 05/01/18 15:42 - Assessment and Plan (1) Urinary tract infection Current Visit: No Status: Acute (2) Hypokalemia Current Visit: No Status: Acute (3) NSTEMI (non-ST elevated myocardial infarction) Current Visit: No Status: Acute (4) Encephalopathy Current Visit: Yes Status: Acute (5) Counseling regarding goals of care Current Visit: Yes Status: Acute (6) Dementia Current Visit: Yes Status: Acute - Time Spent with Patient Total time spent is greater than 50% in coordination of care (as documented) at patient's floor/unit and/or counseling patient: Internal Medicine: Result - Labs CBC & Chem 7: 05/01/18 03:44 05/01/18 13:17 Labs: Short CBC 05/01/18 Range/Units 03:44 WBC 6.8 (4.3-11.1) K/mcL Hgb 13.4 (11.5-15.4) g/dL Hct 40.5 (35.3-44.9) % Plt Count 137 L (140-400) K/mcL Neutrophils # 4.4 (1.6-8.9) K/mcL BMP 05/01/18 05/01/18 03:44 13:17 Sodium 134 L 132 L Potassium 2.9 L 3.0 L Chloride 89 L 92 L Carbon Dioxide 32 H 35 H BUN 5 L 7 L Creatinine 0.51 L 0.57 L Glucose 121 H 168 H Calcium 8.8 8.6 - ABG Interpretation ABG results: PT/INR, D-dimer PT 10.9 Seconds (9.4-12.1) 04/29/18 20:04 - Impressions Impressions Echocardiogram Limited Views 04/30/18 10:39 Impressions: LVEF 65-70%. Moderate concentric left ventricular hypertrophy. Normal right ventricular structure and function. Left Ventricular Wall Motion: Rest Echo Findings All wall segments showed normal motion. Findings: Study Quality * Technically adequate exam. ECG Findings * Sinus tachycardia. Left Ventricle * LVEF 65-70%. * Moderate concentric left ventricular hypertrophy. Right Ventricle * Normal right ventricular structure and function. Aorta * Normally sized aortic root. Pericardium * There is no pericardial effusion present. - Attending Attestation I examined this patient and my medical decision-making was reviewed with the Resident Physician Dr. Dinero. I agree with the documented findings, disposition and treatment plan as described except to the extent set forth below. Ms. Schmidt is a 82 year old female patient with history of rheumatoid arthritis on Remicade, hypertension, hyperlipidemia, dementia, recent non-ST elevation CT ( opted not to proceed with LHC / Cardiac interventions since family do not wanted to place her on DAP therapy ) now she was brought into the hospital on 04/27/18 G2 acute delirium/altered mental status with recurrent UTI. Patient was admitted in the hospital and placed her on box lidder. She does have UTI with urine culture growing E. coli. Patient became acute hypoxic respiratory failure currently on 3 lit oxygen dependent. She seems to be having aspiration pneumonia. Her chest x-ray showed left lower lobe pneumonia. At this point we broaden her antibiotic coverage with zosyn and vancomycin. Patient still seems to be confused, agitated at times. Gen: Demented, confused Chest: Diminished BS b/l, No wheezing, No crackles Heart: S1S2+ Tachycardia, No murmurs Neuro: unable to assess due to confused state a/p 1. Acute hypoxic resp failure 2. Acute LLL PNA - mostly aspirational 3. Acute toxic encephalopathy continue broad-spectrum antibiotic coverage with Zosyn and vancomycin patient is high risk for aspiration pneumonia will do speech eval patient looks slightly dehydrated, will give her gentle IV hydration today 4. Acute UTI with E. coli continue empirical antibiotic Zosyn 5. Recent non-STEMI, CAD 6. Slightly elevated troponin family opted not to go for LHC family do not want to proceed with any aggressive invasive procedures cardiology on board will discontinue heparin drip continue conservative, medical management for now 7. Advanced dementia 8. Severe physical deconditioning it seems to be overall patient condition started declining lately. I did talk to patient's and daughter at bedside explained to them about current care. They do not want to proceed with any aggressive, invasive therapy. They prefer DNR DNI. I did talk to them about palliative care consult. They both agreed for palliative care consulted however they wanted continue current medical management for now. <Margo Hooks - Last Filed: 05/01/18 16:24> (1) Urinary tract infection Qualifiers: Qualified Code(s): N30.00 - Acute cystitis without hematuria
[2018-05-01 13:48] LABS: BUN/Creatinine Ratio 12 (6-26); Blood Urea Nitrogen 7 mg/dL (8-23); Calcium 8.6 mg/dL (8.6-10.3); Carbon Dioxide 35 mEq/L (23-29); Chloride 92 mEq/L (98-107); Glucose 168 mg/dL (70-105); Magnesium 1.9 mg/dL (1.6-2.6); Osmolality,Calculated 276 (280-300); Sodium 132 mEq/L (136-145); eGFR For Non-African Americans > 60 (> 60)
[2018-05-01] MEDS ORDERED: Potassium Chloride Elixir 20 MEQ/15 ML UDC PO ONE (15:22)
--- NOTE | 2018-05-01 15:28 | Palliative - Consult Note ---
<Priyanka Clinton - Last Filed: 05/01/18 15:26> Date of Encounter: 05/01/18 Time of Encounter: 02:00 - Assessment and Plan (1) Encephalopathy Current Visit: Yes Status: Acute Assessment and plan: Multifactorial as patient has UTI, pneumonia, dementia with Sundowning. Will continue treatment of UTI and pneumonia. Management by primary team. (2) Hypokalemia Current Visit: No Status: Acute Assessment and plan: Potassium 3.0 today. Will continue to supplement per primary team. (3) NSTEMI (non-ST elevated myocardial infarction) Current Visit: No Status: Acute Assessment and plan: Family discussed with cardiology and they would not like to proceed further with [facility] due to the risk. Heparin drip has been discontinued. Continue medical management per cardiology. (4) Urinary tract infection Current Visit: No Status: Acute Assessment and plan: Day 4 of Zosyn, Day 2 of Vancomycin. Continue treatment per primary team. Qualifiers: Urinary tract infection type: acute cystitis Hematuria presence: without hematuria Qualified Code(s): N30.00 - Acute cystitis without hematuria (5) Dementia Current Visit: Yes Status: Acute Assessment and plan: History of agitation. Plan: - Haldol 1mg Q6H IVP prn for agitation - Clonazepram 1mg BID nixon Qualifiers: Dementia type: unspecified type Dementia behavioral disturbance: with behavioral disturbance Qualified Code(s): F03.91 - Unspecified dementia with behavioral disturbance (6) Counseling regarding goals of care Current Visit: Yes Status: Acute Assessment and plan: Discussed with and daughter about goals of care. states that she would like to be DNRCC-A. Therefore code status was switched from full code to DNR-CCA. We will monitor over the next couple of days to see if mental status improves with antibiotics or continues to decline. Daughter is concerned about her father needing support and that he cannot take care of her. She was previously at [facility] for rehab. OT/PT recommended SNF at discharge. Patient does not meet hospice criteria based on previous baseline so further evaluation if baseline has declined or if patient will recover from her UTI and pneumonia will occur as we progress with treatment. Request has been made by primary team for a room change as patient does not have windows which could be contributing to this continued decrease in mental status. Will continue to observe with treatment course. Palliative-CN HPI - Data of Consult Patient: new to practice Consult date: 05/01/18 Requesting Physician: Margo Hooks MD Primary Care Provider: Obed Lin MD - Consult Narrative Palliative Care/Comfort Measures: Palliative care Reason for consult: goals of care History of present illness: Ms. Schmidt is a 82 year old female with a pmh of rheumatoid arthritis on Remicade, hypertension, hyperlipidemia, dementia, recent NSTEMI who presented to the ER with complaints of AMS who was found to have multi-organism UTI causing encephalopathy, pneumonia, and NSTEMI. Patient is current on day 4 of Zosyn for UTI and pneumonia and Vancomycin day 2. Patient's encephalopathy has continued since hospital admission. Family is unsure if this is related to the lack of sunlight in the room or the infection. Today, had a discussion with her Rosales about what the patient was able to do before coming into the hospital last week. He reported that she was still eating, getting out of bed at the alf and walking down the [address] way with assistance. She was still talking and responding, sometimes repeating he rself but would still tell stories from her past. He says that what he has seen during this hospital stay is very different from her baseline and believes that her being in a dark room without a window to see the light changes has really contributed to this. As she has previously had this happen when she was in her 40s. Her states that he is her POA and he makes all her medical decisions by himself, so his daughters do not have a burden if they make a wrong decision. Discussion was also had with one of her daughters Alina who confirmed what Rosales said about her baseline. She states that her mom did not want to walk but if you pushed her she would but would become SOB walking down the toure. She has had repeated UTI. She has also had significant weight loss. Code status was discussed with her and he states that she would like to be DNRCC-A. CC: Margo Hooks MD - Time Spent with Patient Time: Total time spent is greater than 50% in coordination of care (as documented) at patient's floor/unit and/or counseling patient: Past Med Surg Social Fam HX - Past Medical History Medical history: arthritis, dementia, GERD, hyperlipidemia, hypertension, migr evelyn, myocardial infarction, RA, thyroid disease, other Additional medical history: macular degeneration Psychiatric history: anxiety, depression - Past Surgical History Surgical History: cholecystectomy, hysterectomy Additional surgical history: Plate in pelvis - Social History Smoking Status: Never smoker Smokeless Tobacco Status: No Alcohol use: none Drug use: none - Family History Mother Adopted: No Living Status: Hx Family Cardiac Disorders: Yes Father Hx Family Cancer: Yes (colon cancer) Medications and Allergies Acetaminophen/Butalbital/Caffe [Fioricet] 1.5 tab PO Q4HR MDD 6 tabs 11/23/14 [History] Levothyroxine Sodium 100 mcg PO QAM 05/30/16 [History] Atorvastatin Calcium [Lipitor] 20 mg PO HS 11/15/17 [History] Mag Hydrox/Aluminum Hyd/Simeth [Cvs Antacid Plus Anti-Gas Liq] 10 ml PO QID PRN 04/09/18 [History] Magnesium Hydroxide [Milk of Magnesia] 30 ml PO DAILY PRN 04/09/18 [History] clonazePAM [Clonazepam] 1 mg PO BID 04/09/18 [History] predniSONE [PredniSONE] 5 mg PO DAILY 04/09/18 [History] ALPRAZolam [Xanax 0.5 MG Tablet] 0.5 mg PO TID 04/27/18 [History] Carvedilol [Coreg] 3.125 mg PO BIDWM 04/27/18 [History] Lisinopril [Zestril] 20 mg PO DAILY 04/27/18 [History] Tramadol HCl [Ultram] 50 mg PO DAILY PRN 04/27/18 [History] 3 Allergy/AdvReac Type Severity Reaction Status Date / Time esomeprazole [From Nexium] Allergy Difficulty Verified 11/15/17 09:41 Breathing levofloxacin [From Levaquin] Allergy Blister Verified 11/15/17 09:41 Amoxicillin [From Augmentin] AdvReac Nausea Verified 11/15/17 09:41 aspirin AdvReac Dizziness Verified 11/15/17 09:41 clavulanic acid AdvReac Nausea Verified 11/15/17 09:41 [From Augmentin] codeine AdvReac Dizziness Verified 11/15/17 09:41 Estrogens AdvReac Dizziness Verified 11/15/17 09:41 hydromorphone [Hydromorphone] AdvReac Dizziness Verified 11/15/17 09:41 meperidine AdvReac Dizziness Verified 11/15/17 09:41 morphine AdvReac Dizziness Verified 11/15/17 09:41 nitrofurantoin AdvReac Nausea Verified 11/15/17 09:41 NSAIDS (Non-Steroidal AdvReac Dizziness Verified 11/15/17 09:41 Anti-Inflamma oxycodone [Oxycodone] AdvReac Dizziness Verified 11/15/17 09:41 Paroxetine [From Paxil] AdvReac Nausea Verified 11/15/17 09:41 tolterodine [From Detrol] AdvReac Nausea Verified 11/15/17 09:41 ROS unobtainable: due to mental status Palliative Care-Exam - Constitutional Vitals: Temp Pulse Resp BP Pulse Ox 98 F 130 17 139/77 93 05/01/18 06:44 05/01/18 06:44 05/01/18 11:43 05/01/18 06:44 05/01/18 11:43 - Other Additional findings: Constitutional: oriented to self and birthdate, unsure of where she is at, diffuse muscle wasting present Head: Normocephalic, atraumatic, normal contour and symmetric, no masses, lesions or scars Heart: regular rate, systolic murmur Lungs: bilateral crackles, decreased breath sounds bilaterally anteriorly, on 3L NC breathing comfortably at rest Abdomen: Soft, nondistended,, bowel sounds hypoactive, suprapubic tenderness, no guarding or rigidity. Extremities: No clubbing, cyanosis, or edema, capillary refill <2sec. Skin: Skin warm and dry, no lesions, no rashes, no jaundice Neurologic: A&O x1, responding to some questions appropriately, Internal Medicine - CN: Reslt - Labs CBC & Chem 7: 05/01/18 03:44 05/01/18 13:17 Labs: Short CBC 05/01/18 Range/Units 03:44 WBC 6.8 (4.3-11.1) K/mcL Hgb 13.4 (11.5-15.4) g/dL Hct 40.5 (35.3-44.9) % Plt Count 137 L (140-400) K/mcL Neutrophils # 4.4 (1.6-8.9) K/mcL BMP 05/01/18 05/01/18 03:44 13:17 Sodium 134 L 132 L Potassium 2.9 L 3.0 L Chloride 89 L 92 L Carbon Dioxide 32 H 35 H BUN 5 L 7 L Creatinine 0.51 L 0.57 L Glucose 121 H 168 H Calcium 8.8 8.6 - ABG Interpretation ABG results: PT/INR, D-dimer PT 10.9 Seconds (9.4-12.1) 04/29/18 20:04 - Impressions Impressions Echocardiogram Limited Views 04/30/18 10:39 Impressions: LVEF 65-70%. Moderate concentric left ventricular hypertrophy. Normal right ventricular structure and function. Left Ventricular Wall Motion: Rest Echo Findings All wall segments showed normal motion. Findings: Study Quality * Technically adequate exam. ECG Findings * Sinus tachycardia. Left Ventricle * LVEF 65-70%. * Moderate concentric left ventricular hypertrophy. Right Ventricle * Normal right ventricular structure and function. Aorta * Normally sized aortic root. Pericardium * There is no pericardial effusion present. Consult Discharge Plan - Plan Referrals: Obed Lin MD [Primary Care Provider] - Palliative Quality Palliative Quality: Screen for Code Status: Yes, Screen for Goals of Care: Yes, Screen for Pain: No, If Pain Regimen Started, Initiate Bowel Regimen: No, Screen for Nausea/Vomitting: No Code Status: DNR-CCA <Sravani Elliott - Last Filed: 05/01/18 22:51> Date of Encounter: 05/01/18 Palliative-CN HPI - Data of Consult Requesting Physician: Margo Hooks MD Primary Care Provider: Obed Lin MD - Consult Narrative History of present illness: Ms. Schmidt is a 82 year old female CC: Margo Hooks MD - Time Spent with Patient Time: Total time spent is greater than 50% in coordination of care (as documented) at patient's floor/unit and/or counseling patient: Palliative Care-Exam - Constitutional Vitals: Temp Pulse Resp BP Pulse Ox 97.7 F 93 17 104/99 92 05/01/18 15:42 05/01/18 15:42 05/01/18 15:42 05/01/18 15:42 05/01/18 15:42 Internal Medicine - CN: Reslt - Labs CBC & Chem 7: 05/01/18 03:44 05/01/18 13:17 Labs: Short CBC 05/01/18 Range/Units 03:44 WBC 6.8 (4.3-11.1) K/mcL Hgb 13.4 (11.5-15.4) g/dL Hct 40.5 (35.3-44.9) % Plt Count 137 L (140-400) K/mcL Neutrophils # 4.4 (1.6-8.9) K/mcL BMP 05/01/18 05/01/18 03:44 13:17 Sodium 134 L 132 L Potassium 2.9 L 3.0 L Chloride 89 L 92 L Carbon Dioxide 32 H 35 H BUN 5 L 7 L Creatinine 0.51 L 0.57 L Glucose 121 H 168 H Calcium 8.8 8.6 - ABG Interpretation ABG results: PT/INR, D-dimer PT 10.9 Seconds (9.4-12.1) 04/29/18 20:04 - Impressions Impressions Echocardiogram Limited Views 04/30/18 10:39 Impressions: LVEF 65-70%. Moderate concentric left ventricular hypertrophy. Normal right ventricular structure and function. Left Ventricular Wall Motion: Rest Echo Findings All wall segments showed normal motion. Findings: Study Quality * Technically adequate exam. ECG Findings * Sinus tachycardia. Left Ventricle * LVEF 65-70%. * Moderate concentric left ventricular hypertrophy. Right Ventricle * Normal right ventricular structure and function. Aorta * Normally sized aortic root. Pericardium * There is no pericardial effusion present. - Attending Attestation I performed a history and physical examination of the patient and discussed his management with the resident. I reviewed the residents note and agree with the documented findings and plan of care, except as follow: Pt was alert, could tell her name and date of , but disoriented to place and time or situation. She appeared to be calm and denied any discomfort. Sitter was present, present at the bedside. Discussed with about current medical condition, trajectory of illness, prognosis and treatment options. stated that pt up to current episode was talking and interacting appropriately, although she was forgetful and repeating questions. She was able to get out of bed and make few steps with assistance, also because she is high risk of fall. He believes that pt's current mental status may be a combination of infection and sundowning. is still hopeful that pt will return to her baseline and be able to go back to rehab at [facility] before returning home. Met with pt's daughter Alina Hill, she was appropriately emotional, but understanding of the clinical picture. She confirmed pt's baseline functional status as per pt's . Family is hopeful that pt's AMS may be sensorial due to the lack of sunlight since admission, coupled with UTI. 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 Advanced care planning wit pt's , he stated she is DNRCCA. order placed. -Pt to be move out of 2SHold. -Agitation: pt is getting Temazepam BID, will add Haldol 1 mg q6hrs prn, restart Fioricet q4hrs -Rest of management per primary team. Palliative care will follow pt closely and further [facility] discussions with family. Palliative Quality Code Status: 04/27/18 08:10 Resuscitation Status: Active [RES] Routine Comment: Resuscitation Status: Full Code 05/01/18 15:38 DNR [Resuscitation Status: Active] [RES] Routine Comment: Resuscitation Status: DNR-Comfort Care-Arrest
[2018-05-01] MEDS ORDERED: Haloperidol Lactate 5 MG/ML VIAL IVP PRN (16:04)
--- NOTE | 2018-05-01 16:55 | Event Note ---
<Priyanka Clinton - Last Filed: 05/01/18 16:50> Date of Encounter: 05/01/18 Time of Encounter: 16:50 Patient's daughter Alina stated that patient has had seizures previously when not on Fioricet. Called the nurse to ask her how often she is taking this medication and he stated that she is taking Fioricet Q4Hs and if she does not take it she gets a migraine. Per neurology note back in 2014, he states that her AMS improved after restarting the Fioricet due to possible barbiturate withdrawal. Therefore will start patient back on her home medication of Fioricet Q4Hs as she is most likely dependent on it. <Sravani Elliott - Last Filed: 05/01/18 22:51> Date of Encounter: 05/01/18 Discussed with resident, agree with above.
--- NOTE | 2018-05-01 17:26 | Electrocardiograph Report ---
[place] [id number] Test Date: 2018-04-29 Pat Name: Leigh Schmidt Department: 103 Room: 2A16 Gender: F Auditor In Charge: CHELLY : 1935 Requested By: Rajiv Lepe Order Number: [id number] Reading MD: Brie Sweeney Measurements Intervals [place] Rate: 94 P: -14 WI: 163 QRS: -18 QRSD: 107 T: 178 QT: 339 QTc: 391 Interpretive Statements SINUS RHYTHM LVH with IVCD and ST-T wave changes Electronically Signed On 05-01-2018 17:24:40 EST by Brie Sweeney
[2018-05-01] MEDS: Acetaminophen/Butalbital/CaffeineTABLET PO SCH ×2 (20:31→23:10)
[2018-05-02] MEDS: Acetaminophen/Butalbital/CaffeineTABLET PO SCH ×5 (03:21→19:50)
[2018-05-02] MEDS: Ipratropium/Albuterol Neb 3 ML IH SCH ×4 (03:50→22:59)
[2018-05-02 07:52] LABS: Basophils % 0.7 %; Eosinophils # 0.2 K/mcL (0.0-0.6); Eosinophils % 3.4 %; Hematocrit 35.7 % (35.3-44.9); Immature Granulocytes % 0.2 % (0-4); Lymphocytes # 1.2 K/mcL (0.6-4.6); Lymphocytes % 27.3 %; Mean Corpuscular HGB Conc 31.7 g/dL (31.6-35.5); Mean Corpuscular Hemoglobin 33.8 pg (28.0-33.3); Mean Corpuscular Volume 106.9 fL (83.0-100.0); Mean Platelet Volume 10.4 fL (9.4-12.4); Monocytes # 0.6 K/mcL (0.0-1.3); Monocytes % 13.3 %; Neutrophils # 2.4 K/mcL (1.6-8.9); Platelet Count 123 K/mcL (140-400); Red Blood Count 3.34 M/mcL (3.82-4.97); Segmented Neutrophils % 55.1 %
[2018-05-02 08:05] LABS: BUN/Creatinine Ratio 13 (6-26); Blood Urea Nitrogen 9 mg/dL (8-23); Calcium 8.5 mg/dL (8.6-10.3); Carbon Dioxide 32 mEq/L (23-29); Chloride 97 mEq/L (98-107); Glucose 109 mg/dL (70-105); Magnesium 2.2 mg/dL (1.6-2.6); Osmolality,Calculated 277 (280-300); Potassium 3.3 mEq/L (3.5-5.1); Sodium 134 mEq/L (136-145); eGFR For Non-African Americans > 60 (> 60)
[2018-05-02 08:39] LABS: Hemoglobin 11.3 g/dL (11.5-15.4)
[2018-05-02] MEDS: clonazePAM 1 MG TABLET PO SCH ×2 (08:42→23:59)
[2018-05-02] MEDS ORDERED: 0.9 % Sodium Chloride 250 ML IVC ONE ×2 (08:44→09:35)
[2018-05-02] MEDS ORDERED: 0.9 % Sodium Chloride 250 ML ONE (08:53)
--- NOTE | 2018-05-02 09:39 | Internal Med Progress Note ---
Addendum entered and electronically signed by Mckenna Dinero 05/02/18 16:05: During my late afternoon visit , The patient was a little bit improved as compared to yesterday , she is verbal today, not delirious . She was oriented to place and person. She admitted dry cough , but no fever and aggravated SOB,. Vitals stable. Original Note: <Mckenna Dinero - Last Filed: 05/02/18 15:17> Hospitalist Progress Note - Encounter Date of Encounter: 05/02/18 Time of Encounter: 09:00 - Subjective Interval History: 82 years old female patient with PMH of arthritis, dementia, GERD, hyperlip idemia, hypertension, migraine, myocardial infarction, RA, thyroid disease came from SNF for combative behaviour, symptoms of UTI.She was recently treated for CP (04/09/2018) and has past hx of NSTEMI (opted not to proceed with LHC/cardiac interventions family did not place her on DAP therapy). She was discharged to [facility] on oxygen. Her EKG done in ED : did show some ST elevation seen in the septal leads with T wave inversion in the lateral leads. This is consistent with her prior EKG performed 04/10/2018. She also had hx of UTI - previous cultures showed multiple resistance and organisms. X-ray chest at ED:New airspace opacity to the left lower zone from 04/26/2018 concerning for atelectasis or developing infiltrate Left lower lobes . Echo showed :LVEF 65- 70%,moderate concentric left ventricular hypertrophy. Normal right ventricular structure and function.Nasal swab: MRSA positive. His urine culture done in inpatient showed : Escherichia coli sensitive to Zosyn. Today during my bedside visit, the patient was lying on the bed, she was awake but not oriented to time and place. She was not answering question appropriately , but occasionally obeys command. the patient was combative and more delirious.collection specialist has been consulted , appreciate her opinion.PT & OT and speech therapist on board. Her vitals were temperature 98.2 F , saturation 91% 3L oxygen, blood pressure 115/68pulse 77 regular, respirations 17 / minutes. - Exam Vitals: Temp Pulse Resp BP Pulse Ox 97.7 F 70 16 79/56 94 05/02/18 08:31 05/02/18 08:31 05/02/18 08:31 05/02/18 08:31 05/02/18 09:06 Exam: General: , Awake but confused , not oriented Time and place, not in acute distress , looks undernourished Skin:Normal color, no rash, no lesions. HEENT:EOM, pupils equal, round and reactive. Cardiovascular:Normal S1 & S2 systolic murmur, no rubs or gallops. No JVD. Pulse regular. Lungs: Crackles in the bases Abdomen:Soft, non-tender, no rigidity. Extremities: No edema Neurological:Normal cognition and motor skills. Pulses:Carotid and radial pulses normal +2. - Assessment and Plan (1) Encephalopathy Current Visit: Yes Status: Acute Assessment and Plan: The acute encephalopathy can be Multifactorial ( toxic/metabolic and/or infective )as patient has UTI, pneumonia, dementia with , patient is on IV antibiotic for UTI and left lower lobe pneumonia( IV zyosin and vanco) .We are continuously monitoring her symptoms. (2) Pneumonia Current Visit: Yes Status: Acute Assessment and Plan: The patient has left lower lobe pneumonia, possibly aspiration. She is on IV antibiotic: Zosyn and vancomycin (3) UTI (urinary tract infection) Current Visit: Yes Status: Acute Assessment and Plan: The patient urinalysis is suggestive of urinary tract infection, culture showed Escherichia coli sensitive to Zosyn. She is on IV Zosyn. (4) Chest pain due to CAD Current Visit: No Status: Acute Assessment and Plan: Patient has history of coronary artery disease, multiple episodes in the past. Serial troponin is; [id number] 8.08 Recent Echo:LVEF 65-70%. Moderate concentric left ventricular hypertrophy. Normal right ventricular structure and function. Chest Xray:New airspace opacity to the left lower lung zone from 04/26/2018 concerning for atelectasis or developing infiltrate,Stable cardiomegaly. EKG: Sinus rhythm with left ventricle hypertrophy and ST -T changes Family member denied left heart catheterization in the past because of multiple comorbidities. We stopped Heparin anticoagulation with consultation with cradiac team . Cardio team on board. (5) Hypokalemia Current Visit: No Status: Acute Assessment and Plan: She is on potassium supplementation, her latest serum potassium is 3.3, it was 3.0 yesterday (6) COPD (chronic obstructive pulmonary disease) Current Visit: Yes Status: Acute Assessment and Plan: The patient is chronic smoker with history of COPD, she is on 3l oxygen by nasal cannula & sat 94%, low dose of prednisone 5 MG and nebulization. We have put her on IV antibiotic for LLL pneumonia that might be cause of exacerbated COPD. (7) Essential hypertension Current Visit: No Status: Chronic Assessment and Plan: She is a patient of chronic hypertension, she is on lisinopril 25 MG daily and carvedilol 6.25 PO BID, her recent blood pressure is 115/68 . Her blood pressure has been dropped down to below 100 and we have put hold the antihypertensive medication. (8) Chronic dementia Current Visit: Yes Status: Acute Assessment and Plan: Patient has history of agitation and confusion, she is on Haldol and clonazepam, Restoril . PT/ OT consultation, speech evaluation has been done. (9) Physical deconditioning Current Visit: Yes Status: Acute Assessment and Plan: She has multiple medical comorbidities with chronic dementia, PT/ OT/ probation worker/ speech pathologist on board. - Time Spent with Patient Total time spent is greater than 50% in coordination of care (as documented) at patient's floor/unit and/or counseling patient: Internal Medicine: Result - Labs CBC & Chem 7: 05/02/18 06:37 05/02/18 06:37 Labs: Short CBC 05/02/18 Range/Units 06:37 WBC 4.4 (4.3-11.1) K/mcL Hgb 11.3 L D (11.5-15.4) g/dL Hct 35.7 (35.3-44.9) % Plt Count 123 L (140-400) K/mcL Neutrophils # 2.4 (1.6-8.9) K/mcL BMP 05/01/18 05/02/18 13:17 06:37 Sodium 132 L 134 L Potassium 3.0 L 3.3 L Chloride 92 L 97 L Carbon Dioxide 35 H 32 H BUN 7 L 9 Creatinine 0.57 L 0.72 Glucose 168 H 109 H Calcium 8.6 8.5 L - ABG Interpretation ABG results: PT/INR, D-dimer PT 10.9 Seconds (9.4-12.1) 04/29/18 20:04 - Impressions Impressions Echocardiogram Limited Views 04/30/18 10:39 Impressions: LVEF 65-70%. Moderate concentric left ventricular hypertrophy. Normal right ventricular structure and function. Left Ventricular Wall Motion: Rest Echo Findings All wall segments showed normal motion. Findings: Study Quality * Technically adequate exam. ECG Findings * Sinus tachycardia. Left Ventricle * LVEF 65-70%. * Moderate concentric left ventricular hypertrophy. Right Ventricle * Normal right ventricular structure and function. Aorta * Normally sized aortic root. Pericardium * There is no pericardial effusion present. Consult Discharge Plan - Plan Referrals: Obed Lin MD [Primary Care Provider] - (Patient is from [facility]...) <Margo Hooks - Last Filed: 05/02/18 16:27> Hospitalist Progress Note - Encounter Date of Encounter: 05/02/18 - Exam Vitals: Temp Pulse Resp BP Pulse Ox 97.2 F L 89 18 93/60 94 05/02/18 12:57 05/02/18 12:57 05/02/18 12:57 05/02/18 12:57 05/02/18 12:57 - Assessment and Plan (1) Urinary tract infection Current Visit: No Status: Acute (2) Hypokalemia Current Visit: No Status: Acute (3) NSTEMI (non-ST elevated myocardial infarction) Current Visit: No Status: Acute (4) Encephalopathy Current Visit: Yes Status: Acute (5) Counseling regarding goals of care Current Visit: Yes Status: Acute (6) Dementia Current Visit: Yes Status: Acute - Time Spent with Patient Total time spent is greater than 50% in coordination of care (as documented) at patient's floor/unit and/or counseling patient: Internal Medicine: Result - Labs CBC & Chem 7: 05/02/18 06:37 05/02/18 06:37 Labs: Short CBC 05/02/18 Range/Units 06:37 WBC 4.4 (4.3-11.1) K/mcL Hgb 11.3 L D (11.5-15.4) g/dL Hct 35.7 (35.3-44.9) % Plt Count 123 L (140-400) K/mcL Neutrophils # 2.4 (1.6-8.9) K/mcL BMP 05/02/18 06:37 Sodium 134 L Potassium 3.3 L Chloride 97 L Carbon Dioxide 32 H BUN 9 Creatinine 0.72 Glucose 109 H Calcium 8.5 L - ABG Interpretation ABG results: PT/INR, D-dimer PT 10.9 Seconds (9.4-12.1) 04/29/18 20:04 - Attending Attestation I examined this patient and my medical decision-making was reviewed with the Resident Physician Dr. Dinero. I agree with the documented findings, disposition and treatment plan as described except to the extent set forth below. Ms. Schmidt is a 82 year old female patient with history of rheumatoid arthritis on Remicade, hypertension, hyperlipidemia, dementia, recent non-ST elevation [place] ( opted not to proceed with LHC / Cardiac interventions since family do not wanted to place her on DAP therapy ) now she was brought into the hospital on 04/27/18 due to acute delirium/altered mental status with recurrent UTI. Patient was admitted in the hospital and placed her on youth nutritional monitor. She does have UTI with urine culture growing E. coli. Patient became acute hypoxic respiratory failure currently on 3 lit oxygen dependent. She seems to be having aspiration pneumonia. Her chest x-ray showed left lower lobe pneumonia. At this point we broaden her antibiotic coverage with zosyn and vancomycin. Pt is more alert, awake and oriented to self today.. still confused and demented. Gen: Demented, confused..More alert , awake Chest: Diminished BS b/l, No wheezing, No crackles Heart: S1S2+ Tachycardia, No murmurs Neuro: unable to assess due to confused state a/p 1. Acute hypoxic resp failure 2. Acute LLL PNA - mostly aspirational 3. Acute toxic encephalopathy continue broad-spectrum antibiotic coverage with Zosyn # 6/10 and vancomycin # 3 patient is high risk for aspiration pneumonia Speech eval done recommend mechanical soft diet IV hydration as needed basis There was some confusion about pt's Fioricet medications. She did receive Fioricet as scheduled since she got admitted, only a couple of doses she missed it when she was lethargic on 2SH 4. Acute UTI with E. coli continue empirical antibiotic Zosyn 5. Recent non-STEMI, CAD 6. Slightly elevated troponin family opted not to go for C family do not want to proceed with any aggressive invasive procedures cardiology on board will discontinue heparin drip continue conservative, medical management for now 7. Advanced dementia 8. Severe physical deconditioning it seems to be overall patient condition started declining lately. Appreciate palliative care recommendations <Margo Hooks - Last Filed: 05/02/18 16:27> (1) Urinary tract infection Qualifiers: Urinary tract infection type: acute cystitis Hematuria presence: without hematuria Qualified Code(s): N30.00 - Acute cystitis without hematuria (6) Dementia Qualifiers: Dementia type: unspecified type Dementia behavioral disturbance: with behavioral disturbance Qualified Code(s): F03.91 - Unspecified dementia with behavioral disturbance
[2018-05-02] MEDS: predniSONE 5 MG TABLET PO SCH (10:35)
[2018-05-02] MEDS: Lactobacillus 1 EACH CAP.SPRINK PO SCH (10:35)
--- NOTE | 2018-05-02 10:35 | Palliative Progress Note ---
<Priyanka Clinton - Last Filed: 05/02/18 10:21> Date of Encounter: 05/02/18 Time of Encounter: 10:21 - Assessment and plan (1) Encephalopathy Current Visit: Yes Status: Acute Assessment and plan: Multifactorial as patient has UTI, pneumonia, dementia with Sundowning. Will continue treatment of UTI and pneumonia. Today, encephalopathy much improved, will continue to observe to see if this continues. Unsure if drastic change is due to improvement of infection or due to restarting Fioricet. Last night, Fioricet was restarted as patient takes this medication Q4Hs. Previous neurology note from 2015 states that patient was AMS and they noticed significant improvement after restarting Fioricet. Patient has not been on Fioricet since admission, so patient could have been withdrawing from the benzodiazepine that has caused her to have memory impairment, hallucinations, and agitation. Plan: - continue antibiotic treatment per primary team - cotinue Fioricet Q4H nixon (2) Hypokalemia Current Visit: No Status: Acute Assessment and plan: Potassium 3.3 today. Will continue to supplement per primary team. (3) NSTEMI (non-ST elevated myocardial infarction) Current Visit: No Status: Acute Assessment and plan: Family discussed with cardiology and they would not like to proceed further with [facility] due to the risk. Heparin drip has been discontinued. Continue medical management per cardiology. (4) Urinary tract infection Current Visit: No Status: Acute Assessment and plan: Day 5 of Zosyn, Day 3of Vancomycin. Continue treatment per primary team. Qualifiers: Urinary tract infection type: acute cystitis Hematuria presence: without hematuria Qualified Code(s): N30.00 - Acute cystitis without hematuria (5) Dementia Current Visit: Yes Status: Acute Assessment and plan: History of agitation during this hospital admission. Patient is doing much better this morning. She has been moved to a room with a window to help regular her wake sleep dave and decrease risk of Sundowning. She has not needed to use the Haldol since order was placed. Plan: - Haldol 1mg Q6H IVP prn for agitation - Clonazepram 1mg BID nixon Qualifiers: Dementia type: unspecified type Dementia behavioral disturbance: with behavioral disturbance Qualified Code(s): F03.91 - Unspecified dementia with behavioral disturbance (6) Counseling regarding goals of care Current Visit: Yes Status: Acute Assessment and plan: Discussed with and daughter about goals of care. Patient is doing much better mentally this morning as she knows she is at [facility] and is able to state her name. She is aware of the conversation around her and is responding appropriately to most questions. She is still confused but greatly improved from yesterday. Discussion with family resulted in the same plan as yesterday, as they would like her to be discharged to [facility] for rehab is patient's mental status continues to remain as is but would be open to hospice if patient declines further over this hospital stay. Patient's code status remains DNR CCA. - Time Spent With Patient Total time spent is greater than 50% in coordination of care (as documented) at patient's floor/unit and/or counseling patient: - Subjective Interval history: Ms. Schmidt is a 82 year old female with a pmh of rheumatoid arthritis on Remicade, hypertension, hyperlipidemia, dementia, recent NSTEMI who presented to the ER with complaints of AMS who was found to have multi-organism UTI causing encephalopathy, pneumonia, and NSTEMI. Overnight, patient slept from 3pm until this morning. Her blood pressures were dropping overnight and her blood pressure this morning was 79/56. When she woke up this morning, the patient was doing much better than yesterday. She is interacting well with her family and able to eat all her oatmeal this morning. She was oriented A&O x 2 which is improved from yesterday. Family meeting was conducted this morning with the patient's Rosales and her daughter Alina. Patient was initially present for the discussion but became upset that we were discussing her dying. Discussion was continued privately and it was made clear that the family wants at this time would like to have her placed at [facility]. If she continues to improve/ remain how she is today, they would like to send her back to [facility] under skilled with rehab. They have tired multiple routes to have her at home and to have 24/7 care of people taking care of her around the clock but it is very hard for them to maintain employees for this. If during this hospital stay she declines, then they are open to hospice. The difference between DNRCCA and DNRCC were discussed and family became very emotional during this discussion. Agreement and papers were signed for patient to be DNRCCA. They are open though to patient not needing more extensive testing than just conservative management. - Constitutional Vitals: Abnormal lab results RBC 3.34 M/mcL (3.82-4.97) L 05/02/18 06:37 Hgb 11.3 g/dL (11.5-15.4) L D 05/02/18 06:37 MCV 106.9 fL (83.0-100.0) H 05/02/18 06:37 MCH 33.8 pg (28.0-33.3) H 05/02/18 06:37 Plt Count 123 K/mcL (140-400) L 05/02/18 06:37 Sodium 134 mEq/L (136-145) L 05/02/18 06:37 Potassium 3.3 mEq/L (3.5-5.1) L 05/02/18 06:37 Chloride 97 mEq/L (98-107) L 05/02/18 06:37 Carbon Dioxide 32 mEq/L (23-29) H 05/02/18 06:37 Glucose 109 mg/dL (70-105) H 05/02/18 06:37 POC Glucose 103 mg/dL (70-99) H 05/01/18 08:43 Calculated Osmolality 277 (280-300) L 05/02/18 06:37 Calcium 8.5 mg/dL (8.6-10.3) L 05/02/18 06:37 Troponin I 0.08 ng/mL (< 0.04) H* 04/30/18 04:00 Urine Clarity Cloudy (Clear) A 04/27/18 01:37 Urine Protein 30 mg/dL (Neg-Trace) H 04/27/18 01:37 Urine Blood Small (Negative) H 04/27/18 01:37 Urine Nitrite Positive (Negative) A 04/27/18 01:37 Ur Leukocyte Esterase Moderate (Negative) H 04/27/18 01:37 Urine Microscopic RBC 5-15 per hpf (0-3) H 04/27/18 01:37 Urine Microscopic WBC TNTC per hpf (0-3) H 04/27/18 01:37 Urine Bacteria Many per hpf (None-Few) H 04/27/18 01:37 Ur Culture Indicated? YES (NO) A 04/27/18 01:37 Nasal Screen MRSA (PCR) Positive (Negative) A 04/30/18 16:27 Ur Barbiturates Screen Positive ng/mL (Kcxprl=720) H 04/27/18 01:37 U Benzodiazepines Scrn Positive ng/mL (Hlqkcn=626) H 04/27/18 01:37 - Additional findings Additional findings: Constitutional: oriented to self and birthdate, unsure of where she is at, diffuse muscle wasting present Head: Normocephalic, atraumatic, normal contour and symmetric, no masses, lesions or scars Heart: regular rate, systolic murmur ungs: bilateral crackles, decreased breath sounds bilaterally anteriorly, on 3L NC breathing comfortably at rest Abdomen: Soft, nondistended,, bowel sounds normal ,non-tender, no guarding or rigidity. Extremities: No clubbing, cyanosis, or edema, capillary refill <2sec. Skin: Skin warm and dry, no lesions, no rashes, no jaundice Neurologic: A&O x2, responding to most questions appropriate except when asked about the year believes it is 2008. Palliative Quality Palliative Quality: Screen for Code Status: Yes, Screen for Goals of Care: Yes, Screen for Pain: No, If Pain Regimen Started, Initiate Bowel Regimen: No, Screen for Nausea/Vomitting: No Code Status: 04/27/18 08:10 Resuscitation Status: Active [RES] Routine Comment: Resuscitation Status: Full Code 05/01/18 15:38 DNR [Resuscitation Status: Active] [RES] Routine Comment: Resuscitation Status: DNR-Comfort Care-Arrest - Labs CBC & Chem 7: 05/02/18 06:37 05/02/18 06:37 Labs: Laboratory Results - last 24 hr 04/30/18 05/01/18 05/02/18 07:45 13:17 06:37 WBC 4.4 RBC 3.34 L Hgb 11.3 L D Hct 35.7 MCV 106.9 H MCH 33.8 H MCHC 31.7 RDW 13.0 Plt Count 123 L MPV 10.4 Immature Gran % 0.2 Seg Neutrophils % 55.1 Lymphocytes % 27.3 Monocytes % 13.3 Eosinophils % 3.4 Basophils % 0.7 Neutrophils # 2.4 Lymphocytes # 1.2 Monocytes # 0.6 Eosinophils # 0.2 Basophils # 0.0 Sodium 132 L Potassium 3.0 L Chloride 92 L Carbon Dioxide 35 H BUN 7 L Creatinine 0.57 L Est GFR ( Amer) > 60 Est GFR (Non-Af Amer) > 60 BUN/Creatinine Ratio 12 Glucose 168 H POC Glucose 93 Calculated Osmolality 276 L Calcium 8.6 Magnesium 1.9 05/02/18 06:37 WBC RBC Hgb Hct MCV MCH MCHC RDW Plt Count MPV Immature Gran % Seg Neutrophils % Lymphocytes % Monocytes % Eosinophils % Basophils % Neutrophils # Lymphocytes # Monocytes # Eosinophils # Basophils # Sodium 134 L Potassium 3.3 L Chloride 97 L Carbon Dioxide 32 H BUN 9 Creatinine 0.72 Est GFR ( Amer) > 60 Est GFR (Non-Af Amer) > 60 BUN/Creatinine Ratio 13 Glucose 109 H POC Glucose Calculated Osmolality 277 L Calcium 8.5 L Magnesium 2.2 - Impressions Impressions Echocardiogram Limited Views 04/30/18 10:39 Impressions: LVEF 65-70%. Moderate concentric left ventricular hypertrophy. Normal right ventricular structure and function. Left Ventricular Wall Motion: Rest Echo Findings All wall segments showed normal motion. Findings: Study Quality * Technically adequate exam. ECG Findings * Sinus tachycardia. Left Ventricle * LVEF 65-70%. * Moderate concentric left ventricular hypertrophy. Right Ventricle * Normal right ventricular structure and function. Aorta * Normally sized aortic root. Pericardium * There is no pericardial effusion present. - ABG Interpretation ABG results: PT/INR, D-dimer PT 10.9 Seconds (9.4-12.1) 04/29/18 20:04 Consult Discharge Plan - Plan Referrals: Obed Lin MD [Primary Care Provider] - (Patient is from [facility]...) <Sravani Elliott - Last Filed: 05/02/18 15:30> Date of Encounter: 05/02/18 - Time Spent With Patient Total time spent is greater than 50% in coordination of care (as documented) at patient's floor/unit and/or counseling patient: Greater than 35 minutes - Constitutional Vitals: Abnormal lab results RBC 3.34 M/mcL (3.82-4.97) L 05/02/18 06:37 Hgb 11.3 g/dL (11.5-15.4) L D 05/02/18 06:37 MCV 106.9 fL (83.0-100.0) H 05/02/18 06:37 MCH 33.8 pg (28.0-33.3) H 05/02/18 06:37 Plt Count 123 K/mcL (140-400) L 05/02/18 06:37 Sodium 134 mEq/L (136-145) L 05/02/18 06:37 Potassium 3.3 mEq/L (3.5-5.1) L 05/02/18 06:37 Chloride 97 mEq/L (98-107) L 05/02/18 06:37 Carbon Dioxide 32 mEq/L (23-29) H 05/02/18 06:37 Glucose 109 mg/dL (70-105) H 05/02/18 06:37 POC Glucose 103 mg/dL (70-99) H 05/01/18 08:43 Calculated Osmolality 277 (280-300) L 05/02/18 06:37 Calcium 8.5 mg/dL (8.6-10.3) L 05/02/18 06:37 Troponin I 0.08 ng/mL (< 0.04) H* 04/30/18 04:00 Urine Clarity Cloudy (Clear) A 04/27/18 01:37 Urine Protein 30 mg/dL (Neg-Trace) H 04/27/18 01:37 Urine Blood Small (Negative) H 04/27/18 01:37 Urine Nitrite Positive (Negative) A 04/27/18 01:37 Ur Leukocyte Esterase Moderate (Negative) H 04/27/18 01:37 Urine Microscopic RBC 5-15 per hpf (0-3) H 04/27/18 01:37 Urine Microscopic WBC TNTC per hpf (0-3) H 04/27/18 01:37 Urine Bacteria Many per hpf (None-Few) H 04/27/18 01:37 Ur Culture Indicated? YES (NO) A 04/27/18 01:37 Nasal Screen MRSA (PCR) Positive (Negative) A 04/30/18 16:27 Ur Barbiturates Screen Positive ng/mL (Bmvdby=686) H 04/27/18 01:37 U Benzodiazepines Scrn Positive ng/mL (Epvqif=367) H 04/27/18 01:37 - Attending Attestation I performed a history and physical examination of the patient and discussed his management with the resident. I reviewed the residents note and agree with the documented findings and plan of care, except as follow: Patient today was awake, oriented to person, and place, able to recognize all family present, and even Dr. Butler. She jus ate her breakfast and stated to be feeling well. Family meeting between myself, resident Dr. Clinton and Dr. Butler with pt's daughter Alina Garrett and pt's . family was updated on pt current clinical status, and educated about the natural history of dementia and the recurrent infections associated. family wants pt to be comfortable, however, today pt's mental status is much improved, so they are hopeful that if we keep treating her, she will continue to improve each time. Pt's was very emotional and stated 'if I can get even just a month pout of her then I will keep trying". DNR state form was signed for DNRCCA, family wishes for pt to remain on current level of care, and be [facility]. They were educated on hospice and will consider it if pt fails to improve or worsens later. Emotional support provided. Palliative Quality Code Status: 04/27/18 08:10 Resuscitation Status: Active [RES] Routine Comment: Resuscitation Status: Full Code 05/01/18 15:38 DNR [Resuscitation Status: Active] [RES] Routine Comment: Resuscitation Status: DNR-Comfort Care-Arrest - Labs CBC & Chem 7: 05/02/18 06:37 05/02/18 06:37 Labs: Laboratory Results - last 24 hr 05/01/18 05/02/18 05/02/18 13:17 06:37 06:37 WBC 4.4 RBC 3.34 L Hgb 11.3 L D Hct 35.7 MCV 106.9 H MCH 33.8 H MCHC 31.7 RDW 13.0 Plt Count 123 L MPV 10.4 Immature Gran % 0.2 Seg Neutrophils % 55.1 Lymphocytes % 27.3 Monocytes % 13.3 Eosinophils % 3.4 Basophils % 0.7 Neutrophils # 2.4 Lymphocytes # 1.2 Monocytes # 0.6 Eosinophils # 0.2 Basophils # 0.0 Sodium 132 L 134 L Potassium 3.0 L 3.3 L Chloride 92 L 97 L Carbon Dioxide 35 H 32 H BUN 7 L 9 Creatinine 0.57 L 0.72 Est GFR ( Amer) > 60 > 60 Est GFR (Non-Af Amer) > 60 > 60 BUN/Creatinine Ratio 12 13 Glucose 168 H 109 H Calculated Osmolality 276 L 277 L Calcium 8.6 8.5 L Magnesium 1.9 2.2 - ABG Interpretation ABG results: PT/INR, D-dimer PT 10.9 Seconds (9.4-12.1) 04/29/18 20:04 Palliative Scale - Palliative Performance Scale How ambulatory is this patient?: Mainly sit / lie What is patient's level of activity and evidence of disease?: Unable hobby/housework, Significant disease How much self-care assistance does patient require?: Mainly assistance How much oral intake does the patient have?: Normal or reduced What is this patient's level of consciousness?: Full or confusion Palliative Performance Score: 50 %
[2018-05-02] MEDS: Piperacillin/Tazobactam 3.375 GM in 0.9 % Sodium Chloride Mini Bag 100 ML IVPB SCH ×2 (11:47→17:36)
[2018-05-02] MEDS: Ondansetron ODT 4 MG TAB.RAPDIS SL PRN ×2 (14:27→19:50)
[2018-05-03] MEDS: Acetaminophen/Butalbital/CaffeineTABLET PO SCH ×7 (00:13→23:59)
[2018-05-03] MEDS: Piperacillin/Tazobactam 3.375 GM in 0.9 % Sodium Chloride Mini Bag 100 ML IVPB SCH ×4 (00:14→23:45)
[2018-05-03] MEDS: Ipratropium/Albuterol Neb 3 ML IH SCH ×4 (04:11→22:34)
[2018-05-03 05:51] LABS: Blood Urea Nitrogen 11 mg/dL (8-23); Calcium 8.4 mg/dL (8.6-10.3); Chloride 99 mEq/L (98-107); Glucose 99 mg/dL (70-105); Osmolality,Calculated 279 (280-300); Potassium 4.2 mEq/L (3.5-5.1); Sodium 135 mEq/L (136-145)
[2018-05-03 07:08] LABS: BUN/Creatinine Ratio 14 (6-26); Carbon Dioxide 31 mEq/L (23-29); eGFR For Non-African Americans > 60 (> 60)
[2018-05-03] MEDS: clonazePAM 1 MG TABLET PO SCH ×2 (08:49→20:37)
[2018-05-03] MEDS: Lactobacillus 1 EACH CAP.SPRINK PO SCH (08:49)
[2018-05-03] MEDS: predniSONE 5 MG TABLET PO SCH (08:49)
--- NOTE | 2018-05-03 11:47 | Internal Med Progress Note ---
<Mckenna Dinero P - Last Filed: 05/03/18 16:19> Hospitalist Progress Note - Encounter Date of Encounter: 05/03/18 Time of Encounter: 10:30 - Subjective Interval History: 82 years old female was admitted in inpatient on 04/27/2018 for restlessness, combative behavior, confusion, symptoms of UTI and pneumonia. She was recently treated for pneumonia and see also had history of NSTEMI (family refused to do left heart catheterization and cardiac intervention because of multiple comorbidities). During inpatient, her urine culture showed Escherichia coli sensitive to Zosyn, nasal swab showed MRSA positive, echo showed ejection fraction 65-70% with diastolic dysfunction. She is on Zosyn for day 5 and Vanco for day 3. During my bedside visit today, she is a little bit better than before, she was awake but slightly confused, oriented to time place and person, she admitted to quit coughing , she was on oxygen via nasal cannula sat 98%, afebrile afebrile for the past 24 hours, Other vitals were stable. PT, OT, account specialist, director social welfare, speech pathologist on the board - Exam Vitals: Temp Pulse Resp BP Pulse Ox 98.7 F 97 18 91/57 90 05/03/18 06:17 05/03/18 06:17 05/03/18 06:17 05/03/18 06:17 05/03/18 09:14 Exam: General: , Awake but slightly confused , oriented to Time ,place and place, not in acute distress , looks undernourished Skin:Normal color, no rash, no lesions. HEENT:EOM, pupils equal, round and reactive. Cardiovascular:Normal S1 & S2 systolic murmur, no rubs or gallops. No JVD. Pulse regular. Lungs: Crackles in the bases, no wheezes, diminished air entry. Abdomen:Soft, non-tender, no rigidity. Extremities: No edema Neurological:Normal cognition and motor skills. Pulses:Carotid and radial pulses normal +2. - Assessment and Plan (1) Encephalopathy Current Visit: Yes Status: Acute Assessment and Plan: The patient has acute encephalopathy on the background up chronic dementia and multiple comorbidities, it might be due to multifactorial causes : infective and or toxic encephalopathy. We are treating her for UTI and pneumonia with IV antibiotic Zosyn and vancomycin. She is is still confused but getting reactively better than before, she is oriented to time place and person now. (2) Pneumonia Current Visit: Yes Status: Acute Assessment and Plan: The patient has left lower lobe pneumonia, possibly aspiration, she is on IV antibiotic: today Zosyn for 5 days and vancomycin for 3 days. (3) UTI (urinary tract infection) Current Visit: Yes Status: Acute Assessment and Plan: The patient has had symptoms of UTI and urine analyzes showed urinary infection and urine culture showed Escherichia coli, sensitive to Zosyn and we have been treating her with IV Zosyn (4) Chest pain due to CAD Current Visit: No Status: Acute Assessment and Plan: Patient has history of coronary artery disease, multiple episodes in the past. Serial troponin is; [id number] 0.08 Recent Echo:LVEF 65-70%. Moderate concentric left ventricular hypertrophy. Normal right ventricular structure and function. Chest Xray:New airspace opacity to the left lower lung zone from 04/26/2018 concerning for atelectasis or developing infiltrate,Stable cardiomegaly. EKG: Sinus rhythm with left ventricle hypertrophy and ST -T changes Family member denied left heart catheterization in the past because of multiple comorbidities. We stopped Heparin anticoagulation with consultation with cradiac team . Cardio team on board, (5) Hypokalemia Current Visit: No Status: Acute Assessment and Plan: The recent has low potassium level before: 3.0, it has been resolved with potassium supplementation and latest report is 4.2 now, we will closely monitor her potassium level while she is in inpatient. (6) COPD (chronic obstructive pulmonary disease) Current Visit: Yes Status: Acute Assessment and Plan: The patient is chronic smoker with history of COPD, she is on 3l oxygen by nasal cannula & sat 98%, low dose of prednisone 5 MG and nebulization. We have put her on IV antibiotic for LLL pneumonia that might be cause of exacerbated COPD. (7) Essential hypertension Current Visit: No Status: Chronic Assessment and Plan: he is a patient of chronic hypertension, she is on lisinopril 25 MG daily and carvedilol 6.25 PO BID, her recent blood pressure is 115/70 . (8) Chronic dementia Current Visit: Yes Status: Acute Assessment and Plan: Patient has history of agitation and confusion, she is on Haldol and clonazepam, Restoril . PT/ OT consultation, speech evaluation has been done. (9) Physical deconditioning Current Visit: Yes Status: Acute Assessment and Plan: She has multiple medical comorbidities with chronic dementia, PT/ OT/ director social welfare/ speech pathologist on board. - Time Spent with Patient Total time spent is greater than 50% in coordination of care (as documented) at patient's floor/unit and/or counseling patient: Internal Medicine: Result - Labs CBC & Chem 7: 05/02/18 06:37 05/03/18 05:15 Labs: BMP 05/03/18 05:15 Sodium 135 L Potassium 4.2 D Chloride 99 Carbon Dioxide 31 H BUN 11 Creatinine 0.78 Glucose 99 Calcium 8.4 L - ABG Interpretation ABG results: PT/INR, D-dimer PT 10.9 Seconds (9.4-12.1) 04/29/18 20:04 Consult Discharge Plan - Plan Referrals: Obed Lin MD [Primary Care Provider] - (Patient is from [facility]...) <Margo Hooks - Last Filed: 05/03/18 16:57> Hospitalist Progress Note - Encounter Date of Encounter: 05/03/18 - Exam Vitals: Temp Pulse Resp BP Pulse Ox 98.6 F 96 16 102/70 98 05/03/18 11:35 05/03/18 11:35 05/03/18 11:35 05/03/18 11:35 05/03/18 11:35 - Assessment and Plan (1) Urinary tract infection Current Visit: No Status: Acute (2) Hypokalemia Current Visit: No Status: Acute (3) NSTEMI (non-ST elevated myocardial infarction) Current Visit: No Status: Acute (4) Encephalopathy Current Visit: Yes Status: Acute (5) Counseling regarding goals of care Current Visit: Yes Status: Acute (6) Dementia Current Visit: Yes Status: Acute - Time Spent with Patient Total time spent is greater than 50% in coordination of care (as documented) at patient's floor/unit and/or counseling patient: Internal Medicine: Result - Labs CBC & Chem 7: 05/02/18 06:37 05/03/18 05:15 Labs: BMP 05/03/18 05:15 Sodium 135 L Potassium 4.2 D Chloride 99 Carbon Dioxide 31 H BUN 11 Creatinine 0.78 Glucose 99 Calcium 8.4 L - ABG Interpretation ABG results: PT/INR, D-dimer PT 10.9 Seconds (9.4-12.1) 04/29/18 20:04 - Attending Attestation I examined this patient and my medical decision-making was reviewed with the Resident Physician Dr. Dinero. I agree with the documented findings, disposition and treatment plan as described except to the extent set forth below. Ms. Schmidt is a 82 year old female patient with history of rheumatoid arthritis on Remicade, hypertension, hyperlipidemia, dementia, recent non-ST elevation NE ( opted not to proceed with LHC / Cardiac interventions since family do not wanted to place her on DAP therapy ) now she was brought into the hospital on 04/27/18 due to acute delirium/altered mental status with recurrent UTI. Patient was admitted in the hospital and placed her on operating room surgical technologist. She does have UTI with urine culture growing E. coli. Patient became acute hypoxic respiratory failure currently on 3 lit oxygen dependent. She seems to be having aspiration pneumonia. Her chest x-ray showed left lower lobe pneumonia. At this point we broaden her antibiotic coverage with zosyn and vancomycin. Pt is more alert, awake and oriented to self today, however still looks lethargic, confused and demented. Gen: Demented, confused..More alert , awake Chest: Diminished BS b/l, No wheezing, No crackles Heart: S1S2+ RRR, No murmurs Neuro: unable to assess due to confused state a/p 1. Acute hypoxic resp failure 2. Acute LLL PNA - mostly aspirational 3. Acute toxic encephalopathy 4. SIRS patient did meet SIRS criteria initially with tachycardia, AMS and source of infection as pneumonia and UTI improving now continue broad-spectrum antibiotic coverage with Zosyn # 8/10 d/c Vancomycin patient is high risk for aspiration pneumonia Speech eval done recommend mechanical soft diet she still looks dehydrated.. Will do a strict I / O IV hydration as needed basis There was some confusion about pt's Fioricet medications. She did receive Fioricet as scheduled since she got admitted, only a couple of doses she missed it when she was lethargic on 2SH 5. Acute UTI with E. coli continue empirical antibiotic Zosyn 6. Recent non-STEMI, CAD 7. Slightly elevated troponin family opted not to go for LHC family do not want to proceed with any aggressive invasive procedures cardiology on board will discontinue heparin drip continue conservative, medical management for now 8. Advanced dementia 9. Severe physical deconditioning 10. Severe protein caloric malnutrition will check pre albumin Nutrition consulted for calorie count it seems to be overall patient condition started declining lately. Appreciate palliative care recommendations <Margo Hooks - Last Filed: 05/03/18 16:57> (1) Urinary tract infection Qualifiers: Urinary tract infection type: acute cystitis Hematuria presence: without hematuria Qualified Code(s): N30.00 - Acute cystitis without hematuria (6) Dementia Qualifiers: Dementia type: unspecified type Dementia behavioral disturbance: with behavioral disturbance Qualified Code(s): F03.91 - Unspecified dementia with behavioral disturbance
[2018-05-03] MEDS ORDERED: Aminoglycoside Consult 1 EACH MC ONE (13:03)
[2018-05-03] MEDS ORDERED: Fluconazole 100 MG TABLET PO ONE (13:35)
[2018-05-03 17:43] LABS: BUN/Creatinine Ratio 14 (6-26); Blood Urea Nitrogen 11 mg/dL (8-23); Calcium 8.5 mg/dL (8.6-10.3); Carbon Dioxide 30 mEq/L (23-29); Chloride 99 mEq/L (98-107); Glucose 141 mg/dL (70-105); Osmolality,Calculated 278 (280-300); Potassium 4.4 mEq/L (3.5-5.1); Sodium 133 mEq/L (136-145); eGFR For Non-African Americans > 60 (> 60)
[2018-05-04] MEDS: Ondansetron ODT 4 MG TAB.RAPDIS SL PRN (00:43)
[2018-05-04] MEDS: Acetaminophen/Butalbital/CaffeineTABLET PO SCH ×6 (00:44→20:25)
[2018-05-04] MEDS: Ipratropium/Albuterol Neb 3 ML IH SCH ×4 (04:16→22:01)
[2018-05-04] MEDS: Piperacillin/Tazobactam 3.375 GM in 0.9 % Sodium Chloride Mini Bag 100 ML IVPB SCH (08:27)
[2018-05-04] MEDS: Lactobacillus 1 EACH CAP.SPRINK PO SCH (08:27)
[2018-05-04] MEDS: clonazePAM 1 MG TABLET PO SCH (08:28)
[2018-05-04] MEDS: predniSONE 5 MG TABLET PO SCH (08:28)
[2018-05-04] MEDS: Ampicillin/Sulbactam 3,000 MG in 0.9 % Sodium Chloride Mini Bag 100 ML IVPB SCH ×2 (11:53→17:32)
[2018-05-04] MEDS ORDERED: Haloperidol Lactate 5 MG/ML VIAL IVP PRN (13:38)
--- NOTE | 2018-05-04 15:08 | Internal Med Progress Note ---
Hospitalist Progress Note - Encounter Date of Encounter: 05/04/18 Time of Encounter: 10:50 - Subjective Interval History: Patient sleeping in bed. Very difficult to awake. Discussed with nursing staff. Reported that patient has episodes of increased somnolence but has been a week through rest of the day. She did eat breakfast earlier today. - Exam Vitals: Temp Pulse Resp BP Pulse Ox 97.5 F L 85 20 93/57 91 05/04/18 12:00 05/04/18 12:00 05/04/18 12:00 05/04/18 12:00 05/04/18 12:00 Exam: General: Patient is very somnolent. ENT: Mucous membranes moist Respiratory: Decreased breath sounds at both bases. Cardiovascular: Regular rate and rhythm. s1 and s2 normal No clicks, rubs, gallops, or murmurs. No pedal edema Abdomen: Abdomen is soft, nontender. Bowel sounds are present Musculoskeletal: Spontaneously moving all extremities Skin: warm, dry, intact. Neuro: Unable to assess at this time. - Assessment and Plan (1) Encephalopathy Current Visit: Yes Status: Acute Assessment and Plan: Due to toxic/metabolic encephalopathy with underlying illness/infection. Also medication related. Will decrease Haldol and clonazepam doses. (2) Urinary tract infection Current Visit: Yes Status: Acute Assessment and Plan: Patient is currently receiving Unasyn. (3) Hypokalemia Current Visit: No Status: Acute Assessment and Plan: Repleted. Potassium 4.4 today (4) NSTEMI (non-ST elevated myocardial infarction) Current Visit: Yes Status: Acute Assessment and Plan: Evaluated by cardiology and recommended no left heart catheterization per discussion with family. Continue medical management. (5) Counseling regarding goals of care Current Visit: Yes Status: Acute Assessment and Plan: Palliative care following. Patient is DNR comfort care arrest. (6) Dementia Current Visit: Yes Status: Chronic Assessment and Plan: Continue supportive care. No signs of delirium at this time. Patient is very somnolent. Decrease dose of clonazepam and Haldol. Fall precautions. Awaiting placement to skilled rehabilitation. DVT Prophylaxis: On subcutaneous Lovenox - Time Spent with Patient Total time spent is greater than 50% in coordination of care (as documented) at patient's floor/unit and/or counseling patient: Internal Medicine: Result - Labs CBC & Chem 7: 05/02/18 06:37 05/03/18 17:13 Labs: BMP 05/03/18 17:13 Sodium 133 L Potassium 4.4 Chloride 99 Carbon Dioxide 30 H BUN 11 Creatinine 0.80 Glucose 141 H Calcium 8.5 L - ABG Interpretation ABG results: PT/INR, D-dimer PT 10.9 Seconds (9.4-12.1) 04/29/18 20:04 Consult Discharge Plan - Plan Referrals: Obed Lin MD [Primary Care Provider] - (D/C to [facility]) (2) Urinary tract infection Qualifiers: Urinary tract infection type: acute cystitis Hematuria presence: without hematuria Qualified Code(s): N30.00 - Acute cystitis without hematuria (6) Dementia Qualifiers: Dementia type: unspecified type Dementia behavioral disturbance: with behavioral disturbance Qualified Code(s): F03.91 - Unspecified dementia with behavioral disturbance
[2018-05-04 16:52] LABS: Hematocrit 37.9 % (35.3-44.9); Hemoglobin 11.5 g/dL (11.5-15.4); Immature Platelets 4.9 % (1.1-6.1); Mean Corpuscular HGB Conc 30.3 g/dL (31.6-35.5); Mean Corpuscular Hemoglobin 34.1 pg (28.0-33.3); Mean Corpuscular Volume 112.5 fL (83.0-100.0); Mean Platelet Volume 10.2 fL (9.4-12.4); Red Blood Count 3.37 M/mcL (3.82-4.97); Red Cell Distribution Width 13.1 % (11.5-14.5)
[2018-05-04] MEDS: clonazePAM 0.5 MG TABLET PO SCH (20:25)
[2018-05-04] MEDS ORDERED: clonazePAM 1 MG TABLET PO SCH (21:00)
[2018-05-05] MEDS: Ampicillin/Sulbactam 3,000 MG in 0.9 % Sodium Chloride Mini Bag 100 ML IVPB SCH ×4 (01:27→17:43)
[2018-05-05] MEDS: Acetaminophen/Butalbital/CaffeineTABLET PO SCH ×6 (01:28→20:54)
[2018-05-05] MEDS: Ipratropium/Albuterol Neb 3 ML IH SCH ×3 (04:04→15:40)
[2018-05-05 06:48] LABS: Basophils % 0.6 %; Eosinophils # 0.2 K/mcL (0.0-0.6); Hematocrit 35.4 % (35.3-44.9); Hemoglobin 10.7 g/dL (11.5-15.4); Immature Granulocytes % 0.2 % (0-4); Lymphocytes # 1.2 K/mcL (0.6-4.6); Lymphocytes % 25.5 %; Mean Corpuscular HGB Conc 30.2 g/dL (31.6-35.5); Mean Corpuscular Hemoglobin 33.9 pg (28.0-33.3); Mean Platelet Volume 10.1 fL (9.4-12.4); Monocytes # 0.6 K/mcL (0.0-1.3); Monocytes % 11.9 %; Neutrophils # 2.7 K/mcL (1.6-8.9); Platelet Count 100 K/mcL (140-400); Red Blood Count 3.16 M/mcL (3.82-4.97); Red Cell Distribution Width 12.7 % (11.5-14.5); Segmented Neutrophils % 56.8 %
[2018-05-05] MEDS: *HR* Enoxaparin 40 MG/0.4 ML SYRINGE SQ SCH (06:52)
[2018-05-05 07:00] LABS: BUN/Creatinine Ratio 19 (6-26); Blood Urea Nitrogen 10 mg/dL (8-23); Calcium 8.8 mg/dL (8.6-10.3); Carbon Dioxide 36 mEq/L (23-29); Chloride 98 mEq/L (98-107); Glucose 87 mg/dL (70-105); Osmolality,Calculated 280 (280-300); Potassium 4.1 mEq/L (3.5-5.1); Sodium 136 mEq/L (136-145); eGFR For Non-African Americans > 60 (> 60)
[2018-05-05 07:57] LABS: Anisocytosis 1+ (Not Present); Macrocytosis Present (Not Present); Platelet Estimate Slight Decrease (Normal)
[2018-05-05] MEDS ORDERED: clonazePAM 0.5 MG TABLET PO SCH (09:00)
[2018-05-05] MEDS: Lactobacillus 1 EACH CAP.SPRINK PO SCH (09:26)
[2018-05-05] MEDS: clonazePAM 0.5 MG TABLET PO SCH ×2 (09:26→20:54)
[2018-05-05] MEDS: predniSONE 5 MG TABLET PO SCH (09:26)
--- NOTE | 2018-05-05 13:38 | Internal Med Progress Note ---
Hospitalist Progress Note - Encounter Date of Encounter: 05/05/18 Time of Encounter: 10:50 - Subjective Interval History: Patient is more awake and alert today. Lying down in bed. Denies any significant shortness of breath. Has been present at bedside. Has not been complaining of any acute issues overnight. No fever or chills reported. Remains on oxymask at this time - Exam Vitals: Temp Pulse Resp BP Pulse Ox 98.5 F 86 16 121/77 95 05/05/18 11:34 05/05/18 11:34 05/05/18 11:34 05/05/18 11:34 05/05/18 11:34 Exam: General: Patient is alert, mild distress, thin built, oriented x 3 ENT: Mucous membranes moist Respiratory: Decreased breath sounds at both bases, mild wheezing and coarse breath sounds bilaterally Cardiovascular: Regular rate and rhythm. s1 and s2 normal No clicks, rubs, gallops, or murmurs. No pedal edema Abdomen: Abdomen is soft, nontender. Bowel sounds are present Musculoskeletal: Spontaneously moving all extremities Skin: warm, dry, intact. Neuro: Alert oriented x 3 normal cranial nerves, no focal deficits - Assessment and Plan (1) Encephalopathy Current Visit: Yes Status: Acute Assessment and Plan: Continue supportive care. Decrease dose of clonazepam yesterday. Patient is more awake today. We will continue to monitor. (2) Pneumonia Current Visit: Yes Status: Acute Assessment and Plan: Patient being treated for aspiration pneumonia. Complete 10 day course with Unasyn. Chest x-ray done yesterday showed evolving infiltrate. (3) Urinary tract infection Current Visit: Yes Status: Acute Assessment and Plan: Urine culture positive for Escherichia coli. Patient is on Unasyn. (4) Hypokalemia Current Visit: No Status: Resolved Assessment and Plan: Resolved. (5) NSTEMI (non-ST elevated myocardial infarction) Current Visit: Yes Status: Acute Assessment and Plan: Patient had troponin elevation. However given her comorbidities, family did not wish for any further workup. Patient being managed medically. (6) Counseling regarding goals of care Current Visit: Yes Status: Acute (7) Dementia Current Visit: Yes Status: Chronic Assessment and Plan: Supportive care. Awaiting placement to skilled rehabilitation. DVT Prophylaxis: Continue Lovenox - Time Spent with Patient Total time spent is greater than 50% in coordination of care (as documented) at patient's floor/unit and/or counseling patient: Internal Medicine: Result - Labs CBC & Chem 7: 05/05/18 06:12 05/05/18 06:12 Labs: Short CBC 05/04/18 05/05/18 Range/Units 16:16 06:12 WBC 3.6 L 4.8 (4.3-11.1) K/mcL Hgb 11.5 10.7 L (11.5-15.4) g/dL Hct 37.9 35.4 (35.3-44.9) % Plt Count 100 L 100 L (140-400) K/mcL Neutrophils # 2.7 (1.6-8.9) K/mcL BMP 05/05/18 06:12 Sodium 136 Potassium 4.1 Chloride 98 Carbon Dioxide 36 H BUN 10 Creatinine 0.53 L Glucose 87 Calcium 8.8 - ABG Interpretation ABG results: PT/INR, D-dimer PT 10.9 Seconds (9.4-12.1) 04/29/18 20:04 - Impressions Impressions Chest X-Ray 05/04/18 08:22 IMPRESSION: Increasing density at the left lung base could represent increasing atelectasis or pneumonia D/ / Jayjay Garrett MD / Jayjay Garrett MD Interpreting Provider: Jayjay Garrett MD Consult Discharge Plan - Plan Referrals: Obed Lin MD [Primary Care Provider] - (D/C to [facility]) _ (2) Pneumonia Qualifiers: Pneumonia type: aspiration pneumonia Aspiration pneumonia type: unspecified Laterality: left Lung location: lower lobe of lung Qualified Code(s): J69.0 - Pneumonitis due to inhalation of food and vomit (3) Urinary tract infection Qualifiers: Urinary tract infection type: acute cystitis Hematuria presence: without hematuria Qualified Code(s): N30.00 - Acute cystitis without hematuria (7) Dementia Qualifiers: Dementia type: unspecified type Dementia behavioral disturbance: with behavioral disturbance Qualified Code(s): F03.91 - Unspecified dementia with behavioral disturbance
[2018-05-06] MEDS: Ipratropium/Albuterol Neb 3 ML IH SCH ×5 (00:01→22:42)
[2018-05-06] MEDS: Acetaminophen/Butalbital/CaffeineTABLET PO SCH ×6 (00:12→20:16)
[2018-05-06] MEDS: Ampicillin/Sulbactam 3,000 MG in 0.9 % Sodium Chloride Mini Bag 100 ML IVPB SCH ×3 (00:12→11:39)
[2018-05-06] MEDS: *HR* Enoxaparin 40 MG/0.4 ML SYRINGE SQ SCH (06:43)
[2018-05-06] MEDS: predniSONE 5 MG TABLET PO SCH (08:25)
[2018-05-06] MEDS: clonazePAM 0.5 MG TABLET PO SCH ×2 (08:25→20:16)
[2018-05-06] MEDS: Lactobacillus 1 EACH CAP.SPRINK PO SCH (08:25)
--- NOTE | 2018-05-06 15:07 | Internal Med Progress Note ---
Hospitalist Progress Note - Encounter Date of Encounter: 05/06/18 Time of Encounter: 15:07 - Subjective Interval History: Patient is lying down in bed. She reports increased phlegm and cough. She is been requiring frequent suctioning. - Exam Vitals: Temp Pulse Resp BP Pulse Ox 98.3 F 95 19 124/72 95 05/06/18 11:04 05/06/18 11:04 05/06/18 11:04 05/06/18 11:04 05/06/18 11:04 Exam: General: Patient is alert,mild distress, oriented x 2, thin built. ENT: Mucous membranes moist Respiratory: Coarse breath sounds bilaterally. Cardiovascular: Regular rate and rhythm. s1 and s2 normal No clicks, rubs, gallops, or murmurs. No pedal edema Abdomen: Abdomen is soft, nontender. Bowel sounds are present Musculoskeletal: Spontaneously moving all extremities Skin: warm, dry, intact. Neuro: Alert oriented x 2 normal cranial nerves, no focal deficits - Assessment and Plan (1) Encephalopathy Current Visit: Yes Status: Acute Assessment and Plan: Stable and at baseline. Awaiting placement to skilled rehabilitation (2) Pneumonia Current Visit: Yes Status: Acute Assessment and Plan: Continue antibiotics. Continue O2 supplementation. Awaiting placement to skilled rehabilitation (3) Urinary tract infection Current Visit: Yes Status: Acute Assessment and Plan: Completed treatment. (4) Hypokalemia Current Visit: No Status: Resolved Assessment and Plan: continue medical management per patient and family request. (5) NSTEMI (non-ST elevated myocardial infarction) Current Visit: Yes Status: Acute (6) Counseling regarding goals of care Current Visit: Yes Status: Acute Assessment and Plan: Patient is DNR comfort care arrest. (7) Dementia Current Visit: Yes Status: Chronic Assessment and Plan: Supportive care. On Klonopin and Haldol for episodes of delirium and anxiety DVT Prophylaxis: Continue Lovenox - Time Spent with Patient Total time spent is greater than 50% in coordination of care (as documented) at patient's floor/unit and/or counseling patient: Internal Medicine: Result - Labs CBC & Chem 7: 05/05/18 06:12 05/05/18 06:12 - ABG Interpretation ABG results: PT/INR, D-dimer PT 10.9 Seconds (9.4-12.1) 04/29/18 20:04 Consult Discharge Plan - Plan Referrals: Obed Lin MD [Primary Care Provider] - (D/C to [facility]) (2) Pneumonia Qualifiers: Pneumonia type: aspiration pneumonia Aspiration pneumonia type: unspecified Laterality: left Lung location: lower lobe of lung Qualified Code(s): J69.0 - Pneumonitis due to inhalation of food and vomit (3) Urinary tract infection Qualifiers: Urinary tract infection type: acute cystitis Hematuria presence: without hematuria Qualified Code(s): N30.00 - Acute cystitis without hematuria (7) Dementia Qualifiers: Dementia type: unspecified type Dementia behavioral disturbance: with behavi oral disturbance Qualified Code(s): F03.91 - Unspecified dementia with beh avioral disturbance
[2018-05-06] MEDS: Nystatin POWDER 30 GM BOTTLE TP SCH (20:17)
[2018-05-07] MEDS: Acetaminophen/Butalbital/CaffeineTABLET PO SCH ×4 (00:06→11:13)
[2018-05-07] MEDS: Ipratropium/Albuterol Neb 3 ML IH SCH ×2 (04:48→11:05)
[2018-05-07] MEDS: *HR* Enoxaparin 40 MG/0.4 ML SYRINGE SQ SCH (06:33)
[2018-05-07 07:11] VITALS: BP 171/89
[2018-05-07] MEDS: clonazePAM 0.5 MG TABLET PO SCH (08:55)
[2018-05-07] MEDS: Lactobacillus 1 EACH CAP.SPRINK PO SCH (08:58)
[2018-05-07] MEDS: predniSONE 5 MG TABLET PO SCH (08:58)
[2018-05-07] MEDS: Nystatin POWDER 30 GM BOTTLE TP SCH (09:00)
--- NOTE | 2018-05-07 10:20 | Discharge Summary ---
- NOTES TO OUTPATIENT PROVIDER Notes to Outpatient Provider: Patient with a history of rheumatoid arthritis, hypertension, hyperlipidemia, dementia, coronary artery disease, COPD who was hospitalized here with acute encephalopathy related to acute UTI and pneumonia. She was treated with IV antibiotics and IV fluids. Patient did have mild elevation in troponins and cardiology was consulted. Patient and family decided against left eye catheterization and recommended conservative medical management for this condition given her comorbidities. Patient has received intravenous antibiotics all through his stay here and has completed antibiotic course for pneumonia which is believed to be aspiration related. She is stable to be d [facility]. She is on 3-5 L O2 supplementation and does better with oxymask. She does have underlying dementia and episodes of anxiety for which she is on Klonopin. Patient has also been placed on Macrobid 100 mg at bedtime for suppression of recurrent UTI. Patient's CODE STATUS has been changed to DNR comfort care arrest during this hospitalization. Orders not resulted at time of discharge: Pending orders 04/30/18 14:36 Sputum Culture [Culture,Sputum with Gram Stain] [] Routine Date of Encounter: 05/07/18 Time of Encounter: 10:07 - Discharge Diagnosis (1) Encephalopathy Priority: Primary Status: Acute (2) Pneumonia Priority: Secondary Status: Acute Qualifiers: Pneumonia type: aspiration pneumonia Aspiration pneumonia type: unspecified Laterality: left Lung location: lower lobe of lung Qualified Code(s): J69.0 - Pneumonitis due to inhalation of food and vomit (3) Urinary tract infection Priority: Secondary Status: Acute Qualifiers: Urinary tract infection type: acute cystitis Hematuria presence: without hematuria Qualified Code(s): N30.00 - Acute cystitis without hematuria (4) Hypokalemia Priority: Secondary Status: Resolved (5) NSTEMI (non-ST elevated myocardial infarction) Priority: Secondary Status: Acute (6) Counseling regarding goals of care Priority: Secondary Status: Acute (7) Dementia Priority: Secondary Status: Chronic Qualifiers: Dementia type: unspecified type Dementia behavioral disturbance: with behavioral disturbance Qualified Code(s): F03.91 - Unspecified dementia with behavioral disturbance Hospital course: Ms. Schmidt is a 82 year old female Patient with a history of rheumatoid arthritis, hypertension, hyperlipidemia, dementia, coronary artery disease, COPD who was hospitalized here with acute encephalopathy related to acute UTI and pneumonia. She was treated with IV antibiotics and IV fluids. Patient did have mild elevation in troponins and cardiology was consulted. Patient and family decided against left eye catheterization and recommended conservative medical management for this condition given her comorbidities. Patient has received intravenous antibiotics all through his stay here and has completed antibiotic course for pneumonia which is believed to be aspiration related. She is stable to be discharged back to [facility]. She is on 3-5 L O2 supplementation and does better with oxymask. She does have underlying dementia and episodes of anxiety for which she is on Klonopin. Patient has also been placed on Macrobid 100 mg at bedtime for suppression of recurrent UTI. Patient's CODE STATUS has been changed to DNR comfort care arrest during this hospitalization. Discharge discussed with: patient, family, case management - Time Spent with Patient Total time spent providing and/or coordinating discharge services: Greater than 30 minutes (50 min) - Discharge Medications Prescriptions: Acetaminophen/Butalbital/Caffe [Fioricet] 1.5 each PO Q4HR #60 tablet clonazePAM [Klonopin] 0.5 mg PO BID 10 Days #20 tablet Nitrofurantoin (BID) [Macrobid] 100 mg PO HS #30 capsule Nystatin POWDER [Nystop] 1 appl TP BID #1 bottle Temazepam [Restoril] 7.5 mg PO HS PRN 10 Days #10 capsule PRN Reason: Sleep Tramadol HCl [Ultram] 50 mg PO DAILY PRN 20 Days #20 tablet PRN Reason: Pain Home Medications: Acetaminophen/Butalbital/Caffe [Fioricet] 1.5 tab PO Q4HR MDD 6 tabs 11/23/14 [History] Levothyroxine Sodium 100 mcg PO QAM 05/30/16 [History] Atorvastatin Calcium [Lipitor] 20 mg PO HS 11/15/17 [History] Mag Hydrox/Aluminum Hyd/Simeth [Cvs Antacid Plus Anti-Gas Liq] 10 ml PO QID PRN 04/09/18 [History] Magnesium Hydroxide [Milk of Magnesia] 30 ml PO DAILY PRN 04/09/18 [History] clonazePAM [Clonazepam] 1 mg PO BID 04/09/18 [History] predniSONE [PredniSONE] 5 mg PO DAILY 04/09/18 [History] ALPRAZolam [Xanax 0.5 MG Tablet] 0.5 mg PO TID 04/27/18 [History] Carvedilol [Coreg] 3.125 mg PO BIDWM 04/27/18 [History] Acetaminophen/Butalbital/Caffe [Fioricet] 1.5 each PO Q4HR #60 tablet 05/07/18 [Rx] Albuterol Neb [Proventil Neb] 2.5 mg IH Q2H PRN inhsol 05/07/18 [Rx] Ipratropium/Albuterol Neb [Duoneb] 3 ml IH QIDR PRN inhsol 05/07/18 [Rx] Lactobacillus [Culturelle] 1 each PO DAILY #0 cap.sprink 05/07/18 [Rx] Lisinopril [Zestril] 10 mg PO DAILY #0 05/07/18 [Rx] Nitrofurantoin (BID) [Macrobid] 100 mg PO HS #30 capsule 05/07/18 [Rx] Nystatin POWDER [Nystop] 1 appl TP BID #1 bottle 05/07/18 [Rx] Ondansetron ODT [Zofran ODT] 4 mg SL Q4HR PRN #0 tab.rapdis 05/07/18 [Rx] Temazepam [Restoril] 7.5 mg PO HS PRN 10 Days #10 capsule 05/07/18 [Rx] Tetrahydrozoline [Visine] 1 drop LEFT EYE QID PRN bottle 05/07/18 [Rx] Tetrahydrozoline [Visine] 1 drop RIGHT EYE QID PRN bottle 05/07/18 [Rx] Tramadol HCl [Ultram] 50 mg PO DAILY PRN 20 Days #20 tablet 05/07/18 [Rx] clonazePAM [Klonopin] 0.5 mg PO BID 10 Days #20 tablet 05/07/18 [Rx] Allergies/Adverse Reactions: Allergy/AdvReac Type Severity Reaction Status Date / Time esomeprazole [From Nexium] Allergy Difficulty Verified 11/15/17 09:41 Breathing levofloxacin [From Levaquin] Allergy Blister Verified 11/15/17 09:41 Amoxicillin [From Augmentin] AdvReac Nausea Verified 11/15/17 09:41 aspirin AdvReac Dizziness Verified 11/15/17 09:41 clavulanic acid AdvReac Nausea Verified 11/15/17 09:41 [From Augmentin] codeine AdvReac Dizziness Verified 11/15/17 09:41 Estrogens AdvReac Dizziness Verified 11/15/17 09:41 hydromorphone [Hydromorphone] AdvReac Dizziness Verified 11/15/17 09:41 meperidine AdvReac Dizziness Verified 11/15/17 09:41 morphine AdvReac Dizziness Verified 11/15/17 09:41 nitrofurantoin AdvReac Nausea Verified 11/15/17 09:41 NSAIDS (Non-Steroidal AdvReac Dizziness Verified 11/15/17 09:41 Anti-Inflamma oxycodone [Oxycodone] AdvReac Dizziness Verified 11/15/17 09:41 Paroxetine [From Paxil] AdvReac Nausea Verified 11/15/17 09:41 tolterodine [From Detrol] AdvReac Nausea Verified 11/15/17 09:41 Date of admission: 04/27/18 22:45 Primary care physician: Obed Lin MD Consults: 04/27/18 05:49 Consult to Seasonal Customer Service Associate [CONS] Routine Reason for SW Consult: Pt from [facility] for rehab - return upon d/c 04/27/18 13:41 Consult to Physical Therapy [CONS] Routine Comment: Evaluate, develop and implement POC Reason for Consult: Weakness from ECF Does patient have active BEDREST order?: No Is patient medically & hemodynamically stable?: Yes Patient assessed for mobility or mobilized this visit?: Yes 04/27/18 13:42 Consult to Occupational Therapy [CONS] Routine Comment: Evaluate, develop and implement POC Reason for Consult: Weakness from ECF Does patient have active BEDREST order?: No Is patient medically & hemodynamically stable?: Yes Patient assessed for mobility or mobilized this visit?: Yes 04/30/18 08:03 Consult to Cardiology [CONS] Routine Comment: Consulting Provider: Cardiology Monica Reason for Consult: CP EKG changes Time Notified: 08:10 Call Completed: Yes 05/01/18 10:15 Consult to Speech Therapy [CONS] Routine Comment: Evaluate, develop and implement POC Reason for Consult: difficulty swallowing Call Completed: No 05/01/18 13:02 Consult to Palliative Care [CONS] Routine Comment: Consulting Provider: Palliative Care Monica Reason for Consult: Chronic worsening dementia, many comobidities Time Notified: 01:00 Call Completed: Yes 05/04/18 10:20 Consult to Nutrition [CONS] Routine Comment: Consulting Provider: NUTRITION Reason for Dietary Consult: Diet Education PO Supplementation Discharging clinician: Jovana Irizarry Anticipated date of discharge: 05/07/18 - Constitutional Vitals: Temp Pulse Resp BP Pulse Ox 97.4 F L 100 15 171/89 97 05/07/18 07:10 05/07/18 07:10 05/07/18 07:10 05/07/18 07:10 05/07/18 07:10 General appearance: Present: A&O X 1, mild distress, pleasant Exam: . - Neck Neck exam general surgery: Present: supple, trachea midline. Absent: lymphadenopathy - Respiratory Respiratory exam: Present: CTAB, prolonged expiratory phase. Absent: accessory muscle use, rales, rhonchi, wheezes Additional comments: coarse breath sounds - Cardiovascular Cardiovascular exam: Present: RRR, +S1, +S2. Absent: diastolic murmur, gallop, rubs, systolic murmur - Extremities Exam Extremities exam: Present: warm, radial pulses palpable and symmetrical. Absent: calf tenderness, cyanotic, pedal edema - Neurological Exam Neurological exam: Present: alert, no focal deficits. Absent: facial droop, speech deficit - Skin Skin exam: Present: dry, intact - Patient Status Disposition: Transfer SNF Condition: Good Functional capacity at discharge: wheelchair bound Overall status at discharge: patient is progressing back to baseline - Discharge Instructions Instructions: Urinary Tract Infection in Women (DC), Chronic Obstructive Pulmonary Disease (DC), Pneumonia (DC) Follow Up With: Obed Lin MD [Primary Care Provider] - (D/C to [facility]) - Diet and Activity Activity: as per physical therapy Diet: other (Mechanically altered soft diet. Ensure Clear twice a day)
--- NOTE | 2018-05-07 10:39 | Physician Discharge Referral ---
ExtendedCare Referral Info Provider in Charge after Transfer: PCP Institutional Level of Care: Skilled - Diagnosis (1) Encephalopathy Priority: Primary Status: Acute (2) Pneumonia Priority: Secondary Status: Acute (3) Urinary tract infection Priority: Secondary Status: Acute (4) Hypokalemia Priority: Secondary Status: Resolved (5) NSTEMI (non-ST elevated myocardial infarction) Priority: Secondary Status: Acute (6) Counseling regarding goals of care Priority: Secondary Status: Acute (7) Dementia Priority: Secondary Status: Chronic Prognosis: Fair Aware of Diagnosis: Family Aware of Prognosis: Family - Transfer Medications Prescriptions: Acetaminophen/Butalbital/Caffe [Fioricet] 1.5 each PO Q4HR #60 tablet clonazePAM [Klonopin] 0.5 mg PO BID 10 Days #20 tablet Nitrofurantoin (BID) [Macrobid] 100 mg PO HS #30 capsule Nystatin POWDER [Nystop] 1 appl TP BID #1 bottle Temazepam [Restoril] 7.5 mg PO HS PRN 10 Days #10 capsule PRN Reason: Sleep Tramadol HCl [Ultram] 50 mg PO DAILY PRN 20 Days #20 tablet PRN Reason: Pain Home Medications: Acetaminophen/Butalbital/Caffe [Fioricet] 1.5 tab PO Q4HR MDD 6 tabs 11/23/14 [History] Levothyroxine Sodium 100 mcg PO QAM 05/30/16 [History] Atorvastatin Calcium [Lipitor] 20 mg PO HS 11/15/17 [History] Mag Hydrox/Aluminum Hyd/Simeth [Cvs Antacid Plus Anti-Gas Liq] 10 ml PO QID PRN 04/09/18 [History] Magnesium Hydroxide [Milk of Magnesia] 30 ml PO DAILY PRN 04/09/18 [History] clonazePAM [Clonazepam] 1 mg PO BID 04/09/18 [History] predniSONE [PredniSONE] 5 mg PO DAILY 04/09/18 [History] ALPRAZolam [Xanax 0.5 MG Tablet] 0.5 mg PO TID 04/27/18 [History] Carvedilol [Coreg] 3.125 mg PO BIDWM 04/27/18 [History] Acetaminophen/Butalbital/Caffe [Fioricet] 1.5 each PO Q4HR #60 tablet 05/07/18 [Rx] Albuterol Neb [Proventil Neb] 2.5 mg IH Q2H PRN inhsol 05/07/18 [Rx] Ipratropium/Albuterol Neb [Duoneb] 3 ml IH QIDR PRN inhsol 05/07/18 [Rx] Lactobacillus [Culturelle] 1 each PO DAILY #0 cap.sprink 05/07/18 [Rx] Lisinopril [Zestril] 10 mg PO DAILY #0 05/07/18 [Rx] Nitrofurantoin (BID) [Macrobid] 100 mg PO HS #30 capsule 05/07/18 [Rx] Nystatin POWDER [Nystop] 1 appl TP BID #1 bottle 05/07/18 [Rx] Ondansetron ODT [Zofran ODT] 4 mg SL Q4HR PRN #0 tab.rapdis 05/07/18 [Rx] Temazepam [Restoril] 7.5 mg PO HS PRN 10 Days #10 capsule 05/07/18 [Rx] Tetrahydrozoline [Visine] 1 drop LEFT EYE QID PRN bottle 05/07/18 [Rx] Tetrahydrozoline [Visine] 1 drop RIGHT EYE QID PRN bottle 05/07/18 [Rx] Tramadol HCl [Ultram] 50 mg PO DAILY PRN 20 Days #20 tablet 05/07/18 [Rx] clonazePAM [Klonopin] 0.5 mg PO BID 10 Days #20 tablet 05/07/18 [Rx] Allergies/Adverse Reactions: Allergy/AdvReac Type Severity Reaction Status Date / Time esomeprazole [From Nexium] Allergy Difficulty Verified 11/15/17 09:41 Breathing levofloxacin [From Levaquin] Allergy Blister Verified 11/15/17 09:41 Amoxicillin [From Augmentin] AdvReac Nausea Verified 11/15/17 09:41 aspirin AdvReac Dizziness Verified 11/15/17 09:41 clavulanic acid AdvReac Nausea Verified 11/15/17 09:41 [From Augmentin] codeine AdvReac Dizziness Verified 11/15/17 09:41 Estrogens AdvReac Dizziness Verified 11/15/17 09:41 hydromorphone [Hydromorphone] AdvReac Dizziness Verified 11/15/17 09:41 meperidine AdvReac Dizziness Verified 11/15/17 09:41 morphine AdvReac Dizziness Verified 11/15/17 09:41 nitrofurantoin AdvReac Nausea Verified 11/15/17 09:41 NSAIDS (Non-Steroidal AdvReac Dizziness Verified 11/15/17 09:41 Anti-Inflamma oxycodone [Oxycodone] AdvReac Dizziness Verified 11/15/17 09:41 Paroxetine [From Paxil] AdvReac Nausea Verified 11/15/17 09:41 tolterodine [From Detrol] AdvReac Nausea Verified 11/15/17 09:41 - Respiratory Orders Oxygen / L per min (via Oxymask at 3-5 L/min) Smoking Cessation: Smoking cessation has been advised. For more information, call the [employer] Quit Line at 1-959-YRBS-NOW. - Advance Directives Code Status: DNR-Arrest (DNR CC Arrest) - Mobility Orders Chair (wheelchair) - Rehabiliation Orders Rehab Potential: Fair Rehab Orders: ROM Exercises, Evaluation for Physical Therapy - Treatments Skin tear care topically daily PRN per policy - Diet Orders Cardiac (Mechanically altered soft diet) House Supplement per Dietary: Ensure Clear BID CERTIFICATION: I certify that the transfer of the above named patient to an Extended Care Facility is necessary for the continuing treatment of the diagnosis listed. The above information is true and accurate reflection of patient's current condition. Confidential - Redisclosure prohibited without a patient's written consent.
--- NOTE | 2018-05-07 11:07 | Palliative Progress Note ---
Date of Encounter: 05/07/18 Time of Encounter: 11:03 - Assessment and plan (1) Urinary tract infection Current Visit: Yes Status: Acute Assessment and plan: Patient with recurrent UTIs, completed course of antibiotics, Will be discherged on Macrobid qhs prophylactic. Qualifiers: Urinary tract infection type: acute cystitis Hematuria presence: without hematuria Qualified Code(s): N30.00 - Acute cystitis without hematuria (2) Dementia Current Visit: Yes Status: Chronic Assessment and plan: Pt remains confused and agitated, but as per daughter is better today. She has Haldol on board, received 1 dose yesterday Clonazepam 0.5 mg BIB as per home medications. Temazepam prn will discontinue. Qualifiers: Dementia type: unspecified type Dementia behavioral disturbance: with behavioral disturbance Qualified Code(s): F03.91 - Unspecified dementia with behavioral disturbance (3) Goals of care, counseling/discussion Current Visit: No Status: Chronic Assessment and plan: Spoke to pt's and daughter Alina at the bedside, they do understand that pt is more confused and hence may be unable to participate in PT, however, they are still hopeful and would like to try. Plan is for pt to be discharged today to [facility], as a skilled pt. Family is of the understanding that if she is unable to participate, then they will have to pay out of pocket for her room on board, and at that time they might decide to involve hospice. Called pt's Daughter Glenn [phone] as she attempted to reach me, discussed pt's current medical condition and updated on plan. Emotional support provided. Patient remains DNRCCA. - Time Spent With Patient Total time spent is greater than 50% in coordination of care (as documented) at patient's floor/unit and/or counseling patient: Greater than 35 minutes - Subjective Interval history: Patient appears to be restless, taking her covers off. She is can be redirected, but remains confused and repeating questions. She denied pain, dyspnea, SOB. - Constitutional Vitals: Abnormal lab results RBC 3.16 M/mcL (3.82-4.97) L 05/05/18 06:12 Hgb 10.7 g/dL (11.5-15.4) L 05/05/18 06:12 MCV 112.0 fL (83.0-100.0) H 05/05/18 06:12 MCH 33.9 pg (28.0-33.3) H 05/05/18 06:12 MCHC 30.2 g/dL (31.6-35.5) L 05/05/18 06:12 Plt Count 100 K/mcL (140-400) L 05/05/18 06:12 Platelet Estimate Slight Decrease (Normal) L 05/05/18 06:12 Anisocytosis 1+ (Not Present) A 05/05/18 06:12 Macrocytosis Present (Not Present) A 05/05/18 06:12 Carbon Dioxide 36 mEq/L (23-29) H 05/05/18 06:12 Creatinine 0.53 mg/dL (0.60-1.20) L 05/05/18 06:12 Troponin I 0.08 ng/mL (< 0.04) H* 04/30/18 04:00 Prealbumin 15.2 mg/dL (17.0-34.0) L 05/04/18 16:16 Urine Clarity Cloudy (Clear) A 04/27/18 01:37 Urine Protein 30 mg/dL (Neg-Trace) H 04/27/18 01:37 Urine Blood Small (Negative) H 04/27/18 01:37 Urine Nitrite Positive (Negative) A 04/27/18 01:37 Ur Leukocyte Esterase Moderate (Negative) H 04/27/18 01:37 Urine Microscopic RBC 5-15 per hpf (0-3) H 04/27/18 01:37 Urine Microscopic WBC TNTC per hpf (0-3) H 04/27/18 01:37 Urine Bacteria Many per hpf (None-Few) H 04/27/18 01:37 Ur Culture Indicated? YES (NO) A 04/27/18 01:37 Nasal Screen MRSA (PCR) Positive (Negative) A 04/30/18 16:27 Ur Barbiturates Screen Positive ng/mL (Klnctb=348) H 04/27/18 01:37 U Benzodiazepines Scrn Positive ng/mL (Rtysef=852) H 04/27/18 01:37 Exam: General appearance: Present: A&O X 1, in no acute distress Exam: - Neck Neck exam: Present: supple, trachea midline. Absent: lymphadenopathy - Respiratory Respiratory exam: Present: CTAB, prolonged expiratory phase. Absent: accessory muscle use, rales, rhonchi, wheezes - Cardiovascular Cardiovascular exam: Present: RRR, +S1, +S2, murmur Absent: gallop, rubs - Extremities Exam Extremities exam: Present: warm, radial pulses palpable and symmetrical. Absent: calf tenderness, cyanotic, pedal edema - Neurological Exam Neurological exam: Present: alert, no focal deficits. Absent: facial droop, speech deficit - Skin Skin exam: Present: dry, intact Palliative Quality Palliative Quality: Screen for Code Status: Yes, Screen for Goals of Care: Yes, Screen for Pain: Yes, If Pain Regimen Started, Initiate Bowel Regimen: No, Screen for Nausea/Vomitting: Yes Code Status: 04/27/18 08:10 Resuscitation Status: Active [RES] Routine Comment: Resuscitation Status: Full Code 05/01/18 15:38 DNR [Resuscitation Status: Active] [RES] Routine Comment: Resuscitation Status: DNR-Comfort Care-Arrest - Labs CBC & Chem 7: 05/05/18 06:12 05/05/18 06:12 Labs: Laboratory Results - last 24 hr 05/05/18 05/06/18 05/06/18 20:29 00:10 19:26 POC Glucose 112 H 80 133 H 05/06/18 23:28 POC Glucose 95 - ABG Interpretation ABG results: PT/INR, D-dimer PT 10.9 Seconds (9.4-12.1) 04/29/18 20:04 Palliative Scale - Palliative Performance Scale How ambulatory is this patient?: Mainly sit / lie What is patient's level of activity and evidence of disease?: Unable h obby/housework, Significant disease How much self-care assistance does patient require?: Mainly assistance How much oral intake does the patient have?: Normal or reduced What is this patient's level of consciousness?: Full or confusion Palliative Performance Score: 40 % Consult Discharge Plan - Plan Instructions: Urinary Tract Infection in Women (DC), Chronic Obstructive Pulmonary Disease (DC), Pneumonia (DC) Referrals: Obed Lin MD [Primary Care Provider] - (D/C to [facility]) Prescriptions: Acetaminophen/Butalbital/Caffe [Fioricet] 1.5 each PO Q4HR #60 tablet clonazePAM [Klonopin] 0.5 mg PO BID 10 Days #20 tablet Nitrofurantoin (BID) [Macrobid] 100 mg PO HS #30 capsule Nystatin POWDER [Nystop] 1 appl TP BID #1 bottle Temazepam [Restoril] 7.5 mg PO HS PRN 10 Days #10 capsule PRN Reason: Sleep Tramadol HCl [Ultram] 50 mg PO DAILY PRN 20 Days #20 tablet PRN Reason: Pain
== END 2018-05-07 11:51 | DRG 280 ==
LOC: EMEROOARM 21:37 → 2SOUTHHOLD 21:37 → SUATTDRO 04-27 22:45 → 2ANU 05-01 16:52
PROVIDERS: ADMIT Internal Medicine; ATTEND Internal Medicine

== ENCOUNTER 2018-09-07 18:06 | Inpatient (IN) ==
--- NOTE | 2018-09-07 18:44 | Emergency Department Note ---
Disposition Clinical Impression: Nausea, Atypical chest pain, Generalized weakness Headache, chronic migraine without aura Qualifiers: Status migrainosus presence: without status migrainosus Intractability: not intractable Qualified Code(s): G43.709 - Chronic migraine without aura, not intractable, without status migrainosus Migraine headache Qualifiers: Migraine type: unspecified Status migrainosus presence: without status migrainosus Intractability: not intractable Qualified Code(s): G43.909 - Migraine, unspecified, not intractable, without status migrainosus UTI (urinary tract infection) Qualifiers: Urinary tract infection type: acute cystitis Hematuria presence: without hematuria Qualified Code(s): N30.00 - Acute cystitis without hematuria Disposition: Admitted As Inpatient Condition: Good Referrals: NONE,PCP [Primary Care Provider] - Forms: ED Satisfaction Letter, Work/School Release Time of Disposition: 21:18 General Adult HPI - General Chief complaint: ED Abdominal Pain Stated complaint: SOB, Abdominal pain Time Seen by Provider: 09/07/18 18:09 Source: EMS Mode of arrival: ambulatory Limitations: no limitations Nursing Notes Reviewed: Yes Vital Signs Reviewed: Yes (hypertensive) - History of Present Illness HPI Narrative: Ms. Schmidt is a 83 year old female with history of gerd, hx of CO, iron deficiency, migraine, gerd, hypothyroidism, RA, hld, and history of hypercapnia on Bipap at night who presents to the ED with complaint of left upper abdominal vs left chest pain for the last 2 days. Patient reports a lot of nausea that has been continuous and no vomiting. Patient denies chest pain, but when pointing to her left side, she also keeps pointing over her left chest. Patient denies any increased shortness of breath or cough. Patient reports overall some increased weakness. Also reports headache that has increasd in severity over the last couple hours. No radiation to back. Does have known history of constipation and had bowel movement last 2 days ago. Upon return to the room, the family members report patient is slightly confused as well. Denies fevers, sweats, vomiting, shortness of breath, cough, changes in bowels or bladder, dysuria, hematuria, loss of sensation, or rash. From Care Home. Pain Scale: 0 - Related Data Home Medications Medication Instructions Recorded Confirmed Acetaminophen/Butalbital/Caffe 1.5 each PO Q4HR 07/07/18 07/07/18 [Fioricet] Albuterol Neb [Proventil Neb] 2.5 mg IH Q2H 07/07/18 07/07/18 Atorvastatin [Lipitor] 20 mg PO HS 07/07/18 07/07/18 Carvedilol [Coreg] 3.125 mg PO BIDWM 07/07/18 07/07/18 Ipratropium/Albuterol Sulfate 3 ml IH Q4HR 07/07/18 07/07/18 [Iprat-Albut 0.5-3(2.5) mg/3 ml] Lactobacillus Acidophilus 1 tab PO DAILY 07/07/18 07/07/18 [Acidophilus] Levothyroxine [Synthroid] 100 mcg PO 0630 07/07/18 07/07/18 Lisinopril [Zestril] 10 mg PO DAILY 07/07/18 07/07/18 Mag Hydrox/Al Hydrox/Simeth 10 ml PO QID 07/07/18 07/07/18 [Maalox] Magnesium Hydroxide [Milk of 30 ml PO DAILY 07/07/18 07/07/18 Magnesia] Ondansetron ODT [Zofran ODT] 4 mg SL Q4HR 07/07/18 07/07/18 Temazepam [Restoril] 7.5 mg PO DAILY 07/07/18 07/07/18 Tetrahydrozoline HCl [Visine] 1 drop BOTH EYES QID PRN 07/07/18 07/07/18 predniSONE [PredniSONE] 5 mg PO DAILY 07/07/18 07/07/18 Previous Rx's Medication Instructions Recorded Melatonin 3 mg PO HS #0 tablet 07/16/18 Mirtazapine 7.5 mg PO Q24H #15 tablet 07/16/18 Nitrofurantoin (BID) [Macrobid] 100 mg PO 3XW #15 capsule 07/16/18 Quetiapine Fumarate [Seroquel] 25 mg PO HS #15 tablet 07/16/18 Allergies Allergy/AdvReac Type Severity Reaction Status Date / Time esomeprazole [From Nexium] Allergy Difficulty Verified 11/15/17 09:41 Breathing levofloxacin [From Levaquin] Allergy Blister Verified 07/07/18 15:15 Amoxicillin [From Augmentin] AdvReac Nausea Verified 11/15/17 09:41 aspirin AdvReac Dizziness Verified 07/07/18 15:15 ciprofloxacin [From Cipro] AdvReac See Verified 07/07/18 15:15 Comments clavulanic acid AdvReac Nausea Verified 11/15/17 09:41 [From Augmentin] codeine AdvReac Dizziness Verified 07/07/18 15:15 Estrogens AdvReac Dizziness Verified 07/07/18 15:15 hydromorphone [Hydromorphone] AdvReac Dizziness Verified 07/07/18 15:15 meperidine AdvReac Dizziness Verified 07/07/18 15:15 morphine AdvReac Dizziness Verified 07/07/18 15:15 nitrofurantoin AdvReac Nausea Verified 07/07/18 15:15 NSAIDS (Non-Steroidal AdvReac Dizziness Verified 07/07/18 15:15 Anti-Inflamma oxycodone [Oxycodone] AdvReac Dizziness Verified 07/07/18 15:15 Paroxetine [From Paxil] AdvReac Nausea Verified 11/15/17 09:41 tolterodine [From Detrol] AdvReac Nausea Verified 11/15/17 09:41 Past Medical History - Past Medical History Medical history: Reports: arthritis, dementia, GERD, hyperlipidemia, hypertension, migraine, myocardial infarction, RA, thyroid disease, other Surgical history: Reports: cholecystectomy, hysterectomy Psychiatric history: Reports: anxiety, depression 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 Absent: tenderness - Chest Chest inspection: Present: normal inspection, symmetric chest wall rise - Respiratory Respiratory exam: Present: normal lung sounds bilaterally - Cardiovascular Cardiovascular exam: Present: regular rate, normal rhythm, normal heart sounds - Abdominal Exam Abdominal exam: Present: soft, normal bowel sounds. Absent: distention, guarding, rigidity Abdominal tenderness: Present: LUQ - Extremities Exam Extremities exam: Present: normal inspection, full ROM, normal capillary refill. Absent: pedal edema - Back Exam Back exam: Present: normal inspection. Absent: tenderness, CVA tenderness (R), CVA tenderness (L) - Neurological Exam Neurological exam: Present: alert, CN II-XII intact, reflexes normal - Skin Skin exam: Present: warm, dry, intact, normal color. Absent: rash, diaphoresis Course - Reevaluation(s) Reevaluation #1: Lab results returned back most notable for UTI, will start rocephin. Called admitter for admission and spoke to family. Time: 21:17 Vital Signs Temperature 98.6 F 09/07/18 18:13 Pulse Rate 88 09/07/18 18:13 Respiratory Rate 18 09/07/18 18:13 Blood Pressure 161/85 09/07/18 18:13 O2 Sat by Pulse Oximetry 99 09/07/18 18:13 Temperature 98.6 F 09/07/18 18:13 Pulse Rate 88 09/07/18 18:13 Respiratory Rate 18 09/07/18 18:13 Blood Pressure 161/85 09/07/18 18:13 O2 Sat by Pulse Oximetry 99 09/07/18 18:13 Oxygen Delivery Oxygen Delivery Room Air Medical Decision Making - MDM Narrative Medical decision making narrative: Generalized weakness and some confusion and left chest pain vs left upper quadrant pain and nausea in 83 year old female. Will obtain labs, cxr, ct abd/pelvis, and troponin. Ddx including but not limited to ACS, UTI, constipation, bowel obstruciton. - Lab Data Lab results reviewed: Yes I reviewed the patient's lab results. Lab results narrative: Laboratory Last Values WBC 4.5 K/mcL (4.3-11.1) 09/07/18 18:51 RBC 3.23 M/mcL (3.82-4.97) L 09/07/18 18:51 Hgb 10.9 g/dL (11.5-15.4) L 09/07/18 18:51 Hct 34.3 % (35.3-44.9) L 09/07/18 18:51 MCV 106.2 fL (83.0-100.0) H 09/07/18 18:51 MCH 33.7 pg (28.0-33.3) H 09/07/18 18:51 MCHC 31.8 g/dL (31.6-35.5) 09/07/18 18:51 RDW 12.4 % (11.5-14.5) 09/07/18 18:51 Plt Count 111 K/mcL (140-400) L 09/07/18 18:51 MPV 10.8 fL (9.4-12.4) 09/07/18 18:51 Immature Gran % 0.0 % (0-4) 09/07/18 18:51 Seg Neutrophils % 51.6 % 09/07/18 18:51 33.3 % 09/07/18 18:51 11.6 % 09/07/18 18:51 3.1 % 09/07/18 18:51 0.4 % 09/07/18 18:51 2.3 K/mcL (1.6-8.9) 09/07/18 18:51 1.5 K/mcL (0.6-4.6) 09/07/18 18:51 0.5 K/mcL (0.0-1.3) 09/07/18 18:51 0.1 K/mcL (0.0-0.6) 09/07/18 18:51 0.0 K/mcL (0.0-0.2) 09/07/18 18:51 VBG pH 7.43 pH Units (7.32-7.42) H 09/07/18 20:10 VBG pCO2 54 mmHg (41-51) H 09/07/18 20:10 VBG pO2 222 mmHg (25-50) H 09/07/18 20:10 VBG HCO3 36 mEq/L (21-27) H 09/07/18 20:10 Sodium 138 mEq/L (136-145) 09/07/18 18:51 Potassium 4.4 mEq/L (3.5-5.1) 09/07/18 18:51 Chloride 98 mEq/L (98-107) 09/07/18 18:51 Carbon Dioxide 37 mEq/L (23-29) H 09/07/18 18:51 BUN 23 mg/dL (8-23) 09/07/18 18:51 0.64 mg/dL (0.60-1.20) 09/07/18 18:51 Est GFR ( Amer) > 60 (> 60) 09/07/18 18:51 Est GFR (Non-Af Amer) > 60 (> 60) 09/07/18 18:51 36 (6-26) H 09/07/18 18:51 Glucose 100 mg/dL (70-105) 19 18:51 290 (280-300) 09/07/18 18:51 Calcium 9.1 mg/dL (8.6-10.3) 09/07/18 18:51 0.4 mg/dL (0.3-1.0) 09/07/18 18:51 0.1 mg/dL (0.0-0.2) 09/07/18 18:51 0.3 mg/dL (0.0-1.2) 09/07/18 18:51 AST 11 Units/L (13-39) L 09/07/18 18:51 ALT 9 Units/L (7-52) 09/07/18 18:51 41 Units/L (34-104) 09/07/18 18:51 0.06 ng/mL (< 0.04) H* 09/07/18 18:51 7.1 g/dL (6.4-8.9) 09/07/18 18:51 3.7 g/dL (3.5-5.7) 09/07/18 18:51 3.4 g/dL (2.4-3.5) 09/07/18 18:51 1.1 (1.1-2.2) 09/07/18 18:51 56 Units/L (11-82) 09/07/18 18:51 Laboratory Last Values WBC 4.5 K/mcL (4.3-11.1) 09/07/18 18:51 RBC 3.23 M/mcL (3.82-4.97) L 09/07/18 18:51 Hgb 10.9 g/dL (11.5-15.4) L 09/07/18 18:51 Hct 34.3 % (35.3-44.9) L 09/07/18 18:51 MCV 106.2 fL (83.0-100.0) H 09/07/18 18:51 MCH 33.7 pg (28.0-33.3) H 09/07/18 18:51 MCHC 31.8 g/dL (31.6-35.5) 09/07/18 18:51 RDW 12.4 % (11.5-14.5) 09/07/18 18:51 Plt Count 111 K/mcL (140-400) L 09/07/18 18:51 MPV 10.8 fL (9.4-12.4) 09/07/18 18:51 Immature Gran % 0.0 % (0-4) 09/07/18 18:51 Seg Neutrophils % 51.6 % 09/07/18 18:51 33.3 % 09/07/18 18:51 11.6 % 09/07/18 18:51 3.1 % 09/07/18 18:51 0.4 % 09/07/18 18:51 2.3 K/mcL (1.6-8.9) 09/07/18 18:51 1.5 K/mcL (0.6-4.6) 09/07/18 18:51 0.5 K/mcL (0.0-1.3) 09/07/18 18:51 0.1 K/mcL (0.0-0.6) 09/07/18 18:51 0.0 K/mcL (0.0-0.2) 09/07/18 18:51 VBG pH 7.43 pH Units (7.32-7.42) H 09/07/18 20:10 VBG pCO2 54 mmHg (41-51) H 09/07/18 20:10 VBG pO2 222 mmHg (25-50) H 09/07/18 20:10 VBG HCO3 36 mEq/L (21-27) H 09/07/18 20:10 Sodium 138 mEq/L (136-145) 09/07/18 18:51 Potassium 4.4 mEq/L (3.5-5.1) 09/07/18 18:51 Chloride 98 mEq/L (98-107) 09/07/18 18:51 Carbon Dioxide 37 mEq/L (23-29) H 09/07/18 18:51 BUN 23 mg/dL (8-23) 09/07/18 18:51 0.64 mg/dL (0.60-1.20) 09/07/18 18:51 Est GFR ( Amer) > 60 (> 60) 09/07/18 18:51 Est GFR (Non-Af Amer) > 60 (> 60) 09/07/18 18:51 36 (6-26) H 09/07/18 18:51 Glucose 100 mg/dL (70-105) 09/07/18 18:51 290 (280-300) 09/07/18 18:51 Calcium 9.1 mg/dL (8.6-10.3) 09/07/18 18:51 0.4 mg/dL (0.3-1.0) 09/07/18 18:51 0.1 mg/dL (0.0-0.2) 09/07/18 18:51 0.3 mg/dL (0.0-1.2) 09/07/18 18:51 AST 11 Units/L (13-39) L 09/07/18 18:51 ALT 9 Units/L (7-52) 09/07/18 18:51 41 Units/L (34-104) 09/07/18 18:51 0.06 ng/mL (< 0.04) H* 09/07/18 18:51 7.1 g/dL (6.4-8.9) 09/07/18 18:51 3.7 g/dL (3.5-5.7) 09/07/18 18:51 3.4 g/dL (2.4-3.5) 09/07/18 18:51 1.1 (1.1-2.2) 09/07/18 18:51 56 Units/L (11-82) 09/07/18 18:51 Yellow (Yellow) 09/07/18 20:31 Cloudy (Clear) A 09/07/18 20:31 7.0 pH Units (5.0-8.0) 09/07/18 20:31 Ur Specific [place] 1.011 (1.010-1.025) 09/07/18 20:31 Negative mg/dL (Neg-Trace) 09/07/18 20:31 Normal mg/dL (Normal) 09/07/18 20:31 Negative mg/dL (Negative) 09/07/18 20:31 Negative (Negative) 09/07/18 20:31 Positive (Negative) A 09/07/18 20:31 Negative (Negative) 09/07/18 20:31 Normal mg/dL (Normal) 09/07/18 20:31 Ur Leukocyte Esterase Moderate (Negative) H 09/07/18 20:31 0-3 per hpf (0-3) 09/07/18 20:31 TNTC per hpf (0-3) H 09/07/18 20:31 Ur Squamous Epith Cells Few per lpf (None-Few) 09/07/18 20:31 Moderate per hpf (None-Few) H 09/07/18 20:31 Hyaline Casts None Seen per lpf (None-Few) 09/07/18 20:31 Ur Culture Indicated? YES (NO) A 09/07/18 20:31 Result diagrams: 09/07/18 18:51 09/07/18 18:51 Lab Results 09/07/18 09/07/18 09/07/18 Range/Units 18:51 18:51 20:10 WBC 4.5 (4.3-11.1) K/mcL RBC 3.23 L (3.82-4.97) M/mcL Hgb 10.9 L (11.5-15.4) g/dL Hct 34.3 L (35.3-44.9) % MCV 106.2 H (83.0-100.0) fL MCH 33.7 H (28.0-33.3) pg MCHC 31.8 (31.6-35.5) g/dL RDW 12.4 (11.5-14.5) % Plt Count 111 L (140-400) K/mcL MPV 10.8 (9.4-12.4) fL Immature Gran % 0.0 (0-4) % Seg Neutrophils % 51.6 % Lymphocytes % 33.3 % Monocytes % 11.6 % Eosinophils % 3.1 % Basophils % 0.4 % Neutrophils # 2.3 (1.6-8.9) K/mcL Lymphocytes # 1.5 (0.6-4.6) K/mcL Monocytes # 0.5 (0.0-1.3) K/mcL Eosinophils # 0.1 (0.0-0.6) K/mcL Basophils # 0.0 (0.0-0.2) K/mcL VBG pH 7.43 H (7.32-7.42) pH Units VBG pCO2 54 H (41-51) mmHg VBG pO2 222 H (25-50) mmHg VBG HCO3 36 H (21-27) mEq/L Sodium 138 (136-145) mEq/L Potassium 4.4 (3.5-5.1) mEq/L Chloride 98 (98-107) mEq/L Carbon Dioxide 37 H (23-29) mEq/L BUN 23 (8-23) mg/dL Creatinine 0.64 (0.60-1.20) mg/dL Est GFR ( Amer) > 60 (> 60) Est GFR (Non-Af Amer) > 60 (> 60) BUN/Creatinine Ratio 36 H (6-26) Glucose 100 (70-105) mg/dL Calculated Osmolality 290 (280-300) Calcium 9.1 (8.6-10.3) mg/dL Total Bilirubin 0.4 (0.3-1.0) mg/dL Direct Bilirubin 0.1 (0.0-0.2) mg/dL Indirect Bilirubin 0.3 (0.0-1.2) mg/dL AST 11 L (13-39) Units/L ALT 9 (7-52) Units/L Alkaline Phosphatase 41 (34-104) Units/L Troponin I 0.06 H* (< 0.04) ng/mL Serum Total Protein 7.1 (6.4-8.9) g/dL Albumin 3.7 (3.5-5.7) g/dL Globulin 3.4 (2.4-3.5) g/dL Albumin/Globulin Ratio 1.1 (1.1-2.2) Lipase 56 (11-82) Units/L Urine Color (Yellow) Urine Clarity (Clear) Urine pH (5.0-8.0) pH Units Ur Specific [place] (1.010-1.025) Urine Protein (Neg-Trace) mg/dL Urine Glucose (UA) (Normal) mg/dL Urine Ketones (Negative) mg/dL Urine Blood (Negative) Urine Nitrite (Negative) Urine Bilirubin (Negative) Urine Urobilinogen (Normal) mg/dL Ur Leukocyte Esterase (Negative) Urine Microscopic RBC (0-3) per hpf Urine Microscopic WBC (0-3) per hpf Ur Squamous Epith Cells (None-Few) per lpf Urine Bacteria (None-Few) per hpf Hyaline Casts (None-Few) per lpf Ur Culture Indicated? (NO) 09/07/18 Range/Units 20:31 WBC (4.3-11.1) K/mcL RBC (3.82-4.97) M/mcL Hgb (11.5-15.4) g/dL Hct (35.3-44.9) % MCV (83.0-100.0) fL MCH (28.0-33.3) pg MCHC (31.6-35.5) g/dL RDW (11.5-14.5) % Plt Count (140-400) K/mcL MPV (9.4-12.4) fL Immature Gran % (0-4) % Seg Neutrophils % % Lymphocytes % % Monocytes % % Eosinophils % % Basophils % % Neutrophils # (1.6-8.9) K/mcL Lymphocytes # (0.6-4.6) K/mcL Monocytes # (0.0-1.3) K/mcL Eosinophils # (0.0-0.6) K/mcL Basophils # (0.0-0.2) K/mcL VBG pH (7.32-7.42) pH Units VBG pCO2 (41-51) mmHg VBG pO2 (25-50) mmHg VBG HCO3 (21-27) mEq/L Sodium (136-145) mEq/L Potassium (3.5-5.1) mEq/L Chloride (98-107) mEq/L Carbon Dioxide (23-29) mEq/L BUN (8-23) mg/dL Creatinine (0.60-1.20) mg/dL Est GFR ( Amer) (> 60) Est GFR (Non-Af Amer) (> 60) BUN/Creatinine Ratio (6-26) Glucose (70-105) mg/dL Calculated Osmolality (280-300) Calcium (8.6-10.3) mg/dL Total Bilirubin (0.3-1.0) mg/dL Direct Bilirubin (0.0-0.2) mg/dL Indirect Bilirubin (0.0-1.2) mg/dL AST (13-39) Units/L ALT (7-52) Units/L Alkaline Phosphatase (34-104) Units/L Troponin I (< 0.04) ng/mL Serum Total Protein (6.4-8.9) g/dL Albumin (3.5-5.7) g/dL Globulin (2.4-3.5) g/dL Albumin/Globulin Ratio (1.1-2.2) Lipase (11-82) Units/L Urine Color Yellow (Yellow) Urine Clarity Cloudy A (Clear) Urine pH 7.0 (5.0-8.0) pH Units Ur Specific [place] 1.011 (1.010-1.025) Urine Protein Negative (Neg-Trace) mg/dL Urine Glucose (UA) Normal (Normal) mg/dL Urine Ketones Negative (Negative) mg/dL Urine Blood Negative (Negative) Urine Nitrite Positive A (Negative) Urine Bilirubin Negative (Negative) Urine Urobilinogen Normal (Normal) mg/dL Ur Leukocyte Esterase Moderate H (Negative) Urine Microscopic RBC 0-3 (0-3) per hpf Urine Microscopic WBC TNTC H (0-3) per hpf Ur Squamous Epith Cells Few (None-Few) per lpf Urine Bacteria Moderate H (None-Few) per hpf Hyaline Casts None Seen (None-Few) per lpf Ur Culture Indicated? YES A (NO) - Radiology Data Radiology results reviewed: Yes I reviewed the patient's radiology results. Abdomen/Pelvis CT 09/07/18 18:55 IMPRESSION: Increased stool. No acute disease but sensitivity is limited without IV and oral contrast. Incidental findings as above. D/ / Nico Sheikh MD / Nico Sheikh MD Interpreting Provider: Nico Sheikh MD Chest X-Ray 09/07/18 18:55 IMPRESSION: No acute cardiopulmonary disease. Cardiomegaly without overt failure. D/ / Justyn Laguerre MD / Justyn Laguerre MD Interpreting Provider: Justyn Laguerre MD - EKG Data EKG #1 EKG attestation: Yes I reviewed and interpreted this EKG. EKG shows normal: sinus rhythm Rate: normal (77bpm) Rhythm: NSR QTc: other (Q wave in III, t-wave inversion in V3, V4, V5, V6) When compared to previous EKG there are: no significant changes (no changes from prior) Interpretation: no acute changes
[2018-09-07] MEDS ORDERED: Ondansetron 4 MG/2 ML VIAL IVP ONE (18:56)
[2018-09-07 19:22] LABS: Basophils % 0.4 %; Eosinophils # 0.1 K/mcL (0.0-0.6); Eosinophils % 3.1 %; Hematocrit 34.3 % (35.3-44.9); Hemoglobin 10.9 g/dL (11.5-15.4); Lymphocytes # 1.5 K/mcL (0.6-4.6); Lymphocytes % 33.3 %; Mean Corpuscular HGB Conc 31.8 g/dL (31.6-35.5); Mean Corpuscular Hemoglobin 33.7 pg (28.0-33.3); Mean Corpuscular Volume 106.2 fL (83.0-100.0); Mean Platelet Volume 10.8 fL (9.4-12.4); Monocytes # 0.5 K/mcL (0.0-1.3); Monocytes % 11.6 %; Neutrophils # 2.3 K/mcL (1.6-8.9); Platelet Count 111 K/mcL (140-400); Red Blood Count 3.23 M/mcL (3.82-4.97); Red Cell Distribution Width 12.4 % (11.5-14.5); Segmented Neutrophils % 51.6 %
[2018-09-07] MEDS ORDERED: Metoclopramide 10 MG/2 ML VIAL IVP ONE (19:28)
[2018-09-07 19:41] LABS: Alanine Aminotransferase 9 Units/L (7-52); Albumin 3.7 g/dL (3.5-5.7); Albumin/Globulin Ratio 1.1 (1.1-2.2); Alkaline Phosphatase 41 Units/L (34-104); Aspartate Amino Transferase 11 Units/L (13-39); BUN/Creatinine Ratio 36 (6-26); Bilirubin,Direct 0.1 mg/dL (0.0-0.2); Bilirubin,Indirect 0.3 mg/dL (0.0-1.2); Bilirubin,Total 0.4 mg/dL (0.3-1.0); Blood Urea Nitrogen 23 mg/dL (8-23); Calcium 9.1 mg/dL (8.6-10.3); Carbon Dioxide 37 mEq/L (23-29); Chloride 98 mEq/L (98-107); Globulin 3.4 g/dL (2.4-3.5); Glucose 100 mg/dL (70-105); Lipase 56 Units/L (11-82); Osmolality,Calculated 290 (280-300); Potassium 4.4 mEq/L (3.5-5.1); Sodium 138 mEq/L (136-145); Total Protein 7.1 g/dL (6.4-8.9); eGFR For Non-African Americans > 60 (> 60)
[2018-09-07 20:12] LABS: VBG HCO3 36 mEq/L (21-27); VBG PCO2 54 mmHg (41-51); VBG PH 7.43 pH Units (7.32-7.42); VBG PO2 222 mmHg (25-50)
[2018-09-07 20:32] LABS: Troponin I 0.06 ng/mL (< 0.04)
--- NOTE | 2018-09-07 20:36 | Emergency Department Note ---
Disposition Clinical Impression: Nausea, Atypical chest pain, Headache, chronic migraine without aura Disposition: Admitted As Inpatient Forms: ED Satisfaction Letter, Work/School Release General Adult HPI - General Chief complaint: ED Abdominal Pain Stated complaint: SOB, Abdominal pain Time Seen by Provider: 09/07/18 18:09 Source: EMS Mode of arrival: ambulatory Limitations: no limitations - History of Present Illness Pain Scale: 0 - Related Data Home Medications Medication Instructions Recorded Confirmed Acetaminophen/Butalbital/Caffe 1.5 each PO Q4HR 07/07/18 07/07/18 [Fioricet] Albuterol Neb [Proventil Neb] 2.5 mg IH Q2H 07/07/18 07/07/18 Atorvastatin [Lipitor] 20 mg PO HS 07/07/18 07/07/18 Carvedilol [Coreg] 3.125 mg PO BIDWM 07/07/18 07/07/18 Ipratropium/Albuterol Sulfate 3 ml IH Q4HR 07/07/18 07/07/18 [Iprat-Albut 0.5-3(2.5) mg/3 ml] Lactobacillus Acidophilus 1 tab PO DAILY 07/07/18 07/07/18 [Acidophilus] Levothyroxine [Synthroid] 100 mcg PO 0630 07/07/18 07/07/18 Lisinopril [Zestril] 10 mg PO DAILY 07/07/18 07/07/18 Mag Hydrox/Al Hydrox/Simeth 10 ml PO QID 07/07/18 07/07/18 [Maalox] Magnesium Hydroxide [Milk of 30 ml PO DAILY 07/07/18 07/07/18 Magnesia] Ondansetron ODT [Zofran ODT] 4 mg SL Q4HR 07/07/18 07/07/18 Temazepam [Restoril] 7.5 mg PO DAILY 07/07/18 07/07/18 Tetrahydrozoline HCl [Visine] 1 drop BOTH EYES QID PRN 07/07/18 07/07/18 predniSONE [PredniSONE] 5 mg PO DAILY 07/07/18 07/07/18 Previous Rx's Medication Instructions Recorded Melatonin 3 mg PO HS #0 tablet 07/16/18 Mirtazapine 7.5 mg PO Q24H #15 tablet 07/16/18 Nitrofurantoin (BID) [Macrobid] 100 mg PO 3XW #15 capsule 07/16/18 Quetiapine Fumarate [Seroquel] 25 mg PO HS #15 tablet 07/16/18 Allergies Allergy/AdvReac Type Severity Reaction Status Date / Time esomeprazole [From Nexium] Allergy Difficulty Verified 11/15/17 09:41 Breathing levofloxacin [From Levaquin] Allergy Blister Verified 07/07/18 15:15 Amoxicillin [From Augmentin] AdvReac Nausea Verified 11/15/17 09:41 aspirin AdvReac Dizziness Verified 07/07/18 15:15 ciprofloxacin [From Cipro] AdvReac See Verified 07/07/18 15:15 Comments clavulanic acid AdvReac Nausea Verified 11/15/17 09:41 [From Augmentin] codeine AdvReac Dizziness Verified 07/07/18 15:15 Estrogens AdvReac Dizziness Verified 07/07/18 15:15 hydromorphone [Hydromorphone] AdvReac Dizziness Verified 07/07/18 15:15 meperidine AdvReac Dizziness Verified 07/07/18 15:15 morphine AdvReac Dizziness Verified 07/07/18 15:15 nitrofurantoin AdvReac Nausea Verified 07/07/18 15:15 NSAIDS (Non-Steroidal AdvReac Dizziness Verified 07/07/18 15:15 Anti-Inflamma oxycodone [Oxycodone] AdvReac Dizziness Verified 07/07/18 15:15 Paroxetine [From Paxil] AdvReac Nausea Verified 11/15/17 09:41 tolterodine [From Detrol] AdvReac Nausea Verified 11/15/17 09:41 Past Medical History - Past Medical History Medical history: Reports: arthritis, dementia, GERD, hyperlipidemia, hypertension, migraine, myocardial infarction, RA, thyroid disease, other Surgical history: Reports: cholecystectomy, hysterectomy Psychiatric history: Reports: anxiety, depression 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 history - Social History Smoking Status: Never smoker Smokeless Tobacco Status: No Alcohol use: Reports: none Drug use: Reports: none Physical Exam - General Limitations: no limitations General appearance: alert, in no apparent distress Course Vital Signs Temperature 98.6 F 09/07/18 18:13 Pulse Rate 88 09/07/18 18:13 Respiratory Rate 18 09/07/18 18:13 Blood Pressure 161/85 09/07/18 18:13 O2 Sat by Pulse Oximetry 99 09/07/18 18:13 Temperature 98.6 F 09/07/18 18:13 Pulse Rate 88 09/07/18 18:13 Respiratory Rate 18 09/07/18 18:13 Blood Pressure 161/85 09/07/18 18:13 O2 Sat by Pulse Oximetry 99 09/07/18 18:13 Oxygen Delivery Oxygen Delivery Room Air Medical Decision Making - Medical Records Medical records reviewed: Yes I reviewed the patient's medical records. - Lab Data Lab results reviewed: Yes I reviewed the patient's lab results. Result diagrams: 09/07/18 18:51 09/07/18 18:51 Lab Results 09/07/18 09/07/18 09/07/18 Range/Units 18:51 18:51 20:10 WBC 4.5 (4.3-11.1) K/mcL RBC 3.23 L (3.82-4.97) M/mcL Hgb 10.9 L (11.5-15.4) g/dL Hct 34.3 L (35.3-44.9) % MCV 106.2 H (83.0-100.0) fL MCH 33.7 H (28.0-33.3) pg MCHC 31.8 (31.6-35.5) g/dL RDW 12.4 (11.5-14.5) % Plt Count 111 L (140-400) K/mcL MPV 10.8 (9.4-12.4) fL Immature Gran % 0.0 (0-4) % Seg Neutrophils % 51.6 % Lymphocytes % 33.3 % Monocytes % 11.6 % Eosinophils % 3.1 % Basophils % 0.4 % Neutrophils # 2.3 (1.6-8.9) K/mcL Lymphocytes # 1.5 (0.6-4.6) K/mcL Monocytes # 0.5 (0.0-1.3) K/mcL Eosinophils # 0.1 (0.0-0.6) K/mcL Basophils # 0.0 (0.0-0.2) K/mcL VBG pH 7.43 H (7.32-7.42) pH Units VBG pCO2 54 H (41-51) mmHg VBG pO2 222 H (25-50) mmHg VBG HCO3 36 H (21-27) mEq/L Sodium 138 (136-145) mEq/L Potassium 4.4 (3.5-5.1) mEq/L Chloride 98 (98-107) mEq/L Carbon Dioxide 37 H (23-29) mEq/L BUN 23 (8-23) mg/dL Creatinine 0.64 (0.60-1.20) mg/dL Est GFR ( Amer) > 60 (> 60) Est GFR (Non-Af Amer) > 60 (> 60) BUN/Creatinine Ratio 36 H (6-26) Glucose 100 (70-105) mg/dL Calculated Osmolality 290 (280-300) Calcium 9.1 (8.6-10.3) mg/dL Total Bilirubin 0.4 (0.3-1.0) mg/dL Direct Bilirubin 0.1 (0.0-0.2) mg/dL Indirect Bilirubin 0.3 (0.0-1.2) mg/dL AST 11 L (13-39) Units/L ALT 9 (7-52) Units/L Alkaline Phosphatase 41 (34-104) Units/L Troponin I 0.06 H* (< 0.04) ng/mL Serum Total Protein 7.1 (6.4-8.9) g/dL Albumin 3.7 (3.5-5.7) g/dL Globulin 3.4 (2.4-3.5) g/dL Albumin/Globulin Ratio 1.1 (1.1-2.2) Lipase 56 (11-82) Units/L - Radiology Data Radiology results reviewed: Yes I reviewed the patient's radiology results. - EKG Data EKG #1 EKG attestation: Yes I reviewed and interpreted this EKG. EKG results narrative: EKG shows a rate of 77. Normal sinus rhythm. [place] deviation. IN interval 160. QRS 101. QTC 403. Patient has inverted T waves in the V3 through V6 leads. These were present on previous EKG. Attestation Statement - Attestation Attestation: I examined this patient and my medical decision-making was reviewed with the Resident Physician. I agree with the documented findings, disposition and treatment plan as described except to the extent set forth below. 83-year-old female presents emergency room for left-sided chest pain and left upper abdominal pain. Associated with nausea. No vomiting. She feels more weak and feels sick to her stomach she states. Decreased by mouth intake. She denies any diarrhea. No constipation that she admits to. She denies fevers. No urinary complaints per family members. They also felt that she was more co nfused than normal and is concerned about her CO2 being elevated. She has a history of CO2 retention. She supposed to wear BiPAP at night. It is unclear whether she is been wearing this at night or not. Her workup here does not show any significant lab abnormalities. Her troponin is chronically elevated. Her EKG demonstrates no acute changes as compared to previous EKG from June 2018. Her chest x-ray was read per radiology is nonacute. Urinalysis did not show any infection. Due to the patient's age and multitude of complaints patient will be admitted. She is also been complaining of a migraine headache. She gets almost daily migraines. She does take Fioricet daily for her headaches but has not helped. She denies any falls or head trauma. She denies any neck pain or neck stiffness. She states her headache today is similar to her previous headaches that she gets on a daily basis. She dementia is no focal motor or sensory deficits. Her abdomen exam is benign. We will admit for observation status. Gentle IV hydration with normal saline at 75 mL an hour.
[2018-09-07 21:00] LABS: Bilirubin,Urine Negative (Negative); Blood,Urine Negative (Negative); Clarity,Urine Cloudy (Clear); Color,Urine Yellow (Yellow); Glucose,Urine (UA) Normal (Normal); Ketones,Urine Negative (Negative); Leukocyte Esterase,Urine Moderate (Negative); Nitrite,Urine Positive (Negative); Protein,Urine Negative (Neg-Trace); Specific Gravity,Urine 1.011 (1.010-1.025); Urobilinogen,Urine Normal (Normal)
[2018-09-07 21:04] LABS: Bacteria,Urine Moderate per hpf (None-Few); Hyaline Casts,Urine None Seen per lpf (None-Few); RBC,Urine 0-3 per hpf (0-3); Squamous Epithelial Cell,Urine Few per lpf (None-Few); WBC,Urine TNTC per hpf (0-3)
[2018-09-07] MEDS ORDERED: cefTRIAXone 1,000 MG in Water for inj. (sterile) 20 ML 10 ML IVP ONE (21:14)
[2018-09-07] MEDS: 0.9 % Sodium Chloride 1,000 ML IVC SCH (21:39)
[2018-09-07] MEDS ORDERED: Acetaminophen/Butalbital/CaffeineTABLET PO PRN (22:17)
[2018-09-07] MEDS ORDERED: Acetaminophen/Butalbital/CaffeineTABLET PO ONE (22:30)
[2018-09-08] MEDS ORDERED: Naloxone 0.4 MG/ML INJ IVP PRN (01:23)
--- NOTE | 2018-09-08 01:36 | Internal Med History&Physical ---
<Johnna Jett E - Last Filed: 09/08/18 02:39> Date of Encounter: 09/08/18 Time of Encounter: 01:00 Internal Medicine - H&P: HPI Admitted From: Long-term Nursing Facility Plans for Post Hospital Care: Transfer [employer] Care History of present illness: Ms. Schmidt is a 83 year old female with past medical history of migraine, GERD, hypothyroid, RA, hyperlipidemia, history of VA, history of hyper: Jasmyne on BiPAP at night. Patient presented to the ED with complaints of left chest pain. She had been having for 2 days, she was concerned since she had had a VA in the past. She also been nauseous but with no vomiting. She stated that it was not necessarily her chest that was bothering her more her upper abdomen although in the room when I asked her to point to the area where it had hurt her the most she pointed to her left upper chest. She denied any shortness of breath or cough, increased weakness, diarrhea, fevers, chills, cough, dysuria, hematuria, hesitancy, urgency, frequency. Patient's family reported to the doctor in the emergency department that she had been slightly confused. Patient was able to say her name, birthdate, where she had been before coming to the hospital, why she came to the hospital, what year it was, his president was, what day of the week it was. Patient denied any confusion over the last few days. Labs on admission included white blood cell count of 4.5, hemoglobin of 10.9(her averages 9.7), venous blood gas pH of 7.43, BUN of 36, AST of 11, troponin of 0.06. All other labs within normal limits. Patient's troponin has been elevated since 03/20/2018, with averages approximately of 0.05-0.08. UA showed cloudy yellow urine with a pH of 7, specific gravity 1.011, positive f or nitrite, moderate leukocyte esterase, too numerous to count microscopic white blood cells, moderate bacteria and urine culture was indicated CT abdomen and pelvis showed increased stool, no acute disease but sensitivity is limited without IV and oral contrast Chest x-ray showed no acute cardiopulmonary disease, cardiomegaly without overt failure. Vitals on reporting to the ER were temperature 98.6, pulse rate of 88, respiratory rate of 18, blood pressure 161/85, 99% oxygen on 2 L. Family history: Father had heart attack, patient denies any other family history Social history: Patient denies tobacco use, alcohol, illicit drug use Past Med Surg Social Fam HX - Past Medical History Medical history: arthritis, dementia, GERD, hyperlipidemia, hypertension, migraine, myocardial infarction, RA, thyroid disease, other Additional medical history: macular degeneration Psychiatric history: anxiety, depression - Past Surgical History Surgical History: appendectomy, cholecystectomy Additional surgical history: Plate in pelvis - Social History Smoking Status: Never smoker Smokeless Tobacco Status: No Alcohol use: none Drug use: none - Family History Mother Adopted: No Living Status: Hx Family Cardiac Disorders: Yes Father History Unknown: Yes Hx Family Cancer: Yes (colon cancer) Internal Medicine - H&P: Meds Acetaminophen/Butalbital/Caffe [Fioricet] 1.5 each PO Q4HR 07/07/18 [History] Albuterol Neb [Proventil Neb] 2.5 mg IH Q2H PRN 07/07/18 [History] Ipratropium/Albuterol Sulfate [Iprat-Albut 0.5-3(2.5) mg/3 ml] 3 ml IH Q4HR 07/07/18 [History] Lactobacillus Acidophilus [Acidophilus] 1 tab PO DAILY 07/07/18 [History] Levothyroxine [Synthroid] 100 mcg PO 0600 07/07/18 [History] Lisinopril [Zestril] 10 mg PO 0800,1400 07/07/18 [History] Mag Hydrox/Al Hydrox/Simeth [Maalox] 10 ml PO QID PRN 07/07/18 [History] Ondansetron ODT [Zofran ODT] 4 mg PO 1500 07/07/18 [History] Temazepam [Restoril] 7.5 mg PO HS 07/07/18 [History] predniSONE [PredniSONE] 5 mg PO DAILY 07/07/18 [History] Melatonin 3 mg PO HS #0 tablet 07/16/18 [Rx] Quetiapine Fumarate [Seroquel] 25 mg PO HS #15 tablet 07/16/18 [Rx] Atorvastatin Calcium [Lipitor] 20 mg PO HS 09/07/18 [History] Carvedilol 3.125 mg PO BIDWM 09/07/18 [History] Magnesium Hydroxide [Milk of Magnesia] 400 mg PO HS 09/07/18 [History] Mirtazapine 7.5 mg PO HS 09/07/18 [History] Nitrofurantoin (BID) [Macrobid] 100 mg PO HS 09/07/18 [History] Ondansetron HCl 8 mg PO Q8H PRN 09/07/18 [History] Peg 400/Hypromellose/Glycerin [Visine Tears Drops] 1 drop BOTH EYES QID PRN 09/07/18 [History] Saline Nasal [place] [Ursa Nasal [place]] 2 spray NS BID PRN 09/07/18 [History] Tramadol HCl [Ultram] 50 mg PO Q12H PRN 09/07/18 [History] clonazePAM [Clonazepam] 0.5 mg PO BID 09/07/18 [History] Allergy/AdvReac Type Severity Reaction Status Date / Time esomeprazole [From Nexium] Allergy Difficulty Verified 11/15/17 09:41 Breathing levofloxacin [From Levaquin] Allergy Blister Verified 07/07/18 15:15 Amoxicillin [From Augmentin] AdvReac Nausea Verified 11/15/17 09:41 aspirin AdvReac Dizziness Verified 07/07/18 15:15 ciprofloxacin [From Cipro] AdvReac See Verified 07/07/18 15:15 Comments clavulanic acid AdvReac Nausea Verified 11/15/17 09:41 [From Augmentin] codeine AdvReac Dizziness Verified 07/07/18 15:15 Estrogens AdvReac Dizziness Verified 07/07/18 15:15 hydromorphone [Hydromorphone] AdvReac Dizziness Verified 07/07/18 15:15 meperidine AdvReac Dizziness Verified 07/07/18 15:15 morphine AdvReac Dizziness Verified 07/07/18 15:15 nitrofurantoin AdvReac Nausea Verified 07/07/18 15:15 NSAIDS (Non-Steroidal AdvReac Dizziness Verified 07/07/18 15:15 Anti-Inflamma oxycodone [Oxycodone] AdvReac Dizziness Verified 07/07/18 15:15 Paroxetine [From Paxil] AdvReac Nausea Verified 11/15/17 09:41 tolterodine [From Detrol] AdvReac Nausea Verified 11/15/17 09:41 All Systems PM: A 10-system review of systems was performed and is negative for pertinent findings except as documented above in the HPI. - Constitutional Constitutional: weakness, no chills, no fever(s) - EENT Eyes: no change in vision Ears: decreased hearing (Patient is hard of hearing) Nose, mouth and throat: no nasal congestion, no nasal discharge, no sinus pain, no sinus pressure, no sore throat - Cardiovascular Cardiovascular ROS IM: chest pain, no irregular heart rhythm, no palpitations - Respiratory Respiratory: no cough, no dyspnea, no wheezing - Gastrointestinal Gastrointestinal: abdominal pain, constipation (Patient states that she has a history of constipation, has not had a bowel movement in 2 days), nausea, no diarrhea, no vomiting - Genitourinary Genitourinary: no urinary frequency, no urinary hesitancy, no urinary urgency - Musculoskeletal Musculoskeletal ROS IM: no arthralgias - Integumentary Integumentary IM: no new lesions, no pruritus, no rash - Psychiatric Psychiatric: hallucinations (Patient states that she sees things that are not there at night), visual hallucinations - Constitutional Vitals: Temp Pulse Resp BP Pulse Ox 98.0 F 87 14 172/118 97 09/08/18 01:02 09/08/18 01:02 09/08/18 01:02 09/08/18 01:02 09/08/18 01:02 Exam: General: AAO 3, answers questions appropriately, mild distress Head: normocephalic, atraumatic Eyes: TANA, no icterus Mouth: His membranes moist Neck: Trachea midline, no lymphadenopathy Cardio: RRR, no mumurs, rubs, or gallops Respiratory: CTAB, no wheezing, rhonchi, rales Abd: normal bowel sounds, no gaurding or rigidity Extremties: no pedal edema, pulses equal bilaterally, warm Skin: warm, dry, intact Internal Med - H&P Results - Labs CBC & Chem 7: 09/07/18 18:51 09/07/18 18:51 Labs: Short CBC 09/07/18 Range/Units 18:51 WBC 4.5 (4.3-11.1) K/mcL Hgb 10.9 L (11.5-15.4) g/dL Hct 34.3 L (35.3-44.9) % Plt Count 111 L (140-400) K/mcL Neutrophils # 2.3 (1.6-8.9) K/mcL BMP 09/07/18 18:51 Sodium 138 Potassium 4.4 Chloride 98 Carbon Dioxide 37 H BUN 23 Creatinine 0.64 Glucose 100 Calcium 9.1 Cardiac Enzymes 09/07/18 Range/Units 18:51 Troponin I 0.06 H* (< 0.04) ng/mL Liver Function 09/07/18 Range/Units 18:51 Total Bilirubin 0.4 (0.3-1.0) mg/dL Direct Bilirubin 0.1 (0.0-0.2) mg/dL AST 11 L (13-39) Units/L ALT 9 (7-52) Units/L Alkaline Phosphatase 41 (34-104) Units/L Albumin 3.7 (3.5-5.7) g/dL Urine 09/07/18 Range/Units 20:31 Urine Color Yellow (Yellow) Urine Clarity Cloudy A (Clear) Urine pH 7.0 (5.0-8.0) pH Units Ur Specific [place] 1.011 (1.010-1.025) Urine Protein Negative (Neg-Trace) mg/dL Urine Glucose (UA) Normal (Normal) mg/dL - ABG Interpretation ABG results: 09/07/18 20:10 VBG pH 7.43 H VBG pCO2 54 H VBG pO2 222 H VBG HCO3 36 H - Impressions ITS Impressions Abdomen/Pelvis CT 09/07/18 18:55 IMPRESSION: Increased stool. No acute disease but sensitivity is limited without IV and oral contrast. Incidental findings as above. D/ / Nico Sheikh MD / Nico Sheikh MD Interpreting Provider: Nico Sheikh MD Chest X-Ray 09/07/18 18:55 IMPRESSION: No acute cardiopulmonary disease. Cardiomegaly without overt failure. D/ / uJstyn Laguerre MD / Justyn Laguerre MD Interpreting Provider: Justyn Laguerre MD - Assessment and Plan (1) UTI (urinary tract infection) Current Visit: Yes Status: Acute Assessment and plan: Patient denies any dysuria, frequency, urgency Urinalysis showed cloudy yellow urine with a pH of 7 specific gravity 1.011, positive for nitrites, moderate leukocyte esterase, too numerous to count microscopic white blood cells, moderate bacteria and culture was indicated and reflexed Patient was given 1 dose of her Cephadyn the ED Continue Rocephin Await urinary culture results Qualifiers: Urinary tract infection type: site unspecified Hematuria presence: without hematuria Qualified Code(s): N39.0 - Urinary tract infection, site not specified (2) Altered mental status Current Visit: No Status: Resolved Assessment and plan: Patient's family in the ED told the physician that she seemed confused Patient is AAO 3, knows her name, date of , what day the week it is, who the president is, her situation, and where she was prior to admission. We will continue to monitor and try to avoid medications that could cause altered mental status the patient is on many different chronic medications Patient does have a history of dementia as well as visual hallucinations Qualifiers: Altered mental status type: transient alteration of awareness Qualified Code(s): R40.4 - Transient alteration of awareness (3) Nausea Current Visit: Yes Status: Acute Assessment and plan: Likely secondary to UTI and/or constipation Patient states her nausea has resolved Continue to monitor and treat if necessary (4) COPD (chronic obstructive pulmonary disease) Current Visit: No Status: Acute Assessment and plan: Patient has history of COPD On BiPAP at night at home Continue BiPAP at night Do not believe patient is current acute exacerbation. Qualifiers: COPD type: emphysema Emphysema type: unspecified Qualified Code(s): J43.9 - Emphysema, unspecified (5) Headache, chronic migraine without aura Current Visit: Yes Status: Acute Assessment and plan: Patient is currently on Fioricet at home Continue patient's Fioricet Qualifiers: Status migrainosus presence: without status migrainosus Intractability: not intractable Qualified Code(s): G43.709 - Chronic migraine without aura, not i ntractable, without status migrainosus (6) Hypertension Current Visit: No Status: Chronic Assessment and plan: Patient's blood pressure on admission is stable We will hold patient's home medications at this time Restart if necessary Qualifiers: Hypertension type: essential hypertension Qualified Code(s): I10 - Essential (primary) hypertension (7) Anxiety Current Visit: No Status: Acute Assessment and plan: Patient has history of dementia with hallucinations as well as anxiety We will continue patient's Klonopin at this time due to her long-term use Consider switching patient from this medication due to possible side effects in the elderly (8) Constipation Current Visit: No Status: Acute Assessment and plan: Patient states that she has chronic constipation She has not had a bowel movement in [address] showed increased stool Patient was started on senna plus scheduled Qualifiers: Constipation type: unspecified constipation type Qualified Code(s): K59.00 - Constipation, unspecified (9) DVT prophylaxis Current Visit: No Status: Acute Assessment and plan: scds - Time Spent With Patient Total time spent is greater than 50% in coordination of care (as documented) at patient's floor/unit and/or counseling patient: <Nico Hobbs - Last Filed: 09/08/18 03:52> Date of Encounter: 09/08/18 Internal Medicine - H&P: HPI History of present illness: Ms. Schmidt is a 83 year old female All Systems PM: A 10-system review of systems was performed and is negative for pertinent findings except as documented above in the HPI. - Constitutional Vitals: Temp Pulse Resp BP Pulse Ox 98.0 F 87 14 172/118 97 09/08/18 01:02 09/08/18 01:02 09/08/18 01:02 09/08/18 01:02 09/08/18 01:02 Internal Med - H&P Results - Labs CBC & Chem 7: 09/08/18 02:18 09/08/18 02:18 Labs: Short CBC 09/07/18 09/08/18 Range/Units 18:51 02:18 WBC 4.5 5.5 (4.3-11.1) K/mcL Hgb 10.9 L 11.5 (11.5-15.4) g/dL Hct 34.3 L 35.7 (35.3-44.9) % Plt Count 111 L 120 L (140-400) K/mcL Neutrophils # 2.3 3.3 (1.6-8.9) K/mcL BMP 09/07/18 09/08/18 18:51 02:18 Sodium 138 136 Potassium 4.4 3.9 Chloride 98 98 Carbon Dioxide 37 H 34 H BUN 23 18 Creatinine 0.64 0.61 Glucose 100 106 H Calcium 9.1 8.7 Cardiac Enzymes 09/07/18 09/08/18 Range/Units 18:51 02:18 Troponin I 0.06 H* 0.06 H* (< 0.04) ng/mL Liver Function 09/07/18 Range/Units 18:51 Total Bilirubin 0.4 (0.3-1.0) mg/dL Direct Bilirubin 0.1 (0.0-0.2) mg/dL AST 11 L (13-39) Units/L ALT 9 (7-52) Units/L Alkaline Phosphatase 41 (34-104) Units/L Albumin 3.7 (3.5-5.7) g/dL Urine 09/07/18 Range/Units 20:31 Urine Color Yellow (Yellow) Urine Clarity Cloudy A (Clear) Urine pH 7.0 (5.0-8.0) pH Units Ur Specific [place] 1.011 (1.010-1.025) Urine Protein Negative (Neg-Trace) mg/dL Urine Glucose (UA) Normal (Normal) mg/dL - ABG Interpretation ABG results: 09/07/18 20:10 VBG pH 7.43 H VBG pCO2 54 H VBG pO2 222 H VBG HCO3 36 H - Impressions ITS Impressions Abdomen/Pelvis CT 09/07/18 18:55 IMPRESSION: Increased stool. No acute disease but sensitivity is limited without IV and oral contrast. Incidental findings as above. D/ / Nico Sheikh MD / Nico Sheikh MD Interpreting Provider: Nico Sheikh MD Chest X-Ray 09/07/18 18:55 IMPRESSION: No acute cardiopulmonary disease. Cardiomegaly without overt failure. D/ / Justyn Laguerre MD / Justyn Laguerre MD Interpreting Provider: Justyn Laguerre MD - Time Spent With Patient Total time spent is greater than 50% in coordination of care (as documented) at patient's floor/unit and/or counseling patient: - Attending Attestation I saw and evaluated the patient. I reviewed the residents note, performed my own physical examination and agree with findings and plan as documented in the residents note. Patient seen and examined on 09/08/18. Patient presented to the emergency room with chest pain for 2 days, found to have elevated troponin and urinary tract infection. Patient started on ceftriaxone. We will continue to trend troponins, with cardiac monitoring. On exam she does also have a grade 2 systolic murmur, which has been reported previously as well. Patient also admits to visual hallucinations, and says that BiPAP helps with these. 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 Initially also reported to have altered mental status, however upon my evaluation patient is fully oriented and does not appear confused. She is aware that she sees things and currently does not admit to hallucinations. We will continue to monitor closely.
[2018-09-08] MEDS ORDERED: Albuterol 2.5 MG/3 ML NEBULIZER IH PRN (02:36)
[2018-09-08] MEDS ORDERED: Artificial Tears SOLN 15 ML BOTTLE BOTH EYES PRN (02:36)
[2018-09-08] MEDS: clonazePAM 0.5 MG TABLET PO SCH ×3 (02:39→09:51)
[2018-09-08 03:14] LABS: Basophils % 0.4 %; Eosinophils # 0.2 K/mcL (0.0-0.6); Hematocrit 35.7 % (35.3-44.9); Hemoglobin 11.5 g/dL (11.5-15.4); Immature Granulocytes % 0.4 % (0-4); Lymphocytes # 1.4 K/mcL (0.6-4.6); Lymphocytes % 26.2 %; Mean Corpuscular HGB Conc 32.2 g/dL (31.6-35.5); Mean Corpuscular Hemoglobin 33.9 pg (28.0-33.3); Mean Corpuscular Volume 105.3 fL (83.0-100.0); Mean Platelet Volume 11.3 fL (9.4-12.4); Monocytes # 0.5 K/mcL (0.0-1.3); Monocytes % 8.2 %; Neutrophils # 3.3 K/mcL (1.6-8.9); Platelet Count 120 K/mcL (140-400); Red Blood Count 3.39 M/mcL (3.82-4.97); Red Cell Distribution Width 12.5 % (11.5-14.5); Segmented Neutrophils % 60.8 %
[2018-09-08 03:27] LABS: BUN/Creatinine Ratio 30 (6-26); Blood Urea Nitrogen 18 mg/dL (8-23); Calcium 8.7 mg/dL (8.6-10.3); Carbon Dioxide 34 mEq/L (23-29); Chloride 98 mEq/L (98-107); Glucose 106 mg/dL (70-105); Magnesium 1.9 mg/dL (1.6-2.6); Osmolality,Calculated 284 (280-300); Phosphorous 3.5 mg/dL (2.7-4.5); Potassium 3.9 mEq/L (3.5-5.1); Sodium 136 mEq/L (136-145); eGFR For Non-African Americans > 60 (> 60)
[2018-09-08] MEDS: Acetaminophen/Butalbital/CaffeineTABLET PO SCH ×5 (04:34→20:37)
[2018-09-08] MEDS: Sennosides/Docusate Sodium TABLET PO SCH ×3 (04:37→19:38)
[2018-09-08] MEDS ORDERED: Saline Nasal Spray 44 ML BOTTLE NS PRN (08:43)
[2018-09-08] MEDS: predniSONE 5 MG TABLET PO SCH (09:01)
[2018-09-08] MEDS: Lactobacillus 1 EACH CAP.SPRINK PO SCH (09:51)
[2018-09-08] MEDS: cefTRIAXone 1,000 MG in Water for inj. (sterile) 20 ML 10 ML IVP SCH (09:52)
--- NOTE | 2018-09-08 10:37 | Event Note ---
Date of Encounter: 09/08/18 Time of Encounter: 10:35 Patient was seen and examined earlier this morning by hospitalist services. Nursing does report the patient's agitated this a.m. Patient has not received any of her home medications. I did resume home medications as well as added a when necessary Haldol. Patient is complaining of constipation continue with when necessary laxative as well as scheduled senna. Currently patient is more calm and cooperative sleeping on BiPAP. Patient's family is at bedside states her behaviors much improved and appears to be more baseline.
[2018-09-08] MEDS: 0.9 % Sodium Chloride 1,000 ML IVC SCH (10:57)
[2018-09-08] MEDS: Ipratropium/Albuterol Neb 3 ML IH SCH ×3 (11:25→19:33)
[2018-09-08] MEDS: Ondansetron ODT 4 MG TAB.RAPDIS PO SCH (15:18)
[2018-09-08] MEDS ORDERED: Haloperidol Lactate 5 MG/ML VIAL IVP ONE (16:06)
[2018-09-08 17:18] LABS: ABG Base Excess 7 mEq/L (-2 to 3); ABG HCO3 33 mEq/L (21-27); ABG Oxygen Saturation 95 % (95-98); ABG PCO2 54 mmHg (35-45); ABG PO2 76 mmHg (85-104); ABG TCO2 35 mEq/L (20-26)
[2018-09-08] MEDS: traMADol 50 MG TABLET PO PRN (18:01)
[2018-09-08] MEDS: Melatonin 3 MG TABLET PO SCH (19:37)
[2018-09-08] MEDS: MOM Conc 10 ML UD.LIQ PO SCH (19:38)
[2018-09-08] MEDS ORDERED: clonazePAM 0.5 MG TABLET PO ONE (20:37)
[2018-09-09] MEDS: Ipratropium/Albuterol Neb 3 ML IH SCH ×7 (00:56→23:54)
[2018-09-09] MEDS: Acetaminophen/Butalbital/CaffeineTABLET PO SCH ×6 (02:40→20:23)
[2018-09-09] MEDS: 0.9 % Sodium Chloride 1,000 ML IVC SCH (04:06)
[2018-09-09] MEDS: predniSONE 5 MG TABLET PO SCH (08:55)
[2018-09-09] MEDS: Lactobacillus 1 EACH CAP.SPRINK PO SCH (08:55)
[2018-09-09] MEDS: Sennosides/Docusate Sodium TABLET PO SCH ×2 (08:55→23:26)
[2018-09-09] MEDS: clonazePAM 0.5 MG TABLET PO SCH ×2 (08:55→20:25)
[2018-09-09] MEDS: cefTRIAXone 1,000 MG in Water for inj. (sterile) 20 ML 10 ML IVP SCH (08:57)
[2018-09-09] MEDS ORDERED: Preparation H Ointment 30 GM TUBE RC PRN (10:24)
[2018-09-09] MEDS: Ondansetron ODT 4 MG TAB.RAPDIS PO SCH (15:19)
--- NOTE | 2018-09-09 15:49 | Internal Med Progress Note ---
Hospitalist Progress Note - Encounter Date of Encounter: 09/09/18 Time of Encounter: 15:46 - Subjective Interval History: Seen and examined at bedside. Patient is new to me, information obtained from chart review, patient report and daughter at bedside. Patient says she feels better and back to baseline. Her only complaint this morning is hemorrhoids and some intermittent nausea. Denied dysuria. - Exam Vitals: Temp Pulse Resp BP Pulse Ox 97.9 F 87 18 135/80 97 09/09/18 08:05 09/09/18 08:05 09/09/18 11:04 09/09/18 08:05 09/09/18 11:04 Exam: General: AAO 3, answers questions appropriately, forgetful Head: normocephalic, atraumatic Eyes: TANA, no icterus Mouth: His membranes moist Neck: Trachea midline, no lymphadenopathy Cardio: RRR, no mumurs, rubs, or gallops Respiratory: CTAB, no wheezing, rhonchi, rales Abd: normal bowel sounds, no gaurding or rigidity Extremties: no pedal edema, pulses equal bilaterally, warm Skin: warm, dry, intact - Assessment and Plan (1) UTI (urinary tract infection) Current Visit: No Status: Ruled-out Assessment and Plan: UA concerning for UTI with nitrites. Urine culture with gram-negative kassi. Continue IV ceftriaxone. Follow urine culture and narrow accordingly. (2) Acute metabolic encephalopathy Current Visit: No Status: Acute Assessment and Plan: has known dementia and anxiety. Presented with increased confusion. In the setting of UTI. Mentation now appears back to baseline; alert and oriented but forgetful at times. No further workup indicated at this time. (3) Anxiety Current Visit: No Status: Acute Assessment and Plan: per hx. Cont home klonopin (4) COPD (chronic obstructive pulmonary disease) Current Visit: No Status: Acute Assessment and Plan: per hx. No evidence of exacerbation. PRN bronchodilators. (5) HTN (hypertension) Current Visit: No Status: Chronic Assessment and Plan: per hx. BP variable but acceptable. Continue home BP medication. Monitor BP and titrate PRN (6) Migraine headache Current Visit: Yes Status: Acute Assessment and Plan: has known history of migraines with associated nausea. Cont home Fioricet (7) Dementia Current Visit: No Status: Chronic Assessment and Plan: per hx. with increased confusion on arrival which is most likely secondary to UTI. Mentation back to baseline. Supportive care. (8) Osteoarthritis Current Visit: Yes Status: Acute Assessment and Plan: per hx. Cont home low-dose steroids. (9) Constipation Current Visit: No Status: Acute Assessment and Plan: ABD showed large amount of stool. Patient reported chronic constipation. Had BM 09/08. Continue senna (10) DVT prophylaxis Current Visit: No Status: Acute Assessment and Plan: SCD - Time Spent with Patient Total time spent is greater than 50% in coordination of care (as documented) at patient's floor/unit and/or counseling patient: Internal Medicine: Result - Labs CBC & Chem 7: 09/08/18 02:18 09/08/18 02:18 - ABG Interpretation ABG results: ABG ABG pH 7.40 pH Units (7.32-7.45) 09/08/18 17:16 ABG pCO2 54 mmHg (35-45) H 09/08/18 17:16 ABG pO2 76 mmHg (85-104) L 09/08/18 17:16 ABG O2 Saturation 95 % (95-98) 09/08/18 17:16 Consult Discharge Plan - Plan Referrals: Pipe Marin DO [Partnered Physician] - (1) UTI (urinary tract infection) Qualifiers: Hematuria presence: with hematuria Qualified Code(s): N39.0 - Urinary tract infection, site not specified; R31.9 - Hematuria, unspecified (4) 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 type: unspecified Qualified Code(s): J43.9 - Emphysema, unspecified (5) HTN (hypertension) Qualifiers: Hypertension type: essential hypertension Qualified Code(s): I10 - Essential (primary) hypertension (6) Migraine headache Qualifiers: Migraine type: unspecified Status migrainosus presence: without status migrainosus Intractability: not intractable Qualified Code(s): G43.909 - Migraine, unspecified, not intractable, without status migrainosus (7) Dementia Qualifiers: Dementia type: unspecified type Dementia behavioral disturbance: with behavioral disturbance Qualified Code(s): F03.91 - Unspecified dementia with behavioral disturbance (8) Osteoarthritis Qualifiers: Qualified Code(s): M19.90 - Unspecified osteoarthritis, unspecified site (9) Constipation Qualifiers: Constipation type: unspecified constipation type Qualified Code(s): K59.00 - Constipation, unspecified
[2018-09-09] MEDS: traMADol 50 MG TABLET PO PRN (17:53)
[2018-09-09] MEDS: Melatonin 3 MG TABLET PO SCH (20:23)
[2018-09-09] MEDS: MOM Conc 10 ML UD.LIQ PO SCH (20:25)
[2018-09-09] MEDS: Mag Hydrox/Al Hydrox/Simeth 30 ML UDC PO PRN (22:31)
[2018-09-09] MEDS ORDERED: clonazePAM 0.5 MG TABLET PO ONE (23:28)
[2018-09-10] MEDS: Acetaminophen/Butalbital/CaffeineTABLET PO SCH ×7 (00:43→20:21)
[2018-09-10] MEDS: Ipratropium/Albuterol Neb 3 ML IH SCH ×6 (03:47→23:55)
[2018-09-10] MEDS ORDERED: Ertapenem 1,000 MG in 0.9 % Sodium Chloride Mini Bag 100 ML IVPB SCH (09:00)
--- NOTE | 2018-09-10 09:53 | Electrocardiograph Report ---
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
--- NOTE | 2018-09-10 09:56 | Urology - Consult Note ---
<Lina Lopez N - Last Filed: 09/10/18 09:48> Date of Encounter: 09/10/18 Time of Encounter: 09:48 - Assessment and Plan (1) UTI (urinary tract infection) Current Visit: Yes Status: Acute Assessment and plan: Patient is an 83-year-old female who presents with a history of ESBL Escherichia coli urinary tract infection. Patient has a long-standing history of recurrent urinary tract infections with contributing cause being multifactoral given patient's overall status. Patient has a history of pelvic prolapse, and I am concerned for incomplete emptying. A bladder scan has been ordered to evaluate for elevated post void residual, as CT suggests distended bladder. I explained that if patient's PVR is elevated, she may require indwelling Denny catheterization for optimal drainage. I offered to place catheter at bedside, but patient wishes to await bladder scan and discuss results with her daughter. Dr. Du will be in to reevaluate patient this afternoon. Qualifiers: Urinary tract infection type: site unspecified Hematuria presence: without hematuria Qualified Code(s): N39.0 - Urinary tract infection, site not s pecified Urology CN:HPI Consult date: 09/10/18 Reason for consult Urology: Other (recurrent UTI, ESBL E.Coli UTI) Requesting physician: Margo Hooks History of present illness: Patient is an 83-year-old female who presents with ESBL Escherichia coli urinary tract infection. Patient initially presented to the emergency department with concern for chest pain. Upon evaluation, patient was found to have a nitrite positive urinalysis, and urine was sent for culture. Patient was placed on IV Rocephin initially, and after culture was resulted, antibiotics were changed to IV ertapenem. Patient has a past medical history of dementia, but mental status has been more compromised in the setting of urinary tract infection. Patient has a long-standing history of recurrent urinary tract infections with most recent UTI in June 2017 being pseudomonas, April 2018 Escherichia coli, and February 2018 enterococcus. Patient has multiple drug allergies and sensitivities making it difficult to treat with oral antibiotics. Patient is established with Dr. Dior who treated with preventative low-dose nitrofurantoin and attempted multiple pessary fittings for pelvic prolapse. Patient was unable to tolerate pessary, and she has experienced incomplete bladder emptying requiring straight catheterization in the past. Patient underwent a CT of the abdomen and pelvis that was reassuring for no hydronephrosis or obstructive uropathy. CT also revealed a distended bladder and possible incomplete emptying. Currently, patient is sitting upright in bed in no apparent distress, and she is able to recall pertinent past medical history. Patient denies any dysuria, frequency, urgency, gross hematuria, fever, chills or flank pain. Patient admits to nocturia and incontinence but she feels as though she empties her bladder sufficiently. Past Med Surg Social Fam HX - Past Medical History Medical history: arthritis, dementia, GERD, hyperlipidemia, hypertension, migraine, myocardial infarction, RA, thyroid disease, other Additional medical history: macular degeneration Psychiatric history: anxiety, depression - Past Surgical History Surgical History: appendectomy, cholecystectomy Additional surgical history: Plate in pelvis - Social History Smoking Status: Never smoker Smokeless Tobacco Status: No Alcohol use: none Drug use: none - Family History Mother Adopted: No Living Status: Hx Family Cardiac Disorders: Yes Father History Unknown: Yes Hx Family Cancer: Yes (colon cancer) Medications and Allergies Acetaminophen/Butalbital/Caffe [Fioricet] 1.5 each PO Q4HR 07/07/18 [History] Albuterol Neb [Proventil Neb] 2.5 mg IH Q2H PRN 07/07/18 [History] Ipratropium/Albuterol Sulfate [Iprat-Albut 0.5-3(2.5) mg/3 ml] 3 ml IH Q4HR 07/07/18 [History] Lactobacillus Acidophilus [Acidophilus] 1 tab PO DAILY 07/07/18 [History] Levothyroxine [Synthroid] 100 mcg PO 0600 07/07/18 [History] Lisinopril [Zestril] 10 mg PO 0800,1400 07/07/18 [History] Mag Hydrox/Al Hydrox/Simeth [Maalox] 10 ml PO QID PRN 07/07/18 [History] Ondansetron ODT [Zofran ODT] 4 mg PO 1500 07/07/18 [History] Temazepam [Restoril] 7.5 mg PO HS 07/07/18 [History] predniSONE [PredniSONE] 5 mg PO DAILY 07/07/18 [History] Melatonin 3 mg PO HS #0 tablet 07/16/18 [Rx] Quetiapine Fumarate [Seroquel] 25 mg PO HS #15 tablet 07/16/18 [Rx] Atorvastatin Calcium [Lipitor] 20 mg PO HS 09/07/18 [History] Carvedilol 3.125 mg PO BIDWM 09/07/18 [History] Magnesium Hydroxide [Milk of Magnesia] 400 mg PO HS 09/07/18 [History] Mirtazapine 7.5 mg PO HS 09/07/18 [History] Nitrofurantoin (BID) [Macrobid] 100 mg PO HS 09/07/18 [History] Ondansetron HCl 8 mg PO Q8H PRN 09/07/18 [History] Peg 400/Hypromellose/Glycerin [Visine Tears Drops] 1 drop BOTH EYES QID PRN 09/07/18 [History] Saline Nasal [place] [[place] Nasal [place]] 2 spray NS BID PRN 09/07/18 [History] Tramadol HCl [Ultram] 50 mg PO Q12H PRN 09/07/18 [History] clonazePAM [Clonazepam] 0.5 mg PO BID 09/07/18 [History] Allergy/AdvReac Type Severity Reaction Status Date / Time esomeprazole [From Nexium] Allergy Difficulty Verified 11/15/17 09:41 Breathing levofloxacin [From Levaquin] Allergy Blister Verified 07/07/18 15:15 Amoxicillin [From Augmentin] AdvReac Nausea Verified 11/15/17 09:41 aspirin AdvReac Dizziness Verified 07/07/18 15:15 ciprofloxacin [From Cipro] AdvReac See Verified 07/07/18 15:15 Comments clavulanic acid AdvReac Nausea Verified 11/15/17 09:41 [From Augmentin] codeine AdvReac Dizziness Verified 07/07/18 15:15 Estrogens AdvReac Dizziness Verified 07/07/18 15:15 hydromorphone [Hydromorphone] AdvReac Dizziness Verified 07/07/18 15:15 meperidine AdvReac Dizziness Verified 07/07/18 15:15 morphine AdvReac Dizziness Verified 07/07/18 15:15 nitrofurantoin AdvReac Nausea Verified 07/07/18 15:15 NSAIDS (Non-Steroidal AdvReac Dizziness Verified 07/07/18 15:15 Anti-Inflamma oxycodone [Oxycodone] AdvReac Dizziness Verified 07/07/18 15:15 Paroxetine [From Paxil] AdvReac Nausea Verified 11/15/17 09:41 tolterodine [From Detrol] AdvReac Nausea Verified 11/15/17 09:41 Review of Systems - Constitutional no chills, no fatigue, no fever(s) - EENT Nose, mouth and throat: no dizziness, no headache(s) - Cardiovascular no chest pain, no diaphoresis, no dyspnea - Respiratory no cough, no dyspnea - Gastrointestinal no abdominal pain, no nausea, no vomiting - Genitourinary Genitourinary: urinary incontinence, no change in urinary stream, no difficulty urinating, no dysuria, no flank pain, no hematuria, no urinary frequency, no urinary hesitancy, no urinary urgency - Musculoskeletal no back pain, no numbness - Integumentary no erythema, no rash - Neurological no confusion, no syncope - Psychiatric anxiety, no confusion - Hematologic/Lymphatic no easy bleeding, no easy bruising - Allergic/Immunologic no throat swelling, no wheezing Exam Initial Vital Signs Temp Pulse Resp BP Pulse Ox 98.6 F 88 18 161/85 99 09/07/18 18:13 09/07/18 18:13 09/07/18 18:13 09/07/18 18:13 09/07/18 18:13 - General physical appearance Present: no distress, no pain - Eyes Present: PERRL, normal ocular movement - ENT Present: normal nares, no congestion, decreased hearing - Neck Present: no masses, trachea midline, no lymphadenopathy - Respiratory Present: normal respiratory effort - Cardiovascular Cardiovascular exam IM: RRR - Abdomen Abdomen: Present: soft, non tender. Absent: distended - Genitourinary Present: other (no CVAT) - Integumentary Present: no rash, no abnormal pigmentation - Neurologic Present: normal coordination - Musculoskeletal Present: other (normal posture ) Urology Results - Labs 09/08/18 02:18 09/08/18 02:18 Abnormal lab results RBC 3.39 M/mcL (3.82-4.97) L 09/08/18 02:18 Hgb 10.9 g/dL (11.5-15.4) L 09/07/18 18:51 Hct 34.3 % (35.3-44.9) L 09/07/18 18:51 MCV 105.3 fL (83.0-100.0) H 09/08/18 02:18 MCH 33.9 pg (28.0-33.3) H 09/08/18 02:18 Plt Count 120 K/mcL (140-400) L 09/08/18 02:18 ABG pCO2 54 mmHg (35-45) H 09/08/18 17:16 ABG pO2 76 mmHg (85-104) L 09/08/18 17:16 ABG HCO3 33 mEq/L (21-27) H 09/08/18 17:16 ABG Total CO2 35 mEq/L (20-26) H 09/08/18 17:16 ABG Base Excess 7 mEq/L (-2 to 3) H 09/08/18 17:16 VBG pH 7.43 pH Units (7.32-7.42) H 09/07/18 20:10 VBG pCO2 54 mmHg (41-51) H 09/07/18 20:10 VBG pO2 222 mmHg (25-50) H 09/07/18 20:10 VBG HCO3 36 mEq/L (21-27) H 09/07/18 20:10 Carbon Dioxide 34 mEq/L (23-29) H 09/08/18 02:18 30 (6-26) H 09/08/18 02:18 Glucose 106 mg/dL (70-105) H 09/08/18 02:18 AST 11 Units/L (13-39) L 09/07/18 18:51 0.05 ng/mL (< 0.04) H* 09/08/18 10:27 Cloudy (Clear) A 09/07/18 20:31 Positive (Negative) A 09/07/18 20:31 Ur Leukocyte Esterase Moderate (Negative) H 09/07/18 20:31 TNTC per hpf (0-3) H 09/07/18 20:31 Moderate per hpf (None-Few) H 09/07/18 20:31 Ur Culture Indicated? YES (NO) A 09/07/18 20:31 All other labs normal. - Imaging CT scan - abdomen: report reviewed, image reviewed CT scan - pelvis: report reviewed, image reviewed Consult Discharge Plan - Plan Referrals: Pipe Marin, [Partnered Physician] - <Nico Du - Last Filed: 09/11/18 08:11> Date of Encounter: 09/11/18 - Assessment and Plan (1) UTI (urinary tract infection) Current Visit: Yes Status: Acute Assessment and plan: Patient seen and examined independently. I am in agreement with the assessment and plan as outlined by our Urologic Surgery Department Physician Busboy, Jessica. Discussed findings with patient in detail. Will leave Denny indwelling. Will arrange outpatient follow-up with possible trauma void in 1-2 weeks. Qualifiers: Urinary tract infection type: site unspecified Hematuria presence: without hematuria Qualified Code(s): N39.0 - Urinary tract infection, site not s pecified (2) Urinary retention Current Visit: No Status: Acute (3) Urinary retention with incomplete bladder emptying Current Visit: No Status: Acute Exam Initial Vital Signs Temp Pulse Resp BP Pulse Ox 98.6 F 88 18 161/85 99 09/07/18 18:13 09/07/18 18:13 09/07/18 18:13 09/07/18 18:13 09/07/18 18:13 Urology Results - Labs 09/08/18 02:18 09/08/18 02:18 Abnormal lab results RBC 3.39 M/mcL (3.82-4.97) L 09/08/18 02:18 Hgb 10.9 g/dL (11.5-15.4) L 09/07/18 18:51 Hct 34.3 % (35.3-44.9) L 09/07/18 18:51 MCV 105.3 fL (83.0-100.0) H 09/08/18 02:18 MCH 33.9 pg (28.0-33.3) H 09/08/18 02:18 Plt Count 120 K/mcL (140-400) L 09/08/18 02:18 ABG pCO2 54 mmHg (35-45) H 09/08/18 17:16 ABG pO2 76 mmHg (85-104) L 09/08/18 17:16 ABG HCO3 33 mEq/L (21-27) H 09/08/18 17:16 ABG Total CO2 35 mEq/L (20-26) H 09/08/18 17:16 ABG Base Excess 7 mEq/L (-2 to 3) H 09/08/18 17:16 VBG pH 7.43 pH Units (7.32-7.42) H 09/07/18 20:10 VBG pCO2 54 mmHg (41-51) H 09/07/18 20:10 VBG pO2 222 mmHg (25-50) H 09/07/18 20:10 VBG HCO3 36 mEq/L (21-27) H 09/07/18 20:10 Carbon Dioxide 34 mEq/L (23-29) H 09/08/18 02:18 30 (6-26) H 09/08/18 02:18 Glucose 106 mg/dL (70-105) H 09/08/18 02:18 AST 11 Units/L (13-39) L 09/07/18 18:51 0.05 ng/mL (< 0.04) H* 09/08/18 10:27 Cloudy (Clear) A 09/07/18 20:31 Positive (Negative) A 09/07/18 20:31 Ur Leukocyte Esterase Moderate (Negative) H 09/07/18 20:31 TNTC per hpf (0-3) H 09/07/18 20:31 Moderate per hpf (None-Few) H 09/07/18 20:31 Ur Culture Indicated? YES (NO) A 09/07/18 20:31 Positive (Negative) A 09/10/18 10:30 All other labs normal.
[2018-09-10] MEDS: Sennosides/Docusate Sodium TABLET PO SCH ×2 (10:27→20:23)
[2018-09-10] MEDS: predniSONE 5 MG TABLET PO SCH (10:28)
[2018-09-10] MEDS: Lactobacillus 1 EACH CAP.SPRINK PO SCH (10:28)
[2018-09-10] MEDS: clonazePAM 0.5 MG TABLET PO SCH ×2 (10:28→20:22)
--- NOTE | 2018-09-10 11:34 | Infectious Disease Consult ---
Infectious Disease-Consult - Encounter Date/Time Date of Encounter: 09/10/18 Time of Encounter: 11:30 - Data of Consult Patient: new to practice Reason for consult: MDRO UTI Consult date: 09/10/18 Requesting Physician: Margo Hooks MD Primary Care Provider: PCP NONE - HPI HPI: Ms. Schmidt is an 83-year-old female with past medical history of GERD, [place], iron deficiency anemia, hypothyroidism, RA on chronic daily prednisone, hyperlipidemia, hypercapnia with BiPAP at night, migraines, dementia, recurrent UTI secondary to pelvic prolapse unable to tolerate a pessary on chronic oral Macrobid. The patient was admitted to the hospital 09/07/18 for chest pain. We are consulted 09/10/18 for further workup and treatment recommendations for UTI. Briefly, the patient is a 83-year-old female with past medical history as stated above. The patient presented to the emergency department with complaints of ingrid rtness of breath, left chest and left upper quadrant abdominal pain as well as chronic headaches and some confusion per her family's report. Upon arrival, the patient was afebrile and hemodynamically stable. White blood cell count was normal. Troponin was mildly elevated at 0.06. LFTs, renal function, and lipase were normal. Venous blood gas revealed her CO2 was mildly elevated at 54. She has CT of the abdomen and pelvis without contrast that showed increased stool burning, but was otherwise normal. Chest x-ray was negative. Urinalysis was grossly pyuric. She was started empirically on IV Rocephin and admitted to the hospital for further evaluation. Since admission, the patient has remained afebrile and hemodynamically stable. Her white blood cell count has remained normal. She was evaluated by urology for her pelvic prolapse. Her urine culture results at this morning is positive for multidrug resistant Escherichia coli. IV antibiotics were transitioned to ertapenem today. We have been asked to evaluate and make further recommendations. During my exam today, the patient states that she came to the ER because she thought she was having "heart attack." She complains of left chest and left upper quadrant pain that started on the day of admission. She does complain of chronic headaches are baseline. Denies any new visual disturbances or floaters. States she does have chronic visual alterations due to her macular degeneration. Denies congestion, earache, or sore throat. Denies any neck pain or stiffness. States her chest pain has resolved. Denies shortness of breath or cough. Denies nausea, vomiting, diarrhea. She does report chronic constipation. She denies abdominal or suprapubic pain. Denies any back or flank pain. Reports chronic pain in multiple joints secondary to rheumatoid arthritis. Denies oral thrush or skin lesions. The patient lives in a local extended care facility. She denies tobacco, alcohol, or illicit drug use. - ROS Review of Systems: All systems reviewed and no additional remarkable complaints except as stated. - Results CBC & Chem 7: 09/12/18 04:59 09/12/18 04:59 - Exam Vitals: Temp Pulse Resp BP Pulse Ox 98.4 F 77 16 156/80 99 09/10/18 06:51 09/10/18 06:51 09/10/18 11:15 09/10/18 06:51 09/10/18 11:15 Exam: Head: Atraumatic, normal inspection, normocephalic. Eye: EOMI, PERRLA, no scleral icterus noted. ENT: Mucous membranes moist. No odontogenic infection noted. Neck: Normal inspection, no meningismus. Respiratory: Clear to auscultation. No rales, respiratory distress, rhonchi, or wheezes noted. Cardiovascular: Regular rate and rhythm, S1 and S2 audible. No rubs or gallops. GI: Soft, nondistended, normal bowel sounds. Nontender. Extremities:No joint swelling, pedal edema, or tenderness noted. Back: Normal inspection. No vertebral tenderness noted. No CVA tenderness noted. Neurological: Alert, oriented 3, no focal deficits. Psychiatric: normal affect, normal mood. Skin: Dry, intact, warm. Normal color. No rashes. Acetaminophen/Butalbital/Caffe [Fioricet] 1.5 each PO Q4HR 07/07/18 [History] Albuterol Neb [Proventil Neb] 2.5 mg IH Q2H PRN 07/07/18 [History] Ipratropium/Albuterol Sulfate [Iprat-Albut 0.5-3(2.5) mg/3 ml] 3 ml IH Q4HR 07/07/18 [History] Lactobacillus Acidophilus [Acidophilus] 1 tab PO DAILY 07/07/18 [History] Levothyroxine [Synthroid] 100 mcg PO 0600 07/07/18 [History] Lisinopril [Zestril] 10 mg PO 0800,1400 07/07/18 [History] Mag Hydrox/Al Hydrox/Simeth [Maalox] 10 ml PO QID PRN 07/07/18 [History] Ondansetron ODT [Zofran ODT] 4 mg PO 1500 07/07/18 [History] Temazepam [Restoril] 7.5 mg PO HS 07/07/18 [History] predniSONE [PredniSONE] 5 mg PO DAILY 07/07/18 [History] Melatonin 3 mg PO HS #0 tablet 07/16/18 [Rx] Quetiapine Fumarate [Seroquel] 25 mg PO HS #15 tablet 07/16/18 [Rx] Atorvastatin Calcium [Lipitor] 20 mg PO HS 09/07/18 [History] Carvedilol 3.125 mg PO BIDWM 09/07/18 [History] Magnesium Hydroxide [Milk of Magnesia] 400 mg PO HS 09/07/18 [History] Mirtazapine 7.5 mg PO HS 09/07/18 [History] Nitrofurantoin (BID) [Macrobid] 100 mg PO HS 09/07/18 [History] Ondansetron HCl 8 mg PO Q8H PRN 09/07/18 [History] Peg 400/Hypromellose/Glycerin [Visine Tears Drops] 1 drop BOTH EYES QID PRN 09/07/18 [History] Saline Nasal [place] [[place] Nasal Truman] 2 spray NS BID PRN 09/07/18 [History] Tramadol HCl [Ultram] 50 mg PO Q12H PRN 09/07/18 [History] clonazePAM [Clonazepam] 0.5 mg PO BID 09/07/18 [History] Allergy/AdvReac Type Severity Reaction Status Date / Time esomeprazole [From Nexium] Allergy Difficulty Verified 11/15/17 09:41 Breathing levofloxacin [From Levaquin] Allergy Blister Verified 07/07/18 15:15 Amoxicillin [From Augmentin] AdvReac Nausea Verified 11/15/17 09:41 aspirin AdvReac Dizziness Verified 07/07/18 15:15 ciprofloxacin [From Cipro] AdvReac See Verified 07/07/18 15:15 Comments clavulanic acid AdvReac Nausea Verified 11/15/17 09:41 [From Augmentin] codeine AdvReac Dizziness Verified 07/07/18 15:15 Estrogens AdvReac Dizziness Verified 07/07/18 15:15 hydromorphone [Hydromorphone] AdvReac Dizziness Verified 07/07/18 15:15 meperidine AdvReac Dizziness Verified 07/07/18 15:15 morphine AdvReac Dizziness Verified 07/07/18 15:15 nitrofurantoin AdvReac Nausea Verified 07/07/18 15:15 NSAIDS (Non-Steroidal AdvReac Dizziness Verified 07/07/18 15:15 Anti-Inflamma oxycodone [Oxycodone] AdvReac Dizziness Verified 07/07/18 15:15 Paroxetine [From Paxil] AdvReac Nausea Verified 11/15/17 09:41 tolterodine [From Detrol] AdvReac Nausea Verified 11/15/17 09:41 - Assessment and Plan (1) UTI (urinary tract infection) Current Visit: No Status: Resolved Asymptomatic bacteriuria versus true infection. The patient denies any urinary symptoms on admission. Causative organism: [id number] Escherichia coli. The patient does have a history of chronic urinary tract infection secondary to pelvic prolapse analysis on chronic oral Macrobid for her urologist. CT of the abdomen and pelvis was negative for cystitis or pyelonephritis. No surgical criteria on admission. She did have some mild altered mental status per the family's report, but this has resolved despite what would be an adequate treatment for this type of infection. Currently on IV ertapenem. Qualifiers: Urinary tract infection type: site unspecified Hematuria presence: without hematuria Qualified Code(s): N39.0 - Urinary tract infection, site not specified SNOMED Code(s): 97899765 (2) Chest pain Current Visit: No Status: Resolved Etiology: Unclear. Troponins mildly elevated at 0.06/0.06/0.05. Further workup and management per the primary team. Qualifiers: Chest pain type: unspecified Qualified Code(s): R07.9 - Chest pain, unspecified SNOMED Code(s): 16465579 (3) Altered mental status Current Visit: No Status: Resolved Per family report. Patient is alert and oriented 3. Etiology: Hypercarbia versus dementia versus medications vs. other. Per nursing, appears to be back to baseline. Qualifiers: Altered mental status type: unspecified Qualified Code(s): R41.82 - Altered mental status, unspecified SNOMED Code(s): 658292561 (4) Pelvic prolapse Current Visit: Yes Status: Chronic Chronic. Follows with [facility]. Unable to tolerate pessary previously. Concern for incomplete emptying of the bladder contributing to recurrent UTI. Urology consulted. Qualifiers: Prolapse type: unspecified female genital prolapse Qualified Code(s): N81.9 - Female genital prolapse, unspecified SNOMED Code(s): 18655811 (5) Constipation Current Visit: No Status: Acute Noted on CT of the abdomen and pelvis. Bowel regimen per the primary team. Qualifiers: Constipation type: unspecified constipation type Qualified Code(s): K59.00 - Constipation, unspecified SNOMED Code(s): 63798028 (6) Head ache Current Visit: No Status: Chronic Daily migraines. Management per the primary team. Qualifiers: Headache type: tension-type Headache chronicity pattern: chronic headache Intractability: not intractable Qualified Code(s): G44.229 - Chronic tension- type headache, not intractable SNOMED Code(s): 65272570 (7) Allergy to multiple antibiotics Current Visit: Yes Status: Acute Levaquin-blisters. Augmentin and Macrobid-nausea (takes Macrobid daily). Cipro-unknown. SNOMED Code(s): 813790395605609 (8) Rheumatoid arthritis Current Visit: No Status: Chronic On chronic daily oral prednisone. Qualifiers: Rheumatoid arthritis location: multiple sites Rheumatoid factor presence: unspecified presence Qualified Code(s): M06.9 - Rheumatoid arthritis, unspecified SNOMED Code(s): 82909409 - Recommendations Recommendations: At this point, no convincing evidence that the patient had a true UTI. Most likely ASB. Recommend stopping antibiotics and observing. May need to consider stopping chronic macrobid as well since this strain of bacteria is resistant. Will discuss with Urology. Past Med Surg Social Fam HX - Past Medical History Medical history: arthritis, dementia, GERD, hyperlipidemia, hypertension, migraine, myocardial infarction, RA, thyroid disease, other Additional medical history: macular degeneration Psychiatric history: anxiety, depression - Past Surgical History Surgical History: appendectomy, cholecystectomy Additional surgical history: Plate in pelvis - Social History Smoking Status: Never smoker Smokeless Tobacco Status: No Alcohol use: none Drug use: none - Family History Mother Adopted: No Living Status: Hx Family Cardiac Disorders: Yes Father History Unknown: Yes Hx Family Cancer: Yes (colon cancer) Consult Discharge Plan - Plan Referrals: Pipe Marin DO [Partnered Physician] - - Attending Attestation I have personally performed a face to face evaluation on this patient. I have reviewed and agree with the care plan. History and Exam by me shows: This is an addendum to original report dictated by Ketty Gonzalez CNP. Please refer to Ketty's note for full detail. Patient is an 83-year-old woman who presented with altered mental status and chest pain. Patient was also noted to have bacteriuria with multidrug resistant Escherichia coli. Patient was treated with Rocephin initially which does not cover the Escherichia coli clinically she did better. CT abdomen and pelvis did not reveal any cystitis or pyelonephritis. Clinically patient doing well no sepsis criteria and no signs of cystitis or pyelonephritis. Patient was treated with ertapenem. Recommending stopping all antibiotics and observing. Patient also has multiple allergies to multiple antibiotics which makes the treatment hardware
--- NOTE | 2018-09-10 14:04 | Internal Med Progress Note ---
Hospitalist Progress Note - Encounter Date of Encounter: 09/10/18 Time of Encounter: 08:30 - Subjective Interval History: Ms. Schmidt is a 82 y/o F with known past medical history is significant for arthritis, migraine, macular degeneration, COPD, CAD, HTN, HLD, chronic hyper Respiratory failure on BiPAP at nighttime , aortic stenosis, advanced dementia and recurrent UTI who is currently on prophyalctic abx Macrobid pt was brought into ER by family on Monday stating pt is more confuse and lethargic. Her UA was abnormal and concerning for UTI. She was admitted in the hospital and started her on empirical antibiotic IV Rocephin. Today her urine culture came back as positive for ESBL E. Coli. She is more alert, awake and O x 3 today. Still feels very weak and lethargic. - Exam Vitals: Temp Pulse Resp BP Pulse Ox 98.3 F 77 17 158/82 93 09/10/18 11:57 09/10/18 11:57 09/10/18 11:57 09/10/18 11:57 09/10/18 11:57 Exam: Gen: Alert, awake, Oriented to time,place and person Chest: Diminished breath sounds B/L, No wheezing, No crackles, No rales Heart: S1S2+ RRR 2/6 murmurs Abd: Soft, NT, BS +, No organomegaly Ext: No edema, pulses are palpable, No calf tenderness Neuro : no focal neuro deficits noticed Skin: No rash. - Assessment and Plan (1) UTI (urinary tract infection) Current Visit: No Status: Ruled-out Assessment and Plan: Recurrent and complicated UTI Her urine cx growing ESBL E. Coli d/c Rocephin started her on Invanz Consulted ID for further eval With her past h/o bladder prolapse she is high risk for urinary retention, may need permanent estrada cath Consulted Urology for further eval (2) Encephalopathy acute Current Visit: No Status: Acute Assessment and Plan: Toxic encephalopathy due to UTI Improving (3) HTN (hypertension) Current Visit: No Status: Chronic Assessment and Plan: BP stable with current meds Cont all home meds (4) DVT prophylaxis Current Visit: No Status: Acute Assessment and Plan: started on Heparin SQ (5) Anxiety Current Visit: No Status: Acute Assessment and Plan: Stable Cont home klonopin Haldol PRN (6) Constipation Current Visit: No Status: Acute Assessment and Plan: ABD showed large amount of stool. Patient reported chronic constipation. Had BM 09/08. Continue senna (7) COPD (chronic obstructive pulmonary disease) Current Visit: No Status: Acute Assessment and Plan: per hx. No evidence of exacerbation. PRN bronchodilators. (8) Dementia Current Visit: No Status: Chronic Assessment and Plan: per hx. with increased confusion on arrival which is most likely secondary to UTI. Mentation back to baseline. Cont Supportive care. Fall precautions Haldol PRN (9) Migraine headache Current Visit: Yes Status: Acute Assessment and Plan: has known history of migraines with associated nausea. Cont home Fioricet (10) Osteoarthritis Current Visit: Yes Status: Chronic Assessment and Plan: per hx. Cont home low-dose steroids. (11) Chronic hypercapnic respiratory failure Current Visit: Yes Status: Acute Assessment and Plan: Use BiPAP at night time - Time Spent with Patient Total time spent is greater than 50% in coordination of care (as documented) at patient's floor/unit and/or counseling patient: Internal Medicine: Result - Labs CBC & Chem 7: 09/08/18 02:18 09/08/18 02:18 - ABG Interpretation ABG results: ABG ABG pH 7.40 pH Units (7.32-7.45) 09/08/18 17:16 ABG pCO2 54 mmHg (35-45) H 09/08/18 17:16 ABG pO2 76 mmHg (85-104) L 09/08/18 17:16 ABG O2 Saturation 95 % (95-98) 09/08/18 17:16 Consult Discharge Plan - Plan Referrals: Pipe Marin DO [Partnered Physician] - (1) UTI (urinary tract infection) Qualifiers: Hematuria presence: with hematuria Qualified Code(s): N39.0 - Urinary tract infection, site not specified; R31.9 - Hematuria, unspecified (3) HTN (hypertension) Qualifiers: Hypertension type: essential hypertension Qualified Code(s): I10 - Essential (primary) hypertension (6) Constipation Qualifiers: Constipation type: unspecified constipation type Qualified Code(s): K59.00 - Constipation, unspecified (7) 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 type: unspecified Qualified Code(s): J43.9 - Emphysema, unspecified (8) Dementia Qualifiers: Dementia type: unspecified type Dementia behavioral disturbance: with behavioral disturbance Qualified Code(s): F03.91 - Unspecified dementia with behavioral disturbance (9) Migraine headache Qualifiers: Migraine type: unspecified Status migrainosus presence: without status migrainosus Intractability: not intractable Qualified Code(s): G43.909 - Migraine, unspecified, not intractable, without status migrainosus (10) Osteoarthritis Qualifiers: Qualified Code(s): M19.90 - Unspecified osteoarthritis, unspecified site
[2018-09-10] MEDS: Ondansetron ODT 4 MG TAB.RAPDIS PO SCH ×2 (15:04→17:54)
[2018-09-10] MEDS: Melatonin 3 MG TABLET PO SCH (20:23)
[2018-09-10] MEDS: MOM Conc 10 ML UD.LIQ PO SCH (20:23)
[2018-09-11] MEDS: Acetaminophen/Butalbital/CaffeineTABLET PO SCH ×6 (02:02→21:50)
[2018-09-11] MEDS: Ipratropium/Albuterol Neb 3 ML IH SCH ×5 (03:37→19:54)
[2018-09-11] MEDS: *HR* Enoxaparin 40 MG/0.4 ML SYRINGE SQ SCH (06:32)
--- NOTE | 2018-09-11 08:43 | Urology Progress Note ---
Date of Encounter: 09/11/18 Time of Encounter: 08:00 - Assessment and Plan (1) UTI (urinary tract infection) Current Visit: Yes Status: Acute Assessment and plan: Patient is an 83-year-old female who presents with multi drug resistant ESBL Escherichia coli urinary tract infection. Vital signs are currently stable and afebrile. Patient is receiving IV ertapenem. Denny catheter is indwelling and draining sufficiently. I explained to patient, her daughter that she will require an extended admission for IV antibiotics. I do recommend patient being discharged with indwelling Denny catheter, and we will arrange for prompt outpatient follow-up to discuss long-term management of incomplete bladder emptying with Dr. Dior. Qualifiers: Urinary tract infection type: site unspecified Hematuria presence: without hematuria Qualified Code(s): N39.0 - Urinary tract infection, site not specified Progress Note Subjective: no new complaints Narrative: Patient seen and examined sitting upright in bed eating breakfast in no apparent distress. Patient states appetite is returning, and she is tolerating normal diet without nausea or vomiting. Patient denies fever or chills. Denny catheter is indwelling draining transparent, clear yellow urine and bedside bag. Objective Initial Vital Signs Temp Pulse Resp BP Pulse Ox 98.6 F 88 18 161/85 99 09/07/18 18:13 09/07/18 18:13 09/07/18 18:13 09/07/18 18:13 09/07/18 18:13 - General physical appearance Present: no distress, no pain - Respiratory Present: normal expansion, normal respiratory effort - Abdomen Present: soft, non tender - Genitourinary Present: other (no CVAT) Urine Appearance: Present: Clear - Integumentary Present: no rash, no abnormal pigmentation - Musculoskeletal Present: normal posture - Psychiatric Present: oriented to time, oriented to person, oriented to place, speech is normal - Labs 09/08/18 02:18 09/08/18 02:18 Consult Discharge Plan - Plan Referrals: Pipe Marin DO [Partnered Physician] -
[2018-09-11] MEDS: Lactobacillus 1 EACH CAP.SPRINK PO SCH (09:36)
[2018-09-11] MEDS: Sennosides/Docusate Sodium TABLET PO SCH ×2 (09:36→21:45)
[2018-09-11] MEDS: predniSONE 5 MG TABLET PO SCH (09:36)
[2018-09-11] MEDS: clonazePAM 0.5 MG TABLET PO SCH ×2 (09:36→21:45)
[2018-09-11] MEDS: Mag Hydrox/Al Hydrox/Simeth 30 ML UDC PO PRN (09:39)
--- NOTE | 2018-09-11 15:05 | Internal Med Progress Note ---
Hospitalist Progress Note - Encounter Date of Encounter: 09/11/18 Time of Encounter: 08:45 - Subjective Interval History: Ms. Schmidt is a 82 y/o F with known past medical history is significant for arthritis, migraine, macular degeneration, COPD, CAD, HTN, HLD, chronic hyper Respiratory failure on BiPAP at nighttime , aortic stenosis, advanced dementia and recurrent UTI who is currently on prophyalctic abx Macrobid pt was brought into ER by family on Monday stating pt is more confuse and lethargic. Her UA was abnormal and concerning for UTI. She was admitted in the hospital and started her on empirical antibiotic IV Rocephin. Her urine culture came back as positive for ESBL E. Coli. She is more alert, awake and O x 3 today. Still feels very weak and lethargic. Denied any more abd pain / Nausea. Tolerating PO intake well. Had Estrada placed y/d due to urinary retention with bladder prolapse. - Exam Vitals: Temp Pulse Resp BP Pulse Ox 98.4 F 82 18 161/97 97 09/11/18 10:39 09/11/18 10:39 09/11/18 11:49 09/11/18 10:39 09/11/18 11:49 Exam: Gen: Alert, awake, Oriented to time,place and person Chest: Diminished breath sounds B/L, No wheezing, No crackles, No rales Heart: S1S2+ RRR 2/6 murmurs Abd: Soft, NT, BS +, No organomegaly Ext: No edema, pulses are palpable, No calf tenderness Neuro : no focal neuro deficits noticed Skin: No rash. - Assessment and Plan (1) UTI (urinary tract infection) Current Visit: No Status: Ruled-out Assessment and Plan: Recurrent and complicated UTI Her urine cx growing ESBL E. Coli started her on Invanz ID evaluated the pt and do not believe she had UTI since pt never had symptoms So stopped her IV Invanz today and monitor closely for now With her past h/o bladder prolapse she is high risk for urinary retention, may need permanent estrada cath Urology evaluated the pt and recommend to continue Estrada cath for now and out pt f/u with Urology (2) Encephalopathy acute Current Visit: No Status: Acute Assessment and Plan: Toxic encephalopathy due to UTI Improved (3) HTN (hypertension) Current Visit: No Status: Chronic Assessment and Plan: BP stable with current meds Cont all home meds (4) DVT prophylaxis Current Visit: No Status: Acute Assessment and Plan: started on Heparin SQ (5) Anxiety Current Visit: No Status: Acute Assessment and Plan: Stable Cont home klonopin Haldol PRN (6) Constipation Current Visit: No Status: Acute Assessment and Plan: ABD showed large amount of stool. cont stool softeners (7) COPD (chronic obstructive pulmonary disease) Current Visit: No Status: Acute Assessment and Plan: per hx. No evidence of exacerbation. PRN bronchodilators. (8) Dementia Current Visit: No Status: Chronic Assessment and Plan: per hx. with increased confusion on arrival which is most likely secondary to UTI. Mentation back to baseline. Cont Supportive care. Fall precautions Haldol PRN (9) Migraine headache Current Visit: Yes Status: Acute Assessment and Plan: has known history of migraines with associated nausea. Cont home Fioricet (10) Osteoarthritis Current Visit: Yes Status: Chronic Assessment and Plan: per hx. Cont home low-dose steroids. (11) Chronic hypercapnic respiratory failure Current Visit: Yes Status: Acute Assessment and Plan: Use BiPAP at night time - Time Spent with Patient Total time spent is greater than 50% in coordination of care (as documented) at patient's floor/unit and/or counseling patient: Internal Medicine: Result - Labs CBC & Chem 7: 09/08/18 02:18 09/08/18 02:18 - ABG Interpretation ABG results: ABG ABG pH 7.40 pH Units (7.32-7.45) 09/08/18 17:16 ABG pCO2 54 mmHg (35-45) H 09/08/18 17:16 ABG pO2 76 mmHg (85-104) L 09/08/18 17:16 ABG O2 Saturation 95 % (95-98) 09/08/18 17:16 Consult Discharge Plan - Plan Referrals: Pipe Marin DO [Partnered Physician] - (1) UTI (urinary tract infection) Qualifiers: Hematuria presence: with hematuria Qualified Code(s): N39.0 - Urinary tract infection, site not specified; R31.9 - Hematuria, unspecified (3) HTN (hypertension) Qualifiers: Hypertension type: essential hypertension Qualified Code(s): I10 - Essential (primary) hypertension (6) Constipation Qualifiers: Constipation type: unspecified constipation type Qualified Code(s): K59.00 - Constipation, unspecified (7) 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 type: unspecified Qualified Code(s): J43.9 - Emphysema, unspecified (8) Dementia Qualifiers: Dementia type: unspecified type Dementia behavioral disturbance: with behavioral disturbance Qualified Code(s): F03.91 - Unspecified dementia with behavioral disturbance (9) Migraine headache Qualifiers: Migraine type: unspecified Status migrainosus presence: without status migrainosus Intractability: not intractable Qualified Code(s): G43.909 - Migraine, unspecified, not intractable, without status migrainosus (10) Osteoarthritis Qualifiers: Qualified Code(s): M19.90 - Unspecified osteoarthritis, unspecified site
[2018-09-11] MEDS: Ondansetron ODT 4 MG TAB.RAPDIS PO SCH (16:54)
[2018-09-11] MEDS: MOM Conc 10 ML UD.LIQ PO SCH (21:44)
[2018-09-11] MEDS: Melatonin 3 MG TABLET PO SCH (21:45)
[2018-09-12] MEDS: Acetaminophen/Butalbital/CaffeineTABLET PO SCH ×3 (01:25→08:41)
[2018-09-12] MEDS: Ipratropium/Albuterol Neb 3 ML IH SCH ×3 (03:23→07:17)
[2018-09-12 05:54] LABS: Basophils % 0.7 %; Eosinophils # 0.2 K/mcL (0.0-0.6); Eosinophils % 5.4 %; Hemoglobin 10.5 g/dL (11.5-15.4); Lymphocytes # 1.6 K/mcL (0.6-4.6); Lymphocytes % 38.8 %; Mean Corpuscular HGB Conc 31.8 g/dL (31.6-35.5); Mean Corpuscular Hemoglobin 34.1 pg (28.0-33.3); Mean Corpuscular Volume 107.1 fL (83.0-100.0); Mean Platelet Volume 11.4 fL (9.4-12.4); Monocytes # 0.4 K/mcL (0.0-1.3); Monocytes % 10.8 %; Neutrophils # 1.8 K/mcL (1.6-8.9); Platelet Count 122 K/mcL (140-400); Red Blood Count 3.08 M/mcL (3.82-4.97); Red Cell Distribution Width 12.5 % (11.5-14.5); Segmented Neutrophils % 44.3 %
[2018-09-12 06:16] LABS: BUN/Creatinine Ratio 29 (6-26); Blood Urea Nitrogen 18 mg/dL (8-23); Calcium 9.2 mg/dL (8.6-10.3); Carbon Dioxide 33 mEq/L (23-29); Chloride 96 mEq/L (98-107); Glucose 128 mg/dL (70-105); Osmolality,Calculated 286 (280-300); Potassium 4.1 mEq/L (3.5-5.1); Sodium 136 mEq/L (136-145); eGFR For Non-African Americans > 60 (> 60)
[2018-09-12] MEDS: *HR* Enoxaparin 40 MG/0.4 ML SYRINGE SQ SCH ×2 (06:23→06:29)
[2018-09-12 08:16] VITALS: BP 145/62
[2018-09-12] MEDS: clonazePAM 0.5 MG TABLET PO SCH (08:43)
[2018-09-12] MEDS: Lactobacillus 1 EACH CAP.SPRINK PO SCH (08:44)
[2018-09-12] MEDS: predniSONE 5 MG TABLET PO SCH (08:48)
[2018-09-12] MEDS: Sennosides/Docusate Sodium TABLET PO SCH (08:48)
--- NOTE | 2018-09-12 09:47 | Discharge Summary ---
- NOTES TO OUTPATIENT PROVIDER Notes to Outpatient Provider: f/u with PCP in one week. Please continue Estrada catheter until you follow up with Urology. f/u with Urology in 1-2 weeks. Date of Encounter: 09/12/18 Time of Encounter: 09:36 - Discharge Diagnosis (1) UTI (urinary tract infection) Priority: Primary Status: Ruled-out Qualifiers: Hematuria presence: with hematuria Qualified Code(s): N39.0 - Urinary tract infection, site not specified; R31.9 - Hematuria, unspecified (2) Encephalopathy acute Priority: Primary Status: Acute (3) HTN (hypertension) Priority: Secondary Status: Chronic Qualifiers: Hypertension type: essential hypertension Qualified Code(s): I10 - Essential (primary) hypertension (4) DVT prophylaxis Priority: Secondary Status: Acute (5) Anxiety Priority: Secondary Status: Acute (6) Constipation Priority: Secondary Status: Acute Qualifiers: Constipation type: unspecified constipation type Qualified Code(s): K59.00 - Constipation, unspecified (7) COPD (chronic obstructive pulmonary disease) Priority: Secondary Status: Acute Qualifiers: COPD type: emphysema Emphysema type: unspecified Qualified Code(s): J43.9 - Emphysema, unspecified (8) Dementia Priority: Secondary Status: Chronic Qualifiers: Dementia type: unspecified type Dementia behavioral disturbance: with behavioral disturbance Qualified Code(s): F03.91 - Unspecified dementia with behavioral disturbance (9) Migraine headache Priority: Secondary Status: Acute Qualifiers: Migraine type: chronic without aura Status migrainosus presence: without status migrainosus Intractability: not intractable Qualified Code(s): G43.709 - Chronic migraine without aura, not intractable, without status migrainosus (10) Osteoarthritis Priority: Secondary Status: Chronic Qualifiers: Qualified Code(s): M19.90 - Unspecified osteoarthritis, unspecified site (11) Chronic hypercapnic respiratory failure Priority: Secondary Status: Acute Hospital course: Ms. Schmidt is a 82 y/o F with known past medical history is significant for arthritis, migraine, macular degeneration, COPD, CAD, HTN, HLD, chronic hyper Respiratory failure on BiPAP at nighttime , aortic stenosis, advanced dementia and recurrent UTI who is currently on prophylactic abx Macrobid pt was brought into ER by family on Monday stating pt is more confuse and lethargic. Her UA was abnormal and concerning for UTI. She was admitted in the hospital and started her on empirical antibiotic IV Rocephin. Her urine culture came back as positive for ESBL E. Coli. So we switched her Abx to Invanz and consulted Urology and ID for further eval. Regarding her pelvic prolapse which might be causing her recurrent UTI with urinary retention, Urology recommend continuous Estrada cath for now and f.u with them as an out pt. She was seen by ID who sugg lcayd to stop the abx since she did not have lot of UTI symptoms and her confusion got better even before we placed her on right abx. Since she does have asymptomatic bacteriuria, ID did not recommend to treat with Abx Invaz, also recommend to stop prophylactic Macrobid . Recommend to continue estrada and f/u with Urology as an out pt. - Time Spent with Patient Total time spent providing and/or coordinating discharge services: - Discharge Medications Prescriptions: Continued Acetaminophen/Butalbital/Caffe [Fioricet] 1.5 each PO Q4HR Lisinopril [Zestril] 10 mg PO 0800,1400 Ipratropium/Albuterol Sulfate [Iprat-Albut 0.5-3(2.5) mg/3 ml] 3 ml IH Q4HR Ondansetron ODT [Zofran ODT] 4 mg PO 1500 Lactobacillus Acidophilus [Acidophilus] 1 tab PO DAILY Albuterol Neb [Proventil Neb] 2.5 mg IH Q2H PRN PRN Reason: Shortness Of Breath predniSONE [PredniSONE] 5 mg PO DAILY Levothyroxine [Synthroid] 100 mcg PO 0600 Mag Hydrox/Al Hydrox/Simeth [Maalox] 10 ml PO QID PRN PRN Reason: Stomach Upset Quetiapine Fumarate [Seroquel] 25 mg PO HS #15 tablet Melatonin 3 mg PO HS #0 tablet Atorvastatin Calcium [Lipitor] 20 mg PO HS Carvedilol 3.125 mg PO BIDWM Magnesium Hydroxide [Milk of Magnesia] 400 mg PO HS Peg 400/Hypromellose/Glycerin [Visine Tears Drops] 1 drop BOTH EYES QID PRN PRN Reason: Dry Eyes Tramadol HCl [Ultram] 50 mg PO Q12H PRN PRN Reason: Pain Mirtazapine 7.5 mg PO HS Ondansetron HCl 8 mg PO Q8H PRN PRN Reason: Nausea And Vomiting Saline Nasal [place] [[place] Nasal [place]] 2 spray NS BID PRN PRN Reason: Dry Nasal Passages clonazePAM [Clonazepam] 0.5 mg PO BID 5 Days #10 tablet Temazepam [Restoril] 7.5 mg PO HS 15 Days #15 capsule Discontinued Nitrofurantoin (BID) [Macrobid] 100 mg PO HS Home Medications: Acetaminophen/Butalbital/Caffe [Fioricet] 1.5 each PO Q4HR 07/07/18 [History] Albuterol Neb [Proventil Neb] 2.5 mg IH Q2H PRN 07/07/18 [History] Ipratropium/Albuterol Sulfate [Iprat-Albut 0.5-3(2.5) mg/3 ml] 3 ml IH Q4HR 07/07/18 [History] Lactobacillus Acidophilus [Acidophilus] 1 tab PO DAILY 07/07/18 [History] Levothyroxine [Synthroid] 100 mcg PO 0600 07/07/18 [History] Lisinopril [Zestril] 10 mg PO 0800,1400 07/07/18 [History] Mag Hydrox/Al Hydrox/Simeth [Maalox] 10 ml PO QID PRN 07/07/18 [History] Ondansetron ODT [Zofran ODT] 4 mg PO 1500 07/07/18 [History] predniSONE [PredniSONE] 5 mg PO DAILY 07/07/18 [History] Melatonin 3 mg PO HS #0 tablet 07/16/18 [Rx] Quetiapine Fumarate [Seroquel] 25 mg PO HS #15 tablet 07/16/18 [Rx] Atorvastatin Calcium [Lipitor] 20 mg PO HS 09/07/18 [History] Carvedilol 3.125 mg PO BIDWM 09/07/18 [History] Magnesium Hydroxide [Milk of Magnesia] 400 mg PO HS 09/07/18 [History] Mirtazapine 7.5 mg PO HS 09/07/18 [History] Ondansetron HCl 8 mg PO Q8H PRN 09/07/18 [History] Peg 400/Hypromellose/Glycerin [Visine Tears Drops] 1 drop BOTH EYES QID PRN 09/07/18 [History] Saline Nasal [place] [[place] Nasal [place]] 2 spray NS BID PRN 09/07/18 [History] Tramadol HCl [Ultram] 50 mg PO Q12H PRN 09/07/18 [History] Temazepam [Restoril] 7.5 mg PO HS 15 Days #15 capsule 09/12/18 [Rx] clonazePAM [Clonazepam] 0.5 mg PO BID 5 Days #10 tablet 09/12/18 [Rx] Allergies/Adverse Reactions: Allergy/AdvReac Type Severity Reaction Status Date / Time esomeprazole [From Nexium] Allergy Difficulty Verified 11/15/17 09:41 Breathing levofloxacin [From Levaquin] Allergy Blister Verified 07/07/18 15:15 Amoxicillin [From Augmentin] AdvReac Nausea Verified 11/15/17 09:41 aspirin AdvReac Dizziness Verified 07/07/18 15:15 ciprofloxacin [From Cipro] AdvReac See Verified 07/07/18 15:15 Comments clavulanic acid AdvReac Nausea Verified 11/15/17 09:41 [From Augmentin] codeine AdvReac Dizziness Verified 07/07/18 15:15 Estrogens AdvReac Dizziness Verified 07/07/18 15:15 hydromorphone [Hydromorphone] AdvReac Dizziness Verified 07/07/18 15:15 meperidine AdvReac Dizziness Verified 07/07/18 15:15 morphine AdvReac Dizziness Verified 07/07/18 15:15 nitrofurantoin AdvReac Nausea Verified 07/07/18 15:15 NSAIDS (Non-Steroidal AdvReac Dizziness Verified 07/07/18 15:15 Anti-Inflamma oxycodone [Oxycodone] AdvReac Dizziness Verified 07/07/18 15:15 Paroxetine [From Paxil] AdvReac Nausea Verified 11/15/17 09:41 tolterodine [From Detrol] AdvReac Nausea Verified 11/15/17 09:41 Date of admission: 09/10/18 09:40 Primary care physician: PCP NONE Consults: 09/10/18 08:57 Consult to Urology [CONS] Routine Consulting Provider: Urology [place] Reason for Consult: recurrent UTI..now with ESBL E. Coli Time Notified: 09:00 Call Completed: Yes 09/10/18 09:01 Consult to Infectious Diseases [CONS] Routine Consulting Provider: Infectious Disease Monica Reason for Consult: recurrent UTI -- Now with ESBL E. Coli Time Notified: 09:04 Call Completed: Yes 09/10/18 09:09 Consult to [facility] [CONS] Routine Reason for SW Consult: PATIENT FROM TRADITIONS - Constitutional Vitals: Temp Pulse Resp BP Pulse Ox 98.1 F 89 16 145/62 94 09/12/18 08:15 09/12/18 08:15 09/12/18 08:15 09/12/18 08:15 09/12/18 08:15 General appearance: Present: cooperative, A&O X 3, no acute distress, answers questions appropriately Exam: Gen: Alert, awake, Oriented to time,place and person Chest: Diminished breath sounds B/L, No wheezing, No crackles, No rales Heart: S1S2+ RRR 2/6 murmurs Abd: Soft, NT, BS +, No organomegaly Ext: No edema, pulses are palpable, No calf tenderness Neuro : no focal neuro deficits noticed Skin: No rash. - Patient Status Disposition: Transfer SNF Condition: Good Overall status at discharge: patient is back to baseline - Discharge Instructions Instructions: Urinary Tract Infection in Women (DC) Follow Up With: Pipe Marin DO [Partnered Physician] - Royce Dior MD [Partnered Physician] - - Diet and Activity Activity: increase activity as tolerated, wear oxygen at all times Diet: low salt diet
--- NOTE | 2018-09-12 09:49 | Physician Discharge Referral ---
ExtendedCare Referral Info Transfer To: ECF Provider in Charge after Transfer: PCP Institutional Level of Care: Skilled - Diagnosis (1) UTI (urinary tract infection) Status: Ruled-out (2) Encephalopathy acute Status: Acute (3) HTN (hypertension) Status: Chronic (4) DVT prophylaxis Status: Acute (5) Anxiety Status: Acute (6) Constipation Status: Acute (7) COPD (chronic obstructive pulmonary disease) Status: Acute (8) Dementia Status: Chronic (9) Migraine headache Status: Acute (10) Osteoarthritis Status: Chronic (11) Chronic hypercapnic respiratory failure Status: Acute - Transfer Medications Prescriptions: clonazePAM [Clonazepam] 0.5 mg PO BID 5 Days #10 tablet Temazepam [Restoril] 7.5 mg PO HS 15 Days #15 capsule Home Medications: Acetaminophen/Butalbital/Caffe [Fioricet] 1.5 each PO Q4HR 07/07/18 [History] Albuterol Neb [Proventil Neb] 2.5 mg IH Q2H PRN 07/07/18 [History] Ipratropium/Albuterol Sulfate [Iprat-Albut 0.5-3(2.5) mg/3 ml] 3 ml IH Q4HR 07/07/18 [History] Lactobacillus Acidophilus [Acidophilus] 1 tab PO DAILY 07/07/18 [History] Levothyroxine [Synthroid] 100 mcg PO 0600 07/07/18 [History] Lisinopril [Zestril] 10 mg PO 0800,1400 07/07/18 [History] Mag Hydrox/Al Hydrox/Simeth [Maalox] 10 ml PO QID PRN 07/07/18 [History] Ondansetron ODT [Zofran ODT] 4 mg PO 1500 07/07/18 [History] predniSONE [PredniSONE] 5 mg PO DAILY 07/07/18 [History] Melatonin 3 mg PO HS #0 tablet 07/16/18 [Rx] Quetiapine Fumarate [Seroquel] 25 mg PO HS #15 tablet 07/16/18 [Rx] Atorvastatin Calcium [Lipitor] 20 mg PO HS 09/07/18 [History] Carvedilol 3.125 mg PO BIDWM 09/07/18 [History] Magnesium Hydroxide [Milk of Magnesia] 400 mg PO HS 09/07/18 [History] Mirtazapine 7.5 mg PO HS 09/07/18 [History] Ondansetron HCl 8 mg PO Q8H PRN 09/07/18 [History] Peg 400/Hypromellose/Glycerin [Visine Tears Drops] 1 drop BOTH EYES QID PRN 09/07/18 [History] Saline Nasal [place] [[place] Nasal [place]] 2 spray NS BID PRN 09/07/18 [History] Tramadol HCl [Ultram] 50 mg PO Q12H PRN 09/07/18 [History] Temazepam [Restoril] 7.5 mg PO HS 15 Days #15 capsule 09/12/18 [Rx] clonazePAM [Clonazepam] 0.5 mg PO BID 5 Days #10 tablet 09/12/18 [Rx] Allergies/Adverse Reactions: Allergy/AdvReac Type Severity Reaction Status Date / Time esomeprazole [From Nexium] Allergy Difficulty Verified 11/15/17 09:41 Breathing levofloxacin [From Levaquin] Allergy Blister Verified 07/07/18 15:15 Amoxicillin [From Augmentin] AdvReac Nausea Verified 11/15/17 09:41 aspirin AdvReac Dizziness Verified 07/07/18 15:15 ciprofloxacin [From Cipro] AdvReac See Verified 07/07/18 15:15 Comments clavulanic acid AdvReac Nausea Verified 11/15/17 09:41 [From Augmentin] codeine AdvReac Dizziness Verified 07/07/18 15:15 Estrogens AdvReac Dizziness Verified 07/07/18 15:15 hydromorphone [Hydromorphone] AdvReac Dizziness Verified 07/07/18 15:15 meperidine AdvReac Dizziness Verified 07/07/18 15:15 morphine AdvReac Dizziness Verified 07/07/18 15:15 nitrofurantoin AdvReac Nausea Verified 07/07/18 15:15 NSAIDS (Non-Steroidal AdvReac Dizziness Verified 07/07/18 15:15 Anti-Inflamma oxycodone [Oxycodone] AdvReac Dizziness Verified 07/07/18 15:15 Paroxetine [From Paxil] AdvReac Nausea Verified 11/15/17 09:41 tolterodine [From Detrol] AdvReac Nausea Verified 11/15/17 09:41 - Respiratory Orders Smoking Cessation: Smoking cessation has been advised. For more information, call the [place] Tobacco Quit Line at 0-844-JLLB-NOW. CERTIFICATION: I certify that the transfer of the above named patient to an Extended Care Facility is necessary for the continuing treatment of the diagnosis listed. The above information is true and accurate reflection of patient's current condition. Confidential - Redisclosure prohibited without a patient's written consent.
[2018-09-12] MEDS ORDERED: Fluconazole 100 MG TABLET PO ONE (09:55)
== END 2018-09-12 10:29 | DRG 689 ==
LOC: EMEROOARM 18:06 → 3BNU 18:06 → SUATTDRO 22:46 → 3BNU 23:57
PROVIDERS: ADMIT Internal Medicine; ATTEND Family Medicine